=== PATIENT | female | born 1985 | race Caucasian/White ===

== ENCOUNTER → 2018-07-22 11:26 | Outpatient (CLI) | payer OTHER, SELFPAY ==
--- NOTE | 2018-07-22 11:31 | EKG12_ITS ---
Test Reason : CP Blood Pressure : / mmHG Vent. Rate : 074 BPM Atrial Rate : 074 BPM P-R Int : 118 ms QRS Dur : 088 ms QT Int : 378 ms P-R-T Axes : 050 053 036 degrees QTc Int : 419 ms Normal sinus rhythm Normal ECG Confirmed by MANDA STUART MD ([id number]), deputy editor in chief JENNIFER BUSTAMANTE ([id number] on 07/23/2018 2:11:50 PM Referred By: SAMPSON Roberto Confirmed By:MANDA STUART MD
== END ==
LOC: CVS 11:29
PROVIDERS: Family Provider Nurse Practitioner Family; PCP Nurse Practitioner Family; Referring Provider Nurse Practitioner Family; Visit Provider Nurse Practitioner Family
DX: R07.89 Other chest pain (principal)
CPT/HCPCS: 93005

== ENCOUNTER 2021-08-12 16:13 | Emergency (ER) | payer OTHER, SELFPAY ==
[2021-08-12 16:14] VITALS: BP 130/85; PULSE 114; RESP 16; TEMP 36.4; BMI 25.6
[2021-08-12 16:19] VITALS: BP 130/85; PULSE 114; RESP 16; TEMP 36.4
--- NOTE | 2021-08-12 18:55 | EX.ED.UPPERE ---
HPI History of Present Illness HPI Narrative: Patient presents with redness and swelling to her right fourth and fifth fingers that has been getting progressively worse over the last 3 days. Patient describes her pain as dull and tight. Patient states nothing makes it worse and nothing makes it better. Patient denies any fevers or chills. Patient denies any paresthesias or weakness. Patient denies any trauma or injury. Patient states the swelling started on her ring finger and has spread to her fifth finger. Patient denies any pain or swelling of other digits. Chief Complaint: Upper Extremity Injury Informant: patient Onset/Context/Timing Onset: Days (3) Context: Gradual Onset Timing: Continuous Quality of Pain: Dull Location: Right fourth and fifth fingers Worsened by: Nothing Relieved by: Nothing Associated Symptoms Associated Symptoms: Negative for Parasthesia, Weakness and Loss of Funtion PFSH PFS Medical History Anxiety Back pain Diabetes Home Medications cephalexin 500 mg PO Q6 #40 capsule 08/12/21 [Rx Last Taken Unknown] cholecalciferol (vitamin D3) 2,000 unit PO DAILY 08/12/21 [History Last Taken Unknown] metformin 500 mg PO BID 08/12/21 [History Last Taken Unknown] Allergy/AdvReac Type Severity Reaction Status Date / Time aripiprazole [From Abilify] Allergy Swelling Verified 08/12/21 16:19 Gadolinium-MRI Contrast Allergy PT UNSURE Verified 08/12/21 16:19 Medium OF REACTION [MRI] amphetamine [From Adderall] AdvReac PT UNSURE Verified 08/12/21 16:19 OF REACTION codeine AdvReac Itching Verified 08/12/21 16:19 dextroamphetamine AdvReac PT UNSURE Verified 08/12/21 16:19 [From Adderall] OF REACTION hydrocodone AdvReac Itching Verified 08/12/21 16:19 lamotrigine [From Lamictal] AdvReac NEEDS Verified 08/12/21 16:19 FOLLOW-UP Surgical History History of cholecystectomy Social History Smoking Status: Current every day smoker tobacco type: cigarettes ROS ROS ED Constitutional Constitutional ED: Denies chills or fever(s) Eyes Eyes: Denies blurry vision or change in vision ENT ENT ED: Denies rhinorrhea or sore throat Cardiovascular Cardiovascular: Denies chest pain or palpitations Respiratory/Chest Respiratory/Chest: Reports cough; Denies dyspnea Gastrointestinal Gastrointestinal: Denies nausea or vomiting Genitourinary Genitourinary ED: Denies dysuria or hematuria Musculoskeletal Musculoskeletal: Denies back pain or neck pain Integumentary Denies abscess or rash Neurologic Neurologic: Denies headache(s) or weakness Allergic/Immunologic Allergic/Immunologic ED: Denies mouth swelling or urticaria EXAM Physical Exam Const Vital Signs: 08/12/21 16:14 08/12/21 16:19 Temperature 97.6 F L 97.6 F L Temperature Source Temporal Temporal Pulse Rate 114 H 114 H Respiratory Rate 16 16 Blood Pressure 130/85 H 130/85 H Blood Pressure Mean 100 100 Positive well nourished and well developed General Appearance ED: well developed HEENT Reports moist mucous membranes Neck full ROM and supple Extremity Extremity Narrative: There is some mild edema and erythema over the fourth and fifth digits of the right hand. There is no pain with passive extension. There is no tenderness along the flexor tendon. Capillary refill was less than 2 seconds in all digits. Sensation was intact to light touch in all digits. Radial pulses are equal bilaterally. Neuro oriented x3, CN's II-XII intact bilaterally, moves all extremities, no focal motor deficits and no sensory deficits noted Sensorium / Orientation: alert MDM MDM MDM Narrative Medical decision making narrative: Patient was given a dose of Ancef here. CBC shows a mild leukocytosis of 12.2. Comprehensive metabolic profile was within normal limits. Patient was advised that this is most likely a cellulitis of her fingers. Patient does not have any Knavel signs that indicate flexor tenosynovitis. Patient was given a prescription for Keflex. Patient was instructed to follow-up with her primary care physician in 5 to 7 days. Patient understood and was agreeable with the plan. All questions were answered. Discharge Plan Triage Chief Complaint: Upper Extremity Injury ED Provider: Israel Saunders Dx/Rx/DC Orders Clinical Impression: Cellulitis of finger of right hand Instructions: ED Cellulitis Prescriptions: New cephalexin [cephalexin] 500 MG capsule 500 mg PO Q6 Qty: 40 RF: 0 No Action metformin 500 mg tablet extended release 24 hr 500 mg PO BID RF: 0 cholecalciferol (vitamin D3) 50 mcg (2,000 unit) capsule 2,000 unit PO DAILY RF: 0 Primary Care Provider: Chrissy Yeboah Referrals: Chrissy Yeboah MD [Primary Care Provider] - 3-5 Days Disposition Disposition: Home, Self Care
[2021-08-12] MEDS: Cefazolin 1 GM/50 ML BAG IV (19:33)
[2021-08-12 19:46] LABS: AST(SGOT) 28 U/L (15-37); Alanine Aminotransfer ALT/SGPT 17 U/L (13-56); Albumin, Serum 3.8 g/dL (3.2-5.0); Alkaline Phosphatase 84 U/L (45-117); Anion Gap 6 (5-15); BUN 7 mg/dL (7-18); BUN/Creat Ratio 9.7 RATIO (10-20); Calcium,Total 9.4 mg/dL (8.5-10.1); Chloride 108 mmol/L (98-107); Creatinine, Serum 0.72 mg/dL (0.55-1.02); EST Glomerular Filtration Rate 96 mL/min (>60); Est Glom Filt Rate - Afr Amer 116 mL/min (>60); Estimated Creatinine Clearance 79.94 ml/min; Globulin 3.9 g/dL (2.2-4.2); Glucose 86 mg/dL (74-106); Potassium 3.8 mmol/L (3.5-5.1); Protein, Total 7.7 g/dL (6.4-8.2); Sodium Level 138 mmol/L (136-145)
[2021-08-12 19:47] LABS: Absolute Lymphocyte Count 2.47 X10^3/uL (0.83-4.51); Absolute Neutrophil Count 8.8 X10^3/uL (2.0-7.7); Basophil# 0.04 X10^3/uL; Basophil% 0.3 % (0-1); Eosinophils% 0.8 % (0-5); Hematocrit 46.6 % (37-47); Hemoglobin 15.6 g/dL (12.0-15.0); Lymphocyte # 2.47 X10^3/ul (0.83-4.51); Lymphocyte % 20.3 % (19-41); Mean Corp Hgb Conc 33.5 g/dL (32-36); Mean Corpuscular Hgb 31.5 pg (27.0-32.0); Mean Platelet Vol. 8.4 fl (6.2-12.0); Monocyte# 0.71 X10^3/uL; Monocyte% 5.8 % (0-10); NRBC Flagged by Analyzer 0 % (0-5); Neutrophil # 8.82 X10^3/uL (2.7-7.7); Neutrophil % 72.4 % (47-70); Platelet Count 275 K/mm3 (150-450); RBC Distribution Width CV 13.5 % (11.6-14.6); RBC Distribution Width SD 46.6 fl (35.1-43.9); Red Blood Count 4.96 M/mm3 (4.2-5.4); White Blood Count 12.2 K/mm3 (4.4-11.0)
[2021-08-12 20:42] VITALS: PULSE 90; RESP 18
== END 2021-08-12 20:43 | disposition home or self-care (01) ==
PROVIDERS: Emergency Provider Emergency Medicine; PCP Family Medicine; Visit Provider Emergency Medicine
DX: L03.113 Cellulitis of right upper limb (principal); E11.9 Type 2 diabetes mellitus without complications; F17.210 Nicotine dependence, cigarettes, uncomplicated; F41.9 Anxiety disorder, unspecified
CPT/HCPCS: 80053; 85025; 96365; 99283; J7050

== ENCOUNTER → 2022-03-13 | Outpatient (CLI) | payer OTHER, SELFPAY ==
--- NOTE | 2022-03-13 09:30 | ASPSI_PTH ---
PATIENT: ERNESTO BRANCH LOC: [facility] U#:[id number] AGE/SX: 37/F ROOM: RE03/13/[address]: Dr. Zak Bull MD : [id number] BED: DIS: 03/13/2022 SPEC #: [id number] RECD: 03/13/22 13:04 STATUS: LALO WILLEM #: [id number] LAURA: 03/13/22 09:[address]: Zak Bull DEPT: CYTOLOGY RECD BY: Peng Rodriguez ENTERED: 03/13/22 13:58 SP TYPE: ASP DAVID DAMIAN DR: Dr. Chrissy Yeboah MD Tissues: A - Thyroid gland, NOS B - Thyroid gland, NOS C - Thyroid gland, NOS D - Thyroid gland, NOS Procedures: Surgery Specimen Level IV Cytospin Fluid Cytology Other HEADER OPERATION: Bilateral thyroid nodule fine needle aspiration PRE-OP DIAGNOSIS: Bilateral thyroid nodules TISSUE SUBMITTED: A - Right thyroid nodule fluid, B - Right thyroid nodule x4 slides, C - Left thyroid nodule fluid, D - Left thyroid nodule x4 DIAGNOSIS CYTOLOGY A. Right thyroid nodule fluid, fine needle aspiration (cytospin and cell block): Consistent with benign follicular/colloid nodule (Coleman Category II). Adequate for evaluation. B. Right thyroid nodule, fine needle aspiration (smears): Consistent with benign follicular/colloid nodule (Coleman Category II). Adequate for evaluation. C. Left thyroid nodule fluid, fine needle aspiration (cytospin and cell block): Consistent with benign follicular/colloid nodule (Coleman Category II). Adequate for evaluation. D. Left thyroid nodule, fine needle aspiration (smears): Consistent with benign follicular/colloid nodule (Coleman Category II). Adequate for evaluation. SJ:louis 03/14/2022 COMMENT Correlation with clinical, radiologic findings and appropriate follow up are necessary. The Coleman System for thyroid diagnostic categorization was used in the evaluation of this case. CYTOLOGY STUDY Slides are reviewed. CYTOLOGY GROSS A - Received is 20 ml of red cloudy fluid labeled with the patient's name and and designated per the requisition as right thyroid nodule. Submitted for cytology preparation including cell block. B - Received are four smears labeled with the patient's name and designated per the requisition as right thyroid nodule. Submitted for staining. C - Received is 20 ml of red cloudy fluid labeled with the patient's name and and designated per the requisition as left thyroid nodule. Submitted for cytology preparation including cell block. D - Received are four smears labeled with the patient's name and designated per the requisition as left thyroid nodule. Submitted for staining. / louis 03/13/2022 TC:5 CPT: 72042 x2, 41575 x4
== END | disposition home or self-care (01) ==
LOC: LABSPEC 13:08
PROVIDERS: PCP Family Medicine; Referring Provider Surgery; Visit Provider Surgery
DX: E04.2 Nontoxic multinodular goiter (principal)
CPT/HCPCS: 88108; 88161; 88305

== ENCOUNTER → 2022-04-11 | Outpatient (CLI) | payer OTHER, SELFPAY ==
[2022-04-11 16:47] LABS: Free T3 2.8 pg/mL (2.18-3.98); T4 Total, Thyroxin 10.9 ug/dL (4.8-13.9); Thyroid Stim Hormone (TSH) 1.41 uIU/mL (0.358-3.74)
== END | disposition home or self-care (01) ==
PROVIDERS: PCP Family Medicine; Referring Provider Surgery; Visit Provider Surgery
DX: E04.1 Nontoxic single thyroid nodule (principal)
CPT/HCPCS: 36415; 84436; 84443; 84481

== ENCOUNTER 2022-04-29 21:15 | Emergency (ER) | payer OTHER, SELFPAY ==
[2022-04-29 21:16] VITALS: BP 163/82; PULSE 95; RESP 22; TEMP 36.7; O2SAT 100; BMI 24.5
--- NOTE | 2022-04-29 21:59 | EDS_ITS ---
HPI HPI - GI History of Present Illness Chief Complaint: Abd Pain Detail of Chief Complaint: Epigastric abdominal pain Informant: patient Abdominal Pain/Flank Pain Onset: Today and Hours Context: Gradual Onset Timing: Continuous Quality: Cramping Location: Diffuse and Epigastric Current Severity: Mild Maximum Severity: Moderate Worsened by: Nothing Relieved by: Nothing Nausea/Vomiting/Emesis GI Symptom: Negative for Nausea or Vomiting Diarrhea/Melena/Hematochezia GI Symptom: Negative for Diarrhea, Melena or Hematochezia Associated Symptoms Associated Symptoms: Negative for Dysuria, Frequency, Hematuria or Urgency Narrative Narrative: 37 old female sent down with dinner. Drink a Coke. Started epigastric abdominal pain prior to eating. Initially felt like heartburn. Then cramping and was diffuse. She became diaphoretic. No chest pain or shortness of breath. Came to the ER to be evaluated. Denies any recent nausea vomiting or diarrhea. No melena. No fever or chills. No weight loss. She has had a prior c holecystectomy. She has had prior peptic ulcer disease. She is diabetic. Prior similar symptoms: No Recent Illness/Hospitalization: No PFSH PFSH Medical History Anxiety Back pain Depression Diabetes History of hemorrhoids Home Medications cholecalciferol (vitamin D3) 50 mcg (2,000 unit) capsule 2,000 unit PO DAILY 08/12/21 [History Last Taken Unknown] metformin 500 mg tablet,extended release 24 hr 500 mg PO BID 08/12/21 [History Last Taken Unknown] Saccharomyces boulardii 250 mg capsule (Daily Probiotic (S. boulardii)) 5,000 mmu cells PO DAILY 03/13/22 [History Last Taken Unknown] Allergy/AdvReac Type Severity Reaction Status Date / Time aripiprazole [From Abilify] Allergy Swelling Verified 04/29/22 21:16 Gadolinium-MRI Contrast Allergy PT UNSURE Verified 04/29/22 21:16 Medium OF REACTION [MRI] iodine Allergy Other Verified 04/29/22 21:16 amphetamine [From Adderall] AdvReac PT UNSURE Verified 04/29/22 21:16 OF REACTION codeine AdvReac Itching Verified 04/29/22 21:16 dextroamphetamine AdvReac PT UNSURE Verified 04/29/22 21:16 [From Adderall] OF REACTION hydrocodone AdvReac Itching Verified 04/29/22 21:16 Iodinated Contrast Media AdvReac Other Verified 04/29/22 21:16 lamotrigine [From Lamictal] AdvReac NEEDS Verified 04/29/22 21:16 FOLLOW-UP Family History Aunt Breast cancer Grandfather Colon cancer Grandmother Heart disease High cholesterol Kidney disease Unknown Diabetes Surgical History History of cholecystectomy Social History Smoking Status: Current some day smoker tobacco type: cigarettes alcohol intake: never substance use type: does not use ROS ROS ED ROS Narrative Epigastric abdominal pain. Review of Systems ROS Unobtainable: Denies due to encephalopathy Constitutional Constitutional ED: Denies chills or fever(s) ENT ENT ED: Denies ear pain Cardiovascular Cardiovascular: Denies chest pain Respiratory/Chest Respiratory/Chest: Denies cough Gastrointestinal Gastrointestinal: Reports abdominal pain; Denies constipation, diarrhea, melena, nausea or vomiting Genitourinary Genitourinary ED: Denies dysuria or hematuria Musculoskeletal Musculoskeletal: Denies arthralgias Integumentary Denies abscess Neurologic Neurologic: Denies headache(s) Psychiatric Psychiatric: Denies anxiety Endocrine Endocrinology: Denies polydipsia Hematologic/Lymphatic Hematologic/Lymphatic: Denies easy bleeding Allergic/Immunologic Allergic/Immunologic ED: Denies mouth swelling or tongue swelling EXAM Physical Exam Narrative Exam Narrative: 7 female no acute distress. Vital signs stable afebrile. H EENT exam u nremarkable. Lungs are clear. Heart regular rhythm no murmur. Abdomen soft nondistended normal bowel sounds no peritoneal signs. Mild epigastric tenderness. Right upper and right lower quadrant unremarkable. No distention or obstruction. No pulsatile mass. Moving all 4 extremities. Calves are nontender. Back nontender. Neurologic exam normal. Benign exam. Const Vital Signs: 04/29/22 21:16 Temperature 98.1 F Temperature Source Temporal Pulse Rate 95 Respiratory Rate 22 H Blood Pressure 163/82 H Blood Pressure Mean 109 Pulse Ox 100 Oxygen Delivery Method Room Air Positive well nourished and well developed; Negative for obese, cachectic, contractures or unkempt General Appearance ED: well developed and NAD; Negative for unkempt, cachectic, contractures or pallor Nutritional Appearance: Negative for cachectic or obese HEENT Reports moist mucous membranes normocephalic and atraumatic; Negative for trauma or tenderness Eyes PERRL and EOMs intact bilaterally General Eye ED: Negative for pale conjunctiva, scleral icterus or other Neck no lymphadenopathy, supple and no JVD General: Negative for tenderness Carotids: Negative for other Lymph Lymphatic: Negative for other Resp normal respiratory effort and clear to auscultation bilaterally Effort and Inspection: Negative for respiratory distress Auscultation: Negative for rales, rhonchi or wheezes Cardio regular rate, regular rhythm, S1 normal heart sound, S2 normal heart sound and no murmurs Rate: Negative for bradycardia Rhythm: Negative for abnormal rhythm GI non-distended and no masses; Negative for non-tender Inspection: Negative for abdominal distention Auscultation: normoactive bowel sounds Palpation: soft and tender; Negative for guarding, rigid, hepatomegaly, splenomegaly, hernia, mass, pulsatile mass or rebound tenderness present Back/Spine no CVA tenderness General Back: Negative for CVA tenderness Cervical Spine: Negative for cervical spine tenderness Thoracic Spine / Upper Back: Negative for thoracic spinal tenderness Lumbar Spine / Lower Back: Negative for lumbar spinal tenderness Coccyx: Negative for other Extremity full ROM General Extremety ED: Negative for edema or tenderness General Extremity: Negative for edema Neuro CN's II-XII intact bilaterally and moves all extremities Sensorium / Orientation: alert, oriented to person, oriented to place and oriented to time; Negative for orientation impaired, confused, lethargic or stuporous Motor Exam: strength 5/5 throughout Psych mental status grossly normal and thought process normal Appearance: Negative for unkempt Attitude: No agitated Mood & Affect: Negative for depressed Skin no wounds General Skin Exam: Negative for jaundice or pallor Lesions: no lesions Rashes: no rashes Trauma: Negative for abrasion Nails: Negative for discolored MDM MDM MDM Narrative Medical decision making narrative: 37-year-old epigastric abdominal pain. She does not need any imaging at this time. It is a benign abdominal exam. Treated with GI cocktail and Protonix. Screening labs being obtained. Repeat exam at 11:28 PM patient doing well. Abdomen is benign. She is feeling improved. Repeat abdominal exam is nontender. Nondistended. Again no peritoneal signs. She and I discussed all of her test results. She will be discharged home with outpatient follow-up. Lab Data Attestation: I reviewed the patient's lab results. Lab results narrative: CBC normal white count of 10. H&H 13.3 and 40. Platelets 216. CMP unremarkable. Anion gap is 8. Normal BUN and creatinine. Normal liver enzymes. Glucose 129. Lipase normal at 368. Labs: Laboratory Results - last 24 hr 04/29/22 04/29/22 22:38 22:38 WBC 10.0 RBC 4.59 Hgb 13.3 Hct 40.5 MCV 88.2 MCH 29.0 MCHC 32.8 RDW Std Deviation 48.2 H RDW Coeff of Daryl 14.8 H Plt Count 216 MPV 8.9 Immature Gran % (Auto) 0.400 Neut % (Auto) 77.1 H Lymph % (Auto) 14.2 L Russell % (Auto) 7.1 Eos % (Auto) 1.0 Baso % (Auto) 0.2 Absolute Neuts (auto) 7.7 Absolute Lymphs (auto) 1.42 Nucleated RBC % 0 Sodium 140 Potassium 3.5 Chloride 109 H Carbon Dioxide 23.0 Anion Gap 8 BUN 14 Creatinine 0.80 Estim Creat Clear Calc 71.24 Est GFR (MDRD) Af Amer 103 Est GFR (MDRD) Non-Af 85 BUN/Creatinine Ratio 17.6 Glucose 129 H Calcium 9.0 Total Bilirubin 0.20 AST 27 ALT 15 Alkaline Phosphatase 74 Troponin I High Sens 6 Total Protein 7.4 Albumin 3.7 Globulin 3.7 Albumin/Globulin Ratio 1.0 Lipase 368 Discharge Plan Triage Chief Complaint: Abd Pain ED Provider: oCrey Bruno Dx/Rx/DC Orders Clinical Impression: Abdominal pain, History of diabetes mellitus Instructions: Abdominal Pain Prescriptions: No Action Saccharomyces boulardii [Daily Probiotic (S. boulardii)] 250 mg capsule 5,000 mmu cells PO DAILY metformin 500 mg tablet extended release 24 hr 500 mg PO BID Label Comments: TAKE 1 TABLET BY MOUTH 3 TIMES A DAY cholecalciferol (vitamin D3) 50 mcg (2,000 unit) capsule 2,000 unit PO DAILY Label Comments: TAKE 1 CAPSULE BY MOUTH EVERY DAY Primary Care Provider: Chrissy Yeboah Referrals: Chrissy Yeboah MD [Primary Care Provider] - 3-5 Days if not improving Activity Restrictions/Additional Instructions: Follow-up with your doctor if not improving. Your labs were unremarkable. If you are having pain you can try Tums or [id number] Protonix or Prilosec. Return if increasing pain, fever, intractable vomiting, black or bloody stool. Disposition Disposition: Home, Self Care
[2022-04-29] MEDS: Mag Hydrox/Al Hydrox/Simeth 30 ML UDC PO (22:45)
[2022-04-29 22:50] LABS: Absolute Lymphocyte Count 1.42 X10^3/uL (0.83-4.51); Absolute Neutrophil Count 7.7 X10^3/uL (2.0-7.7); Basophil# 0.02 X10^3/uL; Basophil% 0.2 % (0-1); Hematocrit 40.5 % (37-47); Hemoglobin 13.3 g/dL (12.0-15.0); Lymphocyte # 1.42 X10^3/ul (0.83-4.51); Lymphocyte % 14.2 % (19-41); Mean Corp Hgb Conc 32.8 g/dL (32-36); Mean Corpuscular Volume 88.2 fL (81-99); Mean Platelet Vol. 8.9 fl (6.2-12.0); Monocyte# 0.71 X10^3/uL; Monocyte% 7.1 % (0-10); NRBC Flagged by Analyzer 0 % (0-5); Neutrophil # 7.69 X10^3/uL (2.7-7.7); Neutrophil % 77.1 % (47-70); Platelet Count 216 K/mm3 (150-450); RBC Distribution Width CV 14.8 % (11.6-14.6); RBC Distribution Width SD 48.2 fl (35.1-43.9); Red Blood Count 4.59 M/mm3 (4.2-5.4)
[2022-04-29 23:11] LABS: AST(SGOT) 27 U/L (15-37); Alanine Aminotransfer ALT/SGPT 15 U/L (13-56); Albumin, Serum 3.7 g/dL (3.2-5.0); Alkaline Phosphatase 74 U/L (45-117); Anion Gap 8 (5-15); BUN 14 mg/dL (7-18); BUN/Creat Ratio 17.6 RATIO (10-20); Chloride 109 mmol/L (98-107); EST Glomerular Filtration Rate 85 mL/min (>60); Est Glom Filt Rate - Afr Amer 103 mL/min (>60); Estimated Creatinine Clearance 71.24 ml/min; Globulin 3.7 g/dL (2.2-4.2); Glucose 129 mg/dL (74-106); Lipase 368 U/L (73-393); Potassium 3.5 mmol/L (3.5-5.1); Protein, Total 7.4 g/dL (6.4-8.2); Sodium Level 140 mmol/L (136-145); Troponin-I HS 6 pg/mL (3.0-54.0)
== END 2022-04-29 23:37 | disposition home or self-care (01) ==
PROVIDERS: Emergency Provider Emergency Medicine; PCP Family Medicine; Visit Provider Emergency Medicine
DX: R10.13 Epigastric pain (principal); E11.9 Type 2 diabetes mellitus without complications
CPT/HCPCS: 80053; 83690; 84484; 85025; 96374; 99283; J7050; A4216; J3490

== ENCOUNTER 2022-05-15 11:57 | Emergency (ER) | payer OTHER, SELFPAY ==
[2022-05-15 11:58] VITALS: BP 135/84; PULSE 101; RESP 18; TEMP 36.2; O2SAT 99; BMI 24.9
[2022-05-15 14:49] VITALS: BP 129/85; PULSE 81; RESP 16; TEMP 36.9; O2SAT 100
--- NOTE | 2022-05-15 14:50 | EX.ED.DYSGE1 ---
HPI <DAPHNEY Menchaca - Last Filed: 05/15/22 18:50> History of Present Illness Chief Complaint: Cellulitis Narrative Narrative: Patient presents with pain and mild swelling in the right hand. She states the pain feels dull and tight. Patient states this has been going on for the past week and it is progressively getting worse. Patient was seen 08/12/21 for the same symptoms and was diagnosed with cellulitis of the right hand. Patient still has full range of motion in hand. Patient denies fever and chills. She denies any injury to the hand. PFSH <DAPHNEY Menchaca - Last Filed: 05/15/22 18:50> [facility] Medical History Anxiety Back pain Depression Diabetes History of hemorrhoids Home Medications cholecalciferol (vitamin D3) 50 mcg (2,000 unit) capsule 2,000 unit PO DAILY 08/12/21 [History Last Taken Unknown] metformin 500 mg tablet,extended release 24 hr 500 mg PO BID 08/12/21 [History Last Taken Unknown] Saccharomyces boulardii 250 mg capsule (Daily Probiotic (S. boulardii)) 5,000 mmu cells PO DAILY 03/13/22 [History Last Taken Unknown] cephalexin 500 mg capsule 500 mg PO Q6 cellulitis 5 days #20 caps 05/15/22 [Rx Last Taken Unknown] Allergy/AdvReac Type Severity Reaction Status Date / Time aripiprazole [From Abilify] Allergy Swelling Verified 05/15/22 14:54 Gadolinium-MRI Contrast Allergy PT UNSURE Verified 05/15/22 14:54 Medium OF REACTION [MRI] iodine Allergy Other Verified 05/15/22 14:54 amphetamine [From Adderall] AdvReac PT UNSURE Verified 05/15/22 14:54 OF REACTION codeine AdvReac Itching Verified 05/15/22 14:54 dextroamphetamine AdvReac PT UNSURE Verified 05/15/22 14:54 [From Adderall] OF REACTION hydrocodone AdvReac Itching Verified 05/15/22 14:54 Iodinated Contrast Media AdvReac Other Verified 05/15/22 14:54 lamotrigine [From Lamictal] AdvReac NEEDS Verified 05/15/22 14:54 FOLLOW-UP Family History Aunt Breast cancer Grandfather Colon cancer Grandmother Heart disease High cholesterol Kidney disease Unknown Diabetes Surgical History History of cholecystectomy Social History Smoking Status: Current some day smoker tobacco type: cigarettes alcohol intake: never substance use type: does not use ROS <DAPHNEY Menchaca - Last Filed: 05/15/22 18:50> ROS ED Constitutional Constitutional ED: Denies chills, fever(s) or sweats Eyes Eyes: Denies blurry vision or change in vision ENT ENT ED: Denies rhinorrhea or sore throat Cardiovascular Cardiovascular: Denies chest pain Respiratory/Chest Respiratory/Chest: Denies cough or dyspnea Gastrointestinal Gastrointestinal: Denies abdominal pain, diarrhea, melena, nausea or vomiting Musculoskeletal Musculoskeletal: Denies myalgias Integumentary Reports other Details: Patient admits to mild edema and erythema in fingers 3 through 5 as well as the base of the thumb. ; Denies abscess, Abrasions or rash Neurologic Neurologic: Denies headache(s) or weakness Psychiatric Psychiatric: Denies anxiety EXAM <DAPHNEY Menchaca - Last Filed: 05/15/22 18:50> Physical Exam Const Vital Signs: 05/15/22 11:58 05/15/22 14:49 Temperature 97.2 F L 98.5 F Temperature Source Temporal Oral Pulse Rate 101 H 81 Respiratory Rate 18 16 Blood Pressure 135/84 H 129/85 H Blood Pressure Mean 101 99 Pulse Ox 99 100 Oxygen Delivery Method Room Air Positive well nourished HEENT Reports moist mucous membranes Negative for trauma or tenderness Eyes PERRL and EOMs intact bilaterally Neck supple Resp normal respiratory effort and clear to auscultation bilaterally Cardio regular rate, regular rhythm and no murmurs GI non-tender, non-distended and no masses Extremity Extremity Narrative: Patient has mild erythema and edema in fingers 3 through 5 on the right hand. No streaking. There is some mild edema at the base of the right thumb. There is no tenderness along the flexor tendon in any finger. Radial pulses full bilaterally, normal capillary refill, sensation intact throughout hand. There is no pain with passive extension of any finger. Neuro oriented x3, CN's II-XII intact bilaterally and no sensory deficits noted Sensorium / Orientation: alert Motor Exam: strength 5/5 throughout Psych mental status grossly normal Skin no rashes or lesions noted and no wounds Skin Narrative: See extremity. <Dr. Dash Acevedo DO - Last Filed: 05/15/22 16:05> Physical Exam Const Vital Signs: 05/15/22 11:58 05/15/22 14:49 Temperature 97.2 F L 98.5 F Temperature Source Temporal Oral Pulse Rate 101 H 81 Respiratory Rate 18 16 Blood Pressure 135/84 H 129/85 H Blood Pressure Mean 101 99 Pulse Ox 99 100 Oxygen Delivery Method Room Air MDM <DAPHNEY Menchaca - Last Filed: 05/15/22 18:50> [facility] MDM Narrative Medical decision making narrative: Patient states the symptoms she is experiencing today in her right hand today are the same as what they were in July 2021 when she presented to the ED. She says her symptoms did improve with antibiotics at that time. Infection is not clear, however, antibiotics did improve her symptoms before so I have given them to her again today. I encouraged her to follow-up with her PCP to determine what is causing this issue. <Dr. Dash Acevedo DO - Last Filed: 05/15/22 16:05> [facility] Treatment and Re-Evaluation Narrative: I performed a history and physical examination of the patient and discussed management plan with the physician offset assistant press operator. I reviewed the physician offset assistant press operator's note and agree with the documented findings and plan of care. Patient has recurrent swelling and pain to the webspace in between the right thumb and index finger. Previously it got better with Keflex. She is a diabetic. She denies any trauma. She also notes pain over the lateral 3 MCP joints on the same hand. She denies any pain above the wrist joint. I do not appreciate any increased warmth. It is not isolated to the joint so I do not think that this is gout. While I do not have a strong suspicion of infection she does note that she did get better previously with the same symptoms. We can do a thumb spica splint Keflex but I would encourage her to follow-up as the exact etiology of her symptoms is unclear at this point Dash P. Kennerdell DO, MS Discharge Plan Triage Chief Complaint: Cellulitis ED Midlevel Provider: Sumi Fajardo ED Provider: Dash Acevedo Dx/Rx/DC Orders Clinical Impression: Cellulitis, Pain in hand Instructions: Cellulitis Dc Prescriptions: New cephalexin 500 mg capsule 500 mg PO Q6 5 Days Qty: 20 0RF No Action Saccharomyces boulardii [Daily Probiotic (S. boulardii)] 250 mg capsule 5,000 mmu cells PO DAILY metformin 500 mg tablet extended release 24 hr 500 mg PO BID Label Comments: TAKE 1 TABLET BY MOUTH 3 TIMES A DAY cholecalciferol (vitamin D3) 50 mcg (2,000 unit) capsule 2,000 unit PO DAILY Label Comments: TAKE 1 CAPSULE BY MOUTH EVERY DAY Primary Care Provider: Chrissy Yeboah Referrals: Chrissy Yeboah MD [Primary Care Provider] - Activity Restrictions/Additional Instructions: Please follow-up with PCP in 5 to 7 days for evaluation. If you notice worsening of symptoms or increased redness and edema seek medical attention. Disposition Disposition: Home, Self Care Discharge Date/Time: 05/15/22 15:38
== END 2022-05-15 15:38 | disposition home or self-care (01) ==
PROVIDERS: Emergency Provider Emergency Medicine; PCP Family Medicine; Visit Provider Emergency Medicine
DX: L03.113 Cellulitis of right upper limb (principal); E11.9 Type 2 diabetes mellitus without complications
CPT/HCPCS: 99283

== ENCOUNTER 2022-06-13 08:23 | Emergency (ER) | payer OTHER, SELFPAY ==
[2022-06-13 08:24] VITALS: BP 141/94; PULSE 109; RESP 16; TEMP 36.6; O2SAT 99; BMI 25.4
[2022-06-13 08:26] VITALS: BP 141/94; PULSE 109; RESP 16; TEMP 36.6; O2SAT 99
--- NOTE | 2022-06-13 08:48 | RAD_ITS ---
STUDY: X-RAY - RIGHT HAND, ATTENTION FOURTH FINGER REASON FOR EXAM: Female, 37 years old. pain TECHNIQUE: 3 view(s) of the finger were obtained. COMPARISON: None. FINDINGS: Normal metacarpal head. Normal metacarpophalangeal joint. Normal proximal phalanx. Normal middle phalanx. Normal distal phalanx. Normal proximal interphalangeal joint. Normal distal interphalangeal joint. Mild diffuse soft tissue swelling is present around the phalanges of the fourth digit. No fractures seen. RAD/Finger(s) Min 2 Views IMPRESSION: Mild soft tissue swelling Electronically Signed: Bon Franz MD at 9:25 EST ,
--- NOTE | 2022-06-13 08:56 | EX.ED.UPPERE ---
HPI History of Present Illness Chief Complaint: Upper Extremity Injury Narrative Narrative: Patient presents with pain in the right fourth digit, she has had multiple episodes of cellulitis in that region. She has dry skin, and she is a diabetic. She has no fevers or chills. No trauma in that region. No streaking. This has been going on for 2 days [facility] Medical History Anxiety Back pain Depression Diabetes History of hemorrhoids Home Medications cholecalciferol (vitamin D3) 50 mcg (2,000 unit) capsule 2,000 unit PO DAILY 08/12/21 [History Last Taken Unknown] metformin 500 mg tablet,extended release 24 hr 500 mg PO BID 08/12/21 [History Last Taken Unknown] Saccharomyces boulardii 250 mg capsule (Daily Probiotic (S. boulardii)) 5,000 mmu cells PO DAILY 03/13/22 [History Last Taken Unknown] cephalexin 500 mg capsule 500 mg PO Q6 cellulitis 5 days #20 caps 05/15/22 [Rx Last Taken Unknown] sulfamethoxazole 800 mg-trimethoprim 160 mg tablet (Bactrim DS) 1 tab PO BID #14 tabs 06/13/22 [Rx Last Taken Unknown] Allergy/AdvReac Type Severity Reaction Status Date / Time aripiprazole [From Abilify] Allergy Swelling Verified 06/13/22 08:27 Gadolinium-MRI Contrast Allergy PT UNSURE Verified 06/13/22 08:27 Medium OF REACTION [MRI] iodine Allergy Other Verified 06/13/22 08:27 amphetamine [From Adderall] AdvReac PT UNSURE Verified 06/13/22 08:27 OF REACTION codeine AdvReac Itching Verified 06/13/22 08:27 dextroamphetamine AdvReac PT UNSURE Verified 06/13/22 08:27 [From Adderall] OF REACTION hydrocodone AdvReac Itching Verified 06/13/22 08:27 Iodinated Contrast Media AdvReac Other Verified 06/13/22 08:27 lamotrigine [From Lamictal] AdvReac NEEDS Verified 06/13/22 08:27 FOLLOW-UP Family History Aunt Breast cancer Grandfather Colon cancer Grandmother Heart disease High cholesterol Kidney disease Unknown Diabetes Surgical History History of cholecystectomy Social History Smoking Status: Current every day smoker tobacco type: cigarettes alcohol intake: never substance use type: does not use ROS ROS ED ROS Narrative Past medical history: none Medications: Reviewed Social history: Noncontributory Review of systems: Musculoskeletal: Left fourth digit pain Skin: No abrasions or lacerations Neurological: No weakness or paresthesias Hematologic: No easy bleeding or easy bruising EXAM Physical Exam Narrative Exam Narrative: Physical exam General: Patient does not appear in significant distress . Head: Normocephalic, Atraumatic Neck: No C-spine tenderness Cardiovascular: Normal distal pulses Back: Nontender, Normal Inspection. Extremities: Left fourth digit has very slight tenderness over the pulp of the middle phalanx, no Knievel signs. Very slight erythema is present but no edema. Skin: No abrasions, no lacerations Neurological: Normal strength and sensation Const Vital Signs: 06/13/22 08:24 06/13/22 08:26 Temperature 97.9 F 97.9 F Temperature Source Temporal Temporal Pulse Rate 109 H 109 H Respiratory Rate 16 16 Blood Pressure 141/94 H 141/94 H Blood Pressure Mean 109 109 Pulse Ox 99 99 Oxygen Delivery Method Room Air Room Air MDM MDM Treatment and Re-Evaluation Narrative: X-ray finger read by me is normal. Patient likely has early cellulitis due to her prior history. Appears well. Based on prior history and my physical exam I believe she likely has early cellulitis which I will treat. Meaning changes patient is to return. Discharge Plan Triage Chief Complaint: Upper Extremity Injury ED Provider: Kilo Hahn Dx/Rx/DC Orders Clinical Impression: Cellulitis, Finger pain, Diabetes Instructions: Cellulitis Dc Prescriptions: New sulfamethoxazole-trimethoprim [Bactrim DS] 800-160 mg tablet 1 tab PO BID Qty: 14 0RF No Action Saccharomyces boulardii [Daily Probiotic (S. boulardii)] 250 mg capsule 5,000 mmu cells PO DAILY metformin 500 mg tablet extended release 24 hr 500 mg PO BID Label Comments: TAKE 1 TABLET BY MOUTH 3 TIMES A DAY cholecalciferol (vitamin D3) 50 mcg (2,000 unit) capsule 2,000 unit PO DAILY Label Comments: TAKE 1 CAPSULE BY MOUTH EVERY DAY cephalexin 500 mg capsule 500 mg PO Q6 5 Days Qty: 20 0RF Primary Care Provider: Chrissy Yeboah Referrals: Chrissy Yeboah MD [Primary Care Provider] - 3-5 Days Disposition Disposition: Home, Self Care
== END 2022-06-13 09:49 | disposition home or self-care (01) ==
PROVIDERS: Emergency Provider Emergency Medicine; PCP Family Medicine; Visit Provider Emergency Medicine
DX: L03.114 Cellulitis of left upper limb (principal); E11.9 Type 2 diabetes mellitus without complications; F17.210 Nicotine dependence, cigarettes, uncomplicated; M79.644 Pain in right finger(s)
CPT/HCPCS: 73140; 99282

== ENCOUNTER 2022-06-15 08:22 | Emergency (ER) | payer OTHER, SELFPAY ==
[2022-06-15 08:23] VITALS: BP 130/113; PULSE 86; RESP 16; TEMP 36.6; O2SAT 98; BMI 25.4
--- NOTE | 2022-06-15 08:43 | EDS_ITS ---
HPI History of Present Illness Chief Complaint: Cellulitis Detail of Chief Complaint: Right ring finger. Informant: patient Onset/Context/Timing Onset: Days Context: Gradual Onset Timing: Continuous Current Severity: Mild Maximum Severity: Mild Narrative Narrative: 37-year-old diabetic female. She is right-hand dominant. Was seen 2 days ago felt to have early cellulitis in her right ring finger. She has had this before. A month or 2 ago she was on Keflex and it resolved. She was seen y esterday started on Bactrim twice a day she is taken 2 days worth. Says not improving. Subjective chills. No streaks. No prior hand surgery. Prior similar symptoms: Yes Recent Illness/Hospitalization: No PFSH PFS Medical History Anxiety Back pain Depression Diabetes History of hemorrhoids Home Medications cholecalciferol (vitamin D3) 50 mcg (2,000 unit) capsule 2,000 unit PO DAILY 08/12/21 [History Last Taken Unknown] metformin 500 mg tablet,extended release 24 hr 500 mg PO BID 08/12/21 [History Last Taken Unknown] Saccharomyces boulardii 250 mg capsule (Daily Probiotic (S. boulardii)) 5,000 mmu cells PO DAILY 03/13/22 [History Last Taken Unknown] cephalexin 500 mg capsule 500 mg PO Q6 cellulitis 5 days #20 caps 05/15/22 [Rx Last Taken Unknown] sulfamethoxazole 800 mg-trimethoprim 160 mg tablet (Bactrim DS) 1 tab PO BID #14 tabs 06/13/22 [Rx Last Taken Unknown] cephalexin 500 mg capsule 500 mg PO Q6 7 days #28 caps 06/15/22 [Rx Last Taken Unknown] Allergy/AdvReac Type Severity Reaction Status Date / Time aripiprazole [From Abilify] Allergy Swelling Verified 06/15/22 08:23 Gadolinium-MRI Contrast Allergy PT UNSURE Verified 06/15/22 08:23 Medium OF REACTION [MRI] iodine Allergy Other Verified 06/15/22 08:23 amphetamine [From Adderall] AdvReac PT UNSURE Verified 06/15/22 08:23 OF REACTION codeine AdvReac Itching Verified 06/15/22 08:23 dextroamphetamine AdvReac PT UNSURE Verified 06/15/22 08:23 [From Adderall] OF REACTION hydrocodone AdvReac Itching Verified 06/15/22 08:23 Iodinated Contrast Media AdvReac Other Verified 06/15/22 08:23 lamotrigine [From Lamictal] AdvReac NEEDS Verified 06/15/22 08:23 FOLLOW-UP Family History Aunt Breast cancer Grandfather Colon cancer Grandmother Heart disease High cholesterol Kidney disease Unknown Diabetes Surgical History History of cholecystectomy Social History Smoking Status: Current every day smoker tobacco type: cigarettes alcohol intake: never substance use type: does not use ROS ROS ED ROS Narrative Right ring finger pain. No trauma. Review of Systems ROS Unobtainable: Denies due to encephalopathy Constitutional Constitutional ED: Reports chills; Denies fever(s) Eyes Eyes: Denies blurry vision ENT ENT ED: Denies ear pain Cardiovascular Cardiovascular: Denies chest pain Respiratory/Chest Respiratory/Chest: Denies cough or dyspnea Gastrointestinal Gastrointestinal: Denies abdominal pain Genitourinary Genitourinary ED: Denies dysuria Musculoskeletal Musculoskeletal: Denies arthralgias Integumentary Denies abscess Neurologic Neurologic: Denies headache(s) Psychiatric Psychiatric: Denies anxiety Endocrine Endocrinology: Denies cold intolerance Hematologic/Lymphatic Hematologic/Lymphatic: Reports none Allergic/Immunologic Allergic/Immunologic ED: Denies mouth swelling or tongue swelling EXAM Physical Exam Narrative Exam Narrative: 37-year-old female no acute distress vital signs stable afebrile. H EENT exam unremarkable. Neck nontender. Lungs are clear. Heart regular rhythm. Abdomen soft nontender. Moving all 4 extremities. Neurovascular intact. Specifically right hand ring finger palmar side mid phalanx mild swelling and tenderness. No abscess. Full flexion. Full except tension. No Knievel sign. Palm is nontender. There is no red streaks in the palm or the forearm. No axillary lymphadenopathy. Full range of motion to her shoulder, elbow, wrist and hand. This may be an early cellulitis. Currently no signs of an abscess. No paronychia or eponychia. Hand is neurovascularly intact. Const Vital Signs: 12/22/22 08:23 Temperature 97.8 F Temperature Source Temporal Pulse Rate 86 Respiratory Rate 16 Blood Pressure 130/113 H Blood Pressure Mean 118 Pulse Ox 98 Oxygen Delivery Method Room Air Positive well nourished and well developed; Negative for obese, cachectic, contractures or unkempt General Appearance ED: well developed and NAD; Negative for unkempt, cachectic, contractures, cyanotic or diaphoretic Nutritional Appearance: Negative for cachectic or obese HEENT Reports moist mucous membranes; Denies dry mucous membranes Negative for trauma or tenderness Mouth ED: No dry mucous membranes Mouth: No dry mucous membranes Eyes PERRL and EOMs intact bilaterally General Eye ED: Negative for pale conjunctiva or scleral icterus Neck no lymphadenopathy, supple and no JVD General: Negative for tenderness Lymph Lymphatic: Negative for other Chest Wall inspection of chest normal and palpation of chest normal Chest: Negative for other Resp normal respiratory effort and clear to auscultation bilaterally Effort and Inspection: Negative for retractions Auscultation: Negative for rales, rhonchi or wheezes Cardio regular rate, regular rhythm, S1 normal heart sound, S2 normal heart sound and no murmurs Palpation: palpable S3 Rate: Negative for bradycardia Rhythm: Negative for abnormal rhythm GI normal to inspection, nondistended, normoactive bowel sounds, non-tender, non- distended and no masses; Negative for hepatosplenomegaly Inspection: Negative for abdominal distention Auscultation: normoactive bowel sounds Palpation: soft; Negative for tender, guarding or splenomegaly Back/Spine no CVA tenderness General Back: Negative for CVA tenderness Cervical Spine: Negative for cervical spine tenderness Thoracic Spine / Upper Back: Negative for thoracic spinal tenderness Lumbar Spine / Lower Back: Negative for lumbar spinal tenderness Extremity Negative for normal to inspection Extremity Narrative: Right ring finger palmar side mid phalanx tender mildly swollen. Full flexion. Full extension. No lymphangitic streaking. No eponychia or paronychia. Normal cap refill. No axillary lymphadenopathy. General Extremety ED: Yes edema and tenderness General Extremity: edema Neuro oriented x3, CN's II-XII intact bilaterally and no sensory deficits noted Sensorium / Orientation: alert; Negative for orientation impaired or lethargic Motor Exam: strength 5/5 throughout Psych mental status grossly normal Appearance: Negative for unkempt Attitude: No agitated Mood & Affect: Negative for depressed Skin no rashes or lesions noted and no wounds General Skin Exam: Negative for elasticity normal Lesions: No lesion noted Rashes: No rashes noted Trauma: Negative for abrasion Wounds: Negative for wounds noted MDM MDM MDM Narrative Medical decision making narrative: Patient with suspected cellulitis on her right ring finger mid phalanx. She is on Bactrim for 2 days. I will add Keflex 4 times a day for a week. I explained to her at this time there is nothing to incise and drain. If this progressively worsens at something that may need to happen but not today. Ice and elevate. Motrin and Tylenol for pain. Follow-up if not improving or return if worse. Discharge Plan Triage Chief Complaint: Cellulitis ED Provider: Corey Bruno Dx/Rx/DC Orders Clinical Impression: Cellulitis of finger of right hand, History of diabetes mellitus Instructions: ED Cellulitis Prescriptions: New cephalexin 500 mg capsule 500 mg PO Q6 7 Days Qty: 28 0RF No Action Saccharomyces boulardii [Daily Probiotic (S. boulardii)] 250 mg capsule 5,000 mmu cells PO DAILY metformin 500 mg tablet extended release 24 hr 500 mg PO BID Label Comments: TAKE 1 TABLET BY MOUTH 3 TIMES A DAY cholecalciferol (vitamin D3) 50 mcg (2,000 unit) capsule 2,000 unit PO DAILY Label Comments: TAKE 1 CAPSULE BY MOUTH EVERY DAY cephalexin 500 mg capsule 500 mg PO Q6 5 Days Qty: 20 0RF sulfamethoxazole-trimethoprim [Bactrim DS] 800-160 mg tablet 1 tab PO BID Qty: 14 0RF Primary Care Provider: Chrissy Yeboah Referrals: Chrissy Yeboah MD [Primary Care Provider] - 1 Week Activity Restrictions/Additional Instructions: Start the second antibiotic Keflex 1 pill 4 times a day today. You will take both that and the Bactrim twice a day. This should progressively improve. If not follow-up with your primary care physician. If its not getting better we might have to incise and drain it but not at this time. Motrin and Tylenol for pain. Ice and elevate. No jewelry on that hand. Disposition Disposition: Home, Self Care
== END 2022-06-15 09:02 | disposition home or self-care (01) ==
PROVIDERS: Emergency Provider Emergency Medicine; PCP Family Medicine; Visit Provider Emergency Medicine
DX: L03.113 Cellulitis of right upper limb (principal); E11.9 Type 2 diabetes mellitus without complications; F17.210 Nicotine dependence, cigarettes, uncomplicated
CPT/HCPCS: 99282

== ENCOUNTER → 2022-11-06 | Outpatient (CLI) | payer OTHER, SELFPAY ==
--- NOTE | 2022-11-06 08:58 | ECHOD_ITS ---
Reason For Study: DYSPNEA Procedure This was a 2D Doppler, Color Flow transthoracic echocardiogram. Exam performed in department. Left Ventricle Normal LV size. Left ventricular systolic function is normal. The estimated ejection fraction is 65 %. No regional wall motion abnormalities noted. Right Ventricle Normal RV size. Normal systolic function. Atria Normal left atrium. Normal right atrium. Mitral Valve Normal mitral valve. Tricuspid Valve Normal tricuspid valve. Aortic Valve Trisinus/trileaflet aortic valve. Pulmonic Valve Normal pulmonic valve. Great Vessels Normal aortic root. The pulmonary artery is normal size. Normal inferior vena cava. Pericardium/Pleural No pericardial effusion. MMode/2D Measurements & Calculations LVIDd: 4.2 cm IVSd: 0.92 cm Ao root diam: 2.9 cm LVIDs: 2.8 cm LVPWd: 0.80 cm FS: 33.8 % LAV(MOD-bp): 30.3 ml LVAd ap4: 26.6 cm2 SV(MOD-sp4): 50.9 ml LAV(MOD-bp) Indexed: 18.8 ml/m2 LVLd ap4: 7.3 cm LAV(MOD-sp2): 30.1 ml EDV(MOD-sp4): 79.3 ml LAV(MOD-sp4): 27.8 ml EDV(sp4-el): 82.3 ml LVAs ap4: 13.7 cm2 LVLs ap4: 5.7 cm ESV(MOD-sp4): 28.5 ml ESV(sp4-el): 27.7 ml EF(MOD-sp4): 64.1 % EF(sp4-el): 66.3 % SV(sp4-el): 54.6 ml LA A4 area: 12.7 cm2 LA dimension(2D): 3.2 cm RA A4 area: 10.7 cm2 Time Measurements MV dec time: 0.15 sec Doppler Measurements & Calculations MV E max steve: 85.0 cm/sec Lat Peak E' Steve: 16.5 cm/sec Med Peak E' Steve: 12.7 cm/sec MV A max steve: 66.2 cm/sec E/E' lat: 5.2 E/E' med: 6.7 MV E/A: 1.3 MV V2 max: 92.4 cm/sec Ao V2 max: 141.3 cm/sec MV max P.4 mmHg MV dec slope: 612.4 cm/sec2 Ao max P.0 mmHg MV V2 mean: 52.3 cm/sec Ao V2 mean: 99.4 cm/sec MV mean P.3 mmHg Ao mean P.5 mmHg MV V2 VTI: 28.9 cm Ao V2 VTI: 32.4 cm AV (velocity ratio): 0.73 LV V1 max: 115.9 cm/sec PA V2 max: 85.7 cm/sec LV V1 max P.4 mmHg LV V1 mean P.8 mmHg LV V1 mean: 77.4 cm/sec LV V1 VTI: 23.7 cm ECHO/Echo Complete Interpretation Summary Normal LV size. Left ventricular systolic function is normal. The estimated ejection fraction is 65 %. Structurally normal valves. Ordering Physician: Chrissy Yeboah Referring Physician: Chrissy Yeboah Performed By: Yahaira Thompson RCS
== END | disposition home or self-care (01) ==
LOC: CVS 08:57
PROVIDERS: PCP Family Medicine; Referring Provider Family Medicine; Visit Provider Family Medicine
DX: R06.09 Other forms of dyspnea (principal); F17.200 Nicotine dependence, unspecified, uncomplicated
CPT/HCPCS: 93306

== ENCOUNTER → 2022-11-09 | Outpatient (CLI) | payer OTHER, SELFPAY ==
[2022-11-09 12:52] LABS: Vitamin B12 382 pg/mL (211-911)
[2022-11-09 13:13] LABS: Creatinine, Urine (random) < 13.00 mg/dL (NO RANGE EST.); Microalbumin,Random Urine < 5.0 mg/L (NO RANGE EST.)
== END | disposition home or self-care (01) ==
LOC: BFHLAB 08:52
PROVIDERS: PCP Family Medicine; Referring Provider Family Medicine; Visit Provider Family Medicine
DX: E11.9 Type 2 diabetes mellitus without complications (principal); E53.8 Deficiency of other specified B group vitamins
CPT/HCPCS: 36415; 82043; 82570; 82607

== ENCOUNTER → 2023-02-27 | Outpatient (CLI) | payer OTHER, SELFPAY ==
--- NOTE | 2023-02-27 12:08 | US_ITS ---
INDICATION: Thyroid nodules EXAMINATION: Ultrasound US Thyroid (eg thyroid, parathyroid, parotid) TECHNIQUE: Rodriguez scale and color doppler imaging was performed of the thyroid gland. TIRADS criteria was utilized. COMPARISON: 03/13/2022 ultrasound of the right lobe biopsy. FINDINGS: RIGHT THYROID LOBE: 5.5 x 2.0 x 2.1 cm with a volume of 11.7 mL. Heterogeneous echotexture. Normal vascularity. 1.8 cm nodule which is mixed solid and cystic with solid components hypoechoic to isoechoic and is wider than tall with smooth margins and no echogenic foci and is stable as compared to the prior ultrasound. LEFT THYROID LOBE: 5.3 x 1.5 x 2.0 cm with a volume of 8.4 mL. Heterogeneous echotexture. 9 mm nodule which is mixed solid and cystic, isoechoic solid components, wider than tall with smooth margins and no echogenic foci. No thyroid nodules. 1.9 x 0.8 x 1.2 cm nodule with cystic components which is posterior to the left lobe. ISTHMUS: 6 mm in AP diameter. heterogeneous echotexture. Normal vascularity. No thyroid nodules. US/Thyroid IMPRESSION: 1. 1.8 cm right lobe nodule, stable as compared to ultrasound biopsy images from 03/13/2022. Recommend referring to [facility] pathology results. 2. 9 mm left lobe thyroid nodule consistent with a TIRADS 2 nodule with no follow-up recommended. 3. 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 Electronically Signed: Abundio Ramirez DO at 23:28 EDT ,
== END | disposition home or self-care (01) ==
LOC: US 12:08
PROVIDERS: PCP Family Medicine; Referring Provider Physician Assistant; Visit Provider Physician Assistant
DX: E04.2 Nontoxic multinodular goiter (principal)
CPT/HCPCS: 76536

== ENCOUNTER → 2023-03-21 | Outpatient (CLI) | payer OTHER, SELFPAY ==
--- NOTE | 2023-03-21 09:45 | BI_ITS ---
MAMMOGRAPHY - BILATERAL SCREENING REASON FOR EXAM: Female, 38 years old. Routine annual screening examination. PERTINENT HISTORY: Aunt with breast cancer. Occasional breast tenderness. TECHNIQUE: Digital bilateral breast callie (3D mammographic acquisition) in the CC and MLO projections. 2-D mediolateral oblique (MLO) and craniocaudad (CC) views of both breasts were obtained. CAD: Full Field Digital Mammography with Computer Added Detection was performed. COMPARISON: Comparison is made with prior examination dated February 23, 2022. FINDINGS: Breast Composition: There are scattered areas of fibroglandular density. There are no dominant masses or suspicious calcifications. Stable small benign-appearing bilateral axillary lymph nodes. No other significant abnormalities are identified. There has been no significant change since the prior study. BI/SCRN MAMM (CAD)W/CALLIE BILAT IMPRESSION: Stable bilateral screening mammogram. Yearly follow-up mammogram recommended. (A) ASSESSMENT CATEGORY: BIRADS Category 2: Benign. A letter regarding these results will be sent to the patient by the facility within 30 days. Approximately 10% of breast cancers are not detected by mammography. A normal mammogram should not delay biopsy of a clinically suspicious abnormality. [id number] Electronically Signed: Kirill Vidales MD at 14:15 EDT ,
== END | disposition home or self-care (01) ==
PROVIDERS: PCP Family Medicine; Referring Provider Family Medicine; Visit Provider Family Medicine
DX: Z12.31 Encounter for screening mammogram for malignant neoplasm of breast (principal)
CPT/HCPCS: 77063; 77067

== ENCOUNTER → 2023-03-29 | Outpatient (CLI) | payer OTHER, SELFPAY ==
[2023-03-29 10:56] LABS: PTHIN 22.5 pg/mL (18.4-80.1)
[2023-03-29 10:59] LABS: Vitamin D,25 Hydroxy 28.1 ng/mL
[2023-03-29 11:05] LABS: Free T3 2.6 pg/mL (2.18-3.98); T4 Total, Thyroxin 11.7 ug/dL (4.8-13.9); Thyroid Stim Hormone (TSH) 1.47 uIU/mL (0.358-3.74)
== END | disposition home or self-care (01) ==
LOC: PAVLAB 10:05
PROVIDERS: PCP Family Medicine; Referring Provider Surgery; Visit Provider Surgery
DX: E04.2 Nontoxic multinodular goiter (principal); E04.1 Nontoxic single thyroid nodule
CPT/HCPCS: 36415; 82306; 82310; 83970; 84436; 84443; 84481

== ENCOUNTER → 2023-09-29 | Outpatient (CLI) | payer OTHER, SELFPAY ==
[2023-09-29 08:37] LABS: Absolute Neutrophil Count 5.6 X10^3/uL (2.0-7.7); Basophil# 0.03 X10^3/uL; Basophil% 0.4 % (0-1); Eosinophils% 1.3 % (0-5); Hematocrit 50.1 % (37-47); Hemoglobin 16.8 g/dL (12.0-15.0); Lymphocyte % 20.5 % (19-41); Mean Corp Hgb Conc 33.5 g/dL (32-36); Mean Corpuscular Hgb 31.7 pg (27.0-32.0); Mean Corpuscular Volume 94.5 fL (81-99); Mean Platelet Vol. 8.7 fl (6.2-12.0); Monocyte# 0.45 X10^3/uL; Monocyte% 5.8 % (0-10); NRBC Flagged by Analyzer 0 % (0-5); Neutrophil # 5.61 X10^3/uL (2.7-7.7); Neutrophil % 71.7 % (47-70); Platelet Count 218 K/mm3 (150-450); RBC Distribution Width CV 12.6 % (11.6-14.6); RBC Distribution Width SD 44.1 fl (35.1-43.9); White Blood Count 7.8 K/mm3 (4.4-11.0)
[2023-09-29 09:01] LABS: AST(SGOT) 29 U/L (15-37); Alanine Aminotransfer ALT/SGPT 17 U/L (13-56); Albumin, Serum 3.9 g/dL (3.2-5.0); Alkaline Phosphatase 64 U/L (45-117); Anion Gap 3 (5-15); BUN 14 mg/dL (7-18); Calcium,Total 9.2 mg/dL (8.5-10.1); Chloride 108 mmol/L (98-107); Cholesterol 198 mg/dL (200); Creatinine, Serum 0.93 mg/dL (0.55-1.02); EST Glomerular Filtration Rate 71 mL/min (>60); Est Glom Filt Rate - Afr Amer 85 mL/min (>60); Globulin 3.8 g/dL (2.2-4.2); Glucose 144 mg/dL (74-106); High Density Lipoprotein 37 mg/dL; Potassium 3.9 mmol/L (3.5-5.1); Protein, Total 7.7 g/dL (6.4-8.2); Sodium Level 135 mmol/L (136-145); Triglycerides 75 mg/dL; Very Low Density Lipoprotein 15 mg/dL (5-40)
== END | disposition home or self-care (01) ==
LOC: LAB 07:28
PROVIDERS: PCP Family Medicine; Referring Provider Family Medicine; Visit Provider Family Medicine
DX: E11.9 Type 2 diabetes mellitus without complications (principal); F17.200 Nicotine dependence, unspecified, uncomplicated
CPT/HCPCS: 36415; 80053; 80061; 85025

== ENCOUNTER 2023-10-21 08:45 | Emergency (ER) | payer OTHER, SELFPAY ==
[2023-10-21 08:48] VITALS: BP 124/86; PULSE 80; RESP 18; TEMP 36.6; O2SAT 100; BMI 27.1
--- NOTE | 2023-10-21 09:16 | CT_ITS ---
STUDY: CT BRAIN WITHOUT CONTRAST REASON FOR EXAM: Female, 38 years old. Vertigo RADIATION DOSAGE (If Supplied By Facility): CTDIvol = ( 44.99 ) mGy, DLP = ( 745.49 ) mGycm TECHNIQUE: Transaxial CT imaging of the brain was performed without administration of intravenous contrast material. Individualized dose optimization techniques were used for this CT. COMPARISON: No relevant priors. FINDINGS: Normal soft tissue structures. Normal calvarium. Normal size ventricles and extra-axial spaces for the patient''s age. Normal white matter tracts of the cerebral hemispheres. Normal basal ganglia and thalami. Normal brainstem. Normal cerebellum. There is no intracranial hemorrhage. There are no findings of an acute ischemic infarction. Normal visualized paranasal sinuses. s CT/Brain/Head without Contrast IMPRESSION: Normal unenhanced CT scan of the brain. Electronically Signed: Yanick River MD at 10:59 EDT ,
--- NOTE | 2023-10-21 09:16 | EX.ED.DYSGE1 ---
HPI History of Present Illness Chief Complaint: Dizziness Informant: patient Narrative Narrative: Intermittent dizziness for the past 5 days. Yesterday was the worst, she had to have her come pick her up from work. She states she feels lightheaded but she also feels a sensation of movement like she is drunk. She states it does not affect her ability to walk in a straight line. She denies any numbness or tingling. When walking up steps she is feeling it, and has felt like she might pass out. She states it makes it for awful but she does not get nausea or vomit. She has had some headaches with this, yesterday she was having tinnitus off-and-on in her left ear which she has never had before. She denies any recent URIs. She denies any recent head injuries. She is never had this before. She denies any peripheral neurologic symptoms or problems speaking or remembering anything. She states she has had a lot of stress lately and is asking if it is all related to that. Today it was occurring while she was in her car she does not remember any specific head movements to trigger any of the symptoms. [facility] Medical History Anxiety Back pain Depression Diabetes History of hemorrhoids Home Medications cholecalciferol (vitamin D3) 50 mcg (2,000 unit) capsule 2,000 unit PO DAILY 08/12/21 [History Last Taken Unknown] Saccharomyces boulardii 250 mg capsule (Daily Probiotic (S. boulardii)) 5,000 mmu cells PO DAILY 03/13/22 [History Last Taken Unknown] metformin 500 mg tablet,extended release 24 hr 500 mg PO TID 03/08/23 [History Last Taken Unknown] norethindrone acetate 5 mg tablet 5 mg PO DAILY 03/08/23 [History Last Taken Unknown] meclizine 25 mg tablet 25 mg PO Q8H PRN PRN Dizziness #20 tabs 10/21/23 [Rx Last Taken Unknown] Allergy/AdvReac Type Severity Reaction Status Date / Time aripiprazole [From Abilify] Allergy Swelling Verified 10/21/23 08:46 Gadolinium-MRI Contrast Allergy PT UNSURE Verified 10/21/23 08:46 Medium OF REACTION [MRI] iodine Allergy Other Verified 10/21/23 08:46 amphetamine [From Adderall] AdvReac PT UNSURE Verified 10/21/23 08:46 OF REACTION codeine AdvReac Itching Verified 03/08/23 12:56 dextroamphetamine AdvReac PT UNSURE Verified 10/21/23 08:46 [From Adderall] OF REACTION hydrocodone AdvReac Itching Verified 10/21/23 08:46 Iodinated Contrast Media AdvReac Other Verified 10/21/23 08:46 lamotrigine [From Lamictal] AdvReac NEEDS Verified 10/21/23 08:46 FOLLOW-UP Family History Aunt Breast cancer Grandfather Colon cancer Grandmother Heart disease High cholesterol Kidney disease Unknown Diabetes Surgical History History of cholecystectomy Social History Smoking Status: Current every day smoker tobacco type: cigarettes alcohol intake: never substance use type: does not use ROS ROS ED Constitutional Constitutional ED: Denies chills or fever(s) Eyes Eyes: Reports blurry vision bilateral (Intermittent, when she has headaches. History of migraines but this does not necessarily feel like a migraine); Denies change in vision or diplopia ENT ENT ED: Reports other Details: Intermittent tinnitus left ear ; Denies ear pain, rhinorrhea or sore throat Cardiovascular Cardiovascular: Denies chest pain or palpitations Respiratory/Chest Respiratory/Chest: Denies cough or dyspnea Gastrointestinal Gastrointestinal: Denies abdominal pain, diarrhea, nausea or vomiting Genitourinary Genitourinary ED: Denies dysuria or hematuria Musculoskeletal Musculoskeletal: Denies back pain or neck pain Integumentary Denies abscess or rash Neurologic Neurologic: Reports as per HPI, disequilibrium, dizziness and headache(s); Denies paresthesias or weakness Psychiatric Psychiatric: Denies anxiety or suicidal thoughts EXAM Physical Exam Const Vital Signs: 10/21/23 08:48 10/21/23 09:05 10/21/23 09:31 Temperature 97.9 F Temperature Source Temporal Pulse Rate 80 Pulse Rate [Lying] 60 Pulse Rate [Sitting (for 1 minute prior to obtaining)] 65 Pulse Rate [Standing (for 1 minute prior to obtaining)] 84 Respiratory Rate 18 Respiratory Effort Normal Respiratory Pattern Normal Blood Pressure 124/86 H Blood Pressure [Lying] 111/80 Blood Pressure [Sitting (for 1 minute prior to obtaining)] 114/74 Blood Pressure [Standing (for 1 minute prior to obtaining)] 109/85 H Blood Pressure Mean 98 Blood Pressure Mean [Lying] 90 Blood Pressure Mean [Sitting (for 1 minute prior to obtaining)] 87 Blood Pressure Mean [Standing (for 1 minute prior to obtaining)] 93 Pulse Ox 100 Oxygen Delivery Method Room Air 10/21/23 10:56 Temperature Temperature Source Pulse Rate 74 Pulse Rate [Lying] Pulse Rate [Sitting (for 1 minute prior to obtaining)] Pulse Rate [Standing (for 1 minute prior to obtaining)] Respiratory Rate 16 Respiratory Effort Respiratory Pattern Blood Pressure 127/84 H Blood Pressure [Lying] Blood Pressure [Sitting (for 1 minute prior to obtaining)] Blood Pressure [Standing (for 1 minute prior to obtaining)] Blood Pressure Mean 98 Blood Pressure Mean [Lying] Blood Pressure Mean [Sitting (for 1 minute prior to obtaining)] Blood Pressure Mean [Standing (for 1 minute prior to obtaining)] Pulse Ox 99 Oxygen Delivery Method Room Air Positive well nourished and well developed General Appearance ED: well developed and NAD HEENT Reports TM's clear and moist mucous membranes normocephalic and atraumatic Tympanic Membrane ED: Yes TM's clear Eyes PERRL and EOMs intact bilaterally Eyes Narrative: No pathologic horizontal, vertical, rotatory nystagmus. Neck full ROM and supple Resp normal respiratory effort and clear to auscultation bilaterally Cardio regular rate, regular rhythm and no murmurs GI non-tender and non-distended Auscultation: normoactive bowel sounds Palpation: soft Back/Spine no CVA tenderness General Back: other FROM Extremity normal to inspection General Extremety ED: Negative for edema, pulses abnormal or tenderness General Extremity: Negative for edema or pulses abnormal Neuro oriented x3, CN's II-XII intact bilaterally and no sensory deficits noted Neuro Narrative: NIHSS 0. Normal uuidgh-hz-bpup and eogt-dl-igbp bilaterally. No dysarthria or aphasia. Positive [place] to the left, causing brief disequilibrium when when she sits up. Not enough time before resolution in order to do a jolt test. Zero symptoms with maneuver to the right. Sensorium / Orientation: awake and alert Motor Exam: strength 5/5 throughout Psych mental status grossly normal Skin no rashes or lesions noted and no wounds MDM MDM MDM Narrative Medical decision making narrative: Physical exam suggesting peripheral etiology as is the history. Obtained a CT, I reviewed the images and report which I agree with, it is negative for any acute. In the meantime, we ran some labs and she suggested she had a history of anemia for unknown reason, and also gave her a dose of meclizine after she passed a dysphagia screen and then reevaluated her. She is doing much better. She is able to get up and move around she not having any more dizziness. Orthostatics are negative. Her blood test are normal, she is not anemic as she suggested. I reassured her, given all of this I suspect this is probably peripheral vertigo originating from the left ear. Given her prescription for meclizine and encouraging her to follow-up with symptoms do not self-resolved. Lab Data Attestation: I reviewed the patient's lab results. Labs: Laboratory Results - last 24 hr 10/21/23 09:20 WBC 6.6 RBC 5.09 Hgb 16.1 H Hct 47.7 H MCV 93.7 MCH 31.6 MCHC 33.8 RDW Std Deviation 43.8 RDW Coeff of Daryl 12.7 Plt Count 209 MPV 9.0 Immature Gran % (Auto) 0.200 Neut % (Auto) 70.6 H Lymph % (Auto) 21.3 [place] % (Auto) 5.9 Eos % (Auto) 1.4 Baso % (Auto) 0.6 Absolute Neuts (auto) 4.6 Absolute Lymphs (auto) 1.40 Nucleated RBC % 0 Sodium 140 Potassium 3.7 Chloride 111 H Carbon Dioxide 24.0 Anion Gap 5 BUN 12 Creatinine 0.97 Estim Creat Clear Calc 66.64 Est GFR (MDRD) Af Amer 81 Est GFR (MDRD) Non-Af 67 BUN/Creatinine Ratio 12.3 Glucose 145 H Calcium 9.4 Radiography Diagnostic Testing: Clinical Impression(s) from Imaging Studies Brain CT 10/21/23 09:16 IMPRESSION: Normal unenhanced CT scan of the brain. Electronically Signed: Yanick River MD at 10:59 EDT , Discharge Plan Triage Chief Complaint: Dizziness ED Provider: Yanick Livingston Dx/Rx/DC Orders Clinical Impression: Peripheral vertigo involving left ear Instructions: ED Labyrinthitis, ED Vertigo, Unspecified Prescriptions: New meclizine [meclizine] 25 mg tablet 25 mg PO Q8H PRN PRN (Reason: Dizziness) Qty: 20 0RF No Action Saccharomyces boulardii [Daily Probiotic (S. boulardii)] 250 mg capsule 5,000 mmu cells PO DAILY norethindrone acetate 5 mg tablet 5 mg PO DAILY cholecalciferol (vitamin D3) 50 mcg (2,000 unit) capsule 2,000 unit PO DAILY Patient Comments: TAKE 1 CAPSULE BY MOUTH EVERY DAY metformin 500 mg tablet extended release 24 hr 500 mg PO TID Patient Comments: TAKE 1 TABLET BY MOUTH 3 TIMES A DAY Primary Care Provider: Chrissy Yeboah Referrals: Chrissy Yeboah MD [Primary Care Provider] - 1 Week if not improving Disposition Disposition: Home, Self Care
[2023-10-21 09:31] VITALS: BP 109/85; BP 111/80; BP 114/74; PULSE 60; PULSE 65; PULSE 84
[2023-10-21] MEDS: Meclizine HCl 25 MG Tablet PO (09:36)
[2023-10-21 09:39] LABS: Absolute Neutrophil Count 4.6 X10^3/uL (2.0-7.7); Basophil# 0.04 X10^3/uL; Basophil% 0.6 % (0-1); Eosinophil# 0.09 X10^3/uL; Eosinophils% 1.4 % (0-5); Hematocrit 47.7 % (37-47); Hemoglobin 16.1 g/dL (12.0-15.0); Lymphocyte % 21.3 % (19-41); Mean Corp Hgb Conc 33.8 g/dL (32-36); Mean Corpuscular Hgb 31.6 pg (27.0-32.0); Mean Corpuscular Volume 93.7 fL (81-99); Monocyte# 0.39 X10^3/uL; Monocyte% 5.9 % (0-10); NRBC Flagged by Analyzer 0 % (0-5); Neutrophil # 4.64 X10^3/uL (2.7-7.7); Neutrophil % 70.6 % (47-70); Platelet Count 209 K/mm3 (150-450); RBC Distribution Width CV 12.7 % (11.6-14.6); RBC Distribution Width SD 43.8 fl (35.1-43.9); Red Blood Count 5.09 M/mm3 (4.2-5.4); White Blood Count 6.6 K/mm3 (4.4-11.0)
[2023-10-21 09:49] LABS: Anion Gap 5 (5-15); BUN 12 mg/dL (7-18); BUN/Creat Ratio 12.3 RATIO (10-20); Calcium,Total 9.4 mg/dL (8.5-10.1); Chloride 111 mmol/L (98-107); Creatinine, Serum 0.97 mg/dL (0.55-1.02); EST Glomerular Filtration Rate 67 mL/min (>60); Est Glom Filt Rate - Afr Amer 81 mL/min (>60); Estimated Creatinine Clearance 66.64 ml/min; Glucose 145 mg/dL (74-106); Potassium 3.7 mmol/L (3.5-5.1); Sodium Level 140 mmol/L (136-145)
[2023-10-21] MEDS: Acetaminophen 500 MG Tablet 1000 MG PO (10:44)
[2023-10-21 10:56] VITALS: BP 127/84; PULSE 74; RESP 16; O2SAT 99
== END 2023-10-21 11:55 | disposition home or self-care (01) ==
PROVIDERS: Emergency Provider Emergency Medicine; PCP Family Medicine; Visit Provider Emergency Medicine
DX: H81.392 Other peripheral vertigo, left ear (principal); R51.9 Headache, unspecified; H93.12 Tinnitus, left ear; F17.210 Nicotine dependence, cigarettes, uncomplicated
CPT/HCPCS: 70450; 80048; 85025; 99284; A4216

== ENCOUNTER 2023-10-22 08:09 | Emergency (ER) | payer OTHER, SELFPAY ==
[2023-10-22 08:11] VITALS: BP 130/88; PULSE 89; RESP 18; TEMP 36.2; O2SAT 100; BMI 25.9
--- NOTE | 2023-10-22 08:36 | EDS_ITS ---
HPI History of Present Illness Chief Complaint: Dizziness PFSH PFS Medical History Anxiety Back pain Depression Diabetes History of hemorrhoids Home Medications cholecalciferol (vitamin D3) 50 mcg (2,000 unit) capsule 2,000 unit PO DAILY 08/12/21 [History Last Taken Unknown] Saccharomyces boulardii 250 mg capsule (Daily Probiotic (S. boulardii)) 5,000 mmu cells PO DAILY 03/13/22 [History Last Taken Unknown] metformin 500 mg tablet,extended release 24 hr 500 mg PO TID 03/08/23 [History Last Taken Unknown] norethindrone acetate 5 mg tablet 5 mg PO DAILY 03/08/23 [History Last Taken Unknown] meclizine 25 mg tablet 25 mg PO Q8H PRN PRN Dizziness #20 tabs 10/21/23 [Rx Last Taken Unknown] Allergy/AdvReac Type Severity Reaction Status Date / Time aripiprazole [From Abilify] Allergy Swelling Verified 10/22/23 08:10 Gadolinium-MRI Contrast Allergy PT UNSURE Verified 10/22/23 08:10 Medium OF REACTION [MRI] iodine Allergy Other Verified 10/22/23 08:10 amphetamine [From Adderall] AdvReac PT UNSURE Verified 10/22/23 08:10 OF REACTION codeine AdvReac Itching Verified 10/22/23 08:10 dextroamphetamine AdvReac PT UNSURE Verified 10/22/23 08:10 [From Adderall] OF REACTION hydrocodone AdvReac Itching Verified 10/22/23 08:10 Iodinated Contrast Media AdvReac Other Verified 10/22/23 08:10 lamotrigine [From Lamictal] AdvReac NEEDS Verified 10/22/23 08:10 FOLLOW-UP Family History Aunt Breast cancer Grandfather Colon cancer Grandmother Heart disease High cholesterol Kidney disease Unknown Diabetes Surgical History History of cholecystectomy Social History Smoking Status: Current every day smoker tobacco type: cigarettes alcohol intake: never substance use type: does not use EXAM Physical Exam Const Vital Signs: 10/22/23 08:11 10/22/23 08:32 Temperature 97.1 F L Temperature Source Temporal Pulse Rate 89 Respiratory Rate 18 Respiratory Effort Normal Non-Labored Respiratory Pattern Normal Blood Pressure 130/88 H Blood Pressure Mean 102 Pulse Ox 100 Oxygen Delivery Method Room Air [facility] [place]arr[place] Medical decision making narrative: HISTORY OF PRESENT ILLNESS: 38-year-old female here with dizziness. Notes feeling flushed, pale, sweaty, lightheaded just prior to arrival. This was transient lasting for approximately 15-minute and has resolved. Denies any chest pain during the event. Does note some shortness of breath that she attributes to freaking out. Denies any unilateral leg swelling, hemoptysis, other VTE risk factors. Noted she is on estrogen-based hormonal contraceptives. Denies any focal weakness numbness or loss sensation. Dizziness is not exacerbated by head movement or by position changes REVIEW OF SYSTEMS: Pertinent positives: Dizziness, shortness of breath, diaphoresis Pertinent negatives: Chest pain, focal weakness PHYSICAL EXAM: Nursing triage notes reviewed, Vital signs reviewed Constitutional: please see mdm HENT: MMM Eyes: Pupils equal round and reactive to light, Extraocular muscles intact Neck: No stridor, no JVD, full neck ROM Lungs: Clear to auscultation, No wheezing or rales. No increased work of breathing, no conversational dyspnea, no accessory muscle use, no nasal flaring. No respiratory distress noted Heart: Regular rate and rhythm, No murmurs, No rubs and No gallops, 2+ distal pulses (radial, femoral, posterior tibial) in all extremities Abdomen: Soft, there is no tenderness, rigidity, rebound or guarding, no obvious peritoneal signs, no palpable pulsatile abdominal masses, no auscultated abdominal bruit : No CVAT Extremities: No edema Neuro: Alert and oriented x3, neuro exam at baseline, cranial nerves II through XII are intact. No pain with extraocular muscle movement. There is negative test of skew. 5 of 5 strength in upper and lower extremities in flexion extension. Intact sensation to light touch in upper and lower extremity dermatomes. No truncal or extremity ataxia. No dysdiadochokinesia. Normal gait. 2+ reflexes in upper and lower extremities. No meningeal signs. Negative Babinski. NIH of 0. Skin: No rash or lesions noted MEDICAL DECISION MAKING: Chief Complaint: Dizziness External records reviewed: Imaging studies reviewed CT scan of the brain from yesterday showed no acute process Factors affecting care: Peripheral vertigo Social determinants of health: none History obtained from others: none Consults: none MDM Narrative: Patient was hemodynamically stable, afebrile and nontoxic-appearing. Nonfocal neuroexam. NIH of 0. No signs of posterior circulation CVA I considered the following differential diagnosis: Arrhythmia, anemia, pneumonia, electrolyte disturbance, dehydration, posterior circulation CVA I obtained a broad lab and imaging workup to further elucidate the etiology the patient's complaint Treat patient with 1 L normal saline ALL IMAGES (IF OBTAINED) HAVE BEEN PERSONALLY REVIEWED AND INTERPRETED BY MYSELF. EKG with normal sinus rhythm, normal axis, normal intervals, no STEMI Urinalysis shows no evidence of urinary inflammation suggestive of UTI CBC without leukocytosis, severe anemia, no thrombocytopenia. Elevated hemoglobin suggest hemoconcentration which may be indicative of dehydration I have personally reviewed the patient's chest x-ray. Chest x-ray is unremarkable for pulmonary edema, pneumothorax, pneumonia or focal cardiopulmonary abnormality. High-sensitivity troponin is negative, no evidence of myocardial ischemia CMP without evidence of acute kidney injury, significant electrolyte abnormality, anion gap, no evidence hepatobiliary pathology. The synthesis of the patient's history, physical exam, labs images suggest no acute life or limb threatening pathology specifically her physical exam does not suggest a posterior circulation CVA. There is no signs of arrhythmia or myocardial ischemia on her EKG. High-sensitivity troponin is also negative. No signs of pneumonia, electrolyte disturbance, significant kidney dysfunction. Patient's hemoglobin is elevated this may be consistent with dehydration which could present as dizziness lightheadedness or near syncope. There is no life or limb threatening etiology that I could find here in the emergency department and the patient is appropriate for discharge home for close outpatient follow-up. The patient and/or family, caregivers express understanding. The patient and/or family, caregivers agrees with the plan. Shared decision making: I will have a discussion with the patient and or visitors regarding risk/benefits of further testing or admission. They will be made aware of of the risk/benefits inherent in this decision they will be given the opportunity to voice understanding. Total critical care time today provided was at least 0 minutes. This excludes separately billable procedures. Critical care time (if documented) is secondary to the patient having high probability of clinically significant/life threatening deterioration in the patient's condition which required my urgent intervention. Impression: 1. Near syncope 2. Diaphoresis Dispo: Discharge home This note was generated with [employer] dictation software. It may contain incorrect words, spelling, and punctuation that were not noted in review of the chart prior to signing. Lab Data Labs: Laboratory Results - last 24 hr 10/22/23 10/22/23 09:20 09:25 WBC 7.1 RBC 4.98 Hgb 16.2 H Hct 46.9 MCV 94.2 MCH 32.5 H MCHC 34.5 RDW Std Deviation 43.8 RDW Coeff of Daryl 12.7 Plt Count 201 MPV 8.9 Immature Gran % (Auto) 0.300 Neut % (Auto) 73.1 H Lymph % (Auto) 21.0 [place] % (Auto) 4.7 Eos % (Auto) 0.6 Baso % (Auto) 0.3 Absolute Neuts (auto) 5.2 Absolute Lymphs (auto) 1.48 Nucleated RBC % 0 Sodium 140 Potassium 3.9 Chloride 113 H Carbon Dioxide 21.0 Anion Gap 6 BUN 13 Creatinine 0.88 Estim Creat Clear Calc 71.87 Est GFR (MDRD) Af Amer 91 Est GFR (MDRD) Non-Af 76 BUN/Creatinine Ratio 14.8 Glucose 150 H Calcium 9.2 Total Bilirubin 0.30 AST 26 ALT 13 Alkaline Phosphatase 55 Troponin I High Sens 5 B-Natriuretic Peptide 24.0 Total Protein 7.2 Albumin 3.6 Globulin 3.6 Albumin/Globulin Ratio 1.0 Urine Color Straw Urine Clarity Clear Urine pH 6.[address] 1.005 Urine Protein Negative Urine Glucose (UA) Normal Urine Ketones Negative Urine Occult Blood Negative Urine Nitrite Negative Urine Bilirubin Negative Urine Urobilinogen Normal Ur Leukocyte Esterase Negative Urine RBC 0 SEEN Urine WBC 0 SEEN Ur Squamous Epith Cells 0 SEEN Urine Bacteria 0 SEEN Urine Mucus 0 SEEN Urine Test Negative Discharge Plan Triage Chief Complaint: Dizziness ED Provider: Brett Vaughan Dx/Rx/DC Orders Instructions: ED Dizziness, Uncertain Cause, ED Near-Fainting, Uncertain Cause Prescriptions: No Action Saccharomyces boulardii [Daily Probiotic (S. boulardii)] 250 mg capsule 5,000 mmu cells PO DAILY norethindrone acetate 5 mg tablet 5 mg PO DAILY cholecalciferol (vitamin D3) 50 mcg (2,000 unit) capsule 2,000 unit PO DAILY Patient Comments: TAKE 1 CAPSULE BY MOUTH EVERY DAY metformin 500 mg tablet extended release 24 hr 500 mg PO TID Patient Comments: TAKE 1 TABLET BY MOUTH 3 TIMES A DAY meclizine [meclizine] 25 mg tablet 25 mg PO Q8H PRN PRN (Reason: Dizziness) Qty: 20 0RF Primary Care Provider: Chrissy Yeboah Referrals: Chrissy Yeboah MD [Primary Care Provider] - Activity Restrictions/Additional Instructions: Thank you for trusting us with your care today! The lab and imaging tests were unremarkable today. They did not suggest any life or limb threatening process specifically heart attacks, abnormal heart rhythms, electrolyte disturbances, significant anemia, infections, heart failure. While no emergencies were identified does not mean what you are experiencing is not pathologic. Please follow-up with your primary care physician at the next billable appointment for further evaluation. Please return to the emergency department if your symptoms change or worsen. Please follow with your primary care physician for further outpatient evaluation and management. Disposition Disposition: Home, Self Care
--- NOTE | 2023-10-22 09:06 | EKG12_ITS ---
Test Reason : DIZZY Blood Pressure : / mmHG Vent. Rate : 062 BPM Atrial Rate : 062 BPM P-R Int : 112 ms QRS Dur : 082 ms QT Int : 384 ms P-R-T Axes : 059 022 028 degrees QTc Int : 389 ms Normal sinus rhythm Normal ECG Confirmed by NARCISO RAMON, MANDA ([id number]), assistant production editor NICK BUNDY ([id number]) on 10/25/2023 11:35:21 AM Referred By: Confirmed By:MANDA STUART MD
[2023-10-22] MEDS: 0.9% Normal Saline (1000mL) 1,000 ML 1000 ML IV (09:30)
[2023-10-22 09:32] LABS: Bacteria 0 SEEN /hpf (None Seen); Mucous, Urine 0 SEEN /hpf (<or=2+); Red Blood Cells-Urine 0 SEEN /hpf (0-5); Squamous Epithelial Cells - UA 0 SEEN /hpf (5-10); White Blood Cells 0 SEEN /hpf (0-5)
[2023-10-22 09:36] LABS: Absolute Lymphocyte Count 1.48 X10^3/uL (0.83-4.51); Absolute Neutrophil Count 5.2 X10^3/uL (2.0-7.7); Basophil# 0.02 X10^3/uL; Basophil% 0.3 % (0-1); Eosinophil# 0.04 X10^3/uL; Eosinophils% 0.6 % (0-5); Hematocrit 46.9 % (37-47); Hemoglobin 16.2 g/dL (12.0-15.0); Lymphocyte # 1.48 X10^3/ul (0.83-4.51); Mean Corp Hgb Conc 34.5 g/dL (32-36); Mean Corpuscular Hgb 32.5 pg (27.0-32.0); Mean Corpuscular Volume 94.2 fL (81-99); Mean Platelet Vol. 8.9 fl (6.2-12.0); Monocyte# 0.33 X10^3/uL; Monocyte% 4.7 % (0-10); NRBC Flagged by Analyzer 0 % (0-5); Neutrophil # 5.17 X10^3/uL (2.7-7.7); Neutrophil % 73.1 % (47-70); Platelet Count 201 K/mm3 (150-450); RBC Distribution Width CV 12.7 % (11.6-14.6); RBC Distribution Width SD 43.8 fl (35.1-43.9); Red Blood Count 4.98 M/mm3 (4.2-5.4); White Blood Count 7.1 K/mm3 (4.4-11.0)
[2023-10-22 09:37] LABS: Color, Urine Straw (Yellow); Glucose, Dipstick Normal (Normal); Ketone-Dipstick Negative (Negative); Leukocyte Esterase-Dipstick Negative /ul (Negative); Nitrite-Dipstick Negative (Negative); Occult Blood-Urine Negative /ul (Negative); Protein-Dipstick Negative (Negative); Specific Gravity, Urine 1.005 (1.002-1.030); Urine Bilirubin Dipstick Negative (Negative); Urine Clarity Clear (Clear); Urine Urobilinogen Normal (Normal); Urine pH 6.5 (5.0 - 8.0)
[2023-10-22 09:39] LABS: Internal QC Validated? YES +Cl - CLEAR BKGD; Pregnancy, Urine Negative Negative
[2023-10-22 09:57] LABS: AST(SGOT) 26 U/L (15-37); Alanine Aminotransfer ALT/SGPT 13 U/L (13-56); Albumin, Serum 3.6 g/dL (3.2-5.0); Alkaline Phosphatase 55 U/L (45-117); Anion Gap 6 (5-15); BUN 13 mg/dL (7-18); BUN/Creat Ratio 14.8 RATIO (10-20); Calcium,Total 9.2 mg/dL (8.5-10.1); Chloride 113 mmol/L (98-107); Creatinine, Serum 0.88 mg/dL (0.55-1.02); EST Glomerular Filtration Rate 76 mL/min (>60); Est Glom Filt Rate - Afr Amer 91 mL/min (>60); Estimated Creatinine Clearance 71.87 ml/min; Globulin 3.6 g/dL (2.2-4.2); Glucose 150 mg/dL (74-106); Potassium 3.9 mmol/L (3.5-5.1); Protein, Total 7.2 g/dL (6.4-8.2); Sodium Level 140 mmol/L (136-145); Troponin-I HS 5 pg/mL (3.0-54.0)
--- NOTE | 2023-10-22 09:58 | RAD_ITS ---
STUDY: X-RAY CHEST REASON FOR EXAM: Female, 38 years old. Dizziness TECHNIQUE: Single AP portable view of the chest. COMPARISON: None. FINDINGS: EKG electrodes are seen. The lungs are clear and expanded. Calcified granuloma in the medial right upper lobe.. There is no demonstrated pleural abnormality. Normal size heart. Normal mediastinum and prabha. Normal visualized pulmonary arteries. Normal visualized aortic arch and descending thoracic aorta. Normal visualized thoracic spine. Normal visualized ribs, clavicles, and shoulders. There is no demonstrated abnormality of the visualized soft tissue structures of the upper abdomen. RAD/Chest 1 View (Portable) IMPRESSION: Normal x-ray examination of the chest. Electronically Signed: Kirill Vidales MD at 10:44 EDT ,
[2023-10-22 10:11] VITALS: BP 126/84; PULSE 76; RESP 16; O2SAT 98
[2023-10-22 10:32] VITALS: BP 126/84; PULSE 76; RESP 16; TEMP 36.3; O2SAT 98
== END 2023-10-22 10:32 | disposition home or self-care (01) ==
PROVIDERS: Emergency Provider Emergency Medicine; PCP Family Medicine; Visit Provider Emergency Medicine
DX: R42 Dizziness and giddiness (principal); E11.9 Type 2 diabetes mellitus without complications; R55 Syncope and collapse; R06.02 Shortness of breath; R61 Generalized hyperhidrosis; F17.210 Nicotine dependence, cigarettes, uncomplicated
CPT/HCPCS: 71045; 80053; 81001; 81025; 83880; 84484; 85025; 93005; 96360; 99283; J7030; A4216

== ENCOUNTER → 2023-10-23 | Outpatient (CLI) | payer OTHER, SELFPAY | END | disposition home or self-care (01) | LOC: SL 11:17 | PROVIDERS: PCP Family Medicine; Referring Provider Family Medicine; Visit Provider Family Medicine | DX: G47.10 Hypersomnia, unspecified (principal); R06.83 Snoring | CPT/HCPCS: 95806 ==

== ENCOUNTER → 2024-02-29 | Outpatient (CLI) | payer OTHER, MEDICAID, SELFPAY ==
--- NOTE | 2024-02-29 09:31 | US_ITS ---
STUDY: THYROID ULTRASOUND REASON FOR EXAM: Female, 39 years old. thyroid nodules TECHNIQUE: Ultrasound evaluation of the thyroid was performed with real-time and static johnson-scale imaging. COMPARISON: 02/27/2023 FINDINGS: RIGHT LOBE: The right lobe of the thyroid gland measures 5.7 x 2.0 x 1.9 cm. There is a homogeneous echotexture. Nodule 1: Enlarging (26 x 10 x 20 mm from 18 x 12 x 18 mm) solid isoechoic wider than tall smoothly marginated nodule with no echogenic foci (TR 3) in the mid right lobe for which ultrasound-guided biopsy is recommended. LEFT LOBE: The left lobe of the thyroid gland measures 5.2 x 1.8 x 2.1 cm. There is a homogeneous echotexture. Nodule 2: Enlarging (10 x 7 x 10 mm from 9 x 5 x 9 mm) solid isoechoic wider than tall ill-defined margin nodule with no echogenic foci (TR 3) in the superior left lobe consistent with an adenoma. Nodule 3: New 6 x 3 x 5 mm solid isoechoic wider than tall smoothly marginated nodule with no echogenic foci (TR 3) in the inferior left lobe consistent with an adenoma. ISTHMUS: The isthmus measures 5 mm thick. . The regional lymph nodes are normal. US/Thyroid IMPRESSION: Multinodular thyroid gland with a enlarging dominant nodule right lobe for which ultrasound-guided biopsy is recommended. Electronically Signed: Warren Gee MD at 0:23 EDT ,
== END | disposition home or self-care (01) ==
PROVIDERS: PCP Family Medicine; Referring Provider Surgery; Visit Provider Surgery
DX: E04.2 Nontoxic multinodular goiter (principal); E04.1 Nontoxic single thyroid nodule
CPT/HCPCS: 76536

== ENCOUNTER 2024-04-15 10:15 | Emergency (ER) | payer OTHER, MEDICAID, SELFPAY ==
[2024-04-15 10:15] VITALS: BP 134/86; PULSE 85; RESP 14; TEMP 36.8; O2SAT 100; BMI 23.5
--- NOTE | 2024-04-15 10:48 | EDS_ITS ---
HPI History of Present Illness Chief Complaint: Headache Informant: patient Onset/Context/Timing Onset: Yesterday Mechanism/Context: Blunt Injury Quality of Pain: Aching Location: Frontal Worsened by: Bright lights Relieved by: Nothing Associated Symptoms Associated Symptoms: Negative for Parasthesias, Weakness, Loss of function, Inability to ambulate, Loss of consciousness or Amnesia Narrative Narrative: Patient presents with a headache that began yesterday. 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 Patient states she stood up and hit the back of her head on a metal cage. Patient denies any loss of consciousn ess. Patient denies any paresthesias or weakness. Patient describes her pain as aching. Patient states it is mainly over the frontal area. Patient states it is worse with lights. Patient states nothing seems to help with it. Patient has been taking Tylenol with minimal relief. Patient admits to some nausea but denies any vomiting. Patient states her pain radiates into her neck. [facility] Medical History Left shoulder pain History of hemorrhoids Depression Back pain Anxiety Diabetes Home Medications ?Medication ?Instructions ?Recorded ?Last Taken ?Type cholecalciferol (vitamin D3) 50 2,000 unit PO DAILY 08/12/21 Unknown History mcg (2,000 unit) capsule metformin 500 mg tablet,extended 500 mg PO TID 03/08/23 Unknown History release 24 hr norethindrone acetate 5 mg tablet 5 mg PO DAILY 03/08/23 Unknown History Allergy/AdvReac Type Severity Reaction Status Date / Time aripiprazole (From Abilify) Allergy Swelling Verified 04/15/24 10:16 Gadolinium-MRI Contrast Allergy PT UNSURE Verified 04/15/24 10:16 Medium (MRI) OF REACTION iodine Allergy Other Verified 04/15/24 10:16 amphetamine (From Adderall) AdvReac PT UNSURE Verified 04/15/24 10:16 OF REACTION codeine AdvReac Itching Verified 04/15/24 10:16 dextroamphetamine (From AdvReac PT UNSURE Verified 04/15/24 10:16 Adderall) OF REACTION hydrocodone AdvReac Itching Verified 04/15/24 10:16 Iodinated Contrast Media AdvReac Other Verified 04/15/24 10:16 lamotrigine (From Lamictal) AdvReac NEEDS Verified 04/15/24 10:16 FOLLOW-UP Family History Aunt Breast cancer Grandfather Colon cancer Grandmother Heart disease High cholesterol Kidney disease Unknown Diabetes Surgical History History of cholecystectomy Social History Smoking Status: Current every day smoker tobacco type: cigarettes alcohol intake: never substance use type: does not use ROS ROS ED Constitutional Constitutional ED: Denies chills or fever(s) Eyes Eyes: Denies blurry vision or change in vision ENT ENT ED: Denies rhinorrhea or sore throat Cardiovascular Cardiovascular: Denies chest pain or palpitations Respiratory/Chest Respiratory/Chest: Denies cough or dyspnea Gastrointestinal Gastrointestinal: Reports nausea; Denies vomiting Genitourinary Genitourinary ED: Denies dysuria or hematuria Musculoskeletal Musculoskeletal: Reports neck pain; Denies back pain Integumentary Denies abscess or rash Neurologic Neurologic: Reports headache(s); Denies weakness Allergic/Immunologic Allergic/Immunologic ED: Denies mouth swelling or urticaria EXAM Physical Exam Const Vital Signs: 04/15/24 10:15 Temperature 98.3 F Temperature Source Temporal Pulse Rate 85 Respiratory Rate 14 Blood Pressure 134/86 H Blood Pressure Mean 102 Pulse Ox 100 Oxygen Delivery Method Room Air Positive well nourished and well developed General Appearance ED: well developed and NAD HEENT HEENT Narrative: There is tenderness over the frontal scalp. There is no edema or ecchymosis. There is no tenderness over the occipital scalp. There are no lacerations noted. There is minimal tenderness over the cervical spine and paraspinal muscles. There is good range of motion of the cervical spine. There is no bony crepitance or step-off noted. There is no deformity noted. tenderness Neck full ROM Resp normal respiratory effort and clear to auscultation bilaterally Cardio regular rhythm Rate: regular rate GI non-tender and non-distended Palpation: soft Extremity normal to inspection and full ROM Neuro oriented x3, CN's II-XII intact bilaterally, moves all extremities, no focal motor deficits and no sensory deficits noted Ullin Coma Scale: document GCS findings Spontaneous Obeys Commands Oriented 15 Sensorium / Orientation: alert Motor Exam: strength 5/5 throughout Psych mental status grossly normal and thought process normal MDM MDM MDM Narrative Medical decision making narrative: Differential diagnosis includes intracranial bleeding, concussion, and tension headache. CT scan of the brain will be obtained to assess for intracranial bleeding. Radiography Diagnostic Testing: Clinical Impression(s) from Imaging Studies Brain CT 04/15/24 11:19 IMPRESSION: Normal unenhanced CT scan of the brain. Electronically Signed: Kirill Vidales MD at 12:30 EDT , CT scan of the brain was obtained. There is no acute intracranial abnormality. This was interpreted by the radiologist and was also independently reviewed by myself. Treatment and Re-Evaluation Narrative: Smoking cessation was discussed. Patient was given a dose of ibuprofen here. Patient was advised of her findings. Patient was feeling better on reevaluation. Patient was instructed to drink plenty of fluids. Patient was given head injury instructions. Patient was instructed to follow-up with her primary care physician in 5 to 7 days. Patient understood and was agreeable with the plan. All questions were answered. Discharge Plan Triage Chief Complaint: Headache ED Provider: Israel Saunders Dx/Rx/DC Orders Clinical Impression: Closed head injury, Tobacco use Instructions: ED Head Injury (Adult) Prescriptions: No Action norethindrone acetate 5 mg tablet 5 mg PO DAILY cholecalciferol (vitamin D3) 50 mcg (2,000 unit) capsule 2,000 unit PO DAILY Patient Comments: TAKE 1 CAPSULE BY MOUTH EVERY DAY metformin 500 mg tablet extended release 24 hr 500 mg PO TID Patient Comments: TAKE 1 TABLET BY MOUTH 3 TIMES A DAY Primary Care Provider: Chrissy Yeboah Referrals: Chrissy Yeboah MD [Primary Care Provider] - 5-7 Days Print Language: Arabic Disposition Disposition: Home, Self Care
--- NOTE | 2024-04-15 11:19 | CT_ITS ---
STUDY: CT BRAIN WITHOUT CONTRAST REASON FOR EXAM: Female, 39 years old. [employer]nexa following the recent head injury. RADIATION DOSAGE (If Supplied By Facility): CTDIvol = ( 44.99 ) mGy, DLP = ( 745.49 ) mGycm TECHNIQUE: Transaxial CT imaging of the brain was performed without administration of intravenous contrast material. Individualized dose optimization techniques were used for this CT. COMPARISON: Comparison is made with prior study dated October 21, 2023. FINDINGS: Normal soft tissue structures. Normal calvarium. Normal size ventricles and extra-axial spaces for the patient''s age. Normal white matter tracts of the cerebral hemispheres. Normal basal ganglia and thalami. Normal brainstem. Normal cerebellum. There is no intracranial hemorrhage. There are no findings of an acute ischemic infarction. Normal visualized paranasal sinuses. CT/Brain/Head without Contrast IMPRESSION: Normal unenhanced CT scan of the brain. Electronically Signed: Kirill Vidales MD at 12:30 EDT ,
[2024-04-15] MEDS: Ibuprofen 200 MG Tablet 400 MG PO (11:25)
[2024-04-15 12:55] VITALS: BP 112/75; PULSE 55; RESP 16; TEMP 36.8; O2SAT 100
== END 2024-04-15 13:19 | disposition home or self-care (01) ==
PROVIDERS: Emergency Provider Emergency Medicine; PCP Family Medicine; Visit Provider Emergency Medicine
DX: S09.90XA Unspecified injury of head, initial encounter (principal); E11.9 Type 2 diabetes mellitus without complications; W22.09XA Striking against other stationary object, initial encounter; Y99.0 Civilian activity done for income or pay; R11.0 Nausea; R51.9 Headache, unspecified; Z79.84 Long term (current) use of oral hypoglycemic drugs; F17.210 Nicotine dependence, cigarettes, uncomplicated
CPT/HCPCS: 70450; 99282

== ENCOUNTER → 2024-04-16 | Outpatient (CLI) | payer OTHER, SELFPAY ==
--- NOTE | 2024-04-16 14:14 | RAD_ITS ---
STUDY: X-RAY - CERVICAL SPINE REASON FOR EXAM: Female, 39 years old. Posterior cervical pain TECHNIQUE: 3 view(s) of the cervical spine were obtained. COMPARISON: None FINDINGS: Normal anterior atlantoaxial articulation. Normal odontoid process. There is straightening of the normal cervical lordosis. Normal vertebral bodies and endplates. Normal disc space heights. Normal visualized intervertebral neuroforamina. The soft tissue structures are unremarkable. RAD/Cerv Spine 2 or 3 Views IMPRESSION: There is straightening of the normal cervical lordosis. Electronically Signed: Kirill Vidales MD at 14:29 EDT ,
--- OUTSIDE RECORDS SUMMARY | 2024-04-16 17:54 | XMS RPT_ITS | CCD ---
Author Organization [facility] Inform ion Partnership [facility] Care Team Providers Care Junior Analyst Name Role Phone Chrissy Yeboah Primary Care Provider [phone] CHRISSY YEBOAH Primary Care Unavailable CHRISSY YEBOAH Primary Care Unavailable CHRISSY YEBOAH Primary Care Unavailable MEGHANA WALTON Attending Unavail able CHRISSY YEBOAH Consulting Unavailable CHRISSY YEBOAH Referring Unavailable ROSA WINSTON Admitting Unavailable ROSA WINSTON Primary Care Unavailable ROSA WINSTON Attending Unavailable PROVIDER, UNKNOWN Consulting Unavailable PROVIDER, UNKNOWN Consulting Unavailable Allergies Allergy Classification Reported Allergen(s) Allergy Type Date of Onset Reaction(s) Facility (20 sources) Acetaminophen / HYDROcodone; Translations: [HYDROCODONE-ACETAMIN OPHEN] Drug Allergy 08-09-19 06 Shortness of Breath [facility] Work Phone: (20 sources) Amphetamine aspartate / Amphetamine Sulfate / Dextroamphetamine saccharate / Dextroamphetamine Sulfate; Translations: [DEXTROAMPHETAMINE-AM PHETAMINE] Drug Allergy 07-05-19 22 Other: See Comments, Intolerance [facility] (20 sources) ARIPiprazole; Translations: [ARIPIPRAZOLE] Drug Allergy 03-15-20 15 Other: See Comments, Intolerance [facility] (20 sources) Codeine; Translations: [CODEINE] Drug Allergy 08-09-19 06 Shortness of Breath [facility] Work Phone: (20 sources) Contrast media; Translations: [CONTRAST DYE] Drug Allergy 06-03-20 [address] [facility] Work Phone: (20 sources) lamoTRIgine; Translations: [LAMOTRIGINE] Drug Allergy 03-15-20 [address] [facility] (1 source) Acetaminophen / HYDROcodone Drug Allergy [facility] (1 source) ARIPiprazole Drug Allergy [facility] (1 source) Codeine Drug Allergy [facility] (1 source) Iodine Drug Allergy [facility] (1 source) lamoTRIgine Drug Allergy [facility] (1 source) CONTRAST MEDIA, IODINE RELATED Drug allergy (disorder) [facility] Rep[facility] Medications Current Medications Medication Drug Class(es) Dates Sig (Normalized) Sig (Original) acetaminophen 325 mg oral tablet (20 sources) take 1 tablet by mouth every four hours as needed acetaminophen (TYLENOL) 325 mg tablet Take 325 mg by mouth every 4 hours as needed. Active Comment on above: Take 325 mg by mouth every 4 hours as needed. ALPRAZolam 0.25 mg oral tablet (2 sources) Benzodiazepine take 1 tablet by mouth every twelve hours as needed ALPRAZolam (XANAX) 0.25 mg tablet Take 0.25 mg by mouth two times a day as needed. Active amoxicillin 875 mg / clavulanate 125 mg oral tablet (2 sources) Penicillin-class Antibacterial Start: 02-14-2024 End: 02-21-2024 take 1 tablet by mouth twice daily amoxicillin-clavula jf potassium (AUGMENTIN) 875-125 mg per tablet Indications: Sinobronchitis Take 1 tablet by mouth two times a day for 7 days. 14 tablet 02/14/2024 02/21/2024 Active Start: 08-27-2022 End: 08-27-2022 take 1 tablet by mouth twice daily amoxicillin-clavulanic acid (AUGMENTIN) 875-125 mg per tablet Indications: Rhinosinusitis Take 1 tablet by mouth twice daily for 5 days. 10 tablet 0 08/27/2022 08/27/2022 Discontinued Comment on above: Take 1 tablet by francine th twice daily for 5 days. Calcium Carbonate (20 sources) CALCIUM CARBONAT E (TUMS 500 ORAL) Take 1 tablet by mouth as needed. Active CALCIUM CARBONAT E (TUMS 500 ORAL) Take 1 tablet by mouth as needed. 0 Active Comment on above: Take 1 tablet by francine th as needed. cholecalciferol 0.05 mg oral capsule (2 sources) Vitamin D Start: 07-10-2018 Cholecalciferol, Vitamin D3, 50 mcg (2,000 unit) cap Take by mouth. 07/10/2018 Active clotrimazole 10 mg/ml topical cream (2 sources) Azole Antifungal Start: 08-01-2022 End: 08-15-2022 clotrimazole (LOTRIMIN, CLOTRIM) 1 % cream Apply to affected area twice daily for 14 days. 45 g 0 08/01/2022 08/15/2022 Active Start: 01-12-2022 End: 01-26-2022 clotrimazole (LOTRIMIN, CLOT RIM) 1 % cream Apply to affected area twice daily for 14 days. 45 g 0 01/12/2022 01/26/2022 Active Comment on above: Apply to affected ar ea twice daily for 14 days. fluconazole 150 mg oral tablet (1 source) Azole Antifungal Start: 02-14-20 End: 02-15-20 take 1 tablet by mouth once daily fluconazole (DIFLUCAN) 150 mg tablet Indications: Feared condition not demonstrated Take 1 tablet by mouth once daily for 1 day. 1 tablet 02/14/2024 02/15/2024 Active ibuprofen 800 mg oral tablet (20 sources) Nonsteroidal Anti-inflammatory Drug ibuprofen (MOTRIN) 800 mg tablet Take 800 mg by mouth as needed. Active Comment on above: Take 800 mg by mouth as needed. 24 hr metFORMIN hydrochloride 500 mg extended release oral tablet (20 sources) Biguanide Start: 03-22-20 take 1 tablet by mouth three times daily metFORMIN ER (GLUCOPHAGE XR) 500 mg 24 hr tablet Take 500 mg by mouth three times daily. 03/22/2021 Active Comment on above: Take 500 mg by mouth three times daily. norethindrone acetate 5 mg oral tablet (18 sources) Start: 06-27-19 take 1 tablet by mouth once daily norethindrone (AYGESTIN) 5 mg tablet Take 1 tablet by mouth once daily. 30 tablet 11 06/27/2023 Active Start: 07-07-2022 End: 02-12-2023 take 1 tablet by mouth once daily norethindrone (AYGESTIN) 5 mg tablet Take 1 tablet by mouth once daily. 30 tablet 5 02/12/2023 Active Start: 04-18-2022 take 1 tablet by francien th once daily Norethindrone, Contraceptive, (ORTHO MICRONOR) 0.35 mg tablet Indications: Abnormal uterine bleeding (AUB) Take 1 tablet by mouth once daily. 30 tablet 11 04/18/2022 Active Comment on above: Take 1 tablet by francine th once daily. TAKE 1 TABLET BY FRANCINE TH EVERY DAY om3/dha/epa/fish/kril/lut/ze ax (MEGARED ADV TOTAL BODY REFRESH ORAL) (19 sources) om3/dha/epa/fish /kril/lut/z eax (MEGARED ADV TOTAL BODY REFRESH ORAL) Take by mouth. Active om3/dha/epa/fish /kril/lut/zeax (MEGARED ADV TOTAL BODY REFRESH ORAL) Take by mouth. 0 Active Comment on above: Take by mouth. predniSONE 20 mg oral tablet (1 source) Start: End: take 2 tablets by mouth once daily at mealtime predniSONE (DELTASONE) 20 mg tablet Indications: Sinobronchitis Take 2 tablets by mouth once daily for 4 days. Take daily with food. 8 tablet 02/14/2024 02/18/2024 Active triamcinolone acetonide 1 mg/ml topical cream (3 sources) Corticosteroid Start: End: triamcinolone acetonide (KENALOG) 0.1 % cream Apply 1 application to affected area three times daily for 7 days. Apply sparingly to area for rash/itching. 80 g 0 04/13/2022 04/20/2022 Active Comment on above: Apply 1 application to affected area three times daily for 7 days. Apply sparingly to area for rash/itching. Completed/Discontinued Medications Medication Drug Class(es) Dates Sig (Normalized) Sig (Original) clonazePAM 1 mg oral tablet (6 sources) Benzodiazepine End: 03-21-2022 take 1 tablet by mouth every twelve hours as needed clonazePAM (KLONOPIN) 1 mg tablet Take 1 mg by mouth twice daily as needed. 03/21/2022 Discontinued Comment on above: Take 1 mg by mouth t wice daily as needed. ergocalciferol 1.25 mg oral capsule (6 sources) Provitamin D2 Compound Start: 04-05-2015 End: 03-21-2022 take 1 capsule by mouth every week ergocalciferol, vitamin D2, (VITAMIN D) 50,000 unit capsule Take 1 capsule by mouth once each week. 5 capsule 1 04/05/2015 03/21/2022 Discontinued Comment on above: Take 1 capsule by [facility] once each week. Lactobacillus rhamnosus GG (CULTURELLE ORAL) (6 sources) End: 03-21-2022 Lactobacillus rhamnosus GG (CULTURELLE ORAL) Take by mouth. 03/21/2022 Discontinued End: 03-21-2022 Lactobacillus rhamnosus GG ( CULTURELLE ORAL) Take by mouth. 0 03/21/2022 Discontinued Lactobacillus rh amnosus GG (CULTURELLE ORAL) Take by mouth. 0 Active Comment on above: Take by mouth. MENTHOL/CAMPHOR (BIOFREEZE TOPICAL) (6 sources) End: 03-21-2022 MENTHOL/CAMPHOR (BIOFREEZE TOPICAL) Apply to affected area. 03/21/2022 Discontinued End: 03-21-2022 MENTHOL/CAMPHOR (BIOFREEZE T OPICAL) Apply to affected area. 0 03/21/2022 Discontinued MENTHOL/CAMPHOR (BIOFREEZE TOPICAL) Apply to affected area. 0 Active Comment on above: Apply to affected ar ea. PARoxetine hydrochloride 20 mg oral tablet (6 sources) Serotonin Reuptake Inhibitor End: 03-21-20 take 1 tablet by mouth once daily in the morning PARoxetine (PAXIL) 20 mg tablet Take 20 mg by mouth every morning. 03/21/2022 Discontinued Comment on above: Take 20 mg by mouth every morning. perphenazine 4 mg oral tablet (6 sources) Phenothiazine End: 03-21-20 take 1 tablet by mouth three times daily perphenazine 4 mg tablet Take 4 mg by mouth three times daily. 03/21/2022 Discontinued Comment on above: Take 4 mg by mouth t hree times daily. rizatriptan 10 mg oral tablet (6 sources) Serotonin-1b and Serotonin-1d Receptor Agonist End: 03-21-20 RIZATRIPTAN BENZOATE (RIZATRIPTAN ORAL) Take 10 mg by mouth as needed (Migraines). 03/21/2022 Discontinued Comment on above: Take 10 mg by mouth as needed (Migraines). tiZANidine 4 mg oral tablet (6 sources) Central alpha-2 Adrenergic Agonist End: 03-21-20 take 1 tablet by mouth every eight hours as needed tiZANidine (ZANAFLEX) 4 mg tablet Take 4 mg by mouth every 8 hours as needed. Take 0.5 to 1 tablet by mouth 03/21/2022 Discontinued Comment on above: Take 4 mg by mouth e very 8 hours as needed. Take 0.5 to 1 tablet by mouth Problems Active Problems Problem Classification Problem Date Documented Date Episodic/Chronic Administrative/socia l admission (1 source) Worried well; Translations: [Person with feared health complaint in whom no diagnosis is made] 02-14-2024 Episodic Diabetes mellitus without complication (1 source) Type 2 diabetes mellitus without complication; Translations: [Type 2 diabetes mellitus without complications] Chronic Esophageal disorders (20 sources) Gastroesophageal reflux disease; Translations: [Gastro-esophageal reflux disease without esophagitis] Onset: 03-27-2014 03-27-2014 Chronic Headache; including migraine (20 sources) Migraine; Translations: [Migraine, unspecified, not intractable, without status migrainosus] Onset: 09-25-2014 09-25-2014 Chronic Inflammatory diseases of female pelvic organs (1 source) Acute vaginitis; Translations: [Acute vaginitis] Episodic Other female genital disorders (4 sources) Abnormal uterine bleeding; Translations: [Abnormal uterine and vaginal bleeding, unspecified] Chronic Other female genital disorders (1 source) Abnormal uterine and vaginal bleeding, unspecified; Translations: [Abnormal uterine bleeding (AUB)] Onset: 06-27-2023 Chronic Other female genital disorders (1 source) Pruritus of vagina; Translations: [Other specified noninflammatory disorders of vagina] Episodic Other female genital disorders (1 source) Vaginal irritation; Translations: [Other specified noninflammatory disorders of vagina] Episodic Other injuries and conditions due to external causes (1 source) Injury of head; Translations: [Unspecified injury of head, initial encounter] 04-14-2024 Episodic Other lower respiratory disease (1 source) Cough; Translations: [Acute cough] Episodic Other nutritional; endocrine; and metabolic disorders (20 sources) Body mass index 30+ - obesity; Translations: [Obesity, unspecified] Onset: 09-25-2014 09-25-2014 Chronic Other nutritional; endocrine; and metabolic disorders (1 source) H/O: thyroid disorder; Translations: [Personal history of other endocrine, nutritional and metabolic disease] Episodic Other skin disorders (2 sources) Eruption; Translations: [Rash and other nonspecific skin eruption] Episodic Other upper respiratory disease (1 source) Chronic rhinitis; Translations: [Unspecified sinusitis (chronic)] Chronic Other upper respiratory disease (1 source) Nasal congestion; Translations: [Nasal congestion] Episodic Other upper respiratory infections (1 source) Chronic sinusitis; Translations: [Chronic sinusitis, unspecified] 02-14-2024 Chronic Other upper respiratory infections (1 source) Sore throat symptom; Translations: [Acute pharyngitis, unspecified] Episodic Residual codes; unclassified (1 source) Other specified personal risk factors, not elsewhere classified; Translations: [Other specified personal history presenting hazards to health] Episodic Spondylosis; intervertebral disc disorders; other back problems (20 sources) Prolapsed cervical intervertebral disc without myelopathy; Translations: [Other cervical disc displacement, unspecified cervical region] Onset: 06-11-2014 Chronic Unclassified (20 sources) NO SHOW Onset: 12-23-2013 12-23-2013 Past or Other Problems Problem Classification Problem Date Documented Date Episodic/Chronic Genitourinary symptoms and ill-defined conditions (5 sources) Scalding pain on urination ; Translations: [Dysuria] Onset: 06-27-2023 Episodic Other female genital disorders (1 source) Other specified noninflammatory disorders of vagina; Translations: [Vaginal odor] Onset: 06-27-2023 Episodic Other screening for suspected conditions (not mental disorders or infectious disease) (20 sources) Patient encounter status; Translations: [Encounter for screening for diabetes mellitus] Onset: 03-27-2014 03-27-2014 Episodic Residual codes; unclassified (20 sources) Tobacco use and exposure - finding; Translations: [Tobacco use] Onset: 03-27-2014 03-27-2014 Episodic Spondylosis; intervertebral disc disorders; other back problems (20 sources) Chronic low back pain; Translations: [Chronic lower back pain] Onset: 09-25-2014 09-25-2014 Episodic Results Test Name Value Interpretation Reference Range Facil ity CNOVon 04-14-2024 CNOV Office Visit ([facility]) JOSE CARLOSERNESTO RYAN ([id number]) 1985 F Date Time Provider Department 04/14/24 5:30 PM [facility] During your visit today, we recorded the following information about you: Alfred Cox APRN.TUMOR REGISTRAR 04/14/2024 6:01 PM Signed Patient triaged at [facility]. Here today with head injury, now nauseous and headache. Patient in no apparent distress at time of triage. I will refer to ER. Allergies As of Date: 04/14/2024 Noted Allergy Reaction DEXTROAMPHETAMINE-AM PHETAMINE 07/05/2021 5 - Intolerance ABILIFY (ARIPIPRAZOLE) 03/15/2015 5 - Intolerance Comments: Blood sugar rises CODEINE 08/09/2005 12 - Shortness of Breath CONTRAST DYE 06/03/2014 16 - Unknown Comments: CT scan LAMICTAL (LAMOTRIGINE) 03/15/2015 7 - Swelling VICODIN (HYDROCODONE-ACETAMI NOPHE*08/09/2005 12 - Shortness of Breath Date Reviewed: 02/14/2024 Reviewed by: Adele Hancock MA - Fully Assessed Primary Visit Diagnosis:Injury of head, initial encounter [S09.90XA] Prescriptions as of 04/14/2024 - Cholecalciferol, Vitamin D3, 50 mcg (2,000 unit) cap Take by mouth. - ALPRAZolam (XANAX) 0.25 mg tablet Take 0.25 mg by mouth two times a day as needed. - norethindrone (AYGESTIN) 5 mg tablet Take 1 tablet by mouth once daily. - om3/dha/epa/fish/kri l/lut/zeax (MEGARED ADV TOTAL BODY REFRESH ORAL) Take by mouth. - metFORMIN ER (GLUCOPHAGE XR) 500 mg 24 hr tablet Take 500 mg by mouth three times daily. - ibuprofen (MOTRIN) 800 mg tablet Take 800 mg by mouth as needed. - CALCIUM CARBONATE (TUMS 500 ORAL) Take 1 tablet by mouth as needed. - acetaminophen (TYLENOL) 325 mg tablet Take 325 mg by mouth every 4 hours as needed. Problem List As Of Date 04/14/2024 Noted Resolved NO SHOW [305039] 12/23/2013 DM (diabetes mellitus screen) [Z13.1] 03/27/2014 GERD (gastroesophageal reflux disease) [K21.9] 03/27/2014 Tobacco use [Z72.0] 03/27/2014 Displacement of cervical intervertebral disc wi*06/11/2014 Obesity (BMI 30-39.9) [E66.9] 09/25/2014 Migraines [G43.909] 09/25/2014 Chronic lower back pain [M54.50, G89.29] 09/25/2014 Degeneration of lumbar or lumbosacral intervert*10/01/2014 Encounter Status:Closed by ALFRED COX on 04/14/24 [facility] ED FACILITY CODING SUMMARYon 04-14-2024 ED FACILITY CODING SUMMARY Facility Coding Facility Coding Summary [address] [address] [id number] 04/14/2024 Patient: ERNESTO NATH Sex: Female : 1985 Age: 39y Providers: DIAGNOSTIC WORKUP Chief Complaint Principal Diagnosis ICD-10 Codes PROCEDURES Procedures from Providers: Procedures from Nurses/Facility: SUPPLIES ELEVEL This is a partial abstract of information documented in the full record. Stencil Printer must use independent judgment in selecting codes. CPT copyright 2022 [employer]. All Rights Reserved. 1 of 1 [facility] ED MED ADMINISTRATION DETAIL on 04-14-2024 ED MED ADMINISTRATION DETAIL Supervisor Inspection Room Medication Administration Record [address] [address] [id number] 04/14/2024 Patient: ERNESTO NATH Sex: Female : 1985 Age: 39y MEASUREMENTS: Wt: 54.4 kg, Ht/Ernie: 62.0 in, BMI: 21.95 ALLERGIES: Abilify, Iodinated Contrast Media, Lamictal, Vicodin Medication Ordered Medication Administration Date/Time 1 of 1 [facility] ED NURSES CLINICAL NOTEon ED NURSES CLINICAL NOTE Nurse Narrative Nurse Clinical Narrative [place] [id number] [facility] [place] [address] [id number] 04/14/2024 Patient: ERNESTO NATH Sex: Female : 1985 Age: 39y Disposition: Left AMA Left Against Medical Advice Disposition Decision Time: 20:04/14/2024 Departure Time: 20:04/14/2024 TRIAGE Arrived by private vehicle. Historian: patient. Triage time: 18:43 04/14/2024. Acuity: LEVEL 3. Chief Complaint: INJURY TO HEAD. Occurred 09:30 04/14/2024. The patient has had a headache, neck pain and nausea. ( hit head on an animal cage). No loss of consciousness. SEPSIS SCREEN: NEGATIVE. SIRS criteria negative. No possible sources of infection. -- 18:50 04/14/24 EDT Bhavin Frank R.N. 18:48 04/14/24. BP: 172/108 MAP: 129. HR: 94. RR: 16. O2 saturation: 97% on room air. Temperature: 98.3 F. Pain level now 4/10. Describes the pain as aching. -- 18:48 04/14/24 EDT Bhavin Frank R.N. Measurements: 18:49 04/14/24 Wt: 54.4 kg, Ht/Ernie: 62.0 in, BMI: 21.95 -- 18:49 04/14/24 EDT Bhavin Frank R.N. Medications: metFORMIN 500 mg tablet: 500 mg three times a day . -- 18:46 04/14/24 EDT Bhavin Frank R.N. norethindrone acetate 5 mg tablet: 5 mg once a day. -- 18:51 04/14/24 EDT Bhavin Frank R.N. 1 of 3 Nurse Narrative Allergies: Lamictal -- 18:46 04/14/24 EDT Bhavin Frank R.N. Iodinated Contrast Media -- 18:46 04/14/24 EDT Bhavin Frank R.N. Vicodin -- 18:46 04/14/24 EDCharles Frank R.N. [facility] -- 18:46 04/14/24 EDT Bhavin Frank R.N. Problems: Diabetes Mellitus -- 18:47 04/14/24 MIKIET Bhavin Frank R.N. ADDITIONAL SURGERIES: Cholecystectomy -- 18:47 04/14/24 PAPI Frank R.N. History 18:43 04/14/24. SOCIAL HX: Heavy tobacco smoker- 1 pack per day. No alcohol use or drug use. The patient has not traveled outside the [place] Infectious disease exposure: No infectious disease exposure. ABUSE ASSESSMENT: The patient answered yes to the question(s) Do you feel safe in your home? and no to the question(s) Are you afraid to go home? . SELF HARM ASSESSMENT: Self harm assessment was performed. The patient answered no to the question(s) Have you recently felt down, depressed, or hopeless? and Do you have thoughts of harming or killing yourself? . FALL RISK ASSESSMENT: Fall risk assessment completed. No risk factors identified. -- 18:50 04/14/24 MIKIET Bhavin Frank R.N. Interventions 18:43 04/14/24. Identification band on patient. To room. -- 18:50 04/14/24 EDT Bhavin Frank R.N. PHYSICAL ASSESSMENT 2 of 3 Nurse Narrative 19:29 04/14/24. Ambulatory to room. GENERAL / NEURO / PSYCH: Alert. Oriented X 4. Appears in no acute distress. HEENT: Head: tenderness and swelling present. Vertex: swelling. Pupils equal, round and reactive to light. EOM intact. Mucous membranes are pink. BACK: ROM normal to the neck and back. Vertebral point tenderness. SKIN: Skin is warm and dry. -- 19:29 04/14/24 EDT Loretta Pruett R.N. NURSING PROGRESS NOTES 19:17 04/14/24. Call light placed in reach. Side rails up x 1. Bed placed in lowest position. Brakes of bed on. Care transferred and report received (Loretta WILLIAMSON). -- 21:29 04/14/24 EDT Maulik Duenas R.N. DISPOSITION / DISCHARGE Departure time: 20:30 04/14/2024. The patient left the Emergency Department without being seen by a physician and completion of treatment and against medical advice; patient was unaccompanied. The patient appears to be oriented x4 and coherent. Unable to locate patient. Notified the ED physician of patient departure. ( Pt left at approximately 2030, without informing staff. Pt was witnessed leaving by community outreach director during a code purple with another pt.). -- 21:31 04/14/24 EDT Maulik Duenas R.N. (Electronically signed by Maulik Duenas R.N. 04/14/24 22:23:13 EDT) Generated by [facility] 3 of 3 [facility] ED ORDER SHEET (CPOE ONLY)on 04-14-2024 ED ORDER SHEET (CPOE ONLY) Order Sheet Order Sheet [address] [address] [id number] 04/14/2024 Patient: ERNESTO NATH Sex: Female : 1985 Age: 39y MEASUREMENTS: Wt: 54.4 kg, Ht/Ernie: 62.0 in, BMI: 21.95 ALLERGIES: Abilify, Iodinated Contrast Media, Lamictal, Vicodin MEDICATION/IV/DRIP/F LUID ORDERS Order Description Priority Entered Acknowledged Completed LAB ORDERS Order Description Priority Entered Acknowledged Collected Completed DIAGNOSTIC STUDY ORDERS Order Description Priority Entered Acknowledged Completed STAFF ORDERS Order Description Priority Entered Acknowledged Collected Completed 1 of 1 [facility] ED SUPER BILLon 04-14-2024 ED [facility] BILL [address] [address] [id number] 04/14/2024 Patient: ERNESTO NATH Sex: Female : 1985 Age: 39y Item Professional Category Description Facility Code Code Quantity Fee Total Grand Total $0.00 1 of 1 [facility] ED VISIT SUMMARYon ED VISIT SUMMARY Visit Overview Visit Overview [address] [address] [id number] 04/14/2024 Patient: ERNESTO NATH Sex: Female : 1985 Age: 39y 04/14/2024 10:23 PM EDT ED Arrival:18:38 04/14/2024 EDT Status: Recent Travel:no Language:eng Adv Directive: Isolation Status: Ethnicity:N Fall Risk:no risk Infectious Disease Exposure:no Measurements:5'2 / 157.5 Self-Harm Status:risk Sepsis Screen:negative cm 120.0 lb / 54.4 kg Chief Complaint:INJURY TO HEAD, (09:30 04/14/2024), and (hit head on an animal cage ) ALLERGIES Abilify Iodinated Contrast Media Lamictal Vicodin HOME MEDICATIONS metFORMIN 500 mg tablet: 500 mg three times a day . norethindrone acetate 5 mg tablet: 5 mg once a day. 1 of 3 Visit Overview PAST MEDICAL HISTORY / PROBLEMS Diabetes Mellitus PAST SURGICAL HISTORY Cholecystectomy SOCIAL HISTORY Smoking status: Yes Alcohol use: No Drug use: No ED COURSE MEDICATIONS GIVEN IN EMERGENCY DEPARTMENT IV SITE INFORMATION INTAKE OUTPUT REASSESMENT (most recent) 19:29 04/14/24. Ambulatory to room. GENERAL / NEURO / PSYCH: Alert. Oriented X 4. Appears in no acute distress. HEENT: Head: tenderness and swelling present. Vertex: swelling. Pupils equal, round and reactive to light. EOM intact. Mucous membranes are pink. BACK: ROM normal to the neck and back. Vertebral point tenderness. SKIN: Skin is warm and dry. VITAL SIGNS First Vitals Last Vitals Temp 18:48 04/14/24 98.3 F Temp 18:48 04/14/24 98.3 F BP 18:48 04/14/24 172/108 BP 18:48 04/14/24 172/108 HR 18:48 04/14/24 94 HR 18:48 04/14/24 94 RR 18:48 04/14/24 16 RR 18:48 04/14/24 16 O2 Sat 18:48 04/14/24 97% RA O2 Sat 18:48 04/14/24 97% RA Pain 18:48 04/14/24 4 Pain 18:48 04/14/24 4 ETCO2 18:48 04/14/24 ETCO2 18:48 04/14/24 2 of 3 Visit Overview First Vitals Last Vitals GCS 18:48 04/14/24 GCS 18:48 04/14/24 RTS 18:48 04/14/24 RTS 18:48 04/14/24 PROCEDURES NURSING INTERVENTIONS LABS / STUDIES CLINICAL IMPRESSION 3 of 3 Normal [facility] CNOVon 02-14-2024 CNOV Office Visit (UCWSTR) ERNESTO NATH ([id number]) 1985 F Date Time Provider Department 02/14/24 10:45 AM [facility] During your visit today, we recorded the following information about you: Temperature Pulse Respiration Blood pressure 98.3 degrees 77/minute 18/minute 143/90 Weight 58.9 kg Rena Cobos, GEOVANNA.TUMOR REGISTRAR 02/14/2024 11:19 AM Signed Subjective HPI Ernestosantosh Nath is a 38 year old female who presents with URI symptoms x 2 weeks. Seems to be worst at night-coughing up a lot of phlegm. Tired from coughing at night. Nasal and chest congestion. Has had sore throat, body aches, headache. had similar symptoms and recently placed on antibiotics. Review of Systems Constitutional: Negative for chills, fever and malaise/fatigue. HENT: Positive for congestion and sore throat. Negative for ear pain. Respiratory: Positive for cough and sputum production. Negative for shortness of breath. Cardiovascular: Negative for chest pain. Gastrointestinal: Negative for diarrhea, nausea and vomiting. Musculoskeletal: Positive for myalgias. Neurological: Positive for headaches. BP 143/90 Pulse 77 Temp 36.8 ?C (98.3 ?F) Resp 18 Wt 58.9 kg (129 lb 13.6 oz) LMP 06/27/2023 (Exact Date) SpO2 100% BMI 24.54 kg/m? PAST MEDICAL HISTORY No date: Depression No date: Diabetes mellitus (HCC) No date: GERD (gastroesophageal reflux disease) No date: Low back pain No date: Obesity No date: Tobacco use disorder PAST SURGICAL HISTORY No date: BX THYROID No date: COLONOSCOPY Comment: EGD 06/25/2009: LAPAROSCOPY SURG CHOLECYSTECTOMY Comment: post op readmit for pain control 03/25/2014: PAST SURGICAL HISTORY OF Comment: cervical spin injection ALLERGIES Dextroamphetamine-Am phetamine, Abilify [Aripiprazole], Codeine, Contrast Dye, Lamictal [Lamotrigine], and Vicodin [Hydrocodone-Acetami nophen] MEDICATIONS Cholecalciferol, Vitamin D3, 50 mcg (2,000 unit) cap Take by mouth. norethindrone (AYGESTIN) 5 mg tablet Take 1 tablet by mouth once daily. om3/dha/epa/fish/kri l/lut/zeax (MEGARED ADV TOTAL BODY REFRESH ORAL) Take by mouth. metFORMIN ER (GLUCOPHAGE XR) 500 mg 24 hr tablet Take 500 mg by mouth three times daily. ALPRAZolam (XANAX) 0.25 mg tablet Take 0.25 mg by mouth two times a day as needed. amoxicillin-clavulan ate potassium (AUGMENTIN) 875-125 mg per tablet Take 1 tablet by mouth two times a day for 7 days. predniSONE (DELTASONE) 20 mg tablet Take 2 tablets by mouth once daily for 4 days. Take daily with food. fluconazole (DIFLUCAN) 150 mg tablet Take 1 tablet by mouth once daily for 1 day. ibuprofen (MOTRIN) 800 mg tablet Take 800 mg by mouth as needed. CALCIUM CARBONATE (TUMS 500 ORAL) Take 1 tablet by mouth as needed. acetaminophen (TYLENOL) 325 mg tablet Take 325 mg by mouth every 4 hours as needed. FAMILY HISTORY Problem Relation Age of Onset Breast Cancer Paternal Aunt Cancer Paternal Grandfather pancreatic Diabetes Paternal Grandfather Heart Paternal Grandmother M.I. HYPERTENSION Social History Tobacco Use Smoking status: Every Day Current packs/day: 1.00 Types: Cigarettes Smokeless tobacco: Never Vaping Use Vaping status: Never Used Substance Use Topics Alcohol use: Yes Comment: occasional 3x per yr Drug use: No Objective Physical Exam Vitals and nursing note reviewed. Constitutional: General: She is not in acute distress. Appearance: Normal appearance. She is not ill-appearing. HENT: Right Ear: Tympanic membrane, ear canal and external ear normal. Left Ear: Tympanic membrane, ear canal and external ear normal. Nose: Mucosal edema and congestion present. Mouth/Throat: Mouth: Mucous membranes are moist. Pharynx: Oropharynx is clear. Uvula midline. No oropharyngeal exudate or posterior oropharyngeal erythema. Cardiovascular: Rate and Rhythm: Normal rate and regular rhythm. Heart sounds: Normal heart sounds. Pulmonary: Effort: Pulmonary effort is normal. No respiratory distress. Breath sounds: Wheezing (few, scattered) present. No rales. Musculoskeletal: Cervical back: Neck supple. Lymphadenopathy: Cervical: No cervical adenopathy. Skin: General: Skin is warm and dry. Findings: No erythema or rash. Neurological: Mental Status: She is alert. ASSESSMENT/PLAN: 1. Sinobronchitis - ICD9: 473.9, 490, ICD10: J32.9, J40 (primary diagnosis) - Will begin treatment with as per antibiotic as written, see orders - Supportive care with plenty of fluids, rest, and analgesia prn. - AMOXICILLIN 875 MG-POTASSIUM CLAVULANATE 125 MG TABLET - PREDNISONE 20 MG TABLET 2. Feared condition not demonstrated - ICD9: V65.5, ICD10: Z71.1 - patient states she gets vaginal yeast infection with antibiotic use. - FLUCONAZOLE 150 MG TABLET - Follow-up with your PCP in 3-5 days if symptoms have not i (more content not included)... Normal [facility] BACTERIAL VAGINOSIS NAATon 0 06-27-2023 Lactobacillus crispatus+gasseri+j ensenii + Gardnerella vaginalis + Atopobium vaginae rRNA TRAVON+probe Ql (Vag fld) Negative Normal Negative for bacterial vaginosis [facility] Comment on above: Order Comment: Speci men Type: SWAB Ordering Facility: [facility] Address: [address] [place] [address] Performed By: #### C VTV, BVAMP #### [facility] CLIA [id number] [address] [place] [address] [place] Bacteria Ur Culton 4 Bacteria identified Cx Nom (U) ORGANISM ID: 1 10,000 -<50,000 CFU/ml Normal urogenital yamel Normal [facility] Comment on above: Performed By: #### 6 30-4 #### [facility] CLIA [id number] [address] [place] [address] [place] JANI/TRICHOMONAS NAATon 0 06-27-2023 C. glabrata RNA TRAVON+probe Ql (Vag fld) Negative Normal Negative for Jani glabrata [facility] Comment on above: Order Comment: Speci men Type: SWAB Ordering Facility: [facility] Address: [address] [place] [address] Performed By: #### C VTV, BVAMP #### [facility] CLIA [id number] [address] [place] [address] [place] Jani sp DNA TRAVON+probe Ql (Vag fld) Negative Normal Negative for Jani species [facility] Comment on above: Order Comment: Speci men Type: SWAB Ordering Facility: [facility] Address: [address] [place] [address] Performed By: #### C VTV, BVAMP #### [facility] CLIA [id number] [address] [place] [address] OF [facility] T. vaginalis DNA TRAVON+probe Ql (Unsp spec) Negative Normal Negative for Trichomonas vaginalis by amplification [facility] Comment on above: Order Comment: Speci men Type: SWAB Ordering Facility: [facility] Address: [address] [place] [address] Performed By: #### C VTV, BVAMP #### [facility] CLIA [id number] [address] [place] [address] [place] CNOVon 06-27-2023 CNOV Office Visit (OBGYWM) ERNESTO NATH ([id number]) 1985 F Date Time Provider Department 06/27/23 3:00 PM MEGHANA WALTON OBGYWM During your visit today, we recorded the following information about you: Blood pressure Weight Height Last Period 128/80 65.3 kg 1.549 m 06/27/23 Meghana Walton MD 06/27/2023 3:59 PM Signed Biologist offered: Patient declines. Ernesto is a 38 year old who presents for an annual gynecologic exam with complaints, vaginal odor and irregular bleeding as well as vaginal irritation and some urinary frequency. 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 Menses: irregular spotting. . Contraception: none HPV vaccine: No Last Pap: 03/29/2022 normal HPV: 03/24/2022 negative History of abnormal pap: No Last mammogram: 2021normal Sexually active: Yes History of STDS: None Patient concerns for STD exposure: No. Pain with intercourse: No Postcoital bleeding: Yes Hot flashes: Yes Night sweats: No Vaginal dryness: Yes Exercise: not routine Diet: balanced OB History T2 L3 SAB1 IAB0 Ectopic0 Multiple0 Live Births3 Manager Mental Health History LMP: 06/27/2023 (Exact Date), Having periods Age at Menarche: Age at First : Age at Menopause: Manager Mental Health History Comments: Sexual Activity: Yes; Male Contraception: No contraception data on record PAST MEDICAL HISTORY Diagnosis Date Depression Diabetes mellitus (HCC) GERD (gastroesophageal reflux disease) Low back pain Obesity Tobacco use disorder PAST SURGICAL HISTORY Procedure Laterality Date BX THYROID COLONOSCOPY EGD LAPAROSCOPY SURG CHOLECYSTECTOMY 06/25/2009 post op readmit for pain control PAST SURGICAL HISTORY OF 03/25/2014 cervical spin injection FAMILY HISTORY Problem Relation Age of Onset Breast Cancer Paternal Aunt Cancer Paternal Grandfather pancreatic Diabetes Paternal Grandfather Heart Paternal Grandmother M.I. HYPERTENSION SOCIAL HISTORY Social History Tobacco Use Smoking status: Every Day Packs/day: 1 Types: Cigarettes Smokeless tobacco: Never Vaping Use Vaping Use: Never used Substance Use Topics Alcohol use: Yes Comment: occasional 3x per yr Drug use: No REVIEW OF SYSTEMS Abdomen: No abdominal pain, nausea, vomiting, diarrhea, or constipation. No bloating, early satiety, indigestion, or increased flatulence. Bladder: No dysuria, gross hematuria, urinary frequency, urinary urgency, or incontinence. Breast: No breast lumps, nipple d/c, overlying skin changes, redness or skin retraction. Allergies and current medication updated:Yes EXAM: Ht 5' 1 (1.55m) Wt 144 lb (65.3kg) LMP 06/27/2023 BMI 27.22 kg/(m2). GENERAL: pleasant, female in no apparent distress HEENT: Normocephalic, atraumatic, mucus membranes moist, and no lesions NECK: Supple, full range of motion, no adenopathy DERMATOLOGY: Normal, without lesions, non-icteric, and non-hirsute BREAST: soft, non-tender, symmetric, no dominant mass, normal nipple-areolar complex, no lymphadenopathy, and no nipple discharge ABDOMEN: soft, non-tender, and no masses PELVIC: external genitalia normal, normal Bartholin's glands, urethra, [place]'s glands, no vulvar lesions, no cervical lesions, good vaginal support, moderate amt dark brown discharge, normal appearing perineal body and perianal region BIMANUAL: uterus normal size, shape and consistency, no adnexal masses, and non-tender RECTOVAGINAL: deferred. NEURO: alert and oriented x3,exam grossly non-focal EXTREMITIES: normal ASSESSMENT/PLAN: 1) Health maintenance: Pap/HPV up to date. Mammogram ordered. Nutrition, exercise and routine health maintenance exams reviewed. Calcium/Vitamin D supplementation information provided. 2) Contraception: none. Contraceptive options reviewed and information provided. 3) STD screening: Declined STD check. 4) Follow up one year or sooner as needed 5) Mirena IUD vs Ablation w/ salpingectomy. Reviewed risks of surgery. Pamphlet given- pt to call office if wants to proceed. Ultrasound reviewed. Will need EMB at time of ablation- pt will not tolerate in office. Meghana Howe MD Allergies As of Date: 06/27/2023 Noted Allergy Reaction DEXTROAMPHETAMINE-AM PHETAMINE 07/05/2021 5 - Intolerance ABILIFY (ARIPIPRAZOLE) 03/15/2015 5 - Intolerance Comments: Blood sugar rises CODEINE 08/09/2005 12 - Shortness of Breath CONTRAST DYE 06/03/2014 16 - Unknown Comments: CT scan LAMICTAL (LAMOTRIGINE) 03/15/2015 7 - Swelling VICODIN (HYDROCODONE-ACETAMI NOPHE*08/09/2005 12 - Shortness of Breath Date Reviewed: 06/27/2023 Reviewed by: Maren Harmon Ma - Fully Assessed Reason for Visit: Yearly Exam [187] Primary Visit Diagnosis:Encounter for gynecological examination (general) (routine) without abnormal finding (more content not included)... Normal [facility] STREP A MOLECULAR (POC)on Procedural Control Valid [facility] Strep A (POCT) Negative Negative [facility] UA DIP, URINE (POC)on 2022 BILIRUBIN UA (POCT) Negative Negative [facility] CLARITY UA (POCT) Clear [facility] COLOR UA (POCT) Yellow [facility] GLUCOSE UA (POCT) Negative Negative mg/dL [facility] HEMOGLOBIN/BLOOD UA (POCT) Negative Negative [facility] KETONE UA (POCT) Negative Negative mg/dL [facility] LEUKOCYTES UA (POCT) Negative Negative [facility] NITRITE UA (POCT) Negative Negative [facility] PH UA (POCT) 6.0 4.5 - 8.[address] [facility] Protein Ql (U) Negative Negative mg/dL [facility] SPECIFIC GRAVITY UA (POCT) <=1.005 Abnormal 1.005 - 1.[address] [facility] UROBILINOGEN UA (POCT) 0.2 E.U./dL Normal E.U./dL [facility] CHALO SCREENING W TOMOon 02-[address] [facility] US THYROID/PARATHYROIDon [facility] XR Hand - left PA and Latera l and Obliqueon 12-02-2021 IMPRESSION: Negative Urban Design Consultant: PSCB Transcribe Date/Time: Dec 02 2021 7:08P Dictated by : DON WILLETT MD This examination was interpreted and the report reviewed and electronically signed by: DON WILLETT MD on Dec 02 2021 7:08PM EST [email or web address] E_DIVISION OF RADIOLOGY * * *Final Report* * * DATE OF EXAM: Dec 02 2021 5:05PM [id number] - XR HAND 3V PA/LAT/OBL LT / PROCEDURE REASON: HAND PAIN * * * * Physician Interpretation * * * * PROCEDURE: Left hand INDICATION: HAND PAIN.pain in left thumb for 2 weeks after mopping the floor TECHNIQUE: XR HAND 3V PA/LAT/OBL LT COMPARISON: None FINDINGS: No fractures or dislocations are seen. The bones, joint spaces and soft tissues are unremarkable. [email or web address]_US E_DIVISION OF RADIOLOGY Provider, [facility] [place] - 12/02/2021 * * *Final Report* * * DATE OF EXAM: Dec 02 2021 5:05PM [id number] - XR HAND 3V PA/LAT/OBL LT / PROCEDURE REASON: HAND PAIN * * * * Physician Interpretation * * * * PROCEDURE: Left hand INDICATION: HAND PAIN.pain in left thumb for 2 weeks after mopping the floor TECHNIQUE: XR HAND 3V PA/LAT/OBL LT COMPARISON: None FINDINGS: No fractures or dislocations are seen. The bones, joint spaces and soft tissues are unremarkable. IMPRESSION IMPRESSION: Negative Urban Design Consultant: JOAQUIM Transcribe Date/Time: Dec 02 2021 7:08P Dictated by : DON WILLETT MD This examination was interpreted and the report reviewed and electronically signed by: DON WILLETT MD on Dec 02 2021 7:08PM EST [facility] Radiology Study observation (narrative) [facility] XR Hand - left PA and Latera l and ObliqueOrdered By: [facility] Provider on 12-02-[address] [facility] UA DIP, URINE (POC)on 2021 BILIRUBIN UA (POCT) Negative Negative [facility] CLARITY UA (POCT) Clear [facility] COLOR UA (POCT) Yellow [facility] GLUCOSE UA (POCT) Negative Negative mg/dL [facility] HEMOGLOBIN/BLOOD UA (POCT) Negative Negative [facility] KETONE UA (POCT) Negative Negative mg/dL [facility] LEUKOCYTES UA (POCT) Negative Negative [facility] NITRITE UA (POCT) Negative Negative [facility] PH UA (POCT) 7.0 4.5 - 8.[address] [facility] Protein Ql (U) Negative Negative mg/dL [facility] SPECIFIC GRAVITY UA (POCT) 1.015 1.005 - 1.[address] [facility] UROBILINOGEN UA (POCT) 0.2 E.U./dL Normal E.U./dL [facility] Vital Signs Date Time Vital Sign Value Performing Clinician Faci lity 02-14-2024 10:50-0400 Body mass index (BMI) [Ratio] 24.54 kg/m2 Rena Praisler-Wood FUNCTIONAL SUPPORT ANALYST.TUMOR REGISTRAR Work Phone: [facility] 02-14-2024 10:50-0400 Body temperature 98.29 [degF] Rena Praisler-Wood FUNCTIONAL SUPPORT ANALYST.TUMOR REGISTRAR Work Phone: [facility] 02-14-2024 10:50-0400 Body weight 58.9 kg Rena Praisler-Wood FUNCTIONAL SUPPORT ANALYST.TUMOR REGISTRAR Work Phone: [facility] 02-14-2024 10:50-0400 Diastolic blood pressure 90 mm[Hg] Rena Praisler-Wood FUNCTIONAL SUPPORT ANALYST.TUMOR REGISTRAR Work Phone: [facility] 02-14-2024 10:50-0400 Heart rate 77 /min Rena Praisler-Wood FUNCTIONAL SUPPORT ANALYST.TUMOR REGISTRAR Work Phone: [facility] 02-14-2024 10:50-0400 Respiratory rate 18 /min Rena Praisler-Wood FUNCTIONAL SUPPORT ANALYST.TUMOR REGISTRAR Work Phone: [facility] 02-14-2024 10:50-0400 SaO2% (BldA) [Mass fraction] 100 % Rena Praisler-Wood FUNCTIONAL SUPPORT ANALYST.TUMOR REGISTRAR Work Phone: [facility] 02-14-2024 10:50-0400 Systolic blood pressure 143 mm[Hg] Rena Praisler-Wood FUNCTIONAL SUPPORT ANALYST.TUMOR REGISTRAR Work Phone: [facility] 08-27-2022 10:32-0500 Body temperature 98.01 [degF] Marina Wilkinson FUNCTIONAL SUPPORT ANALYST.TUMOR REGISTRAR Work Phone: [facility] 08-27-2022 10:32-0500 Body weight 63.36 kg Marina Wilkinson FUNCTIONAL SUPPORT ANALYST.TUMOR REGISTRAR Work Phone: [facility] 08-27-2022 10:32-0500 Diastolic blood pressure 82 mm[Hg] Marina Wilkinson FUNCTIONAL SUPPORT ANALYST.TUMOR REGISTRAR Work Phone: [facility] 08-27-2022 10:32-0500 Heart rate 88 /min Marina Wilkinson FUNCTIONAL SUPPORT ANALYST.TUMOR REGISTRAR Work Phone: [facility] 08-27-2022 10:32-0500 Respiratory rate 18 /min Marina Wilkinson FUNCTIONAL SUPPORT ANALYST.TUMOR REGISTRAR Work Phone: [facility] 08-27-2022 10:32-0500 SaO2% (BldA) [Mass fraction] 100 % Marina Wilkinson FUNCTIONAL SUPPORT ANALYST.TUMOR REGISTRAR Work Phone: [facility] 08-27-2022 10:32-0500 Systolic blood pressure 138 mm[Hg] Marina Wilkinson FUNCTIONAL SUPPORT ANALYST.TUMOR REGISTRAR Work Phone: [facility] 05-22-2022 11:31-0500 Body weight 60.33 kg Meghana Ann MD Work Phone: [facility] 05-22-2022 11:31-0500 Diastolic blood pressure 64 mm[Hg] Meghana Ann MD Work Phone: [facility] 05-22-2022 11:31-0500 Systolic blood pressure 118 mm[Hg] Meghana Ann MD Work Phone: [facility] 04-27-2022 12:58-0400 Body temperature 97.9 [degF] Alley Mcclelland FUNCTIONAL SUPPORT ANALYST.TUMOR REGISTRAR Work Phone: [facility] 04-27-2022 12:58-0400 Body weight 60.69 kg Alley Mcclelland FUNCTIONAL SUPPORT ANALYST.TUMOR REGISTRAR Work Phone: [facility] 04-27-2022 12:58-0400 Diastolic blood pressure 76 mm[Hg] Alley Mcclelland FUNCTIONAL SUPPORT ANALYST.TUMOR REGISTRAR Work Phone: [facility] 04-27-2022 12:58-0400 Heart rate 102 /min Alley Mcclelland FUNCTIONAL SUPPORT ANALYST.TUMOR REGISTRAR Work Phone: [facility] 04-27-2022 12:58-0400 Respiratory rate 18 /min Alley Mcclelland FUNCTIONAL SUPPORT ANALYST.TUMOR REGISTRAR Work Phone: [facility] 04-27-2022 12:58-0400 SaO2% (BldA) [Mass fraction] 99 % Alley Mcclelland FUNCTIONAL SUPPORT ANALYST.TUMOR REGISTRAR Work Phone: [facility] 04-27-2022 12:58-0400 Systolic blood pressure 124 mm[Hg] Alley Mcclelland FUNCTIONAL SUPPORT ANALYST.TUMOR REGISTRAR Work Phone: [facility] 04-18-2022 13:53-0400 Body weight 59.88 kg Karol Roa FUNCTIONAL SUPPORT ANALYST.CNM Work Phone: [facility] 04-18-2022 13:53-0400 Diastolic blood pressure 70 mm[Hg] Karol Plotts FUNCTIONAL SUPPORT ANALYST.CNM Work Phone: [facility] 04-18-2022 13:53-0400 Systolic blood pressure 118 mm[Hg] Karol Plotts FUNCTIONAL SUPPORT ANALYST.CNM Work Phone: [facility] 04-13-2022 16:11-0400 Body temperature 97.2 [degF] Darby Athy PA-C Work Phone: [facility] 04-13-2022 16:11-0400 Body weight 60.6 kg Darby Athy PA-C Work Phone: [facility] 04-13-2022 16:11-0400 Diastolic blood pressure 82 mm[Hg] Darby Athy PA-C Work Phone: [facility] 04-13-2022 16:11-0400 Heart rate 75 /min Darby Athy PA-C Work Phone: [facility] 04-13-2022 16:11-0400 Respiratory rate 16 /min Darby Athy PA-C Work Phone: [facility] 04-13-2022 16:11-0400 SaO2% (BldA) [Mass fraction] 99 % Darby Athy PA-C Work Phone: [facility] 04-13-2022 16:11-0400 Systolic blood pressure 132 mm[Hg] Darby Athy PA-C Work Phone: [facility] 03-21-2022 09:090400 Body height 154.9 cm Meghana Ann MD Work Phone: [facility] 03-21-2022 09:09-0400 Body weight 60.78 kg Meghana Ann MD Work Phone: [facility] 03-21-2022 09:09-0400 Diastolic blood pressure 76 mm[Hg] Meghana Ann MD Work Phone: [facility] 03-21-2022 09:090400 Systolic blood pressure 124 mm[Hg] Meghana Ann MD Work Phone: [facility] 01-12-2022 17:56-0400 Body temperature 98.01 [degF] Abundio Wei FUNCTIONAL SUPPORT ANALYST.TUMOR REGISTRAR Work Phone: [facility] 01-12-2022 17:56-0400 Body weight 62.05 kg Abundiofay Wei FUNCTIONAL SUPPORT ANALYST.TUMOR REGISTRAR Work Phone: [facility] 01-12-2022 17:56-0400 Diastolic blood pressure 64 mm[Hg] Abundio [facility] FUNCTIONAL SUPPORT ANALYST.TUMOR REGISTRAR Work Phone: [facility] 01-12-2022 17:56-0400 Heart rate 104 /min Abundio Wei FUNCTIONAL SUPPORT ANALYST.TUMOR REGISTRAR Work Phone: [facility] 01-12-2022 17:56-0400 Respiratory rate 18 /min Abundio [facility] FUNCTIONAL SUPPORT ANALYST.TUMOR REGISTRAR Work Phone: [facility] 01-12-2022 17:56-0400 SaO2% (BldA) [Mass fraction] 98 % Abundio Wei FUNCTIONAL SUPPORT ANALYST.TUMOR REGISTRAR Work Phone: [facility] 01-12-2022 17:56-0400 Systolic blood pressure 122 mm[Hg] Abundio Melendrezlejeff FUNCTIONAL SUPPORT ANALYST.TUMOR REGISTRAR Work Phone: [facility] 11-16-2021 19:02-0400 Body temperature 97.59 [degF] Marina Don FUNCTIONAL SUPPORT ANALYST.TUMOR REGISTRAR Work Phone: [facility] 11-16-2021 19:02-0400 Body weight 61.69 kg Marina Wilkinson APRN.TUMOR REGISTRAR Work Phone: [facility] 11-16-2021 19:02-0400 Diastolic blood pressure 76 mm[Hg] Marina Wilkinson APRN.TUMOR REGISTRAR Work Phone: [facility] 11-16-2021 19:02-0400 Heart rate 110 /min Marina Wilkinson APRN.TUMOR REGISTRAR Work Phone: [facility] 11-16-2021 19:02-0400 Respiratory rate 16 /min Marina Wilkinson APRN.TUMOR REGISTRAR Work Phone: [facility] 11-16-2021 19:02-0400 SaO2% (BldA) [Mass fraction] 98 % Marina Wilkinson APRN.TUMOR REGISTRAR Work Phone: [facility] 11-16-2021 19:02-0400 Systolic blood pressure 124 mm[Hg] Marina Wilkinson APRN.TUMOR REGISTRAR Work Phone: [facility] Encounters Encounter Date Encounter Type Care Provider Facility Start: 04-14-2024 End: 04-14-2024 [facility] department [facility] Start: 04-14-2024 End: 04-14-2024 ambulatory [facility] Facility:[facility] [facility] Start: 04-14-2024 End: 04-14-2024 Patient encounter procedure Alfred Cox FUNCTIONAL SUPPORT ANALYST.TUMOR REGISTRAR Work Phone: [facility] Comment on above: Injury of head, init ial encounter (Primary Dx) Start: 02-14-2024 End: 02-14-2024 ambulatory [facility] Facility:[facility] Start: 02-14-2024 End: 02-14-2024 Patient encounter procedure Rena Cobos FUNCTIONAL SUPPORT ANALYST.TUMOR REGISTRAR Work Phone: [facility] Comment on above: Sinobronchitis (Prim sosa Dx); Feared condition not demonstrated Start: 10-09-2023 Admission to same [facility] Meghana Ann MD Work Phone: OB/Gynecology Comment on above: surgery dates Start: 10-09-2023 ambulatory Meghana Ann MD Work Phone: OB/Gynecology Start: 06-27-2023 End: 06-27-2023 ambulatory CHRISSY Destiny TEMPLE Facility:[facility] Start: 06-27-2023 Encounter for gynecological examination (general) (routine) without abnormal findings MEGHANA ANN [facility] Start: 02-12-2023 Refill Meghana Ann MD Work Phone: OB/Gynecology Comment on above: Refill Request Start: 08-31-2022 ambulatory Meghana Ann MD Work Phone: OB/Gynecology Comment on above: Question Start: 08-27-2022 End: 08-27-2022 Patient encounter procedure Marina Wilkinson APRN.CNP Work Phone: [facility] Comment on above: Urinary frequency (P rimary Dx); Sore throat; Burning with urination; Rhinosinusitis Start: 08-24-2022 Refill Meghana Ann MD Work Phone: OB/Gynecology Comment on above: Refill Request Start: 08-01-2022 ambulatory Meghana Ann MD Work Phone: OB/Gynecology Comment on above: Question Start: 07-30-2022 Refill Meghana Ann MD Work Phone: OB/Gynecology Comment on above: Refill Request Start: 07-28-2022 ambulatory Meghana Ann MD Work Phone: OB/Gynecology Comment on above: Medicine question Start: 06-21-2022 ambulatory Meghana Ann MD Work Phone: OB/Gynecology Comment on above: Question Start: 06-01-2022 ambulatory Meghana Ann MD Work Phone: OB/Gynecology Comment on above: Question Start: 05-22-2022 End: 05-22-2022 Patient encounter procedure Meghana Ann MD Work Phone: OB/Gynecology Comment on above: Vaginal irritation ( Primary Dx); Abnormal uterine bleeding (AUB); Sterilization consult Start: 04-27-2022 End: 04-27-2022 Patient encounter procedure Alley Mcclelland FUNCTIONAL SUPPORT ANALYST.TUMOR REGISTRAR Work Phone: [facility] Comment on above: Nasal congestion (Pr imary Dx); Acute cough; At increased risk of exposure to COVID-19 virus Start: 04-20-2022 ambulatory Karol Barahona sita FUNCTIONAL SUPPORT ANALYST.CNM Work Phone: OB/Gynecology Comment on above: Question Start: 04-18-2022 End: 04-18-2022 Patient encounter procedure Karol Leydialine FUNCTIONAL SUPPORT ANALYST.CNM Work Phone: OB/Gynecology Comment on above: Abnormal uterine ble eding (AUB) (Primary Dx); Acute vaginitis Start: 04-13-2022 End: 04-13-2022 Patient encounter procedure Darby Zheng PA-C Work Phone: [facility] Comment on above: Rash (Primary Dx) Start: 03-23-2022 End: 03-23-2022 Patient encounter procedure Meghana Ann MD Work Phone: OB/Gynecology Comment on above: Abnormal uterine ble eding (AUB) (Primary Dx) Start: 03-21-2022 End: 03-21-2022 Patient encounter procedure Meghana Ann MD Work Phone: OB/Gynecology Comment on above: Encounter for gyneco logical examination with abnormal finding (Primary Dx); Screening for cervical cancer; Encounter for screening for human papillomavirus (HPV); Abnormal uterine bleeding (AUB); History of thyroid nodule; Type 2 diabetes mellitus without complication, unspecified whether skilled nursing insulin use (HCC); Encounter for vitamin deficiency screening; Screening cholesterol level Start: 03-21-2022 End: 03-21-2022 Patient encounter status Meghana Ann MD Work Phone: OB/Gynecology Start: 02-23-2022 End: 02-23-2022 Subsequent hospital visit by physician Screen Mammo [facility] Start: 01-12-2022 End: 01-12-2022 Patient encounter procedure Abundio Wei APRN.TUMOR REGISTRAR Work Phone: [facility] Comment on above: Rash (Primary Dx) Start: 12-02-2021 End: 12-02-2021 Subsequent hospital visit by physician Xr [facility] Work Phone: Radiology Start: 11-16-2021 End: 11-16-2021 Patient encounter procedure Marina Wilkinson APRN.CNP Work Phone: [facility] Comment on above: Vaginal itching (Nanette alena Dx); Burning with urination Procedures Date Procedure Procedure Detail Performing Clinician Start: 08-27-2022 STREP A MOLECULAR (POC) Alley Mcclelland APRN.CNP Work Phone: Start: 08-27-2022 Urnls dip stick/tabl et rgnt auto w/o microscopy Alley Mcclelland APRN.TUMOR REGISTRAR Work Phone: Start: 02-23-2022 Us soft tissue head & neck real time imge docm [facility] Provider Start: 02-23-2022 CHALO SCREENING W CALLIE [facility]c f Provider Start: 12-02-2021 Radex hand minimum 3 views [facility] Provider Start: 11-16-2021 Urnls dip stick/tabl et rgnt auto w/o microscopy Marina Wilkinson APRN.TUMOR REGISTRAR Work Phone: Start: 05-07-2015 Adult depression screening assessment Marina Wilkinson APRN.TUMOR REGISTRAR Work Phone: Plan of Treatment Date Care Activity Detail Author Start: 03-21-2027 HPV TESTING HPV TESTING [facility] Start: 03-21-2027 PAP TESTING PAP TESTING [facility] Start: 03-21-2027 Screening for malign ant neoplasm of cervix [facility] Start: 2024 Covid-19 Vaccine ( season) Covid-19 Vaccine () [facility] Start: 2024 [facility] Start: 06-25-2023 Behavioral Health Screening Behavioral Health Screening [facility] Start: 2023 Screening for malign ant neoplasm of breast Mammogram Screening [facility] Start: 02-23-2023 Covid-19 Vaccine () Covid-19 Vaccine () [facility] Start: 02-23-2023 Influenza vaccination INFLUENZA (#1) [facility] Start: 06-25-2022 DEPRESSION ASSESSMENT DEPRESSION ASS ESSMENT [facility] Start: 04-27-2022 End: 05-11-2022 Influenza virus A and B RNA and SARS-CoV-2 (COVID-19) N gene panel - Respiratory specimen by TRAVON with probe detection COVID WITH FLUA+B, ROUTINE Microbiology Routine Nasal congestion Acute cough At increased risk of exposure to COVID-19 virus Expected: 04/27/2022, Expires: 05/11/2022 [facility] Work Phone: Comment on above: Expected: 04/27/2022 , Expires: 05/11/2022 Start: 04-20-2022 End: 06-20-2022 Bacteria identified in Urine by Culture URINE CULTURE Microbiology Routine Dysuria Expected: 04/20/2022, Expires: 06/20/2022 [facility] Work Phone: Comment on above: Expected: 04/20/2022 , Expires: 06/20/2022 Start: 04-20-2022 End: 06-20-2022 Urinalysis complete panel - Urine URINALYSIS, WITH MICROSCOPIC Lab Routine Dysuria Expected: 04/20/2022, Expires: 06/20/2022 [facility] Work Phone: Comment on above: Expected: 04/20/2022 , Expires: 06/20/2022 Start: 03-21-2022 End: 05-21-2022 25-hydroxyvitamin D3 [Mass/volume] in Serum or Plasma VITAMIN D 25 HYDROXY Lab Routine Encounter for vitamin deficiency screening Expected: 03/21/2022, Expires: 05/21/2022 [facility] Work Phone: Comment on above: Expected: 03/21/2022 , Expires: 05/21/2022 Start: 03-21-2022 End: 05-21-2022 CBC panel - Blood by Automated count CBC Lab Routine Abnormal uterine bleeding (AUB) Expected: 03/21/2022, Expires: 05/21/2022 [facility] Work Phone: Comment on above: Expected: 03/21/2022 , Expires: 05/21/2022 Start: 03-21-2022 End: 05-21-2022 Hemoglobin A1c in Blood HGB A1C Lab Routine Type 2 diabetes mellitus without complication, unspecified whether long term care pharmacist insulin use (HCC) Expected: 03/21/2022, Expires: 05/21/2022 [facility] Work Phone: Comment on above: Expected: 03/21/2022 , Expires: 05/21/2022 Start: 03-21-2022 End: 05-21-2022 LIPID PANEL, NONFASTING LIPID PANEL, NONFASTING Lab Routine Screening cholesterol level Expected: 03/21/2022, Expires: 05/21/2022 [facility] Work Phone: Comment on above: Expected: 03/21/2022 , Expires: 05/21/2022 Start: 03-21-2022 End: 05-21-2022 T4/FTI/T4U T4/FTI/T4U Lab Routine Abnormal uterine bleeding (AUB) History of thyroid nodule Expected: 03/21/2022, Expires: 05/21/2022 [facility] Work Phone: Comment on above: Expected: 03/21/2022 , Expires: 05/21/2022 Start: 03-21-2022 End: 05-21-2022 Thyrotropin [Units/volume] in Serum or Plasma TSH BLD Lab Routine Abnormal uterine bleeding (AUB) History of thyroid nodule Expected: 03/21/2022, Expires: 05/21/2022 [facility] Work Phone: Comment on above: Expected: 03/21/2022 , Expires: 05/21/2022 Start: 03-21-2022 End: 05-21-2022 Triiodothyronine (T3) [Mass/volume] in Serum or Plasma T3 BLD Lab Routine Abnormal uterine bleeding (AUB) History of thyroid nodule Expected: 03/21/2022, Expires: 05/21/2022 [facility] Work Phone: Comment on above: Expected: 03/21/2022 , Expires: 05/21/2022 Start: 02-23-2022 Influenza vaccination [facility] Start: 06-25-2021 DEPRESSION ASSESSMENT DEPRESSION ASS ESSMENT [facility] Start: 05-07-2016 [facility] DEPRESS[facility] SCREENING [facility] Start: 2013 HPV TESTING HPV TESTING [facility] Start: 01-01-2011 PAP TESTING PAP TESTING [facility] Start: 2002 Hepatitis B Vaccine (1 of 3 - 19+ 3-dose series) Hepatitis B Vaccine (1 of 3 - 19+ 3-dose series) [facility] Start: 2002 Urine microalbumin profile [facility] Start: 2001 Anxiety Screening Anxiety Screening [facility] Start: 2001 Depression Screening Depression Scre ening [facility] Start: 2001 HEPATITIS C SCREENING HEPATITIS C [facility] Start: 2001 Hepatitis C screening Hepatitis C [facility] Start: 1989 PNEUMOCOCCAL (1 - PCV) PNEUMOCOCCAL (1 - PCV) [facility] Start: 1989 Pneumococcal vaccination Pneum ococcal Vaccine (1 of 2 - PCV) [facility] Start: 02-25-1988 COVID-19 VACCINE (#1) COVID-19 VACCI NE (#1) [facility] Start: 1983 COVID-19 VACCINE (#1) COVID-19 VACCI NE (#1) [facility] Start: 1983 HEPATITIS B (1 of 3 - 3-dose series) HEPATITIS B (1 of 3 - 3-dose series) [facility] Bacteria identified in Urine by Culture URINE CULTURE Microbiology Routine Urinary frequency Ordered: 08/27/2022 [facility] Work Phone: Comment on above: Ordered: 08/27/2022 BACTERIAL VAGINOSIS AMPLIFICATION BACTERIAL VAGINOSIS AMPLIFICATION Lab Routine Vaginal itching Burning with urination Ordered: 11/16/2021 [facility] Work Phone: Comment on above: Ordered: 11/16/2021 BACTERIAL VAGINOSIS AMPLIFICATION BACTERIAL VAGINOSIS AMPLIFICATION Lab Routine Acute vaginitis 04/18/2022 2:58 PM EDT [facility] Work Phone: BACTERIAL VAGINOSIS AMPLIFICATION BACTERIAL VAGINOSIS AMPLIFICATION Lab Routine Vaginal irritation 05/22/2022 12:15 PM EST [facility] Work Phone: BACTERIAL VAGINOSIS AMPLIFICATION BACTERIAL VAGINOSIS AMPLIFICATION Lab Routine Burning with urination Ordered: 08/27/2022 [facility] Work Phone: Comment on above: Ordered: 08/27/2022 JANI / TRICHOMONA S AMPLIFICATION JANI / TRICHOMONAS AMPLIFICATION Lab Routine Vaginal itching Burning with urination Ordered: 11/16/2021 [facility] Work Phone: Comment on above: Ordered: 11/16/2021 JANI / TRICHOMONA S AMPLIFICATION JANI / TRICHOMONAS AMPLIFICATION Microbiology Routine Vaginal irritation 05/22/2022 12:15 PM EST [facility] Work Phone: JANI / TRICHOMONA S AMPLIFICATION JANI / TRICHOMONAS AMPLIFICATION Microbiology Routine Burning with urination Ordered: 08/27/2022 [facility] Work Phone: Comment on above: Ordered: 08/27/2022 Chlamydia trachomatis+Neisseria gonorrhoeae DNA [Presence] in Unspecified specimen by TRAVON with probe detection GC/CHLAMYDIA DNA DET Lab Routine Vaginal itching Burning with urination Ordered: 11/16/2021 [facility] Work Phone: Comment on above: Ordered: 11/16/2021 PAP FLUID CERVICAL SCREENING PAP FLUID CERVICAL SCREENING Lab Routine Screening for cervical cancer Encounter for screening for human papillomavirus (HPV) 03/21/2022 9:42 AM EDT [facility] Work Phone: PELVIC US WHI PELVIC US WHI An c Imaging Routine Abnormal uterine bleeding (AUB) Ordered: 03/21/2022 [facility] Work Phone: Comment on above: Ordered: 03/21/[facility] P[facility] Date Payer Category [facility]ayer [facility] CARITAS [facility] [id number] 2024-Present [phone] [address] [place] [address] Medicaid [id number] 2024 Unknown [id number] 2022 Private Health Insurance CIGNA CIGNA PPO TPA [id number] 2022-Present [address] [place] [address] PPO [id number] 2022 Private Health Insurance [id number] 2020 Unknown [id number] 2020 Unknown [id number] 2020 Unknown [id number] 1983 Unknown [id number] Social History Date Type Detail Facility Start: 09-25-2014 End: 02-14-2024 Tobacco smoking status NVIS Smokes tobacco daily [facility] Work Phone: History of tobacco use Cigarette Smoker C [facility] Work Phone: Start: 11-16-2021 End: 02-14-2024 Alcohol intake Current drinker of alcohol (finding) [facility] Start: 06-08-2014 History SDOH Alcohol Comment occasional 3x per yr [facility] Start: 1985 Sex Assigned At Not on file C [facility] Start: 11-06-2021 End: 04-27-2022 Exposure to SARS-CoV-2 (event) Not sure [facility] Work Phone: Start: 09-25-2014 End: 06-27-2023 Cigarettes smoked current (pack per day) - Reported [address] [facility] Start: 09-25-2014 End: 02-14-2024 Tobacco use and exposure Smokeless tobacco non-user [facility] Work Phone: Start: 08-27-2022 End: 06-27-2023 Tobacco use panel [facility] National Score (1-10 0), lower number is lower risk [address] [facility] Clinical Notes 11-16-2021 to 04-14-2024 Alfred Cox APRN.CNP - 04/14/2024 6:00 PM EDTPatient InstructionsRena Sam APRN.CNP - 02/14/2024 10:59 AM EDTTelephone Encounter - RomanHollie - 10/26/2023 8:44 AM EDT Note Date & Type Note Facility 04-14-2024 Note HNO ID: [id number] Author: ALFRED COX APRN.SHANTEL Service: ? Author Type: Nurse Practitioner Type: Progress Notes Filed: 04/14/2024 18:01 Note Text: Patient triaged at [facility]. Here today with head injury, now nauseous and headache. Patient in no apparent distress at time of triage. I will refer to ER. [facility] 04-14-2024 History of Presen t illness Narrative Patient triaged at [facility]. Here today with head injury, now nauseous and headache. Patient in no apparent distress at time of triage. I will refer to ER. documented in this encounter [facility] 02-14-2024 Rena Love APRN.CNP - 02/14/2024 11:19 AM EDT ASSESSMENT/PLAN: 1. Sinobronchitis - ICD9: 473.9, 490, ICD10: J32.9, J40 (primary diagnosis) - Will begin treatment with as per antibiotic as written, see orders - Supportive care with plenty of fluids, rest, and analgesia prn. - AMOXICILLIN 875 MG-POTASSIUM CLAVULANATE 125 MG TABLET - PREDNISONE 20 MG TABLET 2. Feared condition not demonstrated - ICD9: V65.5, ICD10: Z71.1 - patient states she gets vaginal yeast infection with antibiotic use. - FLUCONAZOLE 150 MG TABLET - Follow-up with your PCP in 3-5 days if symptoms have not improved or sooner if symptoms worsen - Discussed red flags and need for immediate medical evaluation if any occur. - Discussed supportive care treatment with fluids, rest and analgesia. - Discussed expected course of illness Rena Cobos APRN.TUMOR REGISTRAR documented in this encounter [facility] 02-14-2024 Note HNO ID: [id number] Author: RENA COBOS APRN.TUMOR REGISTRAR Service: ? Author Type: Nurse Practitioner Type: Progress Notes Filed: 02/14/2024 11:19 Note Text: Subjective HPI Ernesto Nath is a 38 year old female who presents with URI symptoms x 2 weeks. Seems to be worst at night-coughing up a lot of phlegm. Tired from coughing at night. Nasal and chest congestion. Has had sore throat, body aches, headache. had similar symptoms and recently placed on antibiotics. Review of Systems Constitutional: Negative for chills, fever and malaise/fatigue. HENT: Positive for congestion and sore throat. Negative for ear pain. Respiratory: Positive for cough and sputum production. Negative for shortness of breath. Cardiovascular: Negative for chest pain. Gastrointestinal: Negative for diarrhea, nausea and vomiting. Musculoskeletal: Positive for myalgias. Neurological: Positive for headaches. BP 143/90 Pulse 77 Temp 36.8 ?C (98.3 ?F) Resp 18 Wt 58.9 kg (129 lb 13.6 oz) LMP 06/27/2023 (Exact Date) SpO2 100% BMI 24.54 kg/m? PAST MEDICAL HISTORY No date: Depression No date: Diabetes mellitus (HCC) No date: GERD (gastroesophageal reflux disease) No date: Low back pain No date: Obesity No date: Tobacco use disorder PAST SURGICAL HISTORY No date: BX THYROID No date: COLONOSCOPY Comment: EGD 06/25/2009: LAPAROSCOPY SURG CHOLECYSTECTOMY Comment: post op readmit for pain control 03/25/2014: PAST SURGICAL HISTORY OF Comment: cervical spin injection ALLERGIES Dextroamphetamine-Amphetamine, Abilify [Aripiprazole], Codeine, Contrast Dye, Lamictal [Lamotrigine], and Vicodin [Hydrocodone-Acetaminophen] MEDICATIONS Cholecalciferol, Vitamin D3, 50 mcg (2,000 unit) cap Take by mouth. norethindrone (AYGESTIN) 5 mg tablet Take 1 tablet by mouth once daily. om3/dha/epa/fish/kril/lut/zeax (MEGARED ADV TOTAL BODY REFRESH ORAL) Take by mouth. metFORMIN ER (GLUCOPHAGE XR) 500 mg 24 hr tablet Take 500 mg by mouth three times daily. ALPRAZolam (XANAX) 0.25 mg tablet Take 0.25 mg by mouth two times a day as needed. amoxicillin-clavulanate potassium (AUGMENTIN) 875-125 mg per tablet Take 1 tablet by mouth two times a day for 7 days. predniSONE (DELTASONE) 20 mg tablet Take 2 tablets by mouth once daily for 4 days. Take daily with food. fluconazole (DIFLUCAN) 150 mg tablet Take 1 tablet by mouth once daily for 1 day. ibuprofen (MOTRIN) 800 mg tablet Take 800 mg by mouth as needed. CALCIUM CARBONATE (TUMS 500 ORAL) Take 1 tablet by mouth as needed. acetaminophen (TYLENOL) 325 mg tablet Take 325 mg by mouth every 4 hours as needed. FAMILY HISTORY Problem Relation Age of Onset Breast Cancer Paternal Aunt Cancer Paternal Grandfather pancreatic Diabetes Paternal Grandfather Heart Paternal Grandmother M.I. HYPERTENSION Social History Tobacco Use Smoking status: Every Day Current packs/day: 1.00 Types: Cigarettes Smokeless tobacco: Never Vaping Use Vaping status: Never Used Substance Use Topics Alcohol use: Yes Comment: occasional 3x per yr Drug use: No Objective Physical Exam Vitals and nursing note reviewed. Constitutional: General: She is not in acute distress. Appearance: Normal appearance. She is not ill-appearing. HENT: Right Ear: Tympanic membrane, ear canal and external ear normal. Left Ear: Tympanic membrane, ear canal and external ear normal. Nose: Mucosal edema and congestion present. Mouth/Throat: Mouth: Mucous membranes are moist. Pharynx: Oropharynx is clear. Uvula midline. No oropharyngeal exudate or posterior oropharyngeal erythema. Cardiovascular: Rate and Rhythm: Normal rate and regular rhythm. Heart sounds: Normal heart sounds. Pulmonary: Effort: Pulmonary effort is normal. No respiratory distress. Breath sounds: Wheezing (few, scattered) present. No rales. Musculoskeletal: Cervical back: Neck supple. Lymphadenopathy: Cervical: No cervical adenopathy. Skin: General: Skin is warm and dry. Findings: No erythema or rash. Neurological: Mental Status: She is alert. ASSESSMENT/PLAN: 1. Sinobronchitis - ICD9: 473.9, 490, ICD10: J32.9, J40 (primary diagnosis) - Will begin treatment with as per antibiotic as written, see orders - Supportive care with plenty of fluids, rest, and analgesia prn. - AMOXICILLIN 875 MG-POTASSIUM CLAVULANATE 125 MG TABLET - PREDNISONE 20 MG TABLET 2. Feared condition not demonstrated - ICD9: V65.5, ICD10: Z71.1 - patient states she gets vaginal yeast infection with antibiotic use. - FLUCONAZOLE 150 MG TABLET - Follow-up with your PCP in 3-5 days if symptoms have not improved or sooner if symptoms worsen - Discussed red flags and need for immediate medical evaluation if any occur. - Discussed supportive care treatment with fluids, rest and analgesia. - Discussed expected course of illness Rena Cobos APRN.[facility] 02-14-2024 History of Presen t illness Narrative Subjective HPI Ernesto Nath is a 38 year old female who presents with URI symptoms x 2 weeks. Seems to be worst at night-coughing up a lot of phlegm. Tired from coughing at night. Nasal and chest congestion. Has had sore throat, body aches, headache. had similar symptoms and recently placed on antibiotics. Review of Systems Constitutional: Negative for chills, fever and malaise/fatigue. HENT: Positive for congestion and sore throat. Negative for ear pain. Respiratory: Positive for cough and sputum production. Negative for shortness of breath. Cardiovascular: Negative for chest pain. Gastrointestinal: Negative for diarrhea, nausea and vomiting. Musculoskeletal: Positive for myalgias. Neurological: Positive for headaches. BP 143/90 Pulse 77 Temp 36.8 C (98.3 F) Resp 18 Wt 58.9 kg (129 lb 13.6 oz) LMP 06/27/2023 (Exact Date) SpO2 100% BMI 24.54 kg/m PAST MEDICAL HISTORY No date: Depression No date: Diabetes mellitus (HCC) No date: GERD (gastroesophageal reflux disease) No date: Low back pain No date: Obesity No date: Tobacco use disorder PAST SURGICAL HISTORY No date: BX THYROID No date: COLONOSCOPY Comment: EGD 06/25/2009: LAPAROSCOPY SURG CHOLECYSTECTOMY Comment: post op readmit for pain control 03/25/2014: PAST SURGICAL HISTORY OF Comment: cervical spin injection ALLERGIES Dextroamphetamine-Amphetamine, Abilify [Aripiprazole], Codeine, Contrast Dye, Lamictal [Lamotrigine], and Vicodin [Hydrocodone-Acetaminophen] MEDICATIONS Cholecalciferol, Vitamin D3, 50 mcg (2,000 unit) cap Take by mouth. norethindrone (AYGESTIN) 5 mg tablet Take 1 tablet by mouth once daily. om3/dha/epa/fish/kril/lut/zeax (MEGARED ADV TOTAL BODY REFRESH ORAL) Take by mouth. metFORMIN ER (GLUCOPHAGE XR) 500 mg 24 hr tablet Take 500 mg by mouth three times daily. ALPRAZolam (XANAX) 0.25 mg tablet Take 0.25 mg by mouth two times a day as needed. amoxicillin-clavulanate potassium (AUGMENTIN) 875-125 mg per tablet Take 1 tablet by mouth two times a day for 7 days. predniSONE (DELTASONE) 20 mg tablet Take 2 tablets by mouth once daily for 4 days. Take daily with food. fluconazole (DIFLUCAN) 150 mg tablet Take 1 tablet by mouth once daily for 1 day. ibuprofen (MOTRIN) 800 mg tablet Take 800 mg by mouth as needed. CALCIUM CARBONATE (TUMS 500 ORAL) Take 1 tablet by mouth as needed. acetaminophen (TYLENOL) 325 mg tablet Take 325 mg by mouth every 4 hours as needed. FAMILY HISTORY Problem Relation Age of Onset Breast Cancer Paternal Aunt Cancer Paternal Grandfather pancreatic Diabetes Paternal Grandfather Heart Paternal Grandmother M.I. HYPERTENSION Social History Tobacco Use Smoking status: Every Day Current packs/day: 1.00 Types: Cigarettes Smokeless tobacco: Never Vaping Use Vaping status: Never Used Substance Use Topics Alcohol use: Yes Comment: occasional 3x per yr Drug use: No Objective Physical Exam Vitals and nursing note reviewed. Constitutional: General: She is not in acute distress. Appearance: Normal appearance. She is not ill-appearing. HENT: Right Ear: Tympanic membrane, ear canal and external ear normal. Left Ear: Tympanic membrane, ear canal and external ear normal. Nose: Mucosal edema and congestion present. Mouth/Throat: Mouth: Mucous membranes are moist. Pharynx: Oropharynx is clear. Uvula midline. No oropharyngeal exudate or posterior oropharyngeal erythema. Cardiovascular: Rate and Rhythm: Normal rate and regular rhythm. Heart sounds: Normal heart sounds. Pulmonary: Effort: Pulmonary effort is normal. No respiratory distress. Breath sounds: Wheezing (few, scattered) present. No rales. Musculoskeletal: Cervical back: Neck supple. Lymphadenopathy: Cervical: No cervical adenopathy. Skin: General: Skin is warm and dry. Findings: No erythema or rash. Neurological: Mental Status: She is alert. ASSESSMENT/PLAN: 1. Sinobronchitis - ICD9: 473.9, 490, ICD10: J32.9, J40 (primary diagnosis) - Will begin treatment with as per antibiotic as written, see orders - Supportive care with plenty of fluids, rest, and analgesia prn. - AMOXICILLIN 875 MG-POTASSIUM CLAVULANATE 125 MG TABLET - PREDNISONE 20 MG TABLET 2. Feared condition not demonstrated - ICD9: V65.5, ICD10: Z71.1 - patient states she gets vaginal yeast infection with antibiotic use. - FLUCONAZOLE 150 MG TABLET - Follow-up with your PCP in 3-5 days if symptoms have not improved or sooner if symptoms worsen - Discussed red flags and need for immediate medical evaluation if any occur. - Discussed supportive care treatment with fluids, rest and analgesia. - Discussed expected course of illness Rena Cobos APRN.TUMOR REGISTRAR documented in this encounter [facility] 10-26-2023 Telephone encounter Note Pt has been off work a lot due to a hospital stay this week. She would like move this procedure to late December around the 25th. She has commitments at work in early December. Pt is okay to be notified via [employer]. [facility] Work Phone: 10-26-2023 Miscellaneous Notes Pt has been off work a lot due to a hospital stay this week. She would like move this procedure to late December around the . She has commitments at work in early December. Pt is okay to be notified via [employer]. Patient wants 11/28. Pre Op scheduled. Left message to call office. Does patient want to schedule surgery? Next available dates are 11/08, 11/14 and 11/28 at [facility] Surgery sheet to Jayna with note to check [employer] message to be sure patient responds and does want to proceed prior to scheduling. Niki Garcia RN Yep- I remember now- yes that is fine. Your last visit note stated: Will need EMB at time of ablation- pt will not tolerate in office. Is that still okay? Surgery sheet to DM. Does not need to schedule another appointment to discuss we can do that at her preop visit. Please put in OR booking sheet in my office. She can return to work on Sunday. No heavy lifting for 5 days nothing in the vagina for 5 days no driving the day of surgery. She will need EMB prior to surgery. Surgery was discussed at 06/27/23 visit. Niki Garcia RN documented in this encounter [facility] 10-22-2023 Telephone encounter Note Patient wants 11/28. Pre Op scheduled. [facility] 10-15-2023 Telephone encounter Note Left message to call office. Does patient want to schedule surgery? Next available dates are 11/08, 11/14 and 11/28 at [facility] 10-10-2023 Telephone encounter Note Surgery sheet to Jayna with note to check mychart message to be sure patient responds and does want to proceed prior to scheduling. Niki Garcia RN [facility] 10-09-2023 Telephone encounter Note Yep- I remember now- yes that is fine. [facility] 10-09-2023 Telephone encounter Note Your last visit note stated: Will need EMB at time of ablation- pt will not tolerate in office. Is that still okay? Surgery sheet to DM. [facility] 10-09-2023 Telephone encounter Note Does not need to schedule another appointment to discuss we can do that at her preop visit. Please put in OR booking sheet in my office. She can return to work on Sunday. No heavy lifting for 5 days nothing in the vagina for 5 days no driving the day of surgery. She will need EMB prior to surgery. T [facility] 10-09-2023 Telephone encounter Note Surgery was discussed at 06/27/23 visit. Niki Garcia RN T [facility] 06-27-2023 Note HNO ID: [id number] Author: Meghana Walton MD Service: ? Author Type: Physician Type: Progress Notes Filed: 06/27/2023 3:59 PM Note Text: Biologist offered: Patient declines. Ernesto is a 38 year old who presents for an annual gynecologic exam with complaints, vaginal odor and irregular bleeding as well as vaginal irritation and some urinary frequency. 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 Menses: irregular spotting. . Contraception: none HPV vaccine: No Last Pap: 03/29/2022 normal HPV: 03/24/2022 negative History of abnormal pap: No Last mammogram: 2021normal Sexually active: Yes History of STDS: None Patient concerns for STD exposure: No. Pain with intercourse: No Postcoital bleeding: Yes Hot flashes: Yes Night sweats: No Vaginal dryness: Yes Exercise: not routine Diet: balanced OB History T2 L3 SAB1 IAB0 Ectopic0 Multiple0 Live Births3 Manager Mental Health History LMP: 06/27/2023 (Exact Date), Having periods Age at Menarche: Age at First : Age at Menopause: Manager Mental Health History Comments: Sexual Activity: Yes; Male Contraception: No contraception data on record PAST MEDICAL HISTORY Diagnosis Date Depression Diabetes mellitus (HCC) GERD (gastroesophageal reflux disease) Low back pain Obesity Tobacco use disorder PAST SURGICAL HISTORY Procedure Laterality Date BX THYROID COLONOSCOPY EGD LAPAROSCOPY SURG CHOLECYSTECTOMY 06/25/2009 post op readmit for pain control PAST SURGICAL HISTORY OF 03/25/2014 cervical spin injection FAMILY HISTORY Problem Relation Age of Onset Breast Cancer Paternal Aunt Cancer Paternal Grandfather pancreatic Diabetes Paternal Grandfather Heart Paternal Grandmother M.I. HYPERTENSION SOCIAL HISTORY Social History Tobacco Use Smoking status: Every Day Packs/day: 1 Types: Cigarettes Smokeless tobacco: Never Vaping Use Vaping Use: Never used Substance Use Topics Alcohol use: Yes Comment: occasional 3x per yr Drug use: No REVIEW OF SYSTEMS Abdomen: No abdominal pain, nausea, vomiting, diarrhea, or constipation. No bloating, early satiety, indigestion, or increased flatulence. Bladder: No dysuria, gross hematuria, urinary frequency, urinary urgency, or incontinence. Breast: No breast lumps, nipple d/c, overlying skin changes, redness or skin retraction. Allergies and current medication updated:Yes EXAM: Ht 5' 1 (1.55m) Wt 144 lb (65.3kg) LMP 06/27/2023 BMI 27.22 kg/(m2). GENERAL: pleasant, female in no apparent distress HEENT: Normocephalic, atraumatic, mucus membranes moist, and no lesions NECK: Supple, full range of motion, no adenopathy DERMATOLOGY: Normal, without lesions, non-icteric, and non-hirsute BREAST: soft, non-tender, symmetric, no dominant mass, normal nipple-areolar complex, no lymphadenopathy, and no nipple discharge ABDOMEN: soft, non-tender, and no masses PELVIC: external genitalia normal, normal Bartholin's glands, urethra, [place]'s glands, no vulvar lesions, no cervical lesions, good vaginal support, moderate amt dark brown discharge, normal appearing perineal body and perianal region BIMANUAL: uterus normal size, shape and consistency, no adnexal masses, and non-tender RECTOVAGINAL: deferred. NEURO: alert and oriented x3,exam grossly non-focal EXTREMITIES: normal ASSESSMENT/PLAN: 1) Health maintenance: Pap/HPV up to date. Mammogram ordered. Nutrition, exercise and routine health maintenance exams reviewed. Calcium/Vitamin D supplementation information provided. 2) Contraception: none. Contraceptive options reviewed and information provided. 3) STD screening: Declined STD check. 4) Follow up one year or sooner as needed 5) Mirena IUD vs Ablation w/ salpingectomy. Reviewed risks of surgery. Pamphlet given- pt to call office if wants to proceed. Ultrasound reviewed. Will need EMB at time of ablation- pt will not tolerate in office. Meghana Howe MD [facility] 02-12-2023 Miscellaneous Notes See pt's mychart refill request. Pt was last seen in the office on 05/22/22. Please advise. Andra High LPN documented in this encounter [facility] 08-31-2022 Miscellaneous Notes Please advise on pt's [employer] message re: aygestin. Andra High LPN documented in this encounter [facility] 08-27-2022 History of Presen t illness Narrative Images from the original note were not included. CC: Patient presents with: Sore Throat: ST and rash x 2 days and frequency, urgency and burning x 2 days Urinary Frequency HPI: Ernesto Nath is a 37 year old female who presents to the office with complaint of head congestion, sore throat, and sinus symptoms sinus symptoms for about a month all other symptoms were for 2 days. Symptoms are staying the same. Associated symptoms includes nasal congestion. Denies fever, nausea, vomiting , and diarrhea. Treatments tried include nothing so far. with no relief of symptoms. Sick contacts: unknown. History of asthma, frequent episodes of bronchitis, chronic bronchitis, bronchiectasis or COPD: No Smoker: No Seasonal/environmental allergies: No The ROS is otherwise negative. The patient's pmh, medications, allergies, and past visits are reviewed. PHYSICAL EXAM: BP 138/82 Pulse 88 Temp 36.7 C (98 F) (Tympanic) Resp 18 Wt 63.4 kg (139 lb 11 oz) LMP 05/06/2022 (Exact Date) SpO2 100% BMI 26.39 kg/m General appearance: alert, cooperative, pleasant, in no acute distress Head: Normocephalic Eyes: EOM's intact, conjunctiva pink and moist, no icterus, sclera white, non-injected Ears: Right ear: External ear/canal- Normal, TM - clear with good landmarks. Left ear: External ear/canal- Normal, TM - clear with good landmarks Oropharynx:mild erythema, without exudates present Heart: Negative. RRR without obvious murmur, gallop, or rubs. No ectopy. Lungs: clear to auscultation, without rales or wheeze, good air exchange Physical Exam Constitutional: Appearance: Normal appearance. Pulmonary: Effort: Pulmonary effort is normal. Skin: Comments: Patient has dry flaky rash in the area marked above. Patient instructed to use cortisone cream for a few days see if it gets better and if not follow-up with dermatology. Neurological: Mental Status: She is alert. PAST MEDICAL HISTORY Diagnosis Date Depression Diabetes mellitus (HCC) GERD (gastroesophageal reflux disease) Low back pain Obesity Tobacco use disorder PAST SURGICAL HISTORY Procedure Laterality Date BX THYROID COLONOSCOPY EGD LAPAROSCOPY SURG CHOLECYSTECTOMY 06/25/2009 post op readmit for pain control PAST SURGICAL HISTORY OF 03/25/2014 cervical spin injection ALLERGIES Dextroamphetamine-Amphetamine, Abilify [Aripiprazole], Codeine, Contrast Dye, Lamictal [Lamotrigine], and Vicodin [Hydrocodone-Acetaminophen] MEDICATIONS norethindrone (AYGESTIN) 5 mg tablet TAKE 1 TABLET BY MOUTH EVERY DAY metFORMIN ER (GLUCOPHAGE XR) 500 mg 24 hr tablet Take 500 mg by mouth three times daily. ibuprofen (MOTRIN) 800 mg tablet Take 800 mg by mouth as needed. CALCIUM CARBONATE (TUMS 500 ORAL) Take 1 tablet by mouth as needed. acetaminophen (TYLENOL) 325 mg tablet Take 325 mg by mouth every 4 hours as needed. om3/dha/epa/fish/kril/lut/zeax (MEGARED ADV TOTAL BODY REFRESH ORAL) Take by mouth. FAMILY HISTORY Problem Relation Age of Onset Breast Cancer Paternal Aunt Cancer Paternal Grandfather pancreatic Diabetes Paternal Grandfather Heart Paternal Grandmother M.I. HYPERTENSION Social History Tobacco Use Smoking status: Every Day Packs/day: 1.00 Types: Cigarettes Smokeless tobacco: Never Vaping Use Vaping Use: Never used Substance Use Topics Alcohol use: Yes Comment: occasional 3x per yr Drug use: No ASSESSMENT/PLAN: 1. Urinary frequency - ICD9: 788.41, ICD10: R35.0 (primary diagnosis) - UA DIP, URINE (POC) - URINE CULTURE 2. Sore throat - ICD9: 462, ICD10: J02.9 - STREP A MOLECULAR (POC)- neg 3. Burning with urination - ICD9: 788.1, ICD10: R30.0 - BACTERIAL VAGINOSIS AMPLIFICATION - JANI / TRICHOMONAS AMPLIFICATION 4. Rhinosinusitis - ICD9: 473.9, ICD10: J31.0, J32.9 Patient does not want antibiotics for the rhinosinusitis at this time. Patient was not treated for any urine or bacterial infections at this time. If anything comes back positive please treat. Potential red flag symptoms discussed with the patient. Reviewed appropriate action plan to take if red flag symptoms occur. Patient agreeable to treatment plan. Marina Wilkinson APRN.TUMOR REGISTRAR documented in this encounter [facility] 08-24-2022 Miscellaneous Notes Refill request received from pharmacy. Patient last seen in office on 05/22/22. Yaneth Woods RN documented in this encounter [facility] 08-01-2022 Miscellaneous Notes That is fine Angel Wilkinson MD Please obtain topical medications and enter into patient's chart. Thanks! Angel Wilkinson MD Please advise in DM's absence. documented in this encounter [facility] 06-22-2022 Miscellaneous Notes Please see pt's mychart message and further advise. Andra High LPN documented in this encounter [facility] 06-02-2022 Miscellaneous Notes Agree with advice. Please see pt's [employer] message regarding OCP . Andra High LPN documented in this encounter [facility] 05-22-2022 History of Presen t illness Narrative Biologist offered: Patient declines. Ernesto Nath is a 37 year old female who presents for concerns regarding possible yeast infection. Patient states she just finished a course of antibiotics was told to stop her vaginal probiotic during that time and now feels that irritated in the vaginal area. Patient denies any malodorous discharge or significant change in her discharge. She denies any changes with soaps or detergents. Denies dysuria, fever or pelvic pain. Patient also complaining of irregular menses since February she states her menses are now heavy and is bleeding more often than not. Patient is also interested in permanent control. Patient uncertain if she wants to try hormonal therapy versus surgical intervention. Patient has questions about all of them. Patient is concerned for risk of blood clot due to her smoking history as well as diabetes. Patient offers no other concerns today. OB History T2 L3 SAB1 IAB0 Ectopic0 Multiple0 Live Births3 Manager Mental Health History LMP: 04/18/2022 (Exact Date), Having periods Age at Menarche: Age at First : Age at Menopause: Manager Mental Health History Comments: Sexual Activity: Yes; Male Contraception: No contraception data on record PAST MEDICAL HISTORY Diagnosis Date Depression Diabetes mellitus (HCC) GERD (gastroesophageal reflux disease) Low back pain Obesity Tobacco use disorder PAST SURGICAL HISTORY Procedure Laterality Date BX THYROID COLONOSCOPY EGD LAPAROSCOPY SURG CHOLECYSTECTOMY 06/25/2009 post op readmit for pain control PAST SURGICAL HISTORY OF 03/25/2014 cervical spin injection FAMILY HISTORY Problem Relation Age of Onset Breast Cancer Paternal Aunt Cancer Paternal Grandfather pancreatic Diabetes Paternal Grandfather Heart Paternal Grandmother M.I. HYPERTENSION Social History Tobacco Use Smoking status: Every Day Packs/day: 1.00 Types: Cigarettes Smokeless tobacco: Never Vaping Use Vaping Use: Never used Substance Use Topics Alcohol use: Yes Comment: occasional 3x per yr Drug use: No Current Outpatient Medications Medication Sig Norethindrone, Contraceptive, (ORTHO MICRONOR) 0.35 mg tablet Take 1 tablet by mouth once daily. om3/dha/epa/fish/kril/lut/zeax (MEGARED ADV TOTAL BODY REFRESH ORAL) Take by mouth. metFORMIN ER (GLUCOPHAGE XR) 500 mg 24 hr tablet Take 500 mg by mouth three times daily. ibuprofen (MOTRIN) 800 mg tablet Take 800 mg by mouth as needed. CALCIUM CARBONATE (TUMS 500 ORAL) Take 1 tablet by mouth as needed. acetaminophen (TYLENOL) 325 mg tablet Take 325 mg by mouth every 4 hours as needed. No current facility-administered medications for this visit. Allergies As of Date: 05/22/2022 Allergen Noted Reaction DEXTROAMPHETAMINE-AMPHETAMINE 07/05/2021 Other: See Comments ABILIFY [ARIPIPRAZOLE] 03/15/2015 Other: See Comments CODEINE 08/09/2005 Shortness of Breath CONTRAST DYE 06/03/2014 Unknown LAMICTAL [LAMOTRIGINE] 03/15/2015 Swelling VICODIN [HYDROCODONE-ACETAMINOPHE*08/09 Shortness of Breath Fully Assessed 04/27/2022 REVIEW OF SYSTEMS Abdomen: No bloating, early satiety, indigestion, or increased flatulence. No abdominal pain, nausea, vomiting, diarrhea, or constipation. Bladder: no dysuria.. Expanded ROS: GENERAL: Negative for fever Allergies and current medication updated:Yes EXAM: BP 118/64 Wt 133 lb (60.3kg) LMP 05/06/2022 GENERAL: pleasant, female in no apparent distress HEENT: Normocephalic and atraumatic NECK: full range of motion DERMATOLOGY: Normal, without lesions, non-icteric, and non-hirsute PELVIC: external genitalia normal, normal Bartholin's glands, urethra, [place]'s glands, no vulvar lesions, no cervical lesions, good vaginal support, physiologic discharge present, normal appearing perineal body and perianal region NEURO: alert and oriented x3,exam grossly non-focal EXTREMITIES: normal ASSESSMENT AND PLAN: Encounter Diagnosis ICD-10-CM 1. Vaginal irritation N89.8 JANI / TRICHOMONAS AMPLIFICATION BACTERIAL VAGINOSIS AMPLIFICATION 2. Abnormal uterine bleeding (AUB) N93.9 3. Sterilization consult Z30.09 4. Reviewed medical vs surgical options for AUB and contraception. Reviewed sterlization. We briefly discussed risks and benefits of each. Pamphlets were given. Discussed that she is a candidate for Depo-Provera, progesterone only oral contraceptives. Or Mirena IUD. We also discussed ablation with salpingectomy-but reviewed that I do feel she is a good candidate for hormonal therapy as first-line. Patient will review the information and notify the office of her decision. I spent a total of 20 minutes on the date of the service which included preparing to see the patient, [id number] patient care, completing clinical documentation, obtaining and/or reviewing separately obtained history, performing a medically appropriate examination, counseling and educating the patient/family/caregiver, and ordering medications, tests, or procedures Medical Decision Making: Medical Decision Making Level: 1 - N/A Meghana Howe MD documented in this encounter [facility] 04-27-2022 History of Presen t illness Narrative CC: Patient presents with: Ear Pain: Pt reported throat pain, cough, nasal congestion, x1 wk. HPI: Ernesto Nath is a 37 year old female who presents to the office with complaint of chest congestion, head congestion, cough, productive clear, sore throat, ear symptoms, for a week. Symptoms are staying the same. Associated symptoms includes body aches. Denies fever, nausea, vomiting , and diarrhea. Treatments tried include nothing so far. with no relief of symptoms. Sick contacts: unknown. History of asthma, frequent episodes of bronchitis, chronic bronchitis, bronchiectasis or COPD: No Smoker: No Seasonal/environmental allergies: No The ROS is otherwise negative. The patient's pmh, medications, allergies, and past visits are reviewed. PHYSICAL EXAM: BP 124/76 Pulse 102 Temp 36.6 C (97.9 F) Resp 18 Wt 60.7 kg (133 lb 12.8 oz) LMP 04/18/2022 (Exact Date) SpO2 99% BMI 25.28 kg/m General appearance: alert, cooperative, pleasant, in no acute distress Head: Normocephalic Eyes: EOM's intact, conjunctiva pink and moist, no icterus, sclera white, non-injected Ears: Right ear: External ear/canal- Normal, TM - effusion. Left ear: External ear/canal- Normal, TM - effusion Oropharynx:moist without lesions, mild erythema, exudates or tonsillar hypertrophy. Heart: Negative. RRR without obvious murmur, gallop, or rubs. No ectopy. Lungs: clear to auscultation, without rales or wheeze, good air exchange PAST MEDICAL HISTORY Diagnosis Date Depression Diabetes mellitus (HCC) GERD (gastroesophageal reflux disease) Low back pain Obesity Tobacco use disorder PAST SURGICAL HISTORY Procedure Laterality Date BX THYROID COLONOSCOPY EGD LAPAROSCOPY SURG CHOLECYSTECTOMY 06/25/2009 post op readmit for pain control PAST SURGICAL HISTORY OF 03/25/2014 cervical spin injection ALLERGIES Dextroamphetamine-Amphetamine, Abilify [Aripiprazole], Codeine, Contrast Dye, Lamictal [Lamotrigine], and Vicodin [Hydrocodone-Acetaminophen] MEDICATIONS Norethindrone, Contraceptive, (ORTHO MICRONOR) 0.35 mg tablet Take 1 tablet by mouth once daily. om3/dha/epa/fish/kril/lut/zeax (MEGARED ADV TOTAL BODY REFRESH ORAL) Take by mouth. metFORMIN ER (GLUCOPHAGE XR) 500 mg 24 hr tablet Take 500 mg by mouth three times daily. ibuprofen (MOTRIN) 800 mg tablet Take 800 mg by mouth as needed. CALCIUM CARBONATE (TUMS 500 ORAL) Take 1 tablet by mouth as needed. acetaminophen (TYLENOL) 325 mg tablet Take 325 mg by mouth every 4 hours as needed. FAMILY HISTORY Problem Relation Age of Onset Breast Cancer Paternal Aunt Cancer Paternal Grandfather pancreatic Diabetes Paternal Grandfather Heart Paternal Grandmother M.I. HYPERTENSION Social History Tobacco Use Smoking status: Every Day Packs/day: 1.00 Types: Cigarettes Smokeless tobacco: Never Vaping Use Vaping Use: Never used Substance Use Topics Alcohol use: Yes Comment: occasional 3x per yr Drug use: No ASSESSMENT/PLAN: 1. Nasal congestion - ICD9: 478.19, ICD10: R09.81 (primary diagnosis) - COVID WITH FLUA+B, ROUTINE 2. Acute cough - ICD9: 786.2, ICD10: R05.1 - COVID WITH FLUA+B, ROUTINE 3. At increased risk of exposure to COVID-19 virus - ICD9: V15.89, ICD10: Z91.89 - COVID WITH FLUA+B, ROUTINE fuids increased and rest. Prescription instructions reviewed with patient as applicable. Potential red flag symptoms discussed with the patient. Reviewed appropriate action plan to take if red flag symptoms occur. Patient agreeable to treatment plan. Marina Wilkinson APRN.CNP documented in this encounter [facility] 04-20-2022 Miscellaneous Notes Orders were not placed at visit because these were not symptoms causing her issues? I signed orders if she feels she needs to have urine checked for UTI? Karol Roa APRN.CNM Did you want patient to have UA / urine culture done? One wasn't done at visit on 04/18. Niki Garcia RN documented in this encounter [facility] 04-18-2022 Miscellaneous Notes Addended by: KAROL ROA on: 04/18/2022 02:51 PM Modules accepted: Orders documented in this encounter [facility] 04-18-2022 History of Presen t illness Narrative Ernesto Nath is a 37 year old female who presents for problem visit of continued irregular periods. Last seen in office on 03/21/22. Started period on 03/27/22 and bleeding lasted 2 weeks. Stopped for 1 week and restarted bleeding today. Patient very upset and tearful. Concerned that something is very wrong . Reviewed pelvic ultrasound from 03/23/22 with patient. Normal results. Patient initially was interested in ablation until she talked with her mother and was told the EMB prior to ablation is extremely painful. She declines Mirena IUD. She is interested in progesterone only pill (due to smoking) or receiving Depo Provera injections to help regulate her cycles. She is also requesting screening for BV and Yeast due to recent vaginal itching and burning last week. OB History T2 L3 SAB1 IAB0 Ectopic0 Multiple0 Live Births3 Manager Mental Health History LMP: 04/18/2022 (Exact Date), Having periods Age at Menarche: Age at First : Age at Menopause: Manager Mental Health History Comments: Sexual Activity: Yes; Male Contraception: No contraception data on record PAST MEDICAL HISTORY Diagnosis Date Depression Diabetes mellitus (HCC) GERD (gastroesophageal reflux disease) Low back pain Obesity Tobacco use disorder PAST SURGICAL HISTORY Procedure Laterality Date BX THYROID COLONOSCOPY EGD LAPAROSCOPY SURG CHOLECYSTECTOMY 06/25/2009 post op readmit for pain control PAST SURGICAL HISTORY OF 03/25/2014 cervical spin injection FAMILY HISTORY Problem Relation Age of Onset Breast Cancer Paternal Aunt Cancer Paternal Grandfather pancreatic Diabetes Paternal Grandfather Heart Paternal Grandmother M.I. HYPERTENSION Social History Tobacco Use Smoking status: Every Day Packs/day: 1.00 Types: Cigarettes Smokeless tobacco: Never Vaping Use Vaping Use: Never used Substance Use Topics Alcohol use: Yes Comment: occasional 3x per yr Drug use: No Current Outpatient Medications Medication Sig triamcinolone acetonide (KENALOG) 0.1 % cream Apply 1 application to affected area three times daily for 7 days. Apply sparingly to area for rash/itching. om3/dha/epa/fish/kril/lut/zeax (MEGARED ADV TOTAL BODY REFRESH ORAL) Take by mouth. metFORMIN ER (GLUCOPHAGE XR) 500 mg 24 hr tablet Take 500 mg by mouth three times daily. ibuprofen (MOTRIN) 800 mg tablet Take 800 mg by mouth as needed. CALCIUM CARBONATE (TUMS 500 ORAL) Take 1 tablet by mouth as needed. acetaminophen (TYLENOL) 325 mg tablet Take 325 mg by mouth every 4 hours as needed. No current facility-administered medications for this visit. Allergies As of Date: 04/18/2022 Allergen Noted Reaction DEXTROAMPHETAMINE-AMPHETAMINE 07/05/2021 Other: See Comments ABILIFY [ARIPIPRAZOLE] 03/15/2015 Other: See Comments CODEINE 08/09/2005 Shortness of Breath CONTRAST DYE 06/03/2014 Unknown LAMICTAL [LAMOTRIGINE] 03/15/2015 Swelling VICODIN [HYDROCODONE-ACETAMINOPHE*08/09 Shortness of Breath Fully Assessed 04/18/2022 REVIEW OF SYSTEMS Abdomen: No bloating, early satiety, indigestion, or increased flatulence. No abdominal pain, nausea, vomiting, diarrhea, or constipation. Bladder: No dysuria, gross hematuria, urinary frequency, urinary urgency, or incontinence. Breast: No breast lumps, nipple d/c, overlying skin changes, redness or skin retraction. Expanded ROS: N/A Allergies and current medication updated:Yes EXAM: BP 118/70 Wt 132 lb (59.9kg) LMP 04/18/2022 GENERAL: pleasant, female in mild distress HEENT: Normocephalic and atraumatic NECK: Supple DERMATOLOGY: Normal BREAST: deferred CHEST: Normal inspiratory effort ABDOMEN: Deferred PELVIC: external genitalia normal, normal Bartholin's glands, urethra, [place]'s glands, no vulvar lesions, no cervical lesions, good vaginal support, physiologic discharge present, normal appearing perineal body and perianal region, moderate amount of dark red blood present BIMANUAL: uterus normal size, shape and consistency, no adnexal masses, non-tender, and no cervical motion tenderness NEURO: alert and oriented x3,exam grossly non-focal EXTREMITIES: normal ASSESSMENT/PLAN: 1. Abnormal uterine bleeding (AUB) - ICD9: 626.9, ICD10: N93.9 - NORETHINDRONE (CONTRACEPTIVE) 0.35 MG TABLET- Rx sent - Patient to reevaluate possible ablation 2. Vaginitis - BV/Yeast-collected and sent Will notify patient of findings RTO- 3 months for follow up or sooner if needed Karol Roa APRN.CNM documented in this encounter [facility] 04-13-2022 History of Presen t illness Narrative This note was created using NoteWriter. Subjective Ernesto Nath is a 37 year old female. HPI Patient presents with an itchy forearm. She states she had noticed some blotchiness on her left forearm and started itching about an hour ago. She denies any new exposures. She did switch detergents yesterday but has not worn anything from that batch. No fever or chills. No recent illness. No new medications. No OTC meds used. Review of Systems Constitutional: Negative. HENT: Negative. Respiratory: Negative. Cardiovascular: Negative. Gastrointestinal: Negative. Genitourinary: Negative. Musculoskeletal: Negative. Skin: Positive for rash. All other systems reviewed and are negative. PAST MEDICAL HISTORY Diagnosis Date Depression Diabetes mellitus (HCC) GERD (gastroesophageal reflux disease) Low back pain Obesity Tobacco use disorder Current Outpatient Medications Medication Sig Dispense Refill om3/dha/epa/fish/kril/lut/zeax (MEGARED ADV TOTAL BODY REFRESH ORAL) Take by mouth. metFORMIN ER (GLUCOPHAGE XR) 500 mg 24 hr tablet Take 500 mg by mouth three times daily. ibuprofen (MOTRIN) 800 mg tablet Take 800 mg by mouth as needed. CALCIUM CARBONATE (TUMS 500 ORAL) Take 1 tablet by mouth as needed. acetaminophen (TYLENOL) 325 mg tablet Take 325 mg by mouth every 4 hours as needed. triamcinolone acetonide (KENALOG) 0.1 % cream Apply 1 application to affected area three times daily for 7 days. Apply sparingly to area for rash/itching. 80 g 0 No current facility-administered medications for this visit. PAST SURGICAL HISTORY Procedure Laterality Date BX THYROID COLONOSCOPY EGD LAPAROSCOPY SURG CHOLECYSTECTOMY 06/25/2009 post op readmit for pain control PAST SURGICAL HISTORY OF 03/25/2014 cervical spin injection FAMILY HISTORY Problem Relation Age of Onset Breast Cancer Paternal Aunt Cancer Paternal Grandfather pancreatic Diabetes Paternal Grandfather Heart Paternal Grandmother M.I. HYPERTENSION Social History Tobacco Use Smoking status: Every Day Packs/day: 1.00 Types: Cigarettes Smokeless tobacco: Never Vaping Use Vaping Use: Never used Substance Use Topics Alcohol use: Yes Comment: occasional 3x per yr Drug use: No Objective BP 132/82 Pulse 75 Temp 36.2 C (97.2 F) (Tympanic) Resp 16 Wt 60.6 kg (133 lb 9.6 oz) LMP 02/02/2022 SpO2 99% BMI 25.24 kg/m Physical Exam Vitals reviewed. Constitutional: Appearance: Normal appearance. HENT: Head: Normocephalic and atraumatic. Skin: General: Skin is warm and dry. Comments: Some dry skin noted on left forearm. No rash noted otherwise. Neurological: General: No focal deficit present. Mental Status: She is alert. Assessment and Plan ASSESSMENT/PLAN: 1. Rash - ICD9: 782.1, ICD10: R21 Could be resolving hives, no rash on exam now however other than dry skin. Recommend moisturizing lotion and given triamcinolone for itch. Darby Zheng PA-C documented in this encounter [facility] 03-21-2022 History of Presen t illness Narrative Ernesto is a 37 year old who presents for an annual gynecologic exam with complaints of irregular bleeding and at times heavier bleeding. Pt reports LMP was 02/02/22 has had some spotting since that time but no full blown menses. Pt reports is very anxious about her health- had recent thyroid biopsies due to nodules. Pt reports had paps done previously in [facility]- last one was normal but before that had +HPV. Pt reports has changed diet and has intentionally lost weight due to DM. Menses: cycles every 28-30 days and 7 days of flow. Contraception: none HPV vaccine: No Last Pap: 01/11/2006 normal HPV: 11/13/2007 negative History of abnormal pap: Yes Last mammogram: 2021normal Sexually active: Yes History of STDS:HSV Patient concerns for STD exposure: No. Pain with intercourse: No Postcoital bleeding: No OB History T2 L3 SAB1 IAB0 Ectopic0 Multiple0 Live Births3 Manager Mental Health History LMP: 02/02/2022, Having periods Age at Menarche: Age at First : Age at Menopause: Manager Mental Health History Comments: Sexual Activity: Yes; Male Contraception: No contraception data on record PAST MEDICAL HISTORY Diagnosis Date Depression Diabetes mellitus (HCC) GERD (gastroesophageal reflux disease) Low back pain Obesity Tobacco use disorder PAST SURGICAL HISTORY Procedure Laterality Date BX THYROID COLONOSCOPY EGD LAPAROSCOPY SURG CHOLECYSTECTOMY 06/25/2009 post op readmit for pain control PAST SURGICAL HISTORY OF 03/25/2014 cervical spin injection FAMILY HISTORY Problem Relation Age of Onset Breast Cancer Paternal Aunt Cancer Paternal Grandfather pancreatic Diabetes Paternal Grandfather Heart Paternal Grandmother M.I. HYPERTENSION SOCIAL HISTORY Social History Tobacco Use Smoking status: Every Day Packs/day: 1.00 Types: Cigarettes Smokeless tobacco: Never Vaping Use Vaping Use: Never used Substance Use Topics Alcohol use: Yes Comment: occasional 3x per yr Drug use: No REVIEW OF SYSTEMS Abdomen: No abdominal pain, nausea, vomiting, diarrhea, has occsaional constipation. No bloating, early satiety, indigestion, or increased flatulence. Bladder: No dysuria, gross hematuria, urinary frequency, urinary urgency, or incontinence. Breast: No breast lumps, nipple d/c, overlying skin changes, redness or skin retraction. Allergies and current medication updated:Yes EXAM: BP 124/76 Ht 5' 1 (1.55m) Wt 134 lb (60.8kg) LMP 02/02/2022 BMI 25.33 kg/(m^2). GENERAL: pleasant, female in no apparent distress HEENT: Normocephalic, atraumatic, mucus membranes moist, and no lesions NECK: Supple, full range of motion, no adenopathy, and slightly enlarged on right DERMATOLOGY: Normal, without lesions, non-icteric, and non-hirsute BREAST: soft, non-tender, symmetric, no dominant mass, normal nipple-areolar complex, no lymphadenopathy, and no nipple discharge- Yeast dermatitis ABDOMEN: soft, non-tender, and no masses PELVIC: external genitalia normal, normal Bartholin's glands, urethra, [place]'s glands, no vulvar lesions, no cervical lesions, good vaginal support, physiologic discharge present, normal appearing perineal body and perianal region BIMANUAL: uterus bulky feeling no adnexal masses, and non-tender RECTOVAGINAL: deferred. NEURO: alert and oriented x3,exam grossly non-focal EXTREMITIES: normal ASSESSMENT/PLAN: 1) Health maintenance: Pap done with HPV. Mammogram up to date . Nutrition, exercise and routine health maintenance exams reviewed. Calcium/Vitamin D supplementation information provided. Lipids/glucose: ordered Vitamin D: ordered 2) Contraception: none. Contraceptive options reviewed and information provided. 3) STD screening: Declined STD check. 4) Follow up one year or sooner as needed 5) pelvic us for aub 6) recommend Hormonal therapy- not OCP candidate due to smoking. Mirena IUD vs ablation with salpingectomy reviewed. Meghana Howe MD Biologist offered: Patient declines. documented in this encounter [facility] 02-23-2022 History of Presen t illness Narrative Radiology Service Progress Note PATIENT NAME: Ernesto Nath DATE OF SERVICE: February 23, 2022 TIME: 11:06 AM PATIENT IDENTITY VERIFICATION COMPLETED USING TWO (2) IDENTIFIERS: Name and Date of confirmed by patient verbally. FALL SCREENING: Has the patient had 2 falls in the last year or 1 fall with injury or currently using an Ambulatory Assistive Device (Walker, Cane, Wheelchair, Crutches, etc.)? No PATIENT GENDER DATA: Female. status: : No status: N/A PATIENT RELEVANT IMPLANT DATA REVIEWED: Not Applicable RADIOLOGY DEPARTMENT: Ultrasound PERIPHERAL IV DATA: Not applicable SIGNED BY: Alley Hickey RDMS T February 23, 2022 11:06 AM documented in this encounter [facility] 02-23-2022 History of Presen t illness Narrative Radiology Service Progress Note PATIENT NAME: Ernesto Nath DATE OF SERVICE: February 23, 2022 TIME: 10:13 AM PATIENT IDENTITY VERIFICATION COMPLETED USING TWO (2) IDENTIFIERS: Name and Date of confirmed by patient verbally. FALL SCREENING: Has the patient had 2 falls in the last year or 1 fall with injury or currently using an Ambulatory Assistive Device (Walker, Cane, Wheelchair, Crutches, etc.)? No PATIENT GENDER DATA: Female. status: : No status: NO. PATIENT RELEVANT IMPLANT DATA REVIEWED: Not Applicable RADIOLOGY DEPARTMENT: Mammography PERIPHERAL IV DATA: Not applicable SIGNED BY: [employer]ynh [employer] February 23, 2022 10:13 AM documented in this encounter [facility] 01-12-2022 History of Presen t illness Narrative Images from the original note were not included. Subjective HPI [place] female presents urgent care chief plaint rash. Duration of symptoms greater than 1 year. Associated symptoms rash and slight itching. Patient states first noticed this on her torso. Did spread to her neck today. Patient presents today due to a new rash on neck. States she has not use any OTC medications denies any pain. Denies any recent medication changes or antibiotic use. Has not been seen in the past for this rash. No sick contacts. Denies any fever body aches chills nausea vomiting abdominal pain change in bowel or bladder habits. Denies chance of is not breast-feeding. .Patient presents with: Rash: Pt reported rash breasts, torso, neck denied pain PAST MEDICAL HISTORY Diagnosis Date Depression Diabetes mellitus (HCC) GERD (gastroesophageal reflux disease) Low back pain Obesity Tobacco use disorder PAST SURGICAL HISTORY Procedure Laterality Date COLONOSCOPY EGD LAPAROSCOPY SURG CHOLECYSTECTOMY 2009 post op readmit for pain control PAST SURGICAL HISTORY OF 10-14 cervical spin injection ALLERGIES Dextroamphetamine-Amphetamine, Abilify [Aripiprazole], Codeine, Contrast Dye, Lamictal [Lamotrigine], and Vicodin [Hydrocodone-Acetaminophen] MEDICATIONS Lactobacillus rhamnosus GG (CULTURELLE ORAL) Take by mouth. metFORMIN ER (GLUCOPHAGE XR) 500 mg 24 hr tablet Take 500 mg by mouth three times daily. ibuprofen (MOTRIN) 800 mg tablet Take 800 mg by mouth as needed. acetaminophen (TYLENOL) 325 mg tablet Take 325 mg by mouth every 4 hours as needed. clonazePAM (KLONOPIN) 1 mg tablet Take 1 mg by mouth twice daily as needed. perphenazine 4 mg tablet Take 4 mg by mouth three times daily. PARoxetine (PAXIL) 20 mg tablet Take 20 mg by mouth every morning. ergocalciferol, vitamin D2, (VITAMIN D) 50,000 unit capsule Take 1 capsule by mouth once each week. tiZANidine (ZANAFLEX) 4 mg tablet Take 4 mg by mouth every 8 hours as needed. Take 0.5 to 1 tablet by mouth RIZATRIPTAN BENZOATE (RIZATRIPTAN ORAL) Take 10 mg by mouth as needed (Migraines). MENTHOL/CAMPHOR (BIOFREEZE TOPICAL) Apply to affected area. CALCIUM CARBONATE (TUMS 500 ORAL) Take 1 tablet by mouth as needed. FAMILY HISTORY Problem Relation Age of Onset Breast Cancer Paternal Aunt Cancer Paternal Grandfather pancreatic Diabetes Paternal Grandfather Heart Paternal Grandmother M.I. HYPERTENSION Social History Tobacco Use Smoking status: Current Every Day Smoker Packs/day: 1.00 Types: Cigarettes Smokeless tobacco: Never Used Substance Use Topics Alcohol use: Yes Comment: occasional 3x per yr Drug use: No BP 122/64 Pulse 104 Temp 36.7 C (98 F) Resp 18 Wt 62.1 kg (136 lb 12.8 oz) LMP 12/20/2021 SpO2 98% BMI 25.85 kg/m Hr 92 Review of Systems Constitutional: Negative for chills, fever and malaise/fatigue. HENT: Negative for congestion, ear discharge, ear pain, sinus pain and sore throat. Eyes: Negative for blurred vision, pain, discharge and redness. Respiratory: Negative for cough, hemoptysis, sputum production, shortness of breath, wheezing and stridor. Cardiovascular: Negative for chest pain. Gastrointestinal: Negative for abdominal pain, diarrhea, nausea and vomiting. Musculoskeletal: Negative for myalgias. Skin: Positive for itching and rash. Neurological: Negative for dizziness and headaches. Objective Physical Exam Constitutional: General: She is not in acute distress. Appearance: She is not diaphoretic. HENT: Head: Normocephalic. Mouth/Throat: Mouth: Mucous membranes are moist. Pharynx: Oropharynx is clear. No oropharyngeal exudate or posterior oropharyngeal erythema. Eyes: Conjunctiva/sclera: Conjunctivae normal. Pupils: Pupils are equal, round, and reactive to light. Cardiovascular: Rate and Rhythm: Normal rate and regular rhythm. Heart sounds: Normal heart sounds. Pulmonary: Effort: Pulmonary effort is normal. No tachypnea, accessory muscle usage or respiratory distress. Breath sounds: Normal breath sounds. No stridor. No wheezing, rhonchi or rales. Abdominal: Palpations: Abdomen is soft. Tenderness: There is no abdominal tenderness. Musculoskeletal: Cervical back: Normal range of motion and neck supple. No rigidity or tenderness. Lymphadenopathy: Cervical: No cervical adenopathy. Skin: General: Skin is warm and dry. Comments: Erythematous rash coalescing lesions that are blanching noted on highlighted areas. Satellite lesions noted. No drainage noted. Neurological: Mental Status: She is alert and oriented to person, place, and time. ASSESSMENT/PLAN: 1. Rash - ICD9: 782.1, ICD10: R21 Patient diagnosis rash. Suspicious of fungal etiology. Will use clotrimazole lotion. Follow-up with dermatology as scheduled. Patient was educated on supportive therapies. Patient will follow up with primary care provider as needed. Patient was instructed to immediately proceed to emergency room for any new, worsening, or symptoms lasting longer than anticipated. The patient's clinical presentation is otherwise unremarkable at this time. Based on exam and clinical finding, the patient is stable for discharge. Plan of care was discussed with patient. Patient verbalizes understanding and agrees to plan of care. This note was generated using Greene[employer] software. It may contain errors in wording, punctuation, or spelling. Abundio Wei APRN.SHANTEL documented in this encounter [facility] 12-02-2021 History of Presen t illness Narrative Radiology Service Progress Note PATIENT NAME: Ernesto Nath DATE OF SERVICE: December 02, 2021 TIME: 4:52 PM PATIENT IDENTITY VERIFICATION COMPLETED USING TWO (2) IDENTIFIERS: Name and Date of confirmed by patient verbally. FALL SCREENING: Has the patient had 2 falls in the last year or 1 fall with injury or currently using an Ambulatory Assistive Device (Walker, Cane, Wheelchair, Crutches, etc.)? No PATIENT GENDER DATA: Female. status: : No status: NO. PATIENT RELEVANT IMPLANT DATA REVIEWED: Not Applicable RADIOLOGY DEPARTMENT: General X-ray: Exam(s) Completed: Upper Extremity X-Ray(s): Hand, left PERIPHERAL IV DATA: Not applicable SIGNED BY: RT Ten(R) December 02, 2021 4:52 PM documented in this encounter [facility] 11-16-2021 History of Presen t illness Narrative Images from the original note were not included. Subjective Patient came in with complaints of vaginal itching, raw feeling and coelho when urine touches it. She was treated for possible BV about a week ago finished medication. Had similar symptoms symptoms never fully went away. Did take diflucan and monistat over the counter with no relief. Has history of herpes. The history is provided by the patient. No senior radiation therapist was used. Vaginal Problem Review of Systems Constitutional: Negative. Genitourinary: Positive for vaginal discharge. Skin: Negative. Objective Physical Exam Exam conducted with a selling specialist present. Constitutional: Appearance: Normal appearance. Pulmonary: Effort: Pulmonary effort is normal. Genitourinary: Comments: External exam shows erythema in area marked above. Neurological: Mental Status: She is alert. PAST MEDICAL HISTORY Diagnosis Date Depression Diabetes mellitus (HCC) GERD (gastroesophageal reflux disease) Low back pain Obesity Tobacco use disorder PAST SURGICAL HISTORY Procedure Laterality Date COLONOSCOPY EGD LAPAROSCOPY SURG CHOLECYSTECTOMY 2009 post op readmit for pain control PAST SURGICAL HISTORY OF 10-14 cervical spin injection ALLERGIES Dextroamphetamine-Amphetamine, Abilify [Aripiprazole], Codeine, Contrast Dye, Lamictal [Lamotrigine], and Vicodin [Hydrocodone-Acetaminophen] MEDICATIONS Lactobacillus rhamnosus GG (CULTURELLE ORAL) Take by mouth. metFORMIN ER (GLUCOPHAGE XR) 500 mg 24 hr tablet Take 500 mg by mouth three times daily. ergocalciferol, vitamin D2, (VITAMIN D) 50,000 unit capsule Take 1 capsule by mouth once each week. ibuprofen (MOTRIN) 800 mg tablet Take 800 mg by mouth as needed. CALCIUM CARBONATE (TUMS 500 ORAL) Take 1 tablet by mouth as needed. acetaminophen (TYLENOL) 325 mg tablet Take 325 mg by mouth every 4 hours as needed. clonazePAM (KLONOPIN) 1 mg tablet Take 1 mg by mouth twice daily as needed. perphenazine 4 mg tablet Take 4 mg by mouth three times daily. PARoxetine (PAXIL) 20 mg tablet Take 20 mg by mouth every morning. tiZANidine (ZANAFLEX) 4 mg tablet Take 4 mg by mouth every 8 hours as needed. Take 0.5 to 1 tablet by mouth RIZATRIPTAN BENZOATE (RIZATRIPTAN ORAL) Take 10 mg by mouth as needed (Migraines). MENTHOL/CAMPHOR (BIOFREEZE TOPICAL) Apply to affected area. FAMILY HISTORY Problem Relation Age of Onset Breast Cancer Paternal Aunt Cancer Paternal Grandfather pancreatic Diabetes Paternal Grandfather Heart Paternal Grandmother M.I. HYPERTENSION Social History Tobacco Use Smoking status: Current Every Day Smoker Packs/day: 1.00 Types: Cigarettes Smokeless tobacco: Never Used Substance Use Topics Alcohol use: Yes Comment: occasional 3x per yr Drug use: No ASSESSMENT/PLAN: 1. Vaginal itching - ICD9: 698.1, ICD10: N89.8 (primary diagnosis) - BACTERIAL VAGINOSIS AMPLIFICATION - JANI / TRICHOMONAS AMPLIFICATION - GC/CHLAMYDIA DNA DET 2. Burning with urination - ICD9: 788.1, ICD10: R30.0 acute - UA DIP, URINE (POC) - clean no culture - BACTERIAL VAGINOSIS AMPLIFICATION - JANI / TRICHOMONAS AMPLIFICATION - GC/CHLAMYDIA DNA DET Patient self swabbed did not want a full exam just external. Will treat if anything comes back positive no treatment at this time. She can use over the counter yeast creams for comfort until results come back. If all results are negative patient was instructed to make an MEMBERSHIP ADVISOR appointment. Patient was okay with this care plan. Marina Wilkinson APRN.SHANTEL documented in this encounter [facility] Evaluation note Diagnosis Vaginal itching- Primary Pruritus of genital organs Burning with urination Dysuria [facility] Rash- Primary Rash and other nonspecific skin eruption [facility] Diagnosis Encounter for gynecological examination with abnormal finding- Primary Routine gynecological examination Screening for cervical cancer Screening for malignant neoplasm of the cervix Encounter for screening for human papillomavirus (HPV) Special screening examination for human papillomavirus (HPV) Abnormal uterine bleeding (AUB) History of thyroid nodule Personal history of other endocrine, metabolic, and immunity disorders Type 2 diabetes mellitus without complication, unspecified whether skilled nursing insulin use (HCC) Encounter for vitamin deficiency screening Screening for other and unspecified endocrine, nutritional, metabolic, and immunity disorders Screening cholesterol level Screening for lipoid disorders [facility] Diagnosis Abnormal uterine bleeding (AUB)- Primary [facility] Diagnosis Rash- Primary Rash and other nonspecific skin eruption documented in this encounter [facility] note* Diagnosis Abnormal uterine bleeding (AUB)- Primary Acute vaginitis Vaginitis and vulvovaginitis, unspecified documented in this encounter [facility] note* Diagnosis Dysuria- Primary [facility] Diagnosis Nasal congestion- Primary Other diseases of nasal cavity and sinuses Acute cough At increased risk of exposure to COVID-19 virus [facility] Diagnosis Vaginal irritation- Primary Unspecified noninflammatory disorder of vagina Abnormal uterine bleeding (AUB) Sterilization consult Other general counseling and advice for contraceptive management [facility] [facility]* Diagnosis Urinary frequency- Primary Sore throat Acute pharyngitis Burning with urination Dysuria Rhinosinusitis Unspecified sinusitis (chronic) documented in this encounter [facility] note* Diagnosis Sinobronchitis- Primary Unspecified sinusitis (chronic) Feared condition not demonstrated Person with feared complaint in whom no diagnosis was made documented in this encounter [facility] note* Diagnosis Injury of head, initial encounter- Primary documented in this encounter [facility] for referral (narrative)* Diagnostic Procedure Only (Routine) - Pending Review Specialty Diagnoses / Procedures Referred By Contyoko t Referred To Contact [facility] Diagnoses Abnormal uterine bleeding (AUB) Procedures PELVIC US WHI US PELVIC NONOBSTETRIC REAL-TIME IMAGE COMPLETE Meghana Walton MD [address] [place] [address] [address] Referral ID Status Reason Start Date Expiration Date Visits Requested Visits Authorized [id number] Pending Review Auto-Generat ed Referral 03/21/2022 03/21/2023 1 1 [facility] for visit Narrative* Diagnostic Procedure Only (Routine) - Closed Specialty Diagnoses / Procedures Referred By Contyoko t Referred To Contact Radiology / [facility] Diagnoses Mammogram, order in scanned document, referred by Dr. Lomas Procedures MAMMOGRAM TOMOGRAM EXTERNAL Chrissy Yeboah [address] [place] [address] Radio Mammo [facility] [address] [place] [address] Referral ID Status Reason Start Date Expiration Date Visits Re quested Visits Authorized [id number] Closed 02/23/2022 06/24/2022 1 1 [facility] for visit Narrative* Diagnostic Procedure Only (Routine) - Closed Specialty Diagnoses / Procedures Referred By Pat villavicencio Referred To Contact Radiology / [facility] GENERAL [facility] Diagnoses ML- PUTTING IN SYNGO NOW Procedures RADIOLOGIC EXAM CHEST 2 VIEWS XR GENERAL 7 Chrissy Yeboah MD [address] [place] [address] Radio General [facility] [address] [place] [address] Referral ID Status Reason Start Date Expiration Date Visits Re quested Visits Authorized [id number] Closed 11/30/2021 06/24/2022 [address] [facility] Health Concerns Infection Onset Date Last Indicated Resolved Time COVID-19 Rule-Out 04/27/2022 04/27/2022 Summary Purpose Family History No Family History Records FoundNo Family History Records Found Advance Directives No Advanced Directives Records FoundNo Advanced Directives Records Found Additional Source Comments Source Comments (unrecognize d section and content) In the event this informatio n is protected by the Federal Confidentiality of Alcohol and Drug Abuse Patient Records regulations: The Federal rules restrict any use of the information to criminally investigate or prosecute any alcohol or drug abuse patient.[facility] the event this information is protected by the Federal Confidentiality of Alcohol and Drug Abuse Patient Records regulations: The Federal rules restrict any use of the information to criminally investigate or prosecute any alcohol or drug abuse patient.[facility] the event this information is protected by the Federal Confidentiality of Alcohol and Drug Abuse Patient Records regulations: The Federal rules restrict any use of the information to criminally investigate or prosecute any alcohol or drug abuse patient.[facility] the event this information is protected by the Federal Confidentiality of Alcohol and Drug Abuse Patient Records regulations: The Federal rules restrict any use of the information to criminally investigate or prosecute any alcohol or drug abuse patient.[facility] the event this information is protected by the Federal Confidentiality of Alcohol and Drug Abuse Patient Records regulations: The Federal rules restrict any use of the information to criminally investigate or prosecute any alcohol or drug abuse patient.[facility] the event this information is protected by the Federal Confidentiality of Alcohol and Drug Abuse Patient Records regulations: The Federal rules restrict any use of the information to criminally investigate or prosecute any alcohol or drug abuse patient.[facility] the event this information is protected by the Federal Confidentiality of Alcohol and Drug Abuse Patient Records regulations: The Federal rules restrict any use of the information to criminally investigate or prosecute any alcohol or drug abuse patient.[facility] the event this information is protected by the Federal Confidentiality of Alcohol and Drug Abuse Patient Records regulations: The Federal rules restrict any use of the information to criminally investigate or prosecute any alcohol or drug abuse patient.[facility] the event this information is protected by the Federal Confidentiality of Alcohol and Drug Abuse Patient Records regulations: The Federal rules restrict any use of the information to criminally investigate or prosecute any alcohol or drug abuse patient.[facility] the event this information is protected by the Federal Confidentiality of Alcohol and Drug Abuse Patient Records regulations: The Federal rules restrict any use of the information to criminally investigate or prosecute any alcohol or drug abuse patient.[facility] the event this information is protected by the Federal Confidentiality of Alcohol and Drug Abuse Patient Records regulations: The Federal rules restrict any use of the information to criminally investigate or prosecute any alcohol or drug abuse patient.[facility] the event this information is protected by the Federal Confidentiality of Alcohol and Drug Abuse Patient Records regulations: The Federal rules restrict any use of the information to criminally investigate or prosecute any alcohol or drug abuse patient.[facility] the event this information is protected by the Federal Confidentiality of Alcohol and Drug Abuse Patient Records regulations: The Federal rules restrict any use of the information to criminally investigate or prosecute any alcohol or drug abuse patient.[facility] the event this information is protected by the Federal Confidentiality of Alcohol and Drug Abuse Patient Records regulations: The Federal rules restrict any use of the information to criminally investigate or prosecute any alcohol or drug abuse patient.[facility] the event this information is protected by the Federal Confidentiality of Alcohol and Drug Abuse Patient Records regulations: The Federal rules restrict any use of the information to criminally investigate or prosecute any alcohol or drug abuse patient.[facility] the event this information is protected by the Federal Confidentiality of Alcohol and Drug Abuse Patient Records regulations: The Federal rules restrict any use of the information to criminally investigate or prosecute any alcohol or drug abuse patient.[facility] the event this information is protected by the Federal Confidentiality of Alcohol and Drug Abuse Patient Records regulations: The Federal rules restrict any use of the information to criminally investigate or prosecute any alcohol or drug abuse patient.[facility] the event this information is protected by the Federal Confidentiality of Alcohol and Drug Abuse Patient Records regulations: The Federal rules restrict any use of the information to criminally investigate or prosecute any alcohol or drug abuse patient.[facility] Hospital[facility] the event this information is protected by the Federal Confidentiality of Alcohol and Drug Abuse Patient Records regulations: The Federal rules restrict any use of the information to criminally investigate or prosecute any alcohol or drug abuse patient.[facility] Hospital[facility] the event this information is protected by the Federal Confidentiality of Alcohol and Drug Abuse Patient Records regulations: The Federal rules restrict any use of the information to criminally investigate or prosecute any alcohol or drug abuse patient.[facility] Hospital[facility] the event this information is protected by the Federal Confidentiality of Alcohol and Drug Abuse Patient Records regulations: The Federal rules restrict any use of the information to criminally investigate or prosecute any alcohol or drug abuse patient.[facility] Hospital[facility] the event this information is protected by the Federal Confidentiality of Alcohol and Drug Abuse Patient Records regulations: The Federal rules restrict any use of the information to criminally investigate or prosecute any alcohol or drug abuse patient.[facility] Hospital[facility] the event this information is protected by the Federal Confidentiality of Alcohol and Drug Abuse Patient Records regulations: The Federal rules restrict any use of the information to criminally investigate or prosecute any alcohol or drug abuse patient.[facility] Hospital[facility] the event this information is protected by the Federal Confidentiality of Alcohol and Drug Abuse Patient Records regulations: The Federal rules restrict any use of the information to criminally investigate or prosecute any alcohol or drug abuse patient.[facility] Reason for Visit (unrecogniz ed section and content) Reason Comments Vaginal Problem burning, used difluc an, monostat 1 Reason Comments Rash Pt reported rash guanaco asts, torso, neck denied pain Specialty Diagnoses / Procedures Referred By Stephac t Referred To Contact Internal Medicine / [facility] Diagnoses rash on neck and torso since yesterday Procedures NEW SAME DAY MD [facility] [address] [place] [address] Referral ID Status Reason Start Date Expiration Date V isits Requested Visits Authorized [id number] Outside PCP 01/12/2022 04/12/2022 1 1 Reason Comments Radiology US Specialty Diagnoses / Procedures Referred By Pat t Referred To Contact Radiology / RADIO [facility] Diagnoses Thyroid nodule, order in scanned documents by Dr. Yeboah Procedures US THYROID Chrissy Yeboah [address] [place] [address] Radio Ultra [facility] [address] [place] [address] Referral ID Status Reason Start Date Expiration Date Visits Re quested Visits Authorized [id number] Closed 02/23/2022 06/24/2022 1 1 Reason Comments Yearly Exam Reason Comments [employer] Ultrasound Reason Comments Rash Rash on left arm-sta rted this afternoon Reason Comments Menstrual Problem Has had 3 periods/sp otting in the last month Reason Comments Ear Pain Pt reported throat p ain, cough, nasal congestion, x1 wk. Reason Comments Discussion Reason Comments Refill Request Reason Comments Sore Throat ST and rash x 2 days and frequency, urgency and burning x 2 days Urinary Frequency Reason Onset Date Comments Refill Request 02/12/2023 Reason Comments Head Congestion Cough, sinus drainag e x2 weeks, bodyaches and chills x last night Care Teams (unrecognized sec tion and content) Junior Analyst Relationship Specialty Start Date End Date Chrissy Yeboah [address] [place] [id number] PCP - General Family Practice 11/16/21 Junior Analyst Relationship Specialty Start Date End Date Chrissy Yebo[place] [address] PCP - General Family Practice 11/16/21 Junior Analyst Relationship Specialty Start Date End Date Chrissy Yeboah [place] [address] PCP - General Family Practice 11/16/21 Junior Analyst Relationship Specialty Start Date End Date Chrissy Yeboah [place] [address] PCP - General Family Practice 11/16/21 Junior Analyst Relationship Specialty Start Date End Date Chrissy Yeboah [place] [address] PCP - General Family Medicine 11/16/21 Junior Analyst Relationship Specialty Start Date End Date Chrissy Yeboah[address] [place] [address] PCP - General Family Medicine 11/16/21 Junior Analyst Relationship Specialty Start Date End Date Chrissy Yebo[address] [place] [address] PCP - General Family Medicine 11/16/21 Junior Analyst Relationship Specialty Start Date End Date Chrissy Yeboah [address] [place] [address] PCP - General Family Medicine 11/16/21 Junior Analyst Relationship Specialty Start Date End Date Chrissy Yeboah [address] [place] [address] PCP - General Family Medicine 11/16/21 Junior Analyst Relationship Specialty Start Date End Date Chrissy Yeboah [address] [place] [address] PCP - General Family Medicine 11/16/21 Junior Analyst Relationship Specialty Start Date End Date Chrissy Yeboah [address] [place] [address] PCP - General Family Medicine 11/16/21 Junior Analyst Relationship Specialty Start Date End Date Chrissy Yeboah [address] [place] [address] PCP - General Family Medicine 11/16/21 Junior Analyst Relationship Specialty Start Date End Date Chrissy Yeboah MD [address] [place] [address] PCP - General Family Medicine 11/16/21 Junior Analyst Relationship Specialty Start Date End Date Chrissy Yeboah MD [address] [place] [address] PCP - General Family Medicine 11/16/21 Junior Analyst Relationship Specialty Start Date End Date Chrissy Yeboah MD [address] [place] [address] PCP - General Family Medicine 11/16/21 Junior Analyst Relationship Specialty Start Date End Date Chrissy Yeboah MD [address] [place] [address] PCP - General Family Medicine 11/16/21 Junior Analyst Relationship Specialty Start Date End Date Chrissy Yeboah MD [address] [place] [address] PCP - General Family Medicine 11/16/21 Junior Analyst Relationship Specialty Start Date End Date Chrissy Yeboah MD [address] [place] [address] PCP - General Family Medicine 11/16/21 Junior Analyst Relationship Specialty Start Date End Date Chrissy Yeboah MD [address] [place] [address] PCP - General Family Medicine 11/16/21 Junior Analyst Relationship Specialty Start Date End Date Chrissy Yeboah MD [address] [place] [address] PCP - General Family Medicine 11/16/21 Junior Analyst Relationship Specialty Start Date End Date Chrissy Yeboah MD [address] [place] [address] PCP - General Family Medicine 11/16/21 Junior Analyst Relationship Specialty Start Date End Date Chrissy Yeboah MD [address] [place] [address] PCP - General Family Medicine 11/16/21 INFORMATION SOURCE (unrecogn ized section and content) DATE CREATED AUTHOR 04/16/2024 [facility] DATE CREATED AUTHOR AUTHOR'S ORGANIZ ATION 04/16/2024 [facility] FOR RECORDS PERTAINING TO PATIENTS WHO ARE OR HAVE BEEN ENROLLED IN A CHEMICAL DEPENDENCY/SUBSTANCEABUSE PROGRAM, SOME INFORMATION MAY BE OMITTED. This clinical summary was aggregated from multiple sources. Caution should be exercised in using it in the provision of clinical care. This summary normalizes information from multiple sources, and as a consequence, information in this document may materially change the coding, format and clinical context of patient data. In addition, data may be omitted in some cases. CLINICAL DECISIONS SHOULD BE BASED ON THE PRIMARY CLINICAL RECORDS. [facility]. provides no warranty or guarantee of the accuracy or completeness of information in this document.
== END | disposition home or self-care (01) ==
LOC: MTRAD 14:11
PROVIDERS: PCP Family Medicine; Referring Provider Physician Assistant; Visit Provider Physician Assistant
DX: S09.90XA Unspecified injury of head, initial encounter (principal)
CPT/HCPCS: 72040

== ENCOUNTER → 2024-09-01 | Outpatient (CLI) | payer OTHER, MEDICAID, SELFPAY ==
[2024-09-01 08:58] LABS: Bacteria 0 SEEN /hpf (None Seen); Mucous, Urine 0 SEEN /hpf (<or=2+); White Blood Cells 0 SEEN /hpf (0-5)
[2024-09-01 10:50] LABS: Color, Urine Yellow (Yellow); Glucose, Dipstick Normal (Normal); Ketone-Dipstick Negative (Negative); Leukocyte Esterase-Dipstick Negative /ul (Negative); Nitrite-Dipstick Negative (Negative); Occult Blood-Urine Negative /ul (Negative); Protein-Dipstick Negative (Negative); Urine Bilirubin Dipstick Negative (Negative); Urine Clarity Clear (Clear); Urine Urobilinogen Normal (Normal)
[2024-09-01 11:21] LABS: Red Blood Cells-Urine 0 SEEN /hpf (0-5); Squamous Epithelial Cells - UA 0-5 SEEN /hpf (5-10)
== END | disposition home or self-care (01) ==
LOC: LABSPEC 08:57
PROVIDERS: Nurse Practitioner Family; PCP Family Medicine; Visit Provider Family Medicine
DX: R30.0 Dysuria (principal)
CPT/HCPCS: 81001; 87086

== ENCOUNTER → 2024-10-17 | Outpatient (CLI) | payer OTHER, MEDICAID, SELFPAY | END | disposition home or self-care (01) | PROVIDERS: PCP Family Medicine; Referring Provider Nurse Practitioner Family; Visit Provider Nurse Practitioner Family | DX: N39.0 Urinary tract infection, site not specified (principal) | CPT/HCPCS: 87086 ==

== ENCOUNTER → 2025-03-20 | Outpatient (CLI) | payer MEDICAID, SELFPAY ==
--- NOTE | 2025-03-20 12:47 | US_ITS ---
PROCEDURE: THYROID 03/20/2025 REASON FOR EXAM: ONE YEAR F/U TECHNIQUE: Procedure Code: USTHY Modality: US Procedure: THYROID COMPARISON: Thyroid ultrasounds dated 02/29/2024 and 02/27/2023 FINDINGS: Right thyroid lobe size: 6.0 x 2.7 x 2.7 cm Left thyroid lobe size: 5.1 x 2.0 x 1.7 cm Isthmus: 5 mm Background parenchymal echotexture is homogeneous. Nodules: 1. Lobe: Right, Location: Mid, Size: 2.7 x 2.6 x 1.7 cm, Stability: Minimally larger Composition: Mixed cystic and solid (+1) Echogenicity: Hypoechoic (+2) Margin: Smooth (+0) Shape: Wider than tall (+0) Echogenic Foci: None (+0) TI-RADS: <2 = TR 1 * 2 = TR 2 * 3 = TR 3 * 4-6 = TR 4 * >6 = TR 5 2. Lobe: Right, Location: Mid to lateral, Size: 7 x 4 x 4 mm, Stability: New Composition: Mixed cystic and solid (+1) Echogenicity: Hypoechoic (+2) Margin: Smooth (+0) Shape: Wider than tall (+0) Echogenic Foci: None (+0) TI-RADS: <2 = TR 1 * 2 = TR 2 * 3 = TR 3 * 4-6 = TR 4 * >6 = TR 5 3. Lobe: Left, Location: Mid , Size: 1.4 x 1.2 x 0.9 mm, Stability: Stable Composition: Mixed cystic and solid (+1) Echogenicity: Hypoechoic (+2) Margin: Smooth (+0) Shape: Wider than tall (+0) Echogenic Foci: None (+0) TI-RADS: <2 = TR 1 * 2 = TR 2 * 3 = TR 3 * 4-6 = TR 4 * >6 = TR 5 4. Lobe: Left, Location: Mid to post, Size: 2.5 x 1.7 x 1.0 cm, Stability: Stable This nodule appears to be posterior to the thyroid gland. Composition: Mixed cystic and solid (+1) Echogenicity: Hypoechoic (+2) Margin: Smooth (+0) Shape: Wider than tall (+0) Echogenic Foci: None (+0) TI-RADS: <2 = TR 1 * 2 = TR 2 * 3 = TR 3 * 4-6 = TR 4 * >6 = TR 5 5. Lobe: Left, Location: Mid to inferior, Size: 7 x 8 x 4 mm, Stability: Stable Composition: Mixed cystic and solid (+1) Echogenicity: Hypoechoic (+2) Margin: Smooth (+0) Shape: Wider than tall (+0) Echogenic Foci: None (+0) TI-RADS: <2 = TR 1 * 2 = TR 2 * 3 = TR 3 * 4-6 = TR 4 * >6 = TR 5 US/Thyroid IMPRESSION: Findings compatible with multinodular goiter. RECOMMENDATION: Based on most suspicious nodule. Nodule size = largest diameter Only evaluate nodule if =>5 mm. Growth > 20% in 2 dimensions = worsening. Follow up to 4 nodules. Recommend biopsy for no more than 2 nodules. Reading Location: [id number]
== END | disposition home or self-care (01) ==
PROVIDERS: PCP Family Medicine; Referring Provider Surgery; Visit Provider Surgery
DX: E04.2 Nontoxic multinodular goiter (principal)
CPT/HCPCS: 76536

== ENCOUNTER → 2025-04-02 | Outpatient (CLI) | payer MEDICAID, SELFPAY ==
[2025-04-02 09:44] LABS: Free T3 3.5 pg/mL (2.18-3.98)
== END | disposition home or self-care (01) ==
LOC: LAB 07:57
PROVIDERS: PCP Family Medicine; Referring Provider Surgery; Visit Provider Surgery
DX: E04.1 Nontoxic single thyroid nodule (principal)
CPT/HCPCS: 36415; 84439; 84443; 84481

== ENCOUNTER → 2025-04-23 | Outpatient (CLI) | payer MEDICAID, SELFPAY ==
--- NOTE | 2025-04-23 08:00 | CYSPIN_PTH ---
PATIENT: ERNESTO BRANCH LOC: [facility] U#:[id number] AGE/SX: 40/F ROOM: RE04/23/[address]: Dr. Zak Bull MD : 1985 BED: DIS: 04/23/2025 SPEC #: [id number] RECD: 04/23/25 10:25 STATUS: LALO WILLEM #: [id number] LAURA: 04/23/25 08:[address]: Zak Bull DEPT: CYTOLOGY RECD BY: Ozzy Silva ENTERED: 04/23/25 12:02 SP TYPE: CYSPIN FL OTHR DR: Dr. Chrissy Yeboah MD Tissues: A - Thyroid gland, NOS B - Thyroid gland, NOS Procedures: Pap Stain (control) Special Stain Group II Diff Quik Stain (control) Cytospin Fluid Cytology Other HEADER OPERATION: Fine needle aspiration of right thyroid nodule PRE-OP DIAGNOSIS: Right thyroid nodule TISSUE SUBMITTED: A- Right mid thyroid nodule, B- Right thyroid cyst aspirate DIAGNOSIS CYTOLOGY A. Right mid-thyroid nodule, FNA (cytospin, smear x4): - Atypical cells of undetermined significance (TBS III). - Afirma testing submitted. B. Right thyroid cyst, FNA (cytospin, cellblock): - Nondiagnostic due to low cellularity (TBS 1). CYTOLOGY STUDY Slides are reviewed. CYTOLOGY GROSS A. Received is 30 ml of pink cytolyt with particles and 4 slides labeled with the patient's name and and designated per the requisition as Right mid thyroid nodule. Submitted for cytology and cytospin. B. Received is 0.5 ml of red-cloudy fluid labeled with the patient's name and and designated per the requisition as Right thyroid cyst aspirate. Submitted for cytology and cytospin. 04/23/2025 CPT: 13394,[id number]
== END | disposition home or self-care (01) ==
LOC: LABSPEC 10:28
PROVIDERS: PCP Family Medicine; Referring Provider Surgery; Visit Provider Surgery
DX: E04.1 Nontoxic single thyroid nodule (principal)
CPT/HCPCS: 88108; 88161; 88313

== ENCOUNTER 2025-06-09 05:38 | Emergency (ER) | payer MEDICAID, SELFPAY ==
[2025-06-09 05:40] VITALS: BP 167/90; PULSE 93; RESP 18; TEMP 36.9; O2SAT 99; BMI 22.9
--- NOTE | 2025-06-09 05:45 | ED.VIS.CHEST ---
HPI History of Present Illness Chief Complaint: Chest Pain Onset/Context/Timing Onset: Yesterday Activity at onset: sudden Timing: Continuous Quality: Positive for Sharp Location: Substernal and - (Between her shoulder blades in her back) Worsened By: Breathing Relieved By: Nothing Narrative Narrative: Patient presents with chest pain that began yesterday. Patient states it began rather suddenly when she woke up yesterday. Patient states it has been constant. Patient states it is sharp. Patient states it is over the lower substernal area and radiates into her back between her shoulder blades. Patient states she feels her heart racing at times. Patient denies any shortness of breath or cough. Patient denies any nausea or vomiting. Patient denies any lightheadedness or dizziness. CVD Risk Factors: Positive for Diabetes and Smoking; Negative for Hypertension, Hypercholesterolemia or Family History 1' </=55 PE Risk Factors: Negative for Recent Travel/Surgery, Recent Immobilization, Prior DVT or PE, Cancer or OCP + Smoking + >/=35 PFSH PFSH Medical History Right shoulder strain Left shoulder pain History of hemorrhoids Depression Back pain Anxiety Diabetes Home Medications ?Medication ?Instructions ?Recorded ?Last Taken ?Type cholecalciferol (vitamin D3) 50 2,000 unit PO DAILY 08/12/21 Unknown History mcg (2,000 unit) capsule metformin 500 mg tablet,extended 500 mg PO TID 03/08/23 Unknown History release 24 hr norethindrone acetate 5 mg tablet 5 mg PO DAILY 03/08/23 Unknown History Allergy/AdvReac Type Severity Reaction Status Date / Time aripiprazole (From Abilify) Allergy Swelling Verified 06/09/25 05:43 Gadolinium-MRI Contrast Allergy PT UNSURE Verified 06/09/25 05:43 Medium (MRI) OF REACTION iodine Allergy Other Verified 06/09/25 05:43 amphetamine (From Adderall) AdvReac PT UNSURE Verified 06/09/25 05:43 OF REACTION codeine AdvReac Itching Verified 06/09/25 05:43 dextroamphetamine (From AdvReac PT UNSURE Verified 06/09/25 05:43 Adderall) OF REACTION hydrocodone AdvReac Itching Verified 06/09/25 05:43 Iodinated Contrast Media AdvReac Other Verified 06/09/25 05:43 lamotrigine (From Lamictal) AdvReac NEEDS Verified 06/09/25 05:43 FOLLOW-UP Family History Aunt Breast cancer Grandfather Colon cancer Grandmother Heart disease High cholesterol Kidney disease Unknown Diabetes Surgical History History of cholecystectomy Social History Smoking Status: Current every day smoker tobacco type: cigarettes alcohol intake: never substance use type: does not use ROS ROS ED Constitutional Constitutional ED: Denies chills or fever(s) Eyes Eyes: Denies blurry vision or change in vision ENT ENT ED: Denies rhinorrhea or sore throat Cardiovascular Cardiovascular: Reports chest pain and racing heartbeat Respiratory/Chest Respiratory/Chest: Denies cough or dyspnea Gastrointestinal Gastrointestinal: Denies nausea or vomiting Genitourinary Genitourinary ED: Denies dysuria or hematuria Musculoskeletal Musculoskeletal: Reports back pain; Denies neck pain Integumentary Denies abscess or rash Neurologic Neurologic: Denies headache(s) or weakness Allergic/Immunologic Allergic/Immunologic ED: Denies mouth swelling or urticaria EXAM Physical Exam Const Vital Signs: 06/09/25 05:40 06/09/25 05:43 06/09/25 06:00 Temperature 98.5 F Temperature Source Oral Pulse Rate 93 80 Respiratory Rate 18 18 Respiratory Effort Normal Non-Labored Respiratory Pattern Normal Blood Pressure 167/90 H 128/89 H Blood Pressure Mean 115 102 Pulse Ox 99 97 Oxygen Delivery Method Room Air Room Air 06/09/25 06:03 Temperature Temperature Source Pulse Rate Respiratory Rate Respiratory Effort Respiratory Pattern Blood Pressure Blood Pressure Mean Pulse Ox 97 Oxygen Delivery Method Room Air Positive well nourished and well developed General Appearance ED: well developed and NAD HEENT Reports moist mucous membranes Neck supple and no JVD Chest Wall inspection of chest normal and palpation of chest normal Resp normal respiratory effort and clear to auscultation bilaterally Cardio regular rate and regular rhythm GI soft to palpation, non-tender and non-distended Extremity normal to inspection General Extremety ED: Negative for edema or tenderness General Extremity: Negative for edema Neuro oriented x3, CN's II-XII intact bilaterally and no sensory deficits noted Sensorium / Orientation: awake and alert Motor Exam: strength 5/5 throughout Psych mental status grossly normal Heart Score History: Slightly/Non-Suspicious ECG: Normal Age: </= 45 years Risk Factors: 1 or 2 Risk Factors Troponin: </= Normal Limit Score: 1 MDM MDM MDM Narrative Medical decision making narrative: Differential diagnosis includes cardiac dysrhythmia, cardiac ischemia, pneumonia, bronchitis, dehydration, electrolyte abnormality, gastroesophageal reflux disease, musculoskeletal pain, and anxiety. EKG will be obtained to assess for cardiac dysrhythmia and cardiac ischemia. Chest x-ray will be obtained to assess for pneumonia or bronchitis. CBC will be obtained to assess for leukocytosis and anemia. Basic metabolic profile will be obtained to assess for electrolyte abnormality and renal function. High-sensitivity troponin will be obtained to assess for cardiac ischemia. History & Record Review Additional record(s) reviewed:: Prior outpatient record, Prior ED visit and Prior labs Lab Data Attestation: I reviewed the patient's lab results. Lab results narrative: CBC was reviewed. Hemoglobin was slightly elevated at 17.6 and hematocrit was 52.0. The remainder is within normal limits. Basic metabolic profile was reviewed. CO2 is slightly low at 20.9 and anion gap was slightly elevated at 17. Glucose was slightly elevated at 172. The remainder is within normal limits. High-sensitivity troponin was repeated and was less than 6. Labs: Laboratory Results - last 24 hr 06/09/25 05:40 WBC 9.7 RBC 5.46 H Hgb 17.6 H Hct 52.0 H MCV 95.2 MCH 32.2 H MCHC 33.8 RDW Std Deviation 45.0 H RDW Coeff of Daryl 12.8 Plt Count 252 MPV 9.0 Immature Gran % (Auto) 0.300 Neut % (Auto) 70.7 H Lymph % (Auto) 22.0 Centre % (Auto) 5.5 Eos % (Auto) 1.0 Baso % (Auto) 0.5 Absolute Neuts (auto) 6.9 Absolute Lymphs (auto) 2.14 Nucleated RBC % 0 D-Dimer Quant (PE/DVT) 0.33 Sodium 139 Potassium 3.8 Chloride 101 Carbon Dioxide 20.9 L Anion Gap 17 H BUN 13 Creatinine 0.93 Estim Creat Clear Calc 62.33 Est GFR (MDRD) Non-Af 78 BUN/Creatinine Ratio 14.3 Glucose 172 H Calcium 10.0 Troponin T High Sens < 6 Radiography Chest X-Ray - ED: 2 View, Read by ED Physician, Read by Radiologist and No Acute Disease Diagnostic Testing: PA and lateral chest x-ray was obtained. There are 2 views. On my independent interpretation, lung velazquez are clear. There is normal cardiac silhouette. Bony thorax is normal. There is no acute process noted. Radiologist also interpreted the x-ray and agrees. EKG Initial EKG: Attestation: I personally reviewed and interpreted this EKG as follows: Interpretation: Sinus Rhythm (97) and No Acute Injury Pattern Comments: EKG was obtained. On my independent interpretation, it showed a normal sinus rhythm with a rate of 97. MN interval, QRS interval, and QTc intervals were all normal. [place] was normal. There are no acute ST or T wave changes. Prior EKG tracings: available for review Prior: Unchanged (10/22/2023) Treatment and Re-Evaluation :: Patient was given aspirin. Patient was advised of her findings. Patient has a HEART score of 1. Patient was advised that this is low risk for acute cardiac event. Patient was instructed to follow-up with her primary care physician in 5 to 7 days. Patient was instructed to return if worse in any way. Patient understood and was agreeable with the plan. All questions were answered. Discharge Plan Triage Chief Complaint: Chest Pain ED Provider: Israel Saunders Dx/Rx/DC Orders Clinical Impression: Chest pain, Tobacco use Instructions: ED Chest Pain, Uncertain Cause Prescriptions: No Action norethindrone acetate 5 mg tablet 5 mg PO DAILY cholecalciferol (vitamin D3) 50 mcg (2,000 unit) capsule 2,000 unit PO DAILY Patient Comments: TAKE 1 CAPSULE BY MOUTH EVERY DAY metformin 500 mg tablet extended release 24 hr 500 mg PO TID Patient Comments: TAKE 1 TABLET BY MOUTH 3 TIMES A DAY Primary Care Provider: Chrissy Yeboah Referrals: Chrissy Yeboah MD [Primary Care Provider, Family Practice] - 5-7 Days Print Language: Korean Disposition Disposition: Home, Self Care
[2025-06-09 06:00] VITALS: BP 128/89; PULSE 80; RESP 18; O2SAT 97
[2025-06-09 06:03] VITALS: O2SAT 97
--- NOTE | 2025-06-09 06:03 | EKG12_ITS ---
Test Reason : CP Blood Pressure : */* mmHG Vent. Rate : 97 BPM Atrial Rate : 97 BPM P-R Int : 110 ms QRS Dur : 76 ms QT Int : 326 ms P-R-T Axes : 71 40 53 degrees QTcB Int : 414 ms Sinus rhythm with short IA Right atrial enlargement Borderline ECG Confirmed by Zak Monsalve ([id number]), script editor KHADIJAH TUCKER ([id number]) on 06/10/2025 10:20:00 AM Referred By: ES Confirmed By: Zak Monsalve
[2025-06-09] MEDS: 0.9% Normal Saline (1000mL) 1,000 ML 999 ML IV (06:12)
[2025-06-09 06:13] LABS: Hematocrit 52.0 % (37-47); Hemoglobin 17.6 g/dL (12.0-15.0); Immature Granulocytes Count 0.030 X10^3/uL (0.0-0.0); Mean Corp Hgb Conc 33.8 g/dL (32-36); Mean Corpuscular Volume 95.2 fL (81-99); Mean Platelet Vol. 9.0 fl (6.2-12.0); NRBC Flagged by Analyzer 0 % (0-5); Platelet Count 252 K/mm3 (150-450); RBC Distribution Width CV 12.8 % (11.6-14.6); RBC Distribution Width SD 45.0 fl (35.1-43.9); Red Blood Count 5.46 M/mm3 (4.2-5.4); White Blood Count 9.7 K/mm3 (4.4-11.0)
--- NOTE | 2025-06-09 06:20 | RAD_ITS ---
PROCEDURE: CHEST PA AND LATERAL 06/09/2025 REASON FOR EXAM: CHEST PAIN TECHNIQUE: Procedure Code: RADCXR Modality: DX Procedure: CHEST PA AND LATERAL COMPARISON: 10/22/2023. FINDINGS: Interval appearance of bilateral basilar atelectatic pulmonary changes. There is no demonstrated pleural abnormality. Normal heart and pericardium. Normal mediastinum and prabha. Normal visualized pulmonary arteries. Normal visualized aortic arch and descending thoracic aorta. Normal visualized thoracic spine. Normal visualized ribs, clavicles, and shoulders. There is no demonstrated abnormality of the visualized soft tissue structures of the upper abdomen. RAD/Chest PA and Lateral IMPRESSION: Interval appearance of bilateral basilar atelectatic pulmonary changes. Reading [facility]
[2025-06-09 06:24] LABS: D-Dimer Quantitative (DVT/PE) 0.33 FEU/ug/m (0.27-0.49)
[2025-06-09 06:37] LABS: Anion Gap 17 (5-15); BUN 13 mg/dL (4-19); BUN/Creat Ratio 14.3 RATIO (10-20); Calcium,Total 10.0 mg/dL (7.6-11.0); Carbon Dioxide 20.9 mmol/L (21.0-32.0); Chloride 101 mmol/L (98-108); Estimated Creatinine Clearance 62.33 ml/min (50-250); Glucose 172 mg/dL (70-99); Potassium 3.8 mmol/L (3.3-5.1); Troponin T High Sensitivity < 6 ng/L (<=14)
[2025-06-09 06:54] VITALS: BP 133/83; PULSE 74; RESP 16; TEMP 36.6; O2SAT 97
--- OUTSIDE RECORDS SUMMARY | 2025-06-09 06:58 | XMS RPT_ITS | CCD ---
Author Organization [facility] Care Team Providers Care Oven Loader Name Role Phone Chrissy Yeboah Primary Care Provider Dr. Chrissy Yeboah Primary Care Provider Dr. Chrissy Yeboah Referring Provider Dr. Zak Bull Attending Provider Chrissy Yeboah Primary Care Provider Dr. Chrissy Yeboah Primary Care Provider Dr. Chrissy Yeboah Referring Provider Dr. Zak Bull Attending Provider Chrissy Yeboah Primary Care Provider Chrissy Yeboah MD Primary Care Provider Dr. Chrissy Yeboah Primary Care Provider Dr. Avni Mendez Attending Provider Dr. Chrissy Yeboah Primary Care Provider Dr. Chrissy Yeboah Referring Provider Dr. Zak Bull Attending Provider Dr. Chrissy Yeboah Primary Care Provider Dr. Chrissy Yeboah Referring Provider [phone] Vandana SHELLEY, DAPHNEY Yu Attending Provider Miedel MD, Chrissy E Primary Care Provider Edilia RAMON, Chrissy E Primary Care Provider Edilia RAMON, Dr. Lowe Primary Care Provider Edilia RAMON, Dr. Lowe Referring Provider Prince Vann Attending Provider Crispin SORT LINE-Henry Galan Attending Provider Edilia RAMON, Dr. Lowe Attending Provider [phone] Edilia RAMON, Dr. Lowe Primary Care Provider Edilia RAMON, Dr. Lowe Referring Provider [phone] Fernandez Junior Attending Provider WINSTON ROSA C Admitting Unavailable WINSTON, ROSA C Attending Unavailable WINSTON ROSA C Primary Care Unavailable MIEDEL, CHRISSY Consulting Unavailable MIEDEL, CHRISSY Referring Unavailable PROVIDER, UNKNOWN Consulting Unavailable PROVIDER, UNKNOWN Consulting Unavailable PLOTTS, KAROL CNM Admitting Unavailable PLOTTS, KAROL CNM Attending Unavailable PLOTTS, KAROL CNM Primary Care Unavailable MIEDEL, CHRISSY Consulting Unavailable PROVIDER, UNKNOWN Consulting Unavailable PROVIDER, UNKNOWN Consulting Unavailable Edilia RAMON, Dr. Lowe Primary Care Physician Fernandez Junior Attending Physician Jorgito RAMON, Dr. Crespo Attending Physician Dr. Zak Blul MD Referring Provider JANINA KAROL Attending Unavailable MIEDEL, CHRISSY E Primary Care Unavailable MIEDEL, CHRISSY E Primary Care Unavailable PLOTTS, KAROL Referring Unavailable MIEDEL, CHRISSY E Primary Care Unavailable PLOTTS, KAROL Referring Unavailable Miedel, Chrissy Referring Unavailable Miedel, Chrissy Primary Care Unavailable Zak Bull Attending Unavailable Fernandez Junior Attending Unavailable Miedel, Chrissy Referring Unavailable Miedel, Chrissy Primary Care Unavailable Prince Vann Attending Unavailable Miedel, Chrissy Referring Unavailable Miedel, Chrissy Primary Care Unavailable Henry Roa NP Attending Unavailable Miedel, Chrissy Referring Unavailable Miedel, Chrissy Primary Care Unavailable Nadiya Goldberg Attending Unavailable Nadiya Goldberg Referring Unavailable Miedel, Chrissy Primary Care Unavailable Miedel, Chrissy Attending Unavailable Miedel, Chrissy Referring Unavailable Miedel, Chrissy Primary Care Unavailable Miedel, Chrissy Primary Care Unavailable Zak Bull Attending Unavailable Zak Bull Referring Unavailable Miedel, Chrissy Primary Care Unavailable Zak Bull Attending Unavailable Zak Bull Referring Unavailable Miedel, Chrissy Primary Care Unavailable Zak Bull Attending Unavailable Zak Bull Referring Unavailable Miedel, Chrissy Attending Unavailable Miedel, Chrissy Primary Care Unavailable Allergies Allergy Classification Reported Allergen(s) Allergy Type Date of Onset Reaction(s) Facility (20 sources) Acetaminophen / HYDROcodone; Translations: [HYDROCODONE-ACETAMI NOPHEN] Drug Allergy 08-09-19 06 Shortness of Breath [facility] Work Phone: (20 sources) Amphetamine aspartate / Amphetamine Sulfate / Dextroamphetamine saccharate / Dextroamphetamine Sulfate; Translations: [DEXTROAMPHETAMINE-A MPHETAMINE] Drug Allergy 07-05-19 22 Other: See Comments, Intolerance [facility] (20 sources) ARIPiprazole; Translations: [ARIPIPRAZOLE] Drug Allergy 03-15-20 15 Other: See Comments, Intolerance [facility] (20 sources) Codeine; Translations: [CODEINE] Drug Allergy 08-09-19 06 Shortness of Breath [facility] Work Phone: (20 sources) Contrast media; Translations: [CONTRAST DYE] Drug Allergy 06-03-20 14 Unknown [facility] Work Phone: (20 sources) lamoTRIgine; Translations: [LAMOTRIGINE] Drug Allergy 03-15-20 15 Swelling [facility] (15 sources) Amphetamine Drug Allergy 03-13-20 22 PT UNSURE OF REACTION [facility] (15 sources) Dextroamphetamine Drug Allergy 03-13-20 22 PT UNSURE OF REACTION [facility] (15 sources) HYDROcodone Drug Allergy 03-13-20 22 Itching [facility] (15 sources) Gadolinium-MRI Contrast Medium Allergy to substance 03-13-20 PT UNSURE OF REACTION [facility] (14 sources) Iodine Drug Allergy 04-29-20 Other [facility] (14 sources) Triiodobenzoic Acids Propensity to adverse reactions 04-29-20 Other [facility] (1 source) Acetaminophen / HYDROcodone Drug Allergy [facility] (1 source) ARIPiprazole Drug Allergy [facility] (1 source) Codeine Drug Allergy [facility] (1 source) Iodine Drug Allergy [facility] (1 source) lamoTRIgine Drug Allergy [facility] (1 source) CONTRAST MEDIA, IODINE RELATED Drug allergy (disorder) [facility] (1 source) Amphetamine Drug Allergy 04-23-20 [facility] (1 source) ARIPiprazole Drug Allergy 04-23-20 [facility] (1 source) Codeine Drug Allergy 04-23-20 [facility] (1 source) Dextroamphetamine Drug Allergy 04-23-20 [facility] (1 source) HYDROcodone Drug Allergy 04-23-20 [facility] (1 source) Iodine Drug Allergy 04-23-20 [facility] (1 source) lamoTRIgine Drug Allergy 04-23-20 [facility] (1 source) Iodinated Contrast Media Drug allergy (disorder) 04-23-20 [facility] (1 source) Gadolinium-MRI Contrast Medium Drug allergy (disorder) 04-23-20 [facility] Medications Current Medications Medication Drug Class(es) Dates Sig (Normalized) Sig (Original) acetaminophen 325 mg oral tablet (20 sources) take 1 tablet by mouth every four hours as needed acetaminophen (TYLENOL) 325 mg tablet Take 325 mg by mouth every 4 hours as needed. Active Comment on above: Take 325 mg by mouth every 4 hours as needed. ALPRAZolam 0.25 mg oral tablet (10 sources) Benzodiazepine take 1 tablet by mouth [...] as needed. cholecalciferol 0.05 mg oral capsule (20 sources) Vitamin D Start: 07-10-19 take 1 capsule by mouth once daily clotrimazole 10 mg/ml topical cream (2 sources) Azole Antifungal Start: 08-01-19 End: 08-15-19 clotrimazole (LOTRIMIN, CLOTRIM) 1 % cream Apply [...] 14 days. fluconazole 150 mg oral tablet (16 sources) Azole Antifungal Start: 4 End: take 1 tablet by mouth once daily fluconazole (DIFLUCAN) 150 mg tablet Indications: Feared condition not demonstrated Take 1 tablet by mouth once daily for 1 day. 1 tablet 02/14/2024 02/15/2024 Active Start: 08-12-2021 End: 03-13-2022 take 1 tablet by mouth once daily Fluconazole (Diflucan) 150 mg tablet Discontinued 150 mg PO DAILY 1 0 August 12, 2021 1:00am March 13, 2022 8:28am Take 1 by mouth after completing antibiotic ibuprofen 800 mg oral tablet (20 sources) Nonsteroidal Anti-inflammatory Drug ibuprofen (MOTRIN ) 800 mg tablet Take 800 mg by mouth as needed. Active Comment on above: Take 800 mg by mouth as needed. metroNIDAZOLE 500 mg oral tablet (2 sources) Nitroimidazole Antimicrobial Start: End: take 1 tablet by mouth twice daily metroNIDAZOLE (FLAGYL) 500 mg tablet Indications: Vaginal burning Take 1 tablet by mouth two times a day for 7 days. 14 tablet 04/28/2024 05/05/2024 Active norethindrone acetate 5 mg oral tablet (20 sources) Start: End: take 1 tablet by mouth once daily Start: 07-07-2022 End: 02-12-2023 take 1 tablet by mouth once daily norethindrone (AYGESTIN) 5 mg tablet Take 1 tablet by mouth once daily. 30 tablet 5 02/12/2023 Active Start: 04-18-2022 take 1 tablet by francine th once daily Norethindrone, Contraceptive, (ORTHO MICRONOR) 0.35 mg tablet Indications: Abnormal uterine bleeding (AUB) Take 1 tablet by mouth once daily. 30 tablet 04/18/2022 Active Comment on above: Take 1 tablet by francine th once daily. TAKE 1 TABLET BY FRANCINE TH EVERY DAY om3/dha/epa/fish/kril/lut/ze ax (MEGARED ADV TOTAL BODY REFRESH ORAL) (20 sources) om3/dha/epa/fish /kril/lut/z eax (MEGARED ADV TOTAL BODY REFRESH ORAL) Take by mouth. Active om3/dha/epa/fish /kril/lut/zeax (MEGARED ADV TOTAL BODY REFRESH ORAL) Take by mouth. 0 Active Comment on above: Take by mouth. triamcinolone acetonide 1 mg/ml topical cream (3 sources) Corticosteroid Start: 04-13-2022 End: 04-20-2022 triamcinolone acetonide (KENALOG) 0.1 % cream Apply 1 application to affected area three times daily for 7 days. Apply sparingly to area for rash/itching. 80 g 0 04/13/2022 04/20/2022 Active Comment on above: Apply 1 application to affected area three times daily for 7 days. Apply sparingly to area for rash/itching. Completed/Discontinued Medications Medication Drug Class(es) Dates Sig (Normalized) Sig (Original) cephalexin 500 mg oral capsule (20 sources) Cephalosporin Antibacterial Start: 05-15-2022 End: 03-08-2023 take 1 capsule by mouth every six hours Cephalexin 500 mg capsule Discontinued 500 mg PO EVERY 6 HOURS 28 7 0 June 15, 2022 1:00am March 08, 2023 12:56pm Start: 08-12-2021 End: 03-13-2022 take 1 capsule by mouth every six hours Cephalexin 500 MG capsule Discontinued 500 mg PO EVERY 6 HOURS 40 0 August 12, 2021 1:00am March 13, 2022 8:28am clonazePAM 1 mg oral tablet (6 sources) [...] Comment on above: Take 1 capsule by [facility] once each week. Lactobacillus rhamnosus GG (CULTURELLE ORAL) (6 sources) End: 03-21-2022 Lactobacillus rhamnosus GG (CULTURELLE ORAL) Take by mouth. 03/21/2022 Discontinued End: 03-21-2022 Lactobacillus rhamnosus GG ( CULTURELLE ORAL) Take by mouth. 0 03/21/2022 Discontinued Lactobacillus rh amnosus GG (CULTURELLE ORAL) Take by mouth. 0 Active Comment on above: Take by mouth. meclizine hydrochloride 25 mg oral tablet (7 sources) Antiemetic Start: 4 End: 4 take 1 tablet by mouth every eight hours as needed for dizziness Meclizine 25 mg tablet Discontinued 25 mg PO EVERY 8 HOURS NEEDED as needed for Dizziness 20 0 October 21, 2023 11:53am January 03, 2024 10:26am MENTHOL/CAMPHOR (BIOFREEZE TOPICAL) (6 sources) End: MENTHOL/CAMPHOR (BIOFREEZE TOPICAL) Apply to affected area. 03/21/2022 Discontinued End: 03-21-2022 MENTHOL/CAMPHOR (BIOFREEZE T OPICAL) Apply to affected area. 0 03/21/2022 Discontinued MENTHOL/CAMPHOR (BIOFREEZE TOPICAL) Apply to affected area. 0 Active Comment on above: Apply to affected ar ea. 24 hr metFORMIN hydrochloride 500 mg extended release oral tablet (20 sources) Biguanide Start: 2 End: 3 take 1 tablet by mouth twice daily Metformin 500 mg tablet extended release 24 hr Discontinued 500 mg PO TWICE A DAY August 12, 2021 1:00am March 08, 2023 12:57pm Start: 03-22-2021 take 1 tablet by mouth three t imes daily Comment on above: Take 500 mg by mouth three times daily. nitrofurantoin, macrocrystals 25 mg / nitrofurantoin, monohydrate 75 mg oral capsule (4 sources) Nitrofuran Antibacterial Start: 025 End: take 1 capsule by mouth every twelve hours at mealtime Nitrofurantoin Monohyd/M-Cryst (Macrobid) 100 mg capsule Discontinued 100 mg PO Q12H 14 7 0 August 31, 2024 1:00am September 06, 2024 12:00am September 07, 2024 12:15am must administer with a meal/food PARoxetine hydrochloride 20 mg oral tablet (6 sources) Serotonin Reuptake Inhibitor End: take 1 tablet by mouth once daily in the morning PARoxetine (PAXIL) 20 mg tablet Take 20 mg by mouth every morning. 03/21/2022 Discontinued Comment on above: Take 20 mg by mouth every morning. perphenazine 4 mg oral tablet (6 sources) Phenothiazine End: 022 take 1 tablet by mouth three times daily perphenazine 4 mg tablet Take 4 mg by mouth three times daily. 03/21/2022 Discontinued Comment on above: Take 4 mg by mouth t hree times daily. predniSONE 10 mg oral tablet (5 sources) Start: End: take 2 tablets by mouth twice daily Prednisone 10 mg tablet Discontinued 20 mg PO TWICE A DAY July 01, 2024 1:00am August 31, 2024 10:30am Start: 02-14-2024 End: 02-18-2024 take 2 tablets by mouth once daily at mealtime predniSONE (DELTASONE) 20 mg tablet Indications: Sinobronchitis Take 2 tablets by mouth once daily for 4 days. Take daily with food. 8 tablet 02/14/2024 02/18/2024 Active rizatriptan 10 mg oral tablet (6 sources) Serotonin-1b and Serotonin-1d Receptor Agonist End: 03-21-2022 RIZATRIPTAN BENZOATE (RIZATRIPTAN ORAL) Take 10 mg by mouth as needed (Migraines). 03/21/2022 Discontinued Comment on above: Take 10 mg by mouth as needed (Migraines). saccharomyces boulardii 250 mg oral capsule (15 sources) Start: 03-13-2022 End: 01-03-2024 take 1 capsule by mouth once daily Saccharomyces Boulardii (Daily Probiotic (S. Boulardii)) 250 mg capsule Discontinued 5000 NMA PO DAILY March 13, 2022 12:00am January 03, 2024 10:26am sulfamethoxazole 800 mg / trimethoprim 160 mg oral tablet (12 sources) Dihydrofolate Reductase Inhibitor Antibacterial, Sulfonamide Antimicrobial Start: 06-13-2022 End: 03-08-2023 Sulfamethoxazole-T rimethoprim (Bactrim Ds) 800-160 mg tablet Discontinued 1 {tbl} PO TWICE A DAY 14 June 13, 2022 1:00am March 08, 2023 12:57pm tiZANidine 4 mg oral tablet (6 sources) Central alpha-2 Adrenergic Agonist End: 03-21-2022 take 1 tablet by mouth every eight [...] Problem Classification Problem Date Documented Date Episodic/Chronic Abdominal pain (14 sources) Abdominal pain; Translations: [Unspecified abdominal pain] 05-07-2022 Episodic Administrative/social admission (1 source) Worried well; Translations: [Person with feared health complaint in whom no diagnosis is made] 02-14-2024 Episodic Conditions associated with dizziness or vertigo (7 sources) Peripheral vertigo; Translations: [Other peripheral vertigo, left ear] 10-21-2023 Episodic Diabetes mellitus without complication (13 sources) Type 2 diabetes mellitus without complication; Translations: [Type 2 diabetes mellitus without complications] Chronic Esophageal disorders (20 sources) Gastroesophageal reflux disease; Translations: [Gastro-esophageal reflux disease without esophagitis] Onset: 4 03-27-2014 Chronic Headache; including migraine (20 sources) Migraine; Translations: [Migraine, unspecified, not intractable, without status migrainosus] Onset: 5 09-25-2014 Chronic Inflammatory diseases of female pelvic organs (1 source) Acute vaginitis; Translations: [Acute vaginitis] Episodic Nonmalignant breast conditions (1 source) Breast finding ; Translations: [Dense breast tissue] 12-15-2024 Episodic Nutritional deficiencies (1 source) Vitamin D deficiency, unspecified; Translations: [Avitaminosis D] Onset: Chronic Other connective tissue disease (13 sources) Hand pain; Translations: [Pain in unspecified hand] 05-23-2022 Episodic Other connective tissue disease (12 sources) Pain in finger; Translations: [Pain in unspecified finger(s)] 06-21-2022 Episodic Other female genital disorders (4 sources) Abnormal uterine bleeding; Translations: [Abnormal uterine and vaginal bleeding, unspecified] Chronic Other female genital disorders (1 source) Pruritus of vagina; Translations: [Other specified noninflammatory disorders of vagina] Episodic Other female genital disorders (1 source) Vaginal irritation; Translations: [Other specified noninflammatory disorders of vagina] Episodic Other female genital disorders (1 source) Burning sensation of vagina; Translations: [Other specified conditions associated with female genital organs and menstrual cycle] 04-28-2024 Episodic Other gastrointestinal disorders (14 sources) Constipation; Translations: [Constipation, unspecified] 03-29-2022 Episodic Comment on above: Patient with chronic constipation which appears stable. She denies noting any hematochezia or melena. She denies any recent issues with hemorrhoids. As above, we will plan to proceed for surveillance colonoscopy as recommended during her last colonoscopy in 2016. Other gastrointestinal disorders (3 sources) Constipation, unspecified; Translations: [Constipation, unspecified] Episodic Other injuries and conditions due to external causes (1 source) Injury of head; Translations: [Unspecified injury of head, initial encounter] 04-14-2024 Episodic Other injuries and conditions due to external causes (4 sources) Closed injury of head; Translations: [Unspecified injury of head, initial encounter] 04-23-2024 Episodic Other lower respiratory disease (1 source) Cough; Translations: [Acute cough] Episodic Other non-traumatic joint disorders (4 sources) Pain in left shoulder; Translations: [Left shoulder pain] 01-03-2024 Episodic Other nutritional; endocrine; and metabolic disorders (20 sources) Body mass index 30+ - obesity; Translations: [Obesity, unspecified] Onset: 5 09-25-2014 Chronic Other nutritional; endocrine; and metabolic disorders (1 source) H/O: thyroid disorder; Translations: [Personal history of other endocrine, nutritional and metabolic disease] Episodic Other nutritional; endocrine; and metabolic disorders (20 sources) H/O: diabetes mellitus; Translations: [Personal history of other endocrine, nutritional and metabolic disease] 05-07-2022 Episodic Other skin disorders (2 sources) Eruption; Translations: [Rash and other nonspecific skin eruption] Episodic Other upper respiratory disease (1 source) Chronic rhinitis; Translations: [Unspecified sinusitis (chronic)] Chronic Other upper respiratory disease (1 source) Nasal congestion; Translations: [Nasal congestion] Episodic Other upper respiratory infections (1 source) Chronic sinusitis; Translations: [Chronic sinusitis, unspecified] 02-14-2024 Chronic Other upper respiratory infections (3 sources) Sore throat symptom; Translations: [Acute pharyngitis, unspecified] Episodic Residual codes; unclassified (20 sources) Tobacco use and exposure - finding; Translations: [Tobacco use] Onset: 4 03-27-2014 Episodic Residual codes; unclassified (1 source) Other specified personal risk factors, not elsewhere classified; Translations: [Other specified personal history presenting hazards to health] Episodic Residual codes; unclassified (3 sources) Other specified postprocedural states; Translations: [Personal history of surgery to other organs] Episodic Residual codes; unclassified (2 sources) Generalized aches and pains; Translations: [Pain, unspecified] 04-28-2024 Episodic Skin and subcutaneous tissue infections (20 sources) Cellulitis of finger; Translations: [Cellulitis of right finger] 06-13-2022 Episodic Spondylosis; intervertebral disc disorders; other back problems (20 sources) Prolapsed cervical intervertebral disc without myelopathy; Translations: [Other cervical disc displacement, unspecified cervical region] Onset: 4 Chronic Sprains and strains (5 sources) Shoulder strain; Translations: [Strain of unspecified muscle, fascia and tendon at shoulder and upper arm level, right arm, initial encounter] 07-01-2024 Episodic Thyroid disorders (20 sources) Thyroid nodule; Translations: [Nontoxic single thyroid nodule] Onset: 5 Chronic Comment on above: This is a 38-year-ol d female who presents for bilateral thyroid nodules 1 of which was explicitly recommended for FNA by ACR TI-RADS criteria last year and underwent biopsy along with a left thyroid nodule at patient's request both resulting in a [place] 3 cytopathology diagnosis. She presents today following repeat thyroid ultrasound earlier this month on 02/27/2023. She confirms that she has not developed any new compressive symptoms. Her thyroid ultrasound showed a stable 1.8 cm right thyroid nodule and a stable 9 mm left thyroid nodule. In addition radiology identified a 1.9 x 0.8 x 1.2 cm nodule with cystic components which they stated most likely represent a parathyroid adenoma. However, patient has no biochemical evidence of hyperparathyroidism with normal calcium levels dating back 10 years. Further, her history is inconsistent with this diagnosis and when I review my thyroid ultrasound imaging from her prior biopsy procedure I believe the tissue in question represents a deeper extent of her left thyroid lobe beneath a thicker septation coursing through the midportion of the lobe. If it is granted that this does represent thyroid tissue then this would qualify as a TI-RADS 3 lesion for its hypoechoic echogenicity and mixed composition. In order to more thoroughly assess the risk for hyperparathyroidism I am sending Ms. May for PTH, calcium, and vitamin D along with repeat thyroid functions. If all of these labs remain normal I recommend keeping the 1.9 cm nodule under further surveillance with a repeat ultrasound. Unclassified (20 sources) NO SHOW Onset: 12-23-2013 Past or Other Problems Problem Classification Problem Date Documented Da te Episodic/Chronic Genitourinary symptoms and ill-defined conditions (6 sources) Scalding pain on urination ; Translations: [Dysuria] Onset: 09-11-2024 Episodic Nutritional deficiencies (2 sources) Deficiency of other specified B group vitamins; Translations: [Magnesium deficiency] Onset: 12-12-2024 Episodic Other screening for suspected conditions (not mental disorders or infectious disease) (20 sources) Patient encounter status; Translations: [Encounter for screening for diabetes mellitus] Onset: 03-27-2014 03-27-2014 Episodic Other skin disorders (5 sources) Night sweats; Translations: [Generalized hyperhidrosis] Onset: 07-16-2024 07-16-2024 Episodic Residual codes; unclassified (5 sources) Flushing; Translations: [Flushing] Onset: 07-16-2024 07-16-2024 Episodic Spondylosis; intervertebral disc disorders; other back problems (20 sources) Chronic low back pain; Translations: [Chronic lower back pain] Onset: 09-25-2014 09-25-2014 Episodic Unclassified (1 source) Breast finding 02-14-2025 Urinary tract infections (9 sources) Urinary tract infectious disease; Translations: [Urinary tract infection, site not specified] Onset: 10-21-2024 07-16-2024 Episodic Results Test Name Value Interpretation Reference Range Facility [facility] 05-04-2025 [facility] Telephone (OBGYWM) ERNESTO BRANCH ([id number]) 1985 F Date Time Provider Department 05/04/25 KAROL ABEL During your visit today, we recorded the following information about you: Niki Garcia RN 05/04/2025 8:53 AM Signed Patient had optional complete breast u/s done for dense tissue at [facility]. Scanned into [employer]. Click on llink below to review. View External Imaging - Breast Ultrasound [ID [id number]] TERI Jimenez Courtney, APRN.CNM 05/04/2025 1:09 PM Signed Results reviewed. A small simple cyst seen in right breast. Follow up recommended is in 7 months for routine mammogram screening. STANLEY Davis Jennifer, RN 05/04/2025 2:04 PM Signed Left message for patient to call office. TERI Valiente Lindsey, RN 05/04/2025 2:08 PM Signed Patient notified and voiced understanding. Yaneth Woods RN Allergies As of Date: 05/04/2025 Noted Allergy Reaction DEXTROAMPHETAMINE-AMP HETAMINE 07/05/2021 5 - Intolerance ABILIFY (ARIPIPRAZOLE) 03/15/2015 5 - Intolerance Comments: Blood sugar rises CODEINE 08/09/2005 12 - Shortness of Breath CONTRAST DYE 06/03/2014 16 - Unknown Comments: CT scan LAMICTAL (LAMOTRIGINE) 03/15/2015 7 - Swelling VICODIN (HYDROCODONE-ACETAMIN OPHE*08/09/2005 12 - Shortness of Breath Date Reviewed: 07/16/2024 Reviewed by: Segundo Myrick MA - Fully Assessed Reason for Visit: Results [95] Prescriptions as of 05/04/2025 - norethindrone (AYGESTIN) 5 mg tablet Take 1 tablet by mouth once daily. - Cholecalciferol, Vitamin D3, 50 mcg (2,000 unit) cap Take by mouth. - ALPRAZolam (XANAX) 0.25 mg tablet Take 0.25 mg by mouth two times a day as needed. - om3/dha/epa/fish/kril /lut/zeax (MEGARED ADV TOTAL BODY REFRESH ORAL) Take [...] as needed. Problem List As Of Date 05/04/2025 Noted Resolved NO SHOW [[id number]] 12/23/2013 DM (diabetes mellitus screen) [Z13.1] 03/27/2014 GERD (gastroesophageal reflux disease) [K21.9] 03/27/2014 Tobacco use [Z72.0] 03/27/2014 Displacement of cervical intervertebral disc wi*06/11/2014 Obesity (BMI 30-39.9) [E66.9] 09/25/2014 Migraines [G43.909] 09/25/2014 Chronic lower back pain [M54.50, G89.29] 09/25/2014 Degeneration of lumbar or lumbosacral intervert*10/01/2014 Night sweats [R61] 07/16/2024 Hot flashes [R23.2] 07/16/2024 Encounter Status:Closed by KAROL ABEL on 05/04/25 Normal [facility] Pap Stain (control)on 2024 Pap Stain (control) - -------- Patient Age/Sex Location Account Attending Physician -------- ERNESTO BRANCH 40/F LABSPEC [id number] Dr. Zak Bull MD -------- Specimen: [id number] Received: 04/23/25-1025 Status: LALO Monae Num: [id number] Spec Type: CYSPIN VIV Hay Dr: Dr. Zak Bull MD HEADER OPERATION: Fine needle aspiration of right thyroid nodule PRE-OP DIAGNOSIS: Right thyroid nodule TISSUE SUBMITTED: A- Right mid thyroid nodule, B- Right thyroid cyst aspirate -------- DIAGNOSIS CYTOLOGY A. Right mid-thyroid nodule, FNA (cytospin, smear x4): - Atypical cells of undetermined significance (TBS III). - Afirma testing submitted. B. Right thyroid cyst, FNA (cytospin, cellblock): - Nondiagnostic due to low cellularity (TBS 1). CYTOLOGY STUDY Slides are reviewed. CYTOLOGY GROSS A. Received is 30 ml of pink cytolyt with particles and 4 slides labeled with the patient's name and and designated per the requisition as Right mid thyroid nodule. Submitted for cytology and cytospin. B. Received is 0.5 ml of red-cloudy fluid labeled with the patient's name and and designated per the requisition as Right thyroid cyst aspirate. Submitted for cytology and cytospin. 04/23/2025 CPT: 50886,17176,07389 Signed (signature on file) Dr. Iesha William MD 04/29/25 1018 -------- Normal [facility] Comment on above: Performed By: #### P PAPS ####[facility] [address] [place], [place], [address] Surgery Visit Reporton 04-23 Surgery Visit Report [facility] [address] [place] [address] OFFICE VISIT Date of Service: 04/23/25 MR#: [id number] Acct: [id number] Name: ERNESTO BRANCH Rep #: [id number] : 1985 Provider: Dr. Zak juares MD Age/Sex: 40/F Location: [facility] Status: Signed Intake Vital Signs 04/15/24 10:15 04/23/25 08:07 Height 5 ft 2 in 5 ft 2 in Weight: 127 lb 2 oz BMI 23.2 BP 167/91 H Blood Pressure Location Rt brachial Position Sitting Respiration 17 Pulse 94 Pulse Source Monitor Temp 97.8 F Temp Source Temporal Pulse Oximetry (%) 99 Oxygen Delivery Method room air Intake Visit Reasons: RECALL- THYROID BIOPSY Chief Complaint: recall- thyroid biopsy Accompanied by: Allergies aripiprazole (From Abilify) Allergy (Verified 04/23/25 08:09) Swelling Gadolinium-MRI Contrast Medium (MRI) Allergy (Verified 04/23/25 08:09) PT UNSURE OF REACTION iodine Allergy (Verified 04/23/25 08:09) Other amphetamine (From Adderall) Adverse Reaction (Verified 04/23/25 08:09) PT UNSURE OF REACTION codeine Adverse Reaction (Verified 04/23/25 08:09) Itching dextroamphetamine (From Adderall) Adverse Reaction (Verified 04/23/25 08:09) PT UNSURE OF REACTION hydrocodone Adverse Reaction (Verified 04/23/25 08:09) Itching Iodinated Contrast Media Adverse Reaction (Verified 04/23/25 08:09) Other lamotrigine (From Lamictal) Adverse Reaction (Verified 04/23/25 08:09) NEEDS FOLLOW-UP Medications ???Medication ???Instructions ???Recorded ???Confirmed ???Type cholecalciferol (vitamin D3) 50 2,000 unit PO DAILY 08/12/2104/23 History mcg (2,000 unit) capsule metformin 500 mg tablet,extended 500 mg PO TID 03/08/23 04/23/25 Hi story release 24 hr norethindrone acetate 5 mg tablet 5 mg PO DAILY 03/08/23 04/23/25 H istory [facility] Medical History Right shoulder strain Left shoulder pain History of hemorrhoids Depression Back pain Anxiety Diabetes Surgical History History of cholecystectomy Family History Aunt Breast cancer Grandfather Colon cancer Grandmother Heart disease High cholesterol Kidney disease Unknown Diabetes Social History Smoking Status: Current every day smoker tobacco type: cigarettes alcohol intake: never substance use type: does not use HPI HPI HPI: Patient 40-year-old female who presents for thyroid nodule surveillance. She has previously undergone FNA biopsy of bilateral thyroid nodules on 03/13/2022. She was last seen in our office on 03/05/2024. She presents today with her . She shares that she has been told that she has been doing more snoring of late as per her daughter's report. She otherwise denies any new cough, hoarseness of voice, or swallowing difficulty. She shares her other health maintenance has been relatively stable but reports her last hemoglobin A1c is 7. She is using metformin to control her blood sugars. Patient underwent interval thyroid ultrasound on 03/20/2025 this found a right thyroid lobe measuring 6.0 x 2.7 x 2.7 cm. The left thyroid lobe measured 5.1 x 2.0 x 1.7 cm. There were 2 nodules noted within the right thyroid lobe 1 measuring 2.7 x 2.6 x 1.7 cm. This given a TI-RADS 3 rating for mixed composition and hypoechoic echogenicity. A second mid polar nodule measures 0.7 x 0.4 x 0.4 cm. This was also given a TI-RADS 3 rating for the same reasons. It was noted as new. 3 nodules were noted in the left thyroid lobe???the first measuring 1.4 x 1.2 x 0.9 cm. This nodule was given the TI-RADS 3 rating for mixed composition and hypoechoic echogenicity. A second nodule measured 2.5 x 1.7 x 1.0 cm. This was given a TI-RADS 3 rating for mixed composition and hypoechoic echogenicity. Lastly the final nodule measured 0.7 x 0.8 x 0.4 cm. This was also given a TI-RADS 3 rating for the same reasons. Radiology concluded findings compatible with multinodular goiter. ROS General General: Yes weight change; No appetite, fatigue, colon cancer, breast cancer or weakness HEENT HEENT: Yes difficulty swallowing and eye surgery; No eye injury, swollen glands or hoarseness Endo Endocrine: Yes diabetes mellitus; No thyroid disease, thyroid cancer, Hair loss, heat intolerance or cold intolerance Skin Skin: No rash or changing moles Breast Breast: No left breast lump, right breast lump, nipple discharge, breast pain, abnormal mammogram, abnormal US or breast enlargement Musc Musculoskeletal: Yes back problems and arthritis; No rheumatoid arthritis, gout or joint pain Cardio Cardiovascular: No (more content not included)... Normal [facility] Free T3on 04-02-2025 Free T3 [Mass/Vol] 3.5 pg/mL Normal 2.18-3.98 [facility] Comment on above: Performed By: #### L 501.9520, L506.0400, L501.54577 #### [facility] [address] [place], [place], [address] T4 Free Directon 04-02-2025 T4 FREE DIRECT 1.70 ng/dL High 0.76-1.46 [facility] Comment on above: Performed By: #### L 501.9520, L506.0400, L501.50549 #### [facility] [address] [place], [place], [address] Thyroid Stim Hormone (TSH)on 04-02-2025 TSH 1.810 uIU/mL Normal 0.300-4.200 [facility] Comment on above: Performed By: #### L 501.9520, L506.0400, L501.64743 #### [facility] [address] [place], [place], [address] Thyroidon 03-20-2025 Thyroid [facility] [address] [place], [place] [address] Thyroid MR#: [id number] Acct: [id number] Name: ERNESTO BRANCH Rep #: [id number] : 1985 F 40 From: Lolis Gordon PCP: Dr. Chrissy Yeboah MD Status: REG CLI Study: Thyroid Date of Exam: 03/20/25 Exam# [id number] Ordering Dr: Zak Bull MD PROCEDURE: THYROID 03/20/2025 REASON FOR EXAM: ONE YEAR F/U TECHNIQUE: Procedure Code: USTHY Modality: US Procedure: THYROID COMPARISON: Thyroid ultrasounds dated 02/29/2024 and 02/27/2023 FINDINGS: Right thyroid lobe size: 6.0 x 2.7 x 2.7 cm Left thyroid lobe size: 5.1 x 2.0 x 1.7 cm Isthmus: 5 mm Background parenchymal echotexture is homogeneous. Nodules: 1. Lobe: Right, Location: Mid, Size: 2.7 x 2.6 x 1.7 cm, Stability: Minimally larger Composition: Mixed cystic and solid (+1) Echogenicity: Hypoechoic (+2) Margin: Smooth (+0) Shape: Wider than tall (+0) Echogenic Foci: None (+0) TI-RADS: <2 = TR 1 * 2 = TR 2 * 3 = TR 3 * 4-6 = TR 4 * >6 = TR 5 2. Lobe: Right, Location: Mid to lateral, Size: 7 x 4 x 4 mm, Stability: New Composition: Mixed cystic and solid (+1) Echogenicity: Hypoechoic (+2) Margin: Smooth (+0) Shape: Wider than tall (+0) Echogenic Foci: None (+0) TI-RADS: <2 = TR 1 * 2 = TR 2 * 3 = TR 3 * 4-6 = TR 4 * >6 = TR 5 3. Lobe: Left, Location: Mid , Size: 1.4 x 1.2 x 0.9 mm, Stability: Stable Composition: Mixed cystic and solid (+1) Echogenicity: Hypoechoic (+2) Margin: Smooth (+0) Shape: Wider than tall (+0) Echogenic Foci: None (+0) TI-RADS: <2 = TR 1 * 2 = TR 2 * 3 = TR 3 * 4-6 = TR 4 * >6 = TR 5 4. Lobe: Left, Location: Mid to post, Size: 2.5 x 1.7 x 1.0 cm, Stability: Stable This nodule appears to be posterior to the thyroid gland. Composition: Mixed cystic and solid (+1) Echogenicity: Hypoechoic (+2) Margin: Smooth (+0) Shape: Wider than tall (+0) Echogenic Foci: None (+0) TI-RADS: <2 = TR 1 * 2 = TR 2 * 3 = TR 3 * 4-6 = TR 4 * >6 = TR 5 5. Lobe: Left, Location: Mid to inferior, Size: 7 x 8 x 4 mm, Stability: Stable Composition: Mixed cystic and solid (+1) Echogenicity: Hypoechoic (+2) Margin: Smooth (+0) Shape: Wider than tall (+0) Echogenic Foci: None (+0) TI-RADS: <2 = TR 1 * 2 = TR 2 * 3 = TR 3 * 4-6 = TR 4 * >6 = TR 5 US/Thyroid IMPRESSION: Findings compatible with multinodular goiter. RECOMMENDATION: Based on most suspicious nodule. Nodule size = largest diameter Only evaluate nodule if =>5 mm. Growth > 20% in 2 dimensions = worsening. Follow up to 4 nodules. Recommend biopsy for no more than 2 nodules. Reading Location: [id number] CC: Dr. Chrissy Yeboah MD; Dr. Zak Bull MD Rag Boiler: Signed Normal [facility] No Panel InformationOrdered By: Fernandez Coleman on 03-05-2025 POC SARS CoV-2 Antigen Negative [facility] Visit Reporton 0 03-05-2025 Urgent Care Visit Report [facility] [address], [address] [place] [address] OFFICE VISIT Date of Service: 03/05/25 MR#: [id number] Acct: [id number] Name: ERNESTO BRANCH Rep #: [id number] : 1985 Provider: DAPHNEY Ken Age/Sex: 40/F Location: [facility] Status: Signed Intake Vital Signs 04/15/24 10:15 03/05/25 09:39 Height 5 ft 2 in BP 130/78 H Blood Pressure Location Lt brachial Position Sitting Respiration 16 Pulse 80 Pulse Source NIBP Temp 99.5 F H Temp Source Oral Pulse Oximetry (%) 98 Oxygen Delivery Method room air Intake Visit Reasons: SORE THROAT, BODY ACHES Chief Complaint: ST, BA, chills, congest, nausea Infection Preventionist Required: No Is patient in pain?: No Allergies aripiprazole (From Abilify) Allergy (Verified 03/05/25 09:40) Swelling Gadolinium-MRI Contrast Medium (MRI) Allergy (Verified 03/05/25 09:40) PT UNSURE OF REACTION iodine Allergy (Verified 03/05/25 09:40) Other amphetamine (From Adderall) Adverse Reaction (Verified 03/05/25 09:40) PT UNSURE OF REACTION codeine Adverse Reaction (Verified 03/05/25 09:40) Itching dextroamphetamine (From Adderall) Adverse Reaction (Verified 03/05/25 09:40) PT UNSURE OF REACTION hydrocodone Adverse Reaction (Verified 03/05/25 09:40) Itching Iodinated Contrast Media Adverse Reaction (Verified 03/05/25 09:40) Other lamotrigine (From Lamictal) Adverse Reaction (Verified 03/05/25 09:40) NEEDS FOLLOW-UP Is last menstrual period known: No Post menopausal: No Patient : No Have you fallen in the past year?: No Nurse's Note: ST, BA, chills, congest, nausea x 24 hours. denies fever, possibly exposed to covid at work [facility] Medical History (Updated 03/05/25 @ 10:14 by Fernandez SHELLEY, [place]) Right shoulder strain Left shoulder pain History of hemorrhoids Depression Back pain Anxiety Diabetes Surgical History History of cholecystectomy Family History Aunt Breast cancer Grandfather Colon cancer Grandmother Heart disease High cholesterol Kidney disease Unknown Diabetes Social History Smoking Status: Current every day smoker tobacco type: cigarettes alcohol intake: never substance use type: does not use HPI HPI Chief Complaint: ST, BA, chills, congest, nausea Details: ERNESTO BRANCH, is a 40 F who presents to the office today for complaint of sore throat, cough, body aches as well as chills starting yesterday. No vomiting or diarrhea. No hemoptysis, shortness of breath or difficulty breathing. No loss of taste or smell. Patient does state that she has been around quite a few people at work who have COVID. No other associated symptoms or alleviating/aggravati ng factors. ROS Const Constitutional: No other (As above) Exam Const General: cooperative and well developed HENMT Head: normal to inspection and atraumatic Ears: hearing grossly normal bilaterally Nose: nasal discharge clear Face and sinus: normal facial exam Mouth: oral mucosae normal Throat: abnormal tonsil bilaterally hypertrophy 1+ Resp Effort Inspection: normal respiratory effort and no audible wheezes Auscultation: Bilateral: Clear to Auscultation Cardio Palpation: normal PMI Rate: regular rate Rhythm: regular rhythm Neuro General: patient alert and CN's II-XI intact bilaterally Psych Appearance: grossly normal Mental Status: mental status grossly normal Results POC SARS AG POC SARS AG Negative Last Edit by Sana Wilkinson on 03/05/25 09:54 Coding Level of Care Code Off vis,est,level 3 Diagnoses Acute upper respiratory infection J06.9 Assessment and Plan Assessment and Plan (1) Acute upper respiratory infection: Status: Acute Plan: Patient tested negative for COVID in the office today. Encouraged to get plenty of rest, drink lots of clear liquids, and use Tylenol or Ibuprofen (unless contraindicated) for fever and comfort. Patient also educated on other symptomatic management techniques. To be seen in 7-10 days if no improvement; sooner if worsening of symptoms. Orders: Orders POC Rapid SARS Antigen 03/05/25 Clinical Quality Measures Falls Risk Screening/Assistive Devices Have you fallen in the past year?: No 03/06/25 0701 Date Fernandez Wilkerson Signature: Date (if applicable) CC: Normal [facility] 25(OH)D3 [facility] 2024 25-hydroxyvitamin D3 [Mass/Vol] 45.9 ng/mL Normal 31.0-80.0 [facility] Comment on above: Order Comment: Specangel valente Type: BLOOD SPECIMENOrdering Facility: [facility] Address: [address] [place] [address] Result Comment: Clas sification of 25 [place] Vitamin D status: Deficiency/Insufficiency: < or = 30 ng/ml. Sufficiency/Optimal Levels: 31-80 ng/mL Toxicity: > 100 ng/mL. Test performed by chemiluminescent immunoassay. Performed By: #### 1 989-3 ####[facility] LABCLIA [id number] [address] STATES OF [facility] CBC W Auto Differential pane l (Bld)on 12-12-2024 Basophils (Bld) [#/Vol] 0.03 10*3/uL Normal <0.11 [facility] Comment on above: Order Comment: Yohan valente Type: BLOOD SPECIMENOrdering Facility: [facility] Address: [address] [place] [address] Performed By: #### 5 7021-8 ####[facility] [id number] [place] [address] [place] Basophils/100 WBC (Bld) 0.4 % Normal C [facility] Comment on above: Order Comment: Speci men Type: BLOOD SPECIMENOrdering Facility: [facility] Address: [address] [place] [address] Performed By: #### 5 7021-8 ####[facility] [id number] [place] [address] [place] Differential cell count method Nom (Bld) Auto Normal [facility] Comment on above: Order Comment: Speci men Type: BLOOD SPECIMENOrdering Facility: [facility] Address: [address] [place] [address] Performed By: #### 5 7021-8 ####[facility] [id number] [place] [address] [place] Eosinophils (Bld) [#/Vol] 0.11 10*3/uL Normal <0.46 [facility] Comment on above: Order Comment: Speci men Type: BLOOD SPECIMENOrdering Facility: [facility] Address: [address] [place] [address] Performed By: #### 5 7021-8 ####[facility] [id number] [place] [address] [place] Eosinophils/100 WBC (Bld) 1.3 % Normal [facility] Comment on above: Order Comment: Speci men Type: BLOOD SPECIMENOrdering Facility: [facility] Address: [address] [place] [address] Performed By: #### 5 7021-8 ####[facility] [id number] [place] [address] [place] Erythrocyte distribution width (RBC) [Ratio] 12.1 % Normal 11.5-15.0 [facility] Comment on above: Order Comment: Speci men Type: BLOOD SPECIMENOrdering Facility: [facility] Address: [address] [place] [address] [place] [address] Performed By: #### 5 7021-8 ####[facility] [id number] [place] [address] [place] Hematocrit (Bld) [Volume fraction] 45.5 % Normal 36.0-46.0 [facility] Comment on above: Order Comment: Speci men Type: BLOOD SPECIMENOrdering Facility: [facility] Address: [address] [place] [address] [place] [address] Performed By: #### 5 7021-8 ####[facility] [id number] [place] [address] [place] Hemoglobin (Bld) [Mass/Vol] 15.6 g/dL High 11.5-15.5 [facility] Comment on above: Order Comment: Speci men Type: BLOOD SPECIMENOrdering Facility: [facility] Address: [address] [place] [address] [place] [address] Performed By: #### 5 7021-8 ####[facility] [id number] [place] [address] [place] Immature granulocytes (Bld) [#/Vol] 0.03 10*3/uL Normal <0.10 [facility] Comment on above: Order Comment: Speci men Type: BLOOD SPECIMENOrdering Facility: [facility] Address: [address] [place] [address] [place] [address] Performed By: #### 5 7021-8 ####[facility] [id number] [place] [address] [place] Immature granulocytes/100 WBC (Bld) 0.4 % Normal [facility] Comment on above: Order Comment: Speci men Type: BLOOD SPECIMENOrdering Facility: [facility] Address: [address] [place] [address] [place] [address] Performed By: #### 5 7021-8 ####[facility] [id number] [place] [address] [place] Lymphocytes (Bld) [#/Vol] 2.40 10*3/uL Normal 1.00-4.00 [facility] Comment on above: Order Comment: Speci men Type: BLOOD SPECIMENOrdering Facility: [facility] Address: [address] [place] [address] [place] [address] Performed By: #### 5 7021-8 ####[facility] [id number] [place] [address] [place] Lymphocytes/100 WBC (Bld) 29.0 % Normal [facility] Comment on above: Order Comment: Speci men Type: BLOOD SPECIMENOrdering Facility: [facility] Address: [address] [place] [address] [place] [address] Performed By: #### 5 7021-8 ####[facility] [id number] [place] [address] [place] MCH (RBC) [Entitic mass] 31.8 pg Normal 26.0-34.0 [facility] Comment on above: Order Comment: Speci men Type: BLOOD SPECIMENOrdering Facility: [facility] Address: [address] [place] [address] [place] [address] Performed By: #### 5 7021-8 ####[facility] [id number] [place] [address] [place] MCHC (RBC) [Mass/Vol] 34.3 g/dL Normal 30.5-36.0 [facility] Comment on above: Order Comment: Speci men Type: BLOOD SPECIMENOrdering Facility: [facility] Address: [address] [place] [address] [place] [address] Performed By: #### 5 7021-8 ####[facility] ZIONAMHERSTTIA [id number] [place] [address] [place] MCV (RBC) [Entitic vol] 92.9 fL Normal 80.0-100.0 C [facility] Comment on above: Order Comment: Speci men Type: BLOOD SPECIMENOrdering Facility: [facility] Address: [address] [place], [place] [address] [address] Performed By: #### 5 7021-8 ####[facility] [id number] [place] [address] [place] Monocytes (Bld) [#/Vol] 0.51 10*3/uL Normal <0.87 [facility] Comment on above: Order Comment: Speci men Type: BLOOD SPECIMENOrdering Facility: [facility] Address: [address] [place] [address] [place] [address] Performed By: #### 5 7021-8 ####[facility] [id number] [place] [address] [place] Monocytes/100 WBC (Bld) 6.2 % Normal [facility] Comment on above: Order Comment: Speci men Type: BLOOD SPECIMENOrdering Facility: [facility] Address: [address] [place], [place] [address] [address] Performed By: #### 5 7021-8 ####[facility] [id number] [place] [address] [place] Neutrophils (Bld) [#/Vol] 5.20 10*3/uL Normal 1.45-7.50 [facility] Comment on above: Order Comment: Speci men Type: BLOOD SPECIMENOrdering Facility: [facility] Address: [address] [place], [place] [address] [address] Performed By: #### 5 7021-8 ####[facility]IAN[facility] [id number] [place] [address] [place] Neutrophils/100 WBC (Bld) 62.7 % Normal [facility] Comment on above: Order Comment: Speci men Type: BLOOD SPECIMENOrdering Facility: [facility] Address: [address] [place] [address] [place] [address] Performed By: #### 5 7021-8 ####[facility] [id number] [place] [address] [place] Nucleated RBC (Bld) [#/Vol] 10*3/uL Normal <0.01 [facility] Comment on above: Order Comment: Speci men Type: BLOOD SPECIMENOrdering Facility: [facility] Address: [address] [place] [address] [place] [address] Performed By: #### 5 7021-8 ####[facility] [id number] [place] [address] [place] Nucleated RBC/100 WBC (Bld) [Ratio] 0.0 /100 WBC Normal [facility] Comment on above: Order Comment: Speci men Type: BLOOD SPECIMENOrdering Facility: [facility] Address: [address] [place] [address] [place] [address] Performed By: #### 5 7021-8 ####[facility] [id number] [place] [address] [place] Platelet mean volume (Bld) [Entitic vol] 8.6 fL Low 9.0-12.7 [facility] Comment on above: Order Comment: Speci men Type: BLOOD SPECIMENOrdering Facility: [facility] Address: [address] [place] [address] [place] [address] Performed By: #### 5 7021-8 ####[facility] [id number] [place] [address] [place] Platelets (Bld) [#/Vol] 192 10*3/uL Normal 150-400 [facility] Comment on above: Order Comment: Speci men Type: BLOOD SPECIMENOrdering Facility: [facility] Address: [address] [place] [address] Performed By: #### 5 7021-8 ####[facility] [id number] [place] [address] [place] RBC (Bld) [#/Vol] 4.90 10*6/uL Normal 3.90-5.20 [facility] Comment on above: Order Comment: Speci men Type: BLOOD SPECIMENOrdering Facility: [facility] Address: [address] [place] [address] Performed By: #### 5 7021-8 ####[facility] [id number] [place] [address] [place] WBC (Bld) [#/Vol] 8.28 10*3/uL Normal 3.70-11.00 [facility] Comment on above: Order Comment: Speci men Type: BLOOD SPECIMENOrdering Facility: [facility] Address: [address] [place] [address] Performed By: #### 5 7021-8 ####[facility] [id number] [place] [address] [place] Comprehensive metabolic 2000 panelon 12-12-2024 Albumin [Mass/Vol] 4.7 g/dL Normal 3.9-4.9 [facility] Comment on above: Order Comment: Speci men Type: BLOOD SPECIMEN Ordering Facility: [facility] Address: [address] [place] [address] Performed By: #### 1 9123-9, 53545-1 #### [facility] CLIA [id number] [address] [place] [address] [place] ALP [Catalytic activity/Vol] 64 U/L Normal 34-123 [facility] Comment on above: Order Comment: Speci men Type: BLOOD SPECIMEN Ordering Facility: [facility] Address: [address] [place] [address] [place] [address] Performed By: #### 1 9123-9, 64202-5 #### [facility] CLIA [id number] [address] [place] [address] [place] ALT [Catalytic activity/Vol] 12 U/L Normal 7-38 [facility] Comment on above: Order Comment: Speci men Type: BLOOD SPECIMEN Ordering Facility: [facility] Address: [address] [place], [place] [address] [address] Performed By: #### 1 9123-9, 38572-1 #### [facility] CLIA [id number] [address] [place] [address] [place] Anion gap [Moles/Vol] 13 mmol/L Normal 8-15 [facility] Comment on above: Order Comment: Speci men Type: BLOOD SPECIMEN Ordering Facility: [facility] Address: [address] [place] [address] [place] [address] Performed By: #### 1 9123-9, 39123-0 #### [facility] CLIA [id number] [address] [place] [address] [place] AST [Catalytic activity/Vol] 27 U/L Normal 13-35 [facility] Comment on above: Order Comment: Speci men Type: BLOOD SPECIMEN Ordering Facility: [facility] Address: [address] [place] [address] [place] [address] Performed By: #### 1 9123-9, 39681-5 #### [facility] CLIA [id number] [address] [place] [address] [place] Bilirubin [Mass/Vol] 0.2 mg/dL Normal 0.2-1.3 [facility] Comment on above: Order Comment: Speci men Type: BLOOD SPECIMEN Ordering Facility: [facility] Address: [address] [place], [place] [address] [address] Performed By: #### 1 9123-9, #### [facility] CL[facility] [id number] [address] [place] [address] [place] Calcium [Mass/Vol] 10.0 mg/dL Normal 8.5-10.2 [facility] Comment on above: Order Comment: Speci men Type: BLOOD SPECIMEN Ordering Facility: [facility] Address: [address] [place] [address] [place] [address] Performed By: #### 1 9123-9, #### [facility] CLIA [id number] [address] [place] [address] [place] Chloride [Moles/Vol] 103 mmol/L Normal 98-107 [facility] Comment on above: Order Comment: Speci men Type: BLOOD SPECIMEN Ordering Facility: [facility] Address: [address] [place] [address] [place] [address] Performed By: #### 1 9123-9, #### [facility] CLIA [id number] [address] [place] [address] [place] CO2 [Moles/Vol] 21 mmol/L Low 22-30 [facility] Comment on above: Order Comment: Speci men Type: BLOOD SPECIMEN Ordering Facility: [facility] Address: [address] [place] [address] [place] [address] Performed By: #### 1 9123-9, 27589-4 #### [facility] CLIA [id number] [address] [place] [address] [place] Creatinine [Mass/Vol] 0.81 mg/dL Normal 0.58-0.96 [facility] Comment on above: Order Comment: Yohan valente Type: BLOOD SPECIMEN Ordering Facility: [facility] Address: [address] [place], [place] [address]Hao [facility] [place] [place] [address] Performed By: #### 1 9123-9, 25594-4 #### [id number] [address] [place] [address] [place] Creatinine and Glomerular filtration rate.predicted panel (S/P/Bld) 94 mL/min/1.73m??? Normal >=60 [facility] Comment on above: Order Comment: Yohan valente Type: BLOOD SPECIMEN Ordering Facility: [facility] Address: [address] [place] [address] [place] [address] Result Comment: Dipika mated Glomerular Filtration Rate (eGFR) is calculated using the 2020 CKD-EPI creatinine equation. This equation utilizes serum creatinine, sex, and age as parameters. The creatinine assay has traceable calibration to isotope dilution-mass spectrometry. Refer to KDIGO guidelines for clinical interpretation. In patients with unstable renal function, e.g. those with acute kidney injury, the eGFR may not accurately reflect actual GFR. Performed By: #### 1 9123-9, 89429-8 #### [facility] [id number] [address] [place] [address] [place] Glucose [Mass/Vol] 136 mg/dL High 74-99 [facility] Comment on above: Order Comment: Yohan valente Type: BLOOD SPECIMEN Ordering Facility: [facility] Address: [address] [place] [address] [place] [address] Result Comment: The [place] Diabetes Association (ADA) provides guidance for cutoff values for fasting glucose and random glucose. The ADA defines fasting as no caloric intake for at least 8 hours. Fasting plasma glucose results between 100 to 125 mg/dL indicate increased risk for diabetes (prediabetes). Fasting plasma glucose results greater than or equal to 126 mg/dL meet the criteria for diagnosis of diabetes. In the absence of unequivocal hyperglycemia, results should be confirmed by repeat testing. In a patient with classic symptoms of hyperglycemia or hyperglycemic crisis, random plasma glucose results greater than or equal to 200 mg/dL meet the criteria for diagnosis of diabetes. Reference: Standards of Medical Care in Diabetes 2016, [place] Diabetes Association. Diabetes Care. 2016.39(Suppl 1). Performed By: #### 1 9123-9, 41302-2 #### [facility] CLIA [id number] [address] [place] [address] [place] Potassium [Moles/Vol] 3.6 mmol/L Low 3.7-5.1 [facility] Comment on above: Order Comment: Speci men Type: BLOOD SPECIMEN Ordering Facility: [facility] Address: [address] [place] [address], [place] [address] Performed By: #### 1 9123-9, 08681-4 #### [facility] CLIA [id number] [address] [place] [address] [place] Protein [Mass/Vol] 6.8 g/dL Normal 6.3-8.0 [facility] Comment on above: Order Comment: Speci men Type: BLOOD SPECIMEN Ordering Facility: [facility] Address: [address] [place] [address] [address], [place] [id number] Performed By: #### 1 9123-9, 20221-2 #### [facility] [id number] [address] [place] [address] [place] Sodium [Moles/Vol] 137 mmol/L Normal 136-144 [facility] Comment on above: Order Comment: Speci men Type: BLOOD SPECIMEN Ordering Facility: [facility] Address: [address] [place] [address] [address], [place] [id number] Performed By: #### 1 9123-9, 07763-6 #### [facility] CLIA [id number] [address] [place] [address] [place] Urea nitrogen [Mass/Vol] 14 mg/dL Normal 7-21 [facility] Comment on above: Order Comment: Speci men Type: BLOOD SPECIMEN Ordering Facility: [facility] Address: [address] [place], [place] [address] [place], [place] [address] Performed By: #### 1 9123-9, 78198-0 #### [facility] CLIA [id number] [address] [place] [address] [place] Lipid 1996 panelon 5 Cholesterol [Mass/Vol] 170 mg/dL Normal <200 [facility] Comment on above: Order Comment: Speci men Type: BLOOD SPECIMEN Ordering Facility: [facility] Address: [address] [place], [place] [address]Hao ZAPI[address] A, [place] [address] Result Comment: <200 mg/dL, Desirable 200-239 mg/dL, Borderline high >239 mg/dL, High Performed By: #### 3 016-3, 3023-7, 305-0 #### [facility] CLIA [id number] [address] [place] #### 51407-9 #### [facility] CLIA [id number] [address] [place] [facility] CLIA [id number] [address] [place] [address] [place] Cholesterol in HDL [Mass/Vol] 35 mg/dL Low >39 [facility] Comment on above: Order Comment: Speci men Type: BLOOD SPECIMEN Ordering Facility: [facility] Address: [address] [place], [place] [address]Hao ZAPI[address] A, [place] [address] Result Comment: 40-5 9 mg/dL, Acceptable >59 mg/dL, High: Negative risk factor for coronary heart disease <40 mg/dL, Low: Positive risk factor for coronary heart disease Performed By: #### 3 016-3, 302-7, 3051-0 #### [facility] CLIA [id number] [address] [facility] [place] [address] [place] #### 80110-4 #### [facility] CLIA [id number] [id number] [address] Cholesterol in LDL [Mass/Vol] 118 mg/dL High <100 [facility] Comment on above: Order Comment: Speci sidra Type: BLOOD SPECIMEN Ordering Facility: [facility] Address: [address] [place] [address] Result Comment: <100 mg/dL, Optimal 100-129 mg/dL, Near optimal/above optimal 130-159 mg/dL, Borderline high 160-189 mg/dL, High >189 mg/dL, Very high Secondary prevention optimal LDL Cholesterol levels are recommended to be <70 mg/dL LDL cholesterol is calculated using the Torrez-NIH equation. Performed By: #### 3 016-3, 3023-7, 305-0 #### [facility] CLIA [id number] [address] [place] [address] OF [facility] #### 82021-8 #### [facility] CLIA [id number] [facility] [address] [place] [facility] [id number] [address] [place] [address] Cholesterol in LDL/Cholesterol in HDL [Mass ratio] 3.37 {ratio} High <2.54 [facility] Comment on above: Order Comment: Speci men Type: BLOOD SPECIMEN Ordering Facility: [facility] Address: [address] [place] [address] Result Comment: Refe rence: 1. National Cholesterol Education Program ATP III Guideline At-A-Glance Quick Desk Reference: National Heart, Lung, and Blood [place]. National Institutes of Health. 2001: NIH Publication No. 01-3305. 2. An International Atherosclerosis Society position paper: global recommendations for the management of dyslipidemia: executive summary, Atherosclerosis. 2014: 232(2):410-413. Performed By: #### 3 016-3, 3023-7, 305-0 #### [facility] CLIA [id number] [address] [place] [id number] [place] #### 91136-6 #### [facility] CLIA [id number] [address] [address] [place] [facility] CLIA [id number] [address] [place] [address] [place] Cholesterol in VLDL [Mass/Vol] 16 mg/dL Normal <30 [facility] Comment on above: Order Comment: Speci men Type: BLOOD SPECIMEN Ordering Facility: [facility] Address: [address] [place] [address] Performed By: #### 3 016-3, 7, 0 #### [facility] CLIA [id number] [facility] [place] [address] [place] #### 74508-7 #### [facility] CLIA [id number] [address] [place] [address] [place] [facility] [id number] [place] [address] [place] Cholesterol non HDL [Mass/Vol] 135 mg/dL High <130 [facility] Comment on above: Order Comment: Yohan men Type: BLOOD SPECIMEN Ordering Facility: [facility] Address: [address] [place] [address] [place] [address] Result Comment: <130 mg/dL, Optimal 130-159 mg/dL, Near optimal/above optimal 160-189 mg/dL, Borderline high 190-219 mg/dL, High >219 mg/dL, Very high Secondary prevention optimal non HDL Cholesterol levels are recommended to be <100 mg/dL Performed By: #### 3 016-3, 7, 305-0 #### [facility] CLIA [id number] [address] [place] [address] [place] #### 16720-1 #### [facility] CLIA [id number] [address] [place] [address] [place] [facility] CLIA [id number] [address] [place] [address] [place] Cholesterol.total/Choles terol in HDL [Mass ratio] 4.86 {ratio} Normal <5.10 [facility] Comment on above: Order Comment: Speci men Type: BLOOD SPECIMEN Ordering Facility: [facility] Address: [address] [place], [place] [address]Hao ZAPIEN A, [place] [address] Performed By: #### 3 016-3, 3023-12, 3050 #### [facility] CLIA [id number] [address] [place] [address] [place] #### 78253-8 #### [facility] CLIA [id number] [address] [place] [address] [place] [facility] CLIA [id number] [address] [place] [address] [place] FASTING TIME 12 hrs Normal [facility] Comment on above: Order Comment: Speci men Type: BLOOD SPECIMEN Ordering Facility: [facility] Address: [address] [place] [address] [address] A, [place] [address] Performed By: #### 3 016-3, 3023-12, 305-0 #### [facility] CLIA [id number] [address] [place] [address] [place] #### 17173-0 #### [facility] CLIA [id number] [address] [place] [id number] [place] [facility] CLIA [id number] [address] [place] [address] [place] Triglyceride [Mass/Vol] 92 mg/dL Normal <150 [facility] Comment on above: Order Comment: Speci men Type: BLOOD SPECIMEN Ordering Facility: [facility] Address: [address] [place] [address] [place] [address] Result Comment: <150 mg/dL, Normal 150-199 mg/dL, Borderline high 200-499 mg/dL, High >499 mg/dL, Very high Performed By: #### 3 016-3, 3024-7, 3051-0 #### [facility] CLIA [id number] [address] [place] [address] #### 98503-5 #### [facility] CLIA [id number] [address] [place] [address] STATES OF [facility] CLIA [id number] [address] [place] [address] OF [facility] CHALO SCREENING W TOMOon 12-12 CHALO SCREENING W CALLIE * * *Final Report* * * DATE OF EXAM: Dec 12 2024 8:34AM [facility] 0582 - CHALO SCREENING W CALLIE / PROCEDURE REASON: multiple diagnoses * * * * Physician Interpretation * * * * RESULT: [facility] [address] [place] [address] #[id number] - CHALO SCREENING W CALLIE HISTORY: 39 year-old patient presents for screening. Patient is asymptomatic. Patient states no personal history of breast cancer. COMPARISON STUDIES: The present examination has been compared to a prior imaging study dated 02/23/2022 (mammogram). MAMMOGRAM TECHNIQUE: The study was acquired using full field digital technology and interpreted from soft copy. Digital Breast Tomosynthesis (DBT) images were obtained and used to assist in the interpretation of this examination. Computer-aided detection was utilized by the radiologist in the interpretation of this examination. MAMMOGRAM FINDINGS: There are scattered areas of fibroglandular density. No suspicious masses, calcifications or other abnormalities are seen in either breast. There are no significant interval changes. IMPRESSION: There is no mammographic evidence of malignancy in either breast. Routine screening mammogram is recommended. Annual mammogram will be due in 1 year. BI-RADS Category 1: Negative RISK: Based on the Tyrer-Cuzick (TC) risk assessment model, this patient has a 3.9% lifetime risk of developing breast cancer, meaning they are at average risk for developing breast cancer. However, this is only an estimate based on available history provided on the patient's questionnaire. We encourage all patients to talk with their providers about these results, further recommendations for managing breast health, and appropriate supplemental screening options if the patient has dense breast tissue. Interpreting Radiologist: Ivan Flynn M.D. Resident/Fellow: Brad Adams D.O. Electronically signed on: 12/13/2024 Rag Boiler: BOUCHRA Transcribe Date/Time: Dec 12 2024 8:22A Dictated by: BRAD ADAMS, DO This examination was interpreted and the report reviewed and electronically signed by: IVAN FLYNN MD on Dec 13 2024 8:48AM EST [id number] Normal [facility] Magnesium SerPl-mCncon 12-12 Magnesium [Mass/Vol] 1.8 mg/dL Normal 1.7-2.3 [facility] Comment on above: Order Comment: Yohan valente Type: BLOOD SPECIMEN Ordering Facility[facility] Address: [address] [place] [address] Performed By: #### 1 9123-9, 48756-4 #### [facility] CLIA [id number] [address] [place] [address] [facility] [place] T3Free SerPl-mCncon 12-13-19 25 Free T3 [Mass/Vol] 3.3 pg/mL Normal 2.3-4.1 [facility] Comment on above: Order Comment: Yohan valente Type: BLOOD SPECIMEN Ordering Facility[facility] Address: [address] [place] [address] Performed By: #### 3 016-3, 3024-7, 3051-0 #### [facility] CLIA [id number] [address] [place] [address] [place] #### 14317-2 #### [facility] CLIA [id number] [address] [place] [address] CLIA [id number] [address] [place] [address] [place] T4 Free SerPl-mCncon 12-12- 025 Free T4 [Mass/Vol] 1.7 ng/dL Normal 0.9-1.7 [facility] Comment on above: Order Comment: Speci sidra Type: BLOOD SPECIMEN Ordering Facility[facility] Address: [address] [place] [address] Performed By: #### 3 016-3, 3024-7, 3051-0 #### [facility] CLIA [id number] [address] [place] [address] [place] #### 77670-9 #### [facility] CLIA [id number] [address] [place] [address] [place] [facility] [id number] [address] [place] [address] [place] TSH SerPl-aCncon 12-12-2024 TSH Qn 1.450 m[IU]/L Normal 0.270-4.200 [facility] Comment on above: Order Comment: Maliki sidra Type: BLOOD SPECIMEN Ordering Facility[facility] Address: [address] [place] [address] [place] [address] Result Comment: If t he patient is , TSH reference range varies by gestational period: First Trimester (weeks 9-12): 0.180-2.990 mIU/L Second Trimester: 0.110-3.980 mIU/L Third Trimester: 0.480-4.710 mIU/L Miah Hightower et al. A Practical Approach for the Verifications and Determination of Site- and Trimester-Specific Reference Intervals for Thyroid Function tests in . Thyroid, 2019:29:3:412-420. Osei Dixon et al. 2017 Guidelines of the [place] Thyroid Association for the Diagnosis and Management of Thyroid Disease during and the . Thyroid, 2017:27:3:315-389. Performed By: #### 3 016-3, 3024-7, 3051-0 #### [facility] CLIA [id number] [address] [place] [address] #### 05308-6 #### [facility] CLIA [id number] [address] [place] [address] CLIA [id number] [address] [place] Vit B12 [facility] 12-12- 025 Cobalamin (Vitamin B12) [Mass/Vol] 352 pg/mL Normal 232-1245 [facility] Comment on above: Order Comment: Speci men Type: BLOOD SPECIMEN Ordering Facility[facility] Address: [address] [place] [address] [place] [address] Performed By: #### 2 132-9 #### [facility] CLIA [id number] [address] [place] [address] OF [facility] Urine Cultureon 10-18-2024 [facility] Culture exhibits no growth. Normal [facility] Comment on above: Performed By: #### M 100.2200 #### [facility] [address] [place], [address] Urine Cultureon 09-02-2024 URC Culture exhibits no growth. Normal [facility] Comment on above: Performed By: #### M 100.2200, L400.0001 #### [facility] [address] [place], [place], [address] Bilirubin Test strip Ql (U)O rdered By: Henry Roa on 09-01-2024 Bilirubin Ql (U) Negative Negative [facility] Epithelial cells.squamous LM Ql (Urine sed)Ordered By: Henry Roa on 09-01-2024 Epithelial cells.squamous LM.HPF (Urine sed) [#/Area] 0 /[HPF] 5-10 [facility] Glucose Ql (U)Ordered By: Annabelle Roa on 09-01-2024 Urine Glucose (UA) Normal mg/dl Normal [facility] Ketones Test strip Ql (U)Ord ered By: Henry Roa on 09-01-2024 Ketones Ql (U) Negative Negative [facility] Microscopic analysis of urin e for red blood cells (RBC)Ordered By: Henry Roa on 09-01-2024 Urine RBC 0 SEEN /hpf 0-5 [facility] Mucus LM Ql (Urine sed)Order ed By: Henry Roa on 09-01-2024 Mucus Ql (Urine sed) 0 SEEN /hpf [facility] Nitrite Test strip Ql (U)Ord ered By: Henry Roa on 09-01-2024 Nitrite Ql (U) Negative Negative [facility] Protein Test strip Ql (U)Ord ered By: Henry Roa on 09-01-2024 Protein Ql (U) Negative Negative [facility] Urinalysis, Completeon 09-01 EPI,SQUAMOUS 0-5 SEEN Normal 5-10 [facility] Comment on above: Order Comment: SURINDER CTOR TO SPECIFY Performed By: #### M 100.2200, L400.0001 #### [facility] [address] [facility] [place], [address] RBC 0 SEEN Normal 0-5 [facility] Comment on above: Order Comment: SURINDER CTOR TO SPECIFY Performed By: #### M 100.2200, L400.0001 #### [facility] [address] [facility] [place], [address] BACTERIA 0 SEEN Normal None Seen [facility] Comment on above: Order Comment: SURINDER CTOR TO SPECIFY Performed By: #### M 100.2200, L400.0001 #### [facility] [address] [facility] [place], [address] Mucus Ql (Urine sed) 0 SEEN Normal [facility] Comment on above: Order Comment: SURINDER CTOR TO SPECIFY Performed By: #### M 100.2200, L400.0001 #### [facility] [address] [place], [address] WBC 0 SEEN Normal 0-5 [facility] Comment on above: Order Comment: COLLE CTOR TO SPECIFY Performed By: #### M 100.2200, L400.0001 #### [facility] [address] [place], [address] Urine blood detectionOrdered By: Henry Roa on 09-01-2024 Urine Occult Blood Negative Negative [facility] Urine clarityOrdered By: Antonio Roa on 09-01-2024 Clarity (U) Clear Clear [facility] Urine color determinationOrd ered By: Henry Roa on 09-01-2024 Color (U) Yellow Yellow [facility] Urine cultureOrdered By: Antonio Roa on 09-01-2024 Bacteria identified Cx Nom (U) Culture exhibits no growth. [facility] Urine leukocyte esterase det ection by dipstickOrdered By: Henry Roa on 09-01-2024 Leukocyte esterase Test strip Ql (U) Negative Negative [facility] Urine pHOrdered By: Henry mireles on 09-01-2024 pH (U) 7.0 [pH] 5.0 - 8.0 [facility] Urine sediment bacteria coun t by microscopy (number/high power field)Ordered By: Henry Roa on 09-01-2024 Bacteria LM.HPF (Urine sed) [#/Area] 0 /[HPF] None Seen [facility] Urine specific gravity measu rementOrdered By: Henry Roa on 09-01-2024 Specific gravity (U) [Rel density] 1.010 1.002-1.030 [facility] Urobilinogen Ql (U)Ordered B y: Henry Roa on 09-01-2024 Urine Urobilinogen Normal mg/dl Normal [facility] White blood cell countOrdere d By: Henry Roa on 09-01-2024 Urine WBC 0 SEEN /hpf 0-5 [facility] - Chemistry and C hemistry - challengeOrdered By: Henry Roa on 08-31-2024 Bilirubin Ql (U) Negative [facility] Glucose Ql (U) Negative [facility] Ketones Ql (U) Negative [facility] pH (U) 7.0 [pH] [facility] Specific gravity (U) [Rel density] 1.005 [facility] Urobilinogen (U) [Mass/Vol] Negative [facility] - Hematology and Cell countsOrdered By: Henry Roa on 08-31-2024 Hemoglobin Ql (U) Negative [facility] - Specimen inform ationOrdered By: Henry Roa on 08-31-2024 Clarity (U) Clear [facility] Color (U) YELLOW [facility] - UrinalysisOrder ed By: Henry Roa on 08-31-2024 Nitrite Ql (U) Negative [facility] Protein Ql (U) Negative [facility] No Panel InformationOrdered By: Henry Roa on 08-31-2024 Urine Leukocytes Negatve [facility] Urine Non-Hemolyzed Blood Negative [facility] Urgent Care Visit Reporton 0 08-31-2024 Urgent Care Visit Report [facility] [address], [address] [place] [address] OFFICE VISIT Date of Service: 08/31/24 MR#: [id number] Acct: [id number] Name: ERNESTO BRANCH Rep #: [id number] : 1985 Provider: MARANDA mireles Age/Sex: 39/F Location: [facility] Status: Signed Intake Vital Signs 04/15/24 10:15 08/31/24 10:02 Height 5 ft 2 in BP 122/84 H Position Sitting Pulse 72 Temp 98.9 F Temp Source Oral Pulse Oximetry (%) 99 Oxygen Delivery Method room air Intake Visit Reasons: CONCERN FOR UTI Accompanied by: Self Allergies aripiprazole (From Abilify) Allergy (Verified 08/31/24 10:01) Swelling Gadolinium-MRI Contrast Medium (MRI) Allergy (Verified 08/31/24 10:01) PT UNSURE OF REACTION iodine Allergy (Verified 08/31/24 10:01) Other amphetamine (From Adderall) Adverse Reaction (Verified 08/31/24 10:01) PT UNSURE OF REACTION codeine Adverse Reaction (Verified 08/31/24 10:01) Itching dextroamphetamine (From Adderall) Adverse Reaction (Verified 08/31/24 10:01) PT UNSURE OF REACTION hydrocodone Adverse Reaction (Verified 08/31/24 10:01) Itching Iodinated Contrast Media Adverse Reaction (Verified 08/31/24 10:01) Other lamotrigine (From Lamictal) Adverse Reaction (Verified 08/31/24 10:01) NEEDS FOLLOW-UP Medications ???Medication ???Instructions ???Recorded ???Confirmed ???Type cholecalciferol (vitamin D3) 50 2,000 unit PO DAILY 08/12/2108/31 History mcg (2,000 unit) capsule metformin 500 mg tablet,extended 500 mg PO TID 03/08/23 08/31/24 Hi story release 24 hr norethindrone acetate 5 mg tablet 5 mg PO DAILY 03/08/23 08/31/24 H istory nitrofurantoin 100 mg PO Q12H 7 days #14 caps 03/1908/31/24 Rx monohydrate/macrocrys tals 100 mg capsule (Macrobid) Nurse's Note: Patient has UTI symptoms. Patient has burning/ pain and pressure in her abdominal. Patient also states she is urinating frequent. Patient has Rt side flank pain. [facility] Medical History (Updated 08/31/24 @ 10:26 by Henry Roa SORT LINE, SORT LINE-C) Right shoulder strain Left shoulder pain History of hemorrhoids Depression Back pain Anxiety Diabetes Surgical History History of cholecystectomy Family History Aunt Breast cancer Grandfather Colon cancer Grandmother Heart disease High cholesterol Kidney disease Unknown Diabetes Social History Smoking Status: Current every day smoker tobacco type: cigarettes alcohol intake: never substance use type: does not use HPI HPI Details: ERNESTO BRANCH, is a 39 F who presents to the office today for concerns regarding possible urinary tract infection. She acknowledges burning/discomfort along with abdominal pressure. She also acknowledges she has been urinating more frequently. She states right flank pain. ROS Const Constitutional: No body ache, chills, fatigue, fever(s) (no fever greater than 99.9 F), malaise, night sweats or other (rigors) Resp Respiratory: No shortness of breath Cardio Cardiology: No chest pain at rest or chest pain with exertion Gastro GI: No abdominal pain Genitourinary-Female: Positive for burning urination, urinary urgency, suprapubic fullness and side pain; No painful urination, urinary frequency or blood in urine Endo Endocrine: No fatigue Exam Const General: cooperative, healthy appearing, comfortable and no acute distress Orientation: alert, awake and oriented x3 Chest Chest palpation inspection: normal inspection of the chest Resp Effort Inspection: normal respiratory effort Auscultation: Bilateral: Clear to Auscultation Cardio Rhythm: other (Normal) Heart Sounds: S1 normal, S2 normal and no murmurs GI Inspection: normal to inspection and non-distended Auscultation: normal bowel sounds Palpation: soft and nontender General: No CVA tenderness Skin General: no rashes or lesions noted Results POC Urinalysis Dip (Clinic) Office Urine Color YELLOW Last Edit by Valorie Wilkins MA on 08/31/24 10:14 Office Urine Clarity Clear Last Edit by Valorie Wilkins MA on 08/31/24 10:14 Office Urine Glucose Negative Last Edit by Valorie Wilkins MA on 08/31/24 10:14 Office Urine Ketones Negative Last Edit by Valoire Wilkins MA on 08/31/24 10:14 Off Ur Spec [place] 1.005 Last Edit by Valorie Wilkins MA on 08/31/24 10:14 Office Urine pH 7.0 Last Edit by Valorie Wilkins MA on 08/31/24 10:14 Office Urine Bilirubin Negative Last Edit by Valorie Wilkins MA on 08/31/24 10:14 Office Urine Urobilinogen Negative Last Edit by Valorie Wilkins MA on 08/31/24 10:14 Office Urine Blood Negative Last Edit by Valorie Wilkins MA on 08/31/24 10:14 Office Urine B (more content not included)... Normal [facility] CNOVon 07-16-2024 CNOV Office Visit (OBGYWM ) ERNESTO BRANCH ([id number]) 1985 F Date Time Provider Department 07/16/24 2:45 PM KAROL ABEL OBGYWGigi During your visit today, we recorded the following information about you: Blood pressure Weight Height 128/88 60.3 kg 1.555 m Karol Abel APRN.CNM 07/16/2024 4:45 PM Signed General Ophthalmologist offered: Patient declinesKeven Wilson is a 39 year old who presents for an annual gynecologic exam without complaints. Age at Menarche: 9 Still get period: No -Takes Aygestin daily LMP: 06/27/2023 Menstrual flow: N/A Bleeding amount bothersome: N/A- Yes in the past Bleeding between periods: N/A Period symptoms: N/A Sexually active: Yes Time with current partner: 20 + years Contraception: Pill Contraception frequency: Always HPV vaccine: No HPV:negative Last pap smear: 03/21/2022 History of abnormal pap: Yes- years ago Leep: No. Cone biopsy: No. Bothersome pelvic pain: No Last mammogram: 02/23/2022 [facility] History of fibroids: No History of ovarian cyst: No Pain with intercourse: Yes Postcoital bleeding: No OB History T2 L3 SAB1 IAB0 Ectopic0 Multiple0 Live Births3 Director Digital History LMP: 06/27/2023 (Exact Date), Having periods Age at Menarche: Age at First : Age at Menopause: Director Digital History Comments: Sexual Activity: Yes; Male Contraception: [...] Never Used Substance Use Topics Alcohol use: Not Currently Comment: occasional 3x per yr Drug use: No REVIEW OF SYSTEMS Abdomen: No abdominal pain, nausea, vomiting, diarrhea, or constipation. No bloating, early satiety, indigestion, or increased flatulence. Bladder: No dysuria, gross hematuria, urinary frequency, urinary urgency, or incontinence. Breast: No breast lumps, nipple d/c, overlying skin changes, redness or skin retraction. Allergies and current medication updated:Yes SENSITIVE EXAM: The sensitive examination was discussed with the Patient or Patient's Authorized Academic Support Coordinator. As applicable, any other physician, advance practice provider, medical student, or other health professional student that will be observing or involved in the sensitive examination for educational or training purposes was discussed with the Patient or Authorized Academic Support Coordinator. The Patient or Authorized Academic Support Coordinator has agreed to proceed with the sensitive examination. (Sensitive examination includes inspection and/or palpation of the breasts, pelvis, prostate and anorectal regions). EXAM: BP 128/88 Ht 5' 1.22 (1.56m) Wt 133 lb (60.3kg) LMP 06/27/2023 BMI 24.95 kg/(m2). GENERAL: pleasant, female in no apparent distress HEENT: Normocephalic and atraumatic NECK: Supple and full range of motion DERMATOLOGY: Normal and without lesions BREAST: soft, non-tender, symmetric, no dominant mass, normal nipple-areolar complex, no lymphadenopathy, no nipple discharge, and fibrocystic changes CHEST: Normal inspiratory effort ABDOMEN: soft, non-tender, and no masses PELVIC: external genitalia normal, normal Bartholin's glands, urethra, Lorena's glands, no vulvar lesions, no cervical lesions, good vaginal support, physiologic discharge present, normal appearing perineal body and perianal region BIMANUAL: uterus normal size, shape and consistency, no adnexal masses, non-tender, and no cervical motion tenderness RECTOVAGINAL: deferred. NEURO: alert and oriented x3,exam grossly non-focal EXTREMITIES: normal ASSESSMENT/PLAN: 1) Health maintenance: Pap/HPV up to date. Mammogram ordered. Nutrition, exercise and routine health maintenance exams reviewed. Colon cancer screening: patient to discuss with PCP (has had colonoscopies in past) Lipids/glucose: followed by PCP 2) Contraception: None 3) STD screening: Declined STD check. 4) Perimenopausal- having hot flashes and night sweats- Discussed Bonafide options and hand out provided. Continue Aygestin 5 mg Po Daily- patient reports being nervous to stop taking to see if still having a period due to history of heavy bleeding that wouldn't stop (more content not included)... Normal [facility] UA DIP, URINE (POC)on 2024 BILIRUBIN UA (POCT) Negative Negative [facility] CLARITY UA (POCT) Clear [facility] COLOR UA (POCT) Yellow [facility] GLUCOSE UA (POCT) Negative Negative mg/dL [facility] Hemoglobin Ql (U) Negative Negative [facility] Interpretation and review of laboratory results Abnormal [facility] KETONE UA (POCT) Negative Negative mg/dL [facility] LEUKOCYTES UA (POCT) Negative [facility] NITRITE UA (POCT) Negative Negative [facility] PH UA (POCT) 6.0 4.5 - 8.0 [facility] Protein Ql (U) Negative Negative mg/dL [facility] SPECIFIC GRAVITY UA (POCT) <=1.005 Abnormal 1.005 - 1.030 [facility] UROBILINOGEN UA (POCT) 0.2 Drea l E.U./dL [facility] Location:[facility], [address], [place], [place], [id number] [place] [address] POINT OF CARE [facility] Urgent Care Visit Reporton 0 07-01-2024 Urgent Care Visit Report [facility] [address], [address] [place] [address] OFFICE VISIT Date of Service: 07/01/24 MR#: [id number] Acct: [id number] Name: ERNESTO BRANCH Rep #: [id number] : 1985 Provider: DAPHNEY Pringle Age/Sex: 39/F Location: [facility] Status: Signed Intake Vital Signs 04/15/24 10:15 07/01/24 13:33 Height 5 ft 2 in BP 122/78 H Blood Pressure Location Lt brachial Position Sitting Respiration 12 Pulse 92 Pulse Source NIBP Temp 98.2 F Temp Source Oral Pulse Oximetry (%) 97 Oxygen Delivery Method room air Intake Visit Reasons: R ARM PAIN/SHOULDER TO HAND/UNK INJURY Chief Complaint: right arm and shoulder to hand pain Infection Preventionist Required: No Is patient in pain?: No Allergies aripiprazole (From Abilify) Allergy (Verified 07/01/24 13:33) Swelling Gadolinium-MRI Contrast Medium (MRI) Allergy (Verified 07/01/24 13:33) PT UNSURE OF REACTION iodine Allergy (Verified 07/01/24 13:33) Other amphetamine (From Adderall) Adverse Reaction (Verified 07/01/24 13:33) PT UNSURE OF REACTION codeine Adverse Reaction (Verified 07/01/24 13:33) Itching dextroamphetamine (From Adderall) Adverse Reaction (Verified 07/01/24 13:33) PT UNSURE OF REACTION hydrocodone Adverse Reaction (Verified 07/01/24 13:33) Itching Iodinated Contrast Media Adverse Reaction (Verified 07/01/24 13:33) Other lamotrigine (From Lamictal) Adverse Reaction (Verified 07/01/24 13:33) NEEDS FOLLOW-UP Medications ???Medication ???Instructions ???Recorded ???Confirmed ???Type cholecalciferol (vitamin D3) 50 2,000 unit PO DAILY 08/12/21 07/01/24 History mcg (2,000 unit) capsule metformin 500 mg tablet,extended 500 mg PO TID 03/08/23 07/01/24 History release 24 hr norethindrone acetate 5 mg tablet 5 mg PO DAILY 03/08/23 07/01/24 History prednisone 10 mg tablet 20 mg (2 x 10 mg) PO BID #20 tabs 07/01/24 07/01/24 Rx Is last menstrual period known: No Post menopausal: No Patient : No Have you fallen in the past year?: No Nurse's Note: patient here for right arm and shoulder pain radiates to hand, thinks she slept wrong on it, pain x2 days. [facility] Medical History (Updated 07/01/24 @ 13:53 by Prince SHELLEY, PA) Right shoulder strain Left shoulder pain History of hemorrhoids Depression Back pain Anxiety Diabetes Surgical History History of cholecystectomy Family History Aunt Breast cancer Grandfather Colon cancer Grandmother Heart disease High cholesterol Kidney disease Unknown Diabetes Social History Smoking Status: Current every day smoker tobacco type: cigarettes alcohol intake: never substance use type: does not use HPI HPI Chief Complaint: right arm and shoulder to hand pain Details: ERNESTO BRANCH, is a 39 F who presents to the office today for initial evaluation at the [facility] for approximately 48-hour history of worsening/recurring right shoulder pain after sleeping on the same 2 nights ago, with pain intermittently radiating to all 5 digits of the right hand. Patient notes having developed chronic right shoulder pain last summer, stating she had follow-up with Dr. Sosa at [facility] who recommended a corticosteroid injection but she refused at that time and has been tolerating her waxing and waning discomfort to the same ever since. Again though over the last couple of days panoply, tolerable and would like to have evaluated further at this time. No history of trauma to the same. Pain is aggravated touch with range of motion, alleviated minimally with resting to side. No [id number] products taken to assist. No cervical or left elbow/wrist/hand complaints otherwise at this time. No other associated symptoms and no other alleviating/aggravati ng factors. ROS Const Constitutional: No other (As above) Exam Const General: cooperative, healthy appearing and no acute distress Orientation: alert and awake Resp Effort Inspection: normal respiratory effort and able to speak in complete sentences Cardio Rate: regular rate Pulses: radial pulses present Skin General: no rashes or lesions noted Neuro General: patient alert, patient awake and patient oriented x3 Cognition: normal cognition Speech: speech normal Motor: muscle tone normal throughout Sensory Exam: no sensory deficits noted Extrem General: normal to inspection, capillary refill normal and normal exam except as noted (Abduction 80 degrees exacerbates pain, w/ +ACJ tender) Psych Appearance: grossly normal Mental Status: mental status grossly normal Mood: congruent mood Affect: normal affect Speech and Movem (more content not included)... Normal [facility] UA DIP, URINE (POC)on 2023 BILIRUBIN UA (POCT) Negative Negative [facility] CLARITY UA (POCT) Clear [facility] COLOR UA (POCT) Yellow [facility] GLUCOSE UA (POCT) Negative Negative mg/dL [facility] Hemoglobin Ql (U) Negative Negative [facility] Interpretation and review of laboratory results Abnormal [facility] KETONE UA (POCT) Negative Negative mg/dL [facility] LEUKOCYTES UA (POCT) Negative Negative [facility] NITRITE UA (POCT) Negative Negative [facility] PH UA (POCT) 6.0 4.5 - 8.0 [facility] Protein Ql (U) Negative Negative mg/dL [facility] SPECIFIC GRAVITY UA (POCT) <=1.005 Abnormal 1.005 - 1.030 [facility] UROBILINOGEN UA (POCT) 0.2 Drea l E.U./dL [facility] Location:[address], [place], [place], [id number] [place] [address] POINT OF CARE [facility] XR Chest PA and Lateralon IMPRESSION: No acute radiographic abnormality. Rag Boiler: JOAQUIM Transcribe Date/Time: Apr 28 2024 9:41A Dictated by : MADISON SANCHES MD This examination was interpreted and the report reviewed and electronically signed by: MADISON SANCHES MD on Apr 28 2024 9:41AM [facility] DIVISION OF RADIOLOGY * * *Final Report* * * DATE OF EXAM: Apr 28 2024 9:34AM WOX [id number] - XR CHEST 2V FRONTAL/LAT / PROCEDURE REASON: Body aches * * * * Physician Interpretation * * * * EXAMINATION: CHEST RADIOGRAPH (2 VIEW FRONTAL & LATERAL) CLINICAL HISTORY: Body aches MQ: XC2_6 EXAM DATE/TIME: 04/28/2024 9:34 AM COMPARISON: No relevant prior studies available. RESULT: Lines, tubes, and devices: None. Lungs and pleura: No consolidation. No lung mass. No pleural effusion. No pneumothorax. Cardiomediastinal silhouette: Normal cardiomediastinal silhouette. Bones and soft tissues: Unremarkable. DIVISION OF RADIOLOGY Provider, [facility] - 04/28/2024 * * *Final Report* * * DATE OF EXAM: Apr 28 2024 9:34AM WOX [id number] - XR CHEST 2V FRONTAL/LAT / PROCEDURE REASON: Body aches * * * * Physician Interpretation * * * * EXAMINATION: CHEST RADIOGRAPH (2 VIEW FRONTAL & LATERAL) CLINICAL HISTORY: Body aches MQ: XC2_6 EXAM DATE/TIME: 04/28/2024 9:34 AM COMPARISON: No relevant prior studies available. RESULT: Lines, tubes, and devices: None. Lungs and pleura: No consolidation. No lung mass. No pleural effusion. No pneumothorax. Cardiomediastinal silhouette: Normal cardiomediastinal silhouette. Bones and soft tissues: Unremarkable. IMPRESSION IMPRESSION: No acute radiographic abnormality. Rag Boiler: PSCB Transcribe Date/Time: Apr 28 2024 9:41A Dictated by : MADISON SANCHES MD This examination was interpreted and the report reviewed and electronically signed by: MADISON SANCHES MD on Apr 28 2024 9:41AM EST [facility] Radiology Study observation (narrative) [facility] PA and LateralOrder ed By: [facility] Provider on 04-28-2024 [facility] ED FACILITY CODING SUMMARYon 04-14-2024 ED FACILITY CODING SUMMARY Facility Coding Facility Coding Summary [address] [address] [id number] 04/14/2024 Patient: ERNESTO BRANCH Sex: Female : 1985 Age: 39y Providers: DIAGNOSTIC WORKUP Chief Complaint Principal Diagnosis ICD-10 Codes PROCEDURES Procedures from Providers: Procedures from Nurses/Facility: SUPPLIES ELEVEL This is a partial abstract of information documented in the full record. [employer] Supervisor must use independent judgment in selecting codes. CPT copyright 2022 [employer]. All Rights Reserved. 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 [address] [place] [address] [id number] 04/14/2024 Patient: ERNESTO BRANCH Sex: Female : 1985 Age: 39y Disposition: Left AMA Left Against Medical Advice Disposition Decision Time: 20:30 04/14/2024 Departure Time: 20:30 04/14/2024 TRIAGE Arrived by private vehicle. Historian: patient. [...] Bhavin Frank R.N. Vicodin -- 18:46 04/14/24 EDT Bhavin Frank R.N. Abilify -- 18:46 04/14/24 EDT Bhavin Frank R.N. Problems: Diabetes Mellitus -- 18:47 04/14/24 ANCAT Bhavin Frank R.N. ADDITIONAL SURGERIES: Cholecystectomy -- [...] the question(s) Are you afraid to go home?. SELF HARM ASSESSMENT: Self harm assessment was performed. The patient answered no to the question(s) Have you recently felt down, depressed, or hopeless? and Do you have thoughts of harming or killing yourself?. FALL RISK ASSESSMENT: Fall risk assessment completed. No risk factors identified. -- 18:50 04/14/24 EDT Bhavin Frank R.N. Interventions 18:43 04/14/24. Identification band on patient. To room. -- 18:50 04/14/24 ANCAT Bhavin Frank R.N. PHYSICAL ASSESSMENT 2 of [...] informing staff. Pt was witnessed leaving by feeder worker power unit operator during a code purple with another pt.). -- 21:31 04/14/24 EDT Maulik Duenas R.N. (Electronically signed by Maulik Duenas R.N. 04/14/24 22:23:13 EDT) Generated by [facility] 3 of 3 [facility] ED ORDER SHEET (CPOE ONLY)on 04-14-2024 ED ORDER SHEET (CPOE ONLY) Order Sheet Order Sheet [address] [address] [id number] 04/14/2024 Patient: ERNESTO BRANCH Sex: Female : 1985 Age: 39y MEASUREMENTS: Wt: 54.4 kg, Ht/Ernie: 62.0 in, BMI: 21.95 ALLERGIES: Abilify, Iodinated Contrast Media, Lamictal, Vicodin MEDICATION/IV/DRIP/FL UID ORDERS Order Description Priority Entered Acknowledged Completed LAB ORDERS Order Description Priority Entered Acknowledged Collected Completed DIAGNOSTIC STUDY ORDERS Order Description Priority Entered Acknowledged Completed STAFF ORDERS Order Description Priority Entered Acknowledged Collected Completed 1 of 1 [facility] ED SUPER BILLon 04-14-2024 ED SUPER BILL [address] [address] [id number] 04/14/2024 Patient: ERNESTO BRANCH Sex: Female : 1985 Age: 39y Item Professional Category Description Facility Code Code Quantity Fee Total Grand Total $0.00 1 of 1 [facility] ED VISIT SUMMARYon ED VISIT SUMMARY Visit Overview Visit Overview [address] [address] [id number] 04/14/2024 Patient: ERNESTO BRANCH Sex: Female : 1985 Age: 39y 04/14/2024 [...] tablet: 5 mg once a day. 1 3 Visit Overview PAST MEDICAL HISTORY / [...] STUDIES CLINICAL IMPRESSION 3 of 3 [facility] Absolute lymphocyte countOrd ered By: Brett Vaughan on 10-22-2023 Lymphocytes Auto (Unsp spec) [#/Vol] 1.48 10*3/uL 0.83-4.51 [facility] Automated lymphocyte count a s percentage of total leukocytesOrdered By: Brett Vaughan on 10-22-2023 Lymphocytes/100 WBC Auto (Unsp spec) 21.0 % 19-41 [facility] Basophil percentageOrdered B y: Brett Vaughan on 10-22-2023 Basophil percentage 0 SEEN /hpf 0-5 [facility] Basophils/100 WBC (Bld) 0.3 % 0-1 [facility] Bilirubin [Mass/Vol] 0.30 mg/dL 0.20-1.00 [facility] Comment on above: For patients on eltr ombopag therapy, use of Dimension [place] TBIL is not recommended. Chloride [Moles/Vol] 113 mmol/L 98-107 [facility] Eosinophils/100 WBC (Bld) 0.6 % 0-5 [facility] Glucose [Mass/Vol] 150 mg/dL 74-106 [facility] Comment on above: Fasting Glucose resu lt greater than or equal to 126 mg/dL suggests DIABETES MELLITUS per A.D.A. criteria. Hemoglobin (Bld) [Mass/Vol] 16.2 g/dL 12.0-15.0 [facility] Monocytes/100 WBC (Bld) 4.7 % 0-10 [facility] Neutrophils (Bld) [#/Vol] 5.2 10*3/uL 2.0-7.7 [facility] Neutrophils/100 WBC (Bld) 73.1 % 47-70 [facility] Potassium [Moles/Vol] 3.9 mmol/L 3.5-5.1 [facility] Protein [Mass/Vol] 7.2 g/dL 6.4-8.2 [facility] Sodium [Moles/Vol] 140 mmol/L 136-145 [facility] WBC (Bld) [#/Vol] 7.1 10*3/uL 4.4-11.0 [facility] Bilirubin Test strip Ql (U)O rdered By: Brett Vaughan on 10-22-2023 Bilirubin Ql (U) Negative Negative [facility] Determination of erythrocyte mean corpuscular volume (MCV)Ordered By: Brett Vaughan on 10-22-2023 MCV (RBC) [Entitic vol] 94.2 fL 81-99 [facility] Erythrocyte distribution wid th ratioOrdered By: Brtet Vaughan on 10-22-2023 Erythrocyte distribution width (RBC) [Ratio] 12.7 % 11.6-14.6 [facility] Erythrocyte distribution wid th standard deviationOrdered By: Brett Vaughan on 10-22-2023 Erythrocyte distribution width (RBC) [Entitic vol] 43.8 fL 35.1-43.9 [facility] Hematocrit Auto (Bld) [Volum e fraction]Ordered By: Brett Vaughan on 10-22-2023 Hematocrit (Bld) [Volume fraction] 46.9 % 37-47 [facility] Immature granulocytes/100 WB C Auto (Bld)Ordered By: Brett Vaughan on 10-22-2023 Immature granulocytes/100 WBC (Bld) 0.300 % 0.0-0.9 [facility] Comment on above: IG% - Immature Granu locytes (promyelocytes, myelocytes and metamyelocytes) > 1% indicates that a LEFT SHIFT is Present. Ketones Test strip Ql (U)Ord ered By: Brett Vaughan on 10-22-2023 Ketones Ql (U) Negative Negative [facility] Laboratory - Chemistry and C hemistry - challengeOrdered By: Brett Vaughan on 10-22-2023 HCG ( test) Ql (U) Negative [facility] Comment on above: Very dilute urine sp ecimens, as indicated by a low specificgravity, may not contain medical detail representative levels of hCG. If is still suspected, a first morning urinespecimen should be collected 48 hours later and tested. Albumin/Globulin [Mass ratio] 1.0 {ratio} 0.9-2.4 [facility] ALP [Catalytic activity/Vol] 55 U/L 45-117 [facility] ALT [Catalytic activity/Vol] 13 U/L 13-56 [facility] CO2 [Moles/Vol] 21.0 mmol/L 21.0-32.0 [facility] Globulin (S) [Mass/Vol] 3.6 g/dL 2.2-4.2 [facility] Natriuretic peptide B (Bld) [Mass/Vol] 24.0 pg/mL 0-100 [facility] Urea nitrogen/Creatinine [Mass ratio] 14.8 mg/mg 10-20 [facility] - Hematology and Cell countsOrdered By: Brett Vaughan on 10-22-2023 MCH (RBC) [Entitic mass] 32.5 pg 27.0-32.0 [facility] MCHC (RBC) [Mass/Vol] 34.5 g/dL 32-36 [facility] Nucleated RBC/100 WBC (Bld) [Ratio] 0 % 0-5 [facility] Platelet mean volume (Bld) [Entitic vol] 8.9 fL 6.2-12.0 [facility] Platelets (Bld) [#/Vol] 201 10*3/uL 150-450 [facility] Mucus LM Ql (Urine sed)Order ed By: Brett Vaughan on 10-22-2023 Mucus Ql (Urine sed) 0 SEEN /hpf [facility] Nitrite Test strip Ql (U)Ord ered By: Brett Vaughan on 10-22-2023 Nitrite Ql (U) Negative Negative [facility] No Panel InformationOrdered By: Brett Vaughan on 10-22-2023 Urine RBC 0 SEEN /hpf 0-5 [facility] Estimated Creatinine Clearance Calc 71.87 ml/min [facility] Estimated GFR (MDRD) Amer 91 mL/min >60 [facility] Comment on above: GFR Calc Estimated GFR (MDRD) Non-Af Amer 76 mL/min >60 [facility] Comment on above: Non- GFR Calc Troponin I High Sensitivity 5 pg/mL 3.0-54.0 [facility] Comment on above: Please Note: [place] t Units and Gender Specific Reference Ranges. For more information see Policy Stat Procedure [place] High Sensitivity Troponin (TNIH) and attachments. Protein Test strip Ql (U)Ord ered By: Brett Vaughan on 10-22-2023 Protein Ql (U) Negative Negative [facility] RBC Auto (Bld) [#/Vol]Ordere d By: Brett Vaughan on 10-22-2023 RBC (Bld) [#/Vol] 4.98 10*6/uL 4.2-5.4 [facility] Serum or plasma calcium cindy urement (mass/volume)Ordered By: Brett Vaughan on 10-22-2023 Calcium [Mass/Vol] 9.2 mg/dL 8.5-10.1 [facility] Serum or plasma creatinine m easurement (mass/volume)Ordered By: Brett Vaughan on 10-22-2023 Creatinine [Mass/Vol] 0.88 mg/dL 0.55-1.02 [facility] Comment on above: The validity of the calculated GFR & GFRAA in patients over 70 years has not been determined. Clinical correlation is essential. Serum or plasma urea nitroge n measurement (mass/volume)Ordered By: Brett Vaughan on 10-22-2023 Urea nitrogen [Mass/Vol] 13 mg/dL 7-18 [facility] Squamous epithelial cells de tection in urine sediment by light microscopyOrdered By: Brett Vaughan on 10-22-2023 Epithelial cells.squamous LM Ql (Urine sed) 0 SEEN /hpf 5-10 [facility] Thin prep Papanicolaou smear with manual screeningOrdered By: Brett Vaughan on 10-22-2023 Thin prep Papanicolaou smear with manual screening 3.6 g/dL 3.2-5.0 [facility] Thin prep Papanicolaou smear with manual screening 26 U/L 15-37 [facility] Thin prep Papanicolaou smear with manual screening 6 5-15 [facility] Urine blood detectionOrdered By: Brett Vaughan on 10-22-2023 RBC Ql (U) Negative Negative [facility] Urine clarityOrdered By: Yoselyn Vaughan on 10-22-2023 Clarity (U) Clear Clear [facility] Urine color determinationOrd ered By: Brett Vaughan on 10-22-2023 Color (U) Straw Yellow [facility] Urine glucose detectionOrder ed By: Brett Vaughan on 10-22-2023 Glucose Ql (U) Normal mg/dl Normal [facility] Urine leukocyte esterase det ection by dipstickOrdered By: Brett Vaughan on 10-22-2023 Leukocyte esterase Test strip Ql (U) Negative Negative [facility] Urine pHOrdered By: Brett mcleod on 10-22-2023 pH (U) 6.5 [pH] 5.0 - 8.0 [facility] Urine sediment bacteria coun t by microscopy (number/high power field)Ordered By: Brett Vaughan on 10-22-2023 Bacteria LM.HPF (Urine sed) [#/Area] 0 /[HPF] None Seen [facility] Urine specific gravity measu rementOrdered By: Brett Vaughan on 10-22-2023 Specific gravity (U) [Rel density] 1.005 1.002-1.030 [facility] Urine urobilinogen measureme ntOrdered By: Brett Vaughan on 10-22-2023 Urobilinogen Ql (U) Normal mg/dl Normal [facility] Absolute lymphocyte countOrd ered By: Yanick Livingston on 10-21-2023 Lymphocytes Auto (Unsp spec) [#/Vol] 1.40 10*3/uL 0.83-4.51 [facility] Automated lymphocyte count a s percentage of total leukocytesOrdered By: Yanick Livingsotn on 10-21-2023 Lymphocytes/100 WBC Auto (Unsp spec) 21.3 % 19-41 [facility] Basophil percentageOrdered B y: Yanick Livingston on 10-21-2023 Basophils/100 WBC (Bld) 0.6 % 0-1 [facility] Chloride [Moles/Vol] 111 mmol/L 98-107 [facility] Eosinophils/100 WBC (Bld) 1.4 % 0-5 [facility] Glucose [Mass/Vol] 145 mg/dL 74-106 [facility] Comment on above: Fasting Glucose resu lt greater than or equal to 126 mg/dL suggests DIABETES MELLITUS per A.D.A. criteria. Hemoglobin (Bld) [Mass/Vol] 16.1 g/dL 12.0-15.0 [facility] Monocytes/100 WBC (Bld) 5.9 % 0-10 [facility] Neutrophils (Bld) [#/Vol] 4.6 10*3/uL 2.0-7.7 [facility] Neutrophils/100 WBC (Bld) 70.6 % 47-70 [facility] Potassium [Moles/Vol] 3.7 mmol/L 3.5-5.1 [facility] Sodium [Moles/Vol] 140 mmol/L 136-145 [facility] WBC (Bld) [#/Vol] 6.6 10*3/uL 4.4-11.0 [facility] Determination of erythrocyte mean corpuscular volume (MCV)Ordered By: Yanick Livingston on 10-21-2023 MCV (RBC) [Entitic vol] 93.7 fL 81-99 [facility] Erythrocyte distribution wid th ratioOrdered By: Yanick Livingston on 10-21-2023 Erythrocyte distribution width (RBC) [Ratio] 12.7 % 11.6-14.6 [facility] Erythrocyte distribution wid th standard deviationOrdered By: Yanick Livingston on 10-21-2023 Erythrocyte distribution width (RBC) [Entitic vol] 43.8 fL 35.1-43.9 [facility] Hematocrit Auto (Bld) [Volum e fraction]Ordered By: Yanick Livingston on 10-21-2023 Hematocrit (Bld) [Volume fraction] 47.7 % 37-47 [facility] Immature granulocytes/100 WB C Auto (Bld)Ordered By: Yanick Livingston on 10-21-2023 Immature granulocytes/100 WBC (Bld) 0.200 % 0.0-0.9 [facility] Comment on above: IG% - Immature Granu locytes (promyelocytes, myelocytes and metamyelocytes) > 1% indicates that a LEFT SHIFT is Present. Laboratory - Chemistry and C hemistry - challengeOrdered By: Yanick Livingston on 10-21-2023 CO2 [Moles/Vol] 24.0 mmol/L 21.0-32.0 [facility] Urea nitrogen/Creatinine [Mass ratio] 12.3 mg/mg 10-20 [facility] - Hematology and Cell countsOrdered By: Yanick Livingston on 10-21-2023 MCH (RBC) [Entitic mass] 31.6 pg 27.0-32.0 [facility] MCHC (RBC) [Mass/Vol] 33.8 g/dL 32-36 [facility] Nucleated RBC/100 WBC (Bld) [Ratio] 0 % 0-5 [facility] Platelet mean volume (Bld) [Entitic vol] 9.0 fL 6.2-12.0 [facility] Platelets (Bld) [#/Vol] 209 10*3/uL 150-450 [facility] No Panel InformationOrdered By: Yanick Livingston on 10-21-2023 Estimated Creatinine Clearance Calc 66.64 ml/min [facility] Estimated GFR (MDRD) Amer 81 mL/min >60 [facility] Comment on above: GFR Calc Estimated GFR (MDRD) Non-Af Amer 67 mL/min >60 [facility] Comment on above: Non- GFR Calc RBC Auto (Bld) [#/Vol]Ordere d By: Yanick Livingston on 10-21-2023 RBC (Bld) [#/Vol] 5.09 10*6/uL 4.2-5.4 [facility] Serum or plasma calcium cindy urement (mass/volume)Ordered By: Yanick Livingston on 10-21-2023 Calcium [Mass/Vol] 9.4 mg/dL 8.5-10.1 [facility] Serum or plasma creatinine m easurement (mass/volume)Ordered By: Yanick Livingston on 10-21-2023 Creatinine [Mass/Vol] 0.97 mg/dL 0.55-1.02 [facility] Comment on above: The validity of the calculated GFR & GFRAA in patients over 70 years has not been determined. Clinical correlation is essential. Serum or plasma urea nitroge n measurement (mass/volume)Ordered By: Yanick Livingston on 10-21-2023 Urea nitrogen [Mass/Vol] 12 mg/dL 7-18 [facility] Thin prep Papanicolaou smear with manual screeningOrdered By: Yanick Livingston on 10-21-2023 Thin prep Papanicolaou smear with manual screening 5 5-15 [facility] Absolute lymphocyte countOrd ered By: Chrissy Yeboah on 09-29-2023 Lymphocytes Auto (Unsp spec) [#/Vol] 1.60 10*3/uL 0.83-4.51 [facility] Automated lymphocyte count a s percentage of total leukocytesOrdered By: Chrissy Yeboah on 09-29-2023 Lymphocytes/100 WBC Auto (Unsp spec) 20.5 % 19-41 [facility] Basophil percentageOrdered B y: Chrissy Yeboah on 09-29-2023 Basophils/100 WBC (Bld) 0.4 % 0-1 [facility] Bilirubin [Mass/Vol] 0.60 mg/dL 0.20-1.00 [facility] Comment on above: For patients on eltr ombopag therapy, use of Dimension [place] TBIL is not recommended. Chloride [Moles/Vol] 108 mmol/L 98-107 [facility] Cholesterol [Mass/Vol] 198 mg/dL <200 [facility] Comment on above: <200 mg/dL Desirable 200-240 mg/dL Borderline >240 mg/dL High Risk Eosinophils/100 WBC (Bld) 1.3 % 0-5 [facility] Glucose [Mass/Vol] 144 mg/dL 74-106 [facility] Comment on above: Fasting Glucose resu lt greater than or equal to 126 mg/dL suggests DIABETES MELLITUS per A.D.A. criteria. Hemoglobin (Bld) [Mass/Vol] 16.8 g/dL 12.0-15.0 [facility] Monocytes/100 WBC (Bld) 5.8 % 0-10 [facility] Neutrophils (Bld) [#/Vol] 5.6 10*3/uL 2.0-7.7 [facility] Neutrophils/100 WBC (Bld) 71.7 % 47-70 [facility] Potassium [Moles/Vol] 3.9 mmol/L 3.5-5.1 [facility] Protein [Mass/Vol] 7.7 g/dL 6.4-8.2 [facility] Sodium [Moles/Vol] 135 mmol/L 136-145 [facility] Triglyceride [Mass/Vol] 75 mg/dL <199 [facility] Comment on above: The drugs N-Acetylcy steine and Metamizole may falsely depress this assay.Serum Triglycerides Reference Interval Normal <150 mg/dL Borderline high 150 - 199 mg/dL High 200 - 499 mg/dL Very High > or = 500 mg/dL WBC (Bld) [#/Vol] 7.8 10*3/uL 4.4-11.0 [facility] Determination of erythrocyte mean corpuscular volume (MCV)Ordered By: Chrissy Yeboah on 09-29-2023 MCV (RBC) [Entitic vol] 94.5 fL 81-99 [facility] Erythrocyte distribution wid th ratioOrdered By: Chrissy Yeboah on 09-29-2023 Erythrocyte distribution width (RBC) [Ratio] 12.6 % 11.6-14.6 [facility] Erythrocyte distribution wid th standard deviationOrdered By: Chrissy Edilia on 09-29-2023 Erythrocyte distribution width (RBC) [Entitic vol] 44.1 fL 35.1-43.9 [facility] Hematocrit Auto (Bld) [Volum e fraction]Ordered By: Chrissy Yeboah on 09-29-2023 Hematocrit (Bld) [Volume fraction] 50.1 % 37-47 [facility] Immature granulocytes/100 WB C Auto (Bld)Or[facility]: [facility] Immature granulocytes/100 WBC (Bld) 0.300 % 0.0-0.9 [facility] Comment on above: IG% - Immature Granu locytes (promyelocytes, myelocytes and metamyelocytes) > 1% indicates that a LEFT SHIFT is Present. Laboratory - Chemistry and C hemistry - challengeOrdered By: Chrissy Yeboah on 09-29-2023 Albumin/Globulin [Mass ratio] 1.0 {ratio} 0.9-2.4 [facility] ALP [Catalytic activity/Vol] 64 U/L 45-117 [facility] ALT [Catalytic activity/Vol] 17 U/L 13-56 [facility] Cholesterol in HDL [Mass/Vol] 37 mg/dL >40 [facility] Comment on above: The drugs N-Acetylcy steine and Metamizole may falsely depress this assay. Reference Range HDL <40 mg/dL Low HDL Cholesterol HDL >or= 60 mg/dL High HDL Cholesterol Cholesterol in LDL [Mass/Vol] 146 mg/dL 0-130 [facility] CO2 [Moles/Vol] 24.0 mmol/L 21.0-32.0 [facility] Globulin (S) [Mass/Vol] 3.8 g/dL 2.2-4.2 [facility] Urea nitrogen/Creatinine [Mass ratio] 15.0 mg/mg 10-20 [facility] Laboratory - Hematology and Cell countsOrdered By: Chrissy Yeboah on 09-29-2023 MCH (RBC) [Entitic mass] 31.7 pg 27.0-32.0 [facility] MCHC (RBC) [Mass/Vol] 33.5 g/dL 32-36 [facility] Nucleated RBC/100 WBC (Bld) [Ratio] 0 % 0-5 [facility] Platelet mean volume (Bld) [Entitic vol] 8.7 fL 6.2-12.0 [facility] Platelets (Bld) [#/Vol] 218 10*3/uL 150-450 [facility] No Panel InformationOrdered By: Chrissy Yeboah on 09-29-2023 Estimated GFR (MDRD) Amer 85 mL/min >60 [facility] Comment on above: GFR Calc Estimated GFR (MDRD) Non-Af Amer 71 mL/min >60 [facility] Comment on above: Non- GFR Calc VLDL Cholesterol 15 mg/dL 5-40 [facility] RBC Auto (Bld) [#/Vol]Ordere d By: Chrissy Yeboah on 09-29-2023 RBC (Bld) [#/Vol] 5.30 10*6/uL 4.2-5.4 [facility] Serum or plasma calcium cindy urement (mass/volume)Ordered By: Chrissy Yeboah on 09-29-2023 Calcium [Mass/Vol] 9.2 mg/dL 8.5-10.1 [facility] Serum or plasma creatinine m easurement (mass/volume)Ordered By: Chrissy Yeboah on 09-29-2023 Creatinine [Mass/Vol] 0.93 mg/dL 0.55-1.02 [facility] Comment on above: The validity of the calculated GFR & GFRAA in patients over 70 years has not been determined. Clinical correlation is essential. Serum or plasma urea nitroge n measurement (mass/volume)Ordered By: Chrissy Yeboah on 09-29-2023 Urea nitrogen [Mass/Vol] 14 mg/dL 7-18 [facility] Thin prep Papanicolaou smear with manual screeningOrdered By: Chrissy Yeboah on 09-29-2023 Thin prep Papanicolaou smear with manual screening 3.9 g/dL 3.2-5.0 [facility] Thin prep Papanicolaou smear with manual screening 29 U/L 15-37 [facility] Thin prep Papanicolaou smear with manual screening 3 5-15 [facility] Laboratory - Chemistry and C hemistry - challengeOrdered By: Dr. Yeboah on 11-09-2022 Cobalamin (Vitamin B12) [Mass/Vol] 382 pg/mL 211-911 [facility] No Panel InformationOrdered By: Dr. Yeboah on 11-09-2022 Urine Microalbumin/Creatinine Ratio TNP [facility] Comment on above: Test not performed Thin prep Papanicolaou smear with manual screeningOrdered By: Dr. Yeboah on 11-09-2022 Thin prep Papanicolaou smear with manual screening < 5.0 mg/L NO RANGE EST. [facility] Urine creatinine measurement (mass/volume)Ordered By: Dr. Yeboah on 11-09-2022 Creatinine (U) [Mass/Vol] mg/dL NO RANGE EST. [facility] STREP A MOLECULAR (POC)on Procedural Control Valid [facility] Strep A (POCT) Negative Negative [facility] UA DIP, URINE (POC)on 2022 BILIRUBIN UA (POCT) Negative Negative [facility] CLARITY UA (POCT) Clear [facility] COLOR UA (POCT) Yellow [facility] GLUCOSE UA (POCT) Negative Negative mg/dL [facility] HEMOGLOBIN/BLOOD UA (POCT) Negative Negative [facility] KETONE UA (POCT) Negative Negative mg/dL [facility] LEUKOCYTES UA (POCT) Negative Negative [facility] NITRITE UA (POCT) Negative Negative [facility] PH UA (POCT) 6.0 4.5 - 8.0 [facility] Protein Ql (U) Negative Negative mg/dL [facility] SPECIFIC GRAVITY UA (POCT) <=1.005 Abnormal 1.005 - 1.030 [facility] UROBILINOGEN UA (POCT) 0.2 E.U./dL Drea l E.U./dL [facility] Absolute lymphocyte counton 04-29-2022 Lymphocytes Auto (Unsp spec) [#/Vol] 1.42 10*3/uL 0.83-4.51 [facility] Work Phone: Basophil percentageon 2021 Basophils/100 WBC (Bld) 0.2 % 0-1 [facility] Work Phone: Bilirubin [Mass/Vol] 0.20 mg/dL 0.20-1.00 [facility] Work Phone: Comment on above: For patients on eltr ombopag therapy, use of Dimension [place] TBIL is not recommended. Chloride [Moles/Vol] 109 mmol/L 98-107 [facility] Work Phone: Eosinophils/100 WBC (Bld) 1.0 % 0-5 [facility] Work Phone: Glucose [Mass/Vol] 129 mg/dL 74-106 [facility] Work Phone: Comment on above: Fasting Glucose resu lt greater than or equal to 126 mg/dL suggests DIABETES MELLITUS per A.D.A. criteria. Neutrophils (Bld) [#/Vol] 7.7 10*3/uL 2.0-7.7 [facility] Work Phone: Neutrophils/100 WBC (Bld) 77.1 % 47-70 [facility] Work Phone: Potassium [Moles/Vol] 3.5 mmol/L 3.5-5.1 [facility] Work Phone: Protein [Mass/Vol] 7.4 g/dL 6.4-8.2 [facility] Work Phone: Sodium [Moles/Vol] 140 mmol/L 136-145 [facility] Work Phone: WBC (Bld) [#/Vol] 10.0 10*3/uL 4.4-11.0 [facility] Work Phone: Blood erythrocytes count (nu mber/volume)on 04-29-2022 RBC (Bld) [#/Vol] 4.59 10*6/uL 4.2-5.4 [facility] Work Phone: Blood hemoglobin measurement (mass/volume)on 04-29-2022 Hemoglobin (Bld) [Mass/Vol] 13.3 g/dL 12.0-15.0 [facility] Work Phone: [phone] Blood lymphocytes/100 leukoc yteson 04-29-2022 Lymphocytes/100 WBC (Bld) 14.2 % 19-41 [facility] Work Phone: [phone] Blood monocytes/100 leukocyt eson 04-29-2022 Monocytes/100 WBC (Bld) 7.1 % 0-10 [facility] Work Phone: [phone] Blood platelet mean volumeon 04-29-2022 Platelet mean volume (Bld) [Entitic vol] 8.9 fL 6.2-12.0 [facility] Work Phone: [phone] Determination of erythrocyte mean corpuscular volume (MCV)on 04-29-2022 MCV (RBC) [Entitic vol] 88.2 fL 81-99 [facility] Work Phone: Hematocrit Auto (Bld) [Volum e fraction]on 04-29-2022 Hematocrit (Bld) [Volume fraction] 40.5 % 37-47 [facility] Work Phone: Laboratory - Chemistry and C hemistry - challengeon 04-29-2022 ALP [Catalytic activity/Vol] 74 U/L 45-117 [facility] Work Phone: ALT [Catalytic activity/Vol] 15 U/L 13-56 [facility] Work Phone: CO2 [Moles/Vol] 23.0 mmol/L 21.0-32.0 [facility] Work Phone: Globulin (S) [Mass/Vol] 3.7 g/dL 2.2-4.2 [facility] Work Phone: [phone] Lipase [Catalytic activity/Vol] 368 U/L 73-393 [facility] Work Phone: [phone] Urea nitrogen/Creatinine [Mass ratio] 17.6 mg/mg 10-20 [facility] Work Phone: [phone] Laboratory - Hematology and Cell countson 04-29-2022 Erythrocyte distribution width (RBC) [Entitic vol] 48.2 fL 35.1-43.9 [facility] Work Phone: [phone] Erythrocyte distribution width (RBC) [Ratio] 14.8 % 11.6-14.6 [facility] Work Phone: [phone] Immature granulocytes/100 WBC (Bld) 0.400 % 0.0-0.9 [facility] Work Phone: [phone] Comment on above: IG% - Immature Granu locytes (promyelocytes, myelocytes and metamyelocytes) > 1% indicates that a LEFT SHIFT is Present. MCH (RBC) [Entitic mass] 29.0 pg 27.0-32.0 [facility] Work Phone: [phone] Nucleated RBC/100 WBC (Bld) [Ratio] 0 % 0-5 [facility] Work Phone: [phone] MCHC Auto (RBC) [Mass/Vol]on 04-29-2022 MCHC (RBC) [Mass/Vol] 32.8 g/dL 32-36 [facility] Work Phone: [phone] Panel Informationon 04-29 Estimated Creatinine Clearance Calc 71.24 ml/min [facility] Work Phone: [phone] Estimated GFR (MDRD) Amer 103 mL/min >60 [facility] Work Phone: [phone] Comment on above: GFR Calc Estimated GFR (MDRD) Non-Af Amer 85 mL/min >60 [facility] Work Phone: [phone] Comment on above: Non- GFR Calc Troponin I High Sensitivity 6 pg/mL 3.0-54.0 [facility] Work Phone: Comment on above: Please Note: [place] t Units and Gender Specific Reference Ranges. For more information see Policy Stat Procedure [place] High Sensitivity Troponin (TNIH) and attachments. Platelets bldon 04-29-2022 Platelets (Bld) [#/Vol] 216 10*3/uL 150-450 [facility] Work Phone: Serum or plasma albumin cindy urement (mass/volume)on 04-29-2022 Albumin [Mass/Vol] 3.7 g/dL 3.2-5.0 [facility] Work Phone: Serum or plasma albumin/glob ulin mass ratioon 04-29-2022 Albumin/Globulin [Mass ratio] 1.0 {ratio} 0.9-2.4 [facility] Work Phone: Serum or plasma calcium cindy urement (mass/volume)on 04-29-2022 Calcium [Mass/Vol] 9.0 mg/dL 8.5-10.1 [facility] Work Phone: Serum or plasma creatinine m easurement (mass/volume)on 04-29-2022 Creatinine [Mass/Vol] 0.80 mg/dL 0.55-1.02 [facility] Work Phone: Comment on above: The validity of the calculated GFR & GFRAA in patients over 70 years has not been determined. Clinical correlation is essential. Serum or plasma urea nitroge n measurement (mass/volume)on 04-29-2022 Urea nitrogen [Mass/Vol] 14 mg/dL 7-18 [facility] Work Phone: [phone] Thin prep Papanicolaou smear with manual screeningon 04-29-2022 Thin prep Papanicolaou smear with manual screening 27 U/L 15-37 [facility] Work Phone: [phone] Thin prep Papanicolaou smear with manual screening 8 5-15 [facility] Work Phone: Laboratory - Chemistry and C hemistry - challengeon 04-11-2022 T4 [Mass/Vol] 10.9 ug/dL 4.8-13.9 [facility] Work Phone: No Panel Informationon 04-11 Free Triiodothyronine (T3) pg/dL 2.8 pg/mL 2.18-3.98 [facility] Work Phone: Thyroid Stimulating Hormone (TSH) 1.41 uIU/mL 0.358-3.74 [facility] Work Phone: CHALO SCREENING W TOMOon 02-23 [facility] US THYROID/PARATHYROIDon [facility] XR Hand - left PA and Latera l and Obliqueon 12-02-2021 IMPRESSION: Negative Rag Boiler: PSCB Transcribe Date/Time: Dec 02 2021 7:08P Dictated by : DON WILLETT MD This examination was interpreted and the report reviewed and electronically signed by: DON WILLETT MD on Dec 02 2021 7:08PM EST [id number] SE_DIVISION OF RADIOLOGY * * *Final Report* * [...] joint spaces and soft tissues are unremarkable. [id number] _DIVISION OF RADIOLOGY [facility] * * *Final Report* * [...] soft tissues are unremarkable. IMPRESSION IMPRESSION: Negative Rag Boiler: PSCB Transcribe Date/Time: Dec 02 2021 7:08P Dictated by : DON WILLETT MD This examination was interpreted and the report reviewed and electronically signed by: DON WILLETT MD on Dec 02 2021 7:08PM EST [facility] Radiology Study observation (narrative) [facility] XR Hand - left PA and Latera l and ObliqueOrdered By: [facility] Provider on 12-02-2021 [facility] UA DIP, URINE (POC)on 2021 BILIRUBIN UA (POCT) Negative Negative [facility] CLARITY UA (POCT) Clear [facility] COLOR UA (POCT) Yellow [facility] GLUCOSE UA (POCT) Negative Negative mg/dL [facility] HEMOGLOBIN/BLOOD UA (POCT) Negative Negative [facility] KETONE UA (POCT) Negative Negative mg/dL [facility] LEUKOCYTES [facility] (POCT) [facility] NITRITE UA (POCT) Negative Negative [facility] PH UA (POCT) 7.0 4.5 - 8.0 [facility] Protein Ql (U) Negative Negative mg/dL [facility] SPECIFIC GRAVITY UA (POCT) 1.015 1.005 - 1.030 [facility] UROBILINOGEN UA (POCT) 0.2 E.U./dL Drea l E.U./dL [facility] Vital Signs Date Time Vital Sign Value Performing Clinician Facility 03-05-2025 09:39-0400 Body temperature 99.5 [degF] Dr. Chrissy Yeboah MD Work Phone: [facility] 03-05-2025 09:39-0400 Diastolic blood pressure 78 mm[Hg] Dr. Chrissy Yeboah MD Work Phone: [facility] 03-05-2025 09:39-0400 Heart rate 80 /min Dr. Chrissy Yeboah MD Work Phone: [facility] 03-05-2025 09:39-0400 Respiratory rate 16 /min Dr. Chrissy Yeboah MD Work Phone: [facility] 03-05-2025 09:39-0400 SaO2% (BldA) [Mass fraction] 98 % Dr. Chrissy Yeboah MD Work Phone: [facility] 03-05-2025 09:39-0400 Systolic blood pressure 130 mm[Hg] Dr. Chrissy Yeboah MD Work Phone: [facility] 08-31-2024 10:02-0400 Body temperature 98.9 [degF] Dr. Chrissy Yeboah MD Work Phone: [facility] 08-31-2024 10:02-0400 Diastolic blood pressure 84 mm[Hg] Dr. Chrissy Ybeoah MD Work Phone: [facility] 08-31-2024 10:02-0400 Heart rate 72 /min Dr. Chrissy Yeboah MD Work Phone: [facility] 08-31-2024 10:02-0400 SaO2% (BldA) [Mass fraction] 99 % Dr. Chrissy Yeboah MD Work Phone: [facility] 08-31-2024 10:02-0400 Systolic blood pressure 122 mm[Hg] Dr. Chrissy Yeboah MD Work Phone: [facility] 07-16-2024 14:34-0500 Body height 155.5 cm Karol Abel SUPERVISOR ASSEMBLING.CNM Work Phone: [facility] 07-16-2024 14:34-0500 Body mass index (BMI) [Ratio] 24.95 kg/m2 Karol Abel SUPERVISOR [employer]SEMBLING.CNM Work Phone: [facility] 07-16-2024 14:34-0500 Body weight 60.33 kg Karol Abel SUPERVISOR ASSEMBLING.CNM Work Phone: [facility] 07-16-2024 14:34-0500 Diastolic blood pressure 88 mm[Hg] Karol Abel SUPERVISOR ASSEMBLING.CNM Work Phone: [facility] 07-16-2024 14:34-0500 Systolic blood pressure 128 mm[Hg] Karol Abel SUPERVISOR ASSEMBLING.CNM Work Phone: [facility] 07-01-2024 13:33-0500 Body temperature 98.2 [degF] Dr. Chrissy Yeboah MD Work Phone: [facility] 07-01-2024 13:33-0500 Diastolic blood pressure 78 mm[Hg] Dr. Chrissy Yeboah MD Work Phone: [facility] 07-01-2024 13:33-0500 Heart rate 92 /min Dr. Chrisys Yeboah MD Work Phone: [facility] 07-01-2024 13:33-0500 Respiratory rate 12 /min Dr. Chrissy Yeboah MD Work Phone: [facility] 07-01-2024 13:33-0500 SaO2% (BldA) [Mass fraction] 97 % Dr. Chrissy Yeboah MD Work Phone: [facility] 07-01-2024 13:33-0500 Systolic blood pressure 122 mm[Hg] Dr. Chrissy Yeboah MD Work Phone: [facility] 04-28-2024 08:59-0500 Body mass index (BMI) [Ratio] 24.37 kg/m2 Rena Cobos SUPERVISOR ASSEMBLING.[employer] Work Phone: [facility] 04-28-2024 08:59-0500 Body temperature 97.5 [degF] Rena Cancino-Cole SUPERVISOR ASSEMBLING.[employer] Work Phone: [facility] 04-28-2024 08:59-0500 Body weight 58.5 kg Rena Cancino-Cole SUPERVISOR ASSEMBLING.[employer] Work Phone: [facility] 04-28-2024 08:59-0500 Diastolic blood pressure 70 mm[Hg] Rena Cancino-Cole SUPERVISOR ASSEMBLING.[employer] Work Phone: [facility] 04-28-2024 08:59-0500 Heart rate 86 /min Rena Cancino-Wood SUPERVISOR ASSEMBLING.[employer] Work Phone: [facility] 04-28-2024 08:59-0500 Respiratory rate 16 /min Rena Praisler-Wood SUPERVISOR ASSEMBLING.[employer] Work Phone: [facility] 04-28-2024 08:59-0500 SaO2% (BldA) [Mass fraction] 100 % Rena Praisler-Wood SUPERVISOR ASSEMBLING.[employer] Work Phone: [facility] 04-28-2024 08:59-0500 Systolic blood pressure 122 mm[Hg] Rena Praisler-Wood SUPERVISOR ASSEMBLING.[employer] Work Phone: [facility] 02-14-2024 10:50-0400 Body mass index (BMI) [Ratio] 24.54 kg/m2 Rena Praisler-Wood SUPERVISOR ASSEMBLING.[employer] Work Phone: [facility] 02-14-2024 10:50-0400 Body temperature 98.29 [degF] Rena Praisler-Wood SUPERVISOR ASSEMBLING.[employer] Work Phone: [facility] 02-14-2024 10:50-0400 Body weight 58.9 kg Rena Praisler-Wood SUPERVISOR ASSEMBLING.[employer] Work Phone: [facility] 02-14-2024 10:50-0400 Diastolic blood pressure 90 mm[Hg] Rena Praisler-Wood SUPERVISOR ASSEMBLING.[employer] Work Phone: [facility] 02-14-2024 10:50-0400 Heart rate 77 /min Rena Praisler-Wood SUPERVISOR ASSEMBLING.[employer] Work Phone: [facility] 02-14-2024 10:50-0400 Respiratory rate 18 /min Rena Praisler-Wood SUPERVISOR ASSEMBLING.[employer] Work Phone: [facility] 02-14-2024 10:50-0400 SaO2% (BldA) [Mass fraction] 100 % Rena Praisler-Wood SUPERVISOR ASSEMBLING.[employer] Work Phone: [facility] 02-14-2024 10:50-0400 Systolic blood pressure 143 mm[Hg] Rena Praisler-Wood SUPERVISOR ASSEMBLING.[employer] Work Phone: [facility] 10-22-2023 10:32-0400 Body temperature 97.4 [degF] Dr. Chrissy Yeboah Work Phone: [facility] 10-22-2023 10:32-0400 Diastolic blood pressure 84 mm[Hg] Dr. Chrissy Yeboah Work Phone: [facility] 10-22-2023 10:32-0400 Heart rate 76 /min Dr. Chrissy Yeboah Work Phone: [facility] 10-22-2023 10:32-0400 Respiratory rate 16 /min Dr. Chrissy Yeboah Work Phone: [facility] 10-22-2023 10:32-0400 SaO2% (BldA) [Mass fraction] 98 % Dr. Chrissy Yeboah Work Phone: [facility] 10-22-2023 10:32-0400 Systolic blood pressure 126 mm[Hg] Dr. Chrissy Yeboah Work Phone: [facility] 10-22-2023 08:11-0400 Body height 154.[address] Chrissy Yeboah Work Phone: [facility] 10-22-2023 08:11-0400 Body mass index (BMI) [Ratio] 25.9 kg/m2 Dr. Chrissy Yeboah Work Phone: [facility] 10-22-2023 08:11-0400 Body weight 62.[address] Chrissy Yeboah Work Phone: [facility] 10-21-2023 10:56-0400 Diastolic blood pressure 84 mm[Hg] Dr. Chrissy Yeboah Work Phone: [facility] 10-21-2023 10:56-0400 Heart rate 74 /min Dr. Chrissy Yeboah Work Phone: [facility] 10-21-2023 10:56-0400 Respiratory rate 16 /min Dr. Chrissy Yeboah Work Phone: [facility] 10-21-2023 10:56-0400 SaO2% (BldA) [Mass fraction] 99 % Dr. Chrissy Yeboah Work Phone: [facility] 10-21-2023 10:56-0400 Systolic blood pressure 127 mm[Hg] Dr. Chrissy Yeboah Work Phone: [facility] 10-21-2023 08:48-0400 Body height 154.[address] Chrissy Yeboah Work Phone: [facility] 10-21-2023 08:48-0400 Body mass index (BMI) [Ratio] 27.1 kg/m2 Dr. Chrissy Yeboah Work Phone: [facility] 10-21-2023 08:48-0400 Body temperature 97.9 [degF] Dr. Chrissy Yeboah Work Phone: [facility] 10-21-2023 08:48-0400 Body weight 65.[address] Chrissy Yeboah Work Phone: [facility] 08-27-2022 10:32-0500 Body temperature 98.01 [degF] Marina Wilkinson APRN.[employer]ATION ESC[employer] Work Phone: [facility] 08-27-2022 10:32-0500 Body weight 63.36 kg Marina Wilkinson APRN.[employer]ATION [employer] Work Phone: [facility] 08-27-2022 10:32-0500 Diastolic blood pressure 82 mm[Hg] Marina Wilkinson APRN.[employer] Work Phone: [facility] 08-27-2022 10:32-0500 Heart rate 88 /min Marina Wilkinson APRN.[employer] Work Phone: [facility] 08-27-2022 10:32-0500 Respiratory rate 18 /min Marina Wilkinson APRN.[employer] Work Phone: [facility] 08-27-2022 10:32-0500 SaO2% (BldA) [Mass fraction] 100 % Marina Wilkinson APRN.[employer] Work Phone: [facility] 08-27-2022 10:32-0500 Systolic blood pressure 138 mm[Hg] Marina Wilkinson APRN.[employer] Work Phone: [facility] 06-15-2022 08:23-0500 Body height 154.[address] Chrissy Yeboah Work Phone: [facility] Work Phone: 06-15-2022 08:23-0500 Body mass index (BMI) [Ratio] 25.4 kg/m2 Dr. Chrissy Yeboah Work Phone: [facility] Work Phone: 06-15-2022 08:23-0500 Body temperature 97.8 [degF] Dr. Chrissy Yeboah Work Phone: [facility] Work Phone: 06-15-2022 08:23-0500 Body weight 61.[address] Chrissy Yeboah Work Phone: [facility] Work Phone: 06-15-2022 08:23-0500 Diastolic blood pressure 113 mm[Hg] Dr. Chrissy Yeboah Work Phone: [facility] Work Phone: 06-15-2022 08:23-0500 Heart rate 86 /min Dr. Chrissy Yeboah Work Phone: [facility] Work Phone: 06-15-2022 08:23-0500 Respiratory rate 16 /min Dr. Chrissy Yeboah Work Phone: [facility] Work Phone: 12-22-2022 08:23-0500 SaO2% (BldA) [Mass fraction] 98 % Dr. Chrissy Yeboah Work Phone: [facility] Work Phone: 06-15-2022 08:23-0500 Systolic blood pressure 130 mm[Hg] Dr. Chrissy Yeboah Work Phone: [facility] Work Phone: 06-13-2022 08:26-0500 Body temperature 97.9 [degF] Dr. Chrissy Yeboah Work Phone: [facility] Work Phone: 06-13-2022 08:26-0500 Diastolic blood pressure 94 mm[Hg] Dr. Chrissy Yeboah Work Phone: [facility] Work Phone: 06-13-2022 08:26-0500 Heart rate 109 /min Dr. Chrissy Yeboah Work Phone: [facility] Work Phone: 06-13-2022 08:26-0500 Respiratory rate 16 /min Dr. Chrissy Yeboah Work Phone: [facility] Work Phone: 06-13-2022 08:26-0500 SaO2% (BldA) [Mass fraction] 99 % Dr. Chrissy Yeboah Work Phone: [facility] Work Phone: 06-13-2022 08:26-0500 Systolic blood pressure 141 mm[Hg] Dr. Chrissy Yeboah Work Phone: [facility] Work Phone: 06-13-2022 08:24-0500 Body mass index (BMI) [Ratio] 25.4 kg/m2 Dr. Chrissy Yeboah Work Phone: [facility] Work Phone: 06-13-2022 08:24-0500 Body weight 61.[address] Chrissy Yeboah Work Phone: [facility] Work Phone: 05-22-2022 11:31-0500 Body weight 60.33 kg Meghana Moore MD Work Phone: [facility] 05-22-2022 11:31-0500 Diastolic blood pressure 64 mm[Hg] Meghana Moore MD Work Phone: [facility] 05-22-2022 11:31-0500 Systolic blood pressure 118 mm[Hg] Meghana Moore MD Work Phone: [facility] 05-15-2022 14:49-0500 Body temperature 98.5 [degF] Dr. Chrissy Yeboah Work Phone: [facility] Work Phone: 05-15-2022 14:49-0500 Diastolic blood pressure 85 mm[Hg] Dr. Chrissy Yeboah Work Phone: [facility] Work Phone: 05-15-2022 14:49-0500 Heart rate 81 /min Dr. Chrissy Yeboah Work Phone: [facility] Work Phone: 05-15-2022 14:49-0500 Respiratory rate 16 /min Dr. Chrissy Yeboah Work Phone: [facility] Work Phone: 05-15-2022 14:49-0500 SaO2% (BldA) [Mass fraction] 100 % Dr. Chrissy Yeboah Work Phone: [facility] Work Phone: 05-15-2022 14:49-0500 Systolic blood pressure 129 mm[Hg] Dr. Chrissy Yeboah Work Phone: [facility] Work Phone: 05-15-2022 11:58-0500 Body height 154.[address] Chrissy Yeboah Work Phone: [facility] Work Phone: 05-15-2022 11:58-0500 Body mass index (BMI) [Ratio] 24.9 kg/m2 Dr. Chrissy Yeboah Work Phone: [facility] Work Phone: 05-15-2022 11:58-0500 Body weight 59.[address] Chrissy Yeboah Work Phone: [facility] Work Phone: 04-29-2022 21:16-0400 Body height 154.[address] Chrissy Yeboah Work Phone: [facility] Work Phone: 04-29-2022 21:16-0400 Body mass index (BMI) [Ratio] 24.5 kg/m2 Dr. Chrissy Yeboah Work Phone: [facility] Work Phone: 04-29-2022 21:16-0400 Body temperature 98.1 [degF] Dr. Chrissy Yeboah Work Phone: [facility] Work Phone: 04-29-2022 21:16-0400 Body weight 58.[address] Chrissy Yeboah Work Phone: [facility] Work Phone: 04-29-2022 21:16-0400 Diastolic blood pressure 82 mm[Hg] Dr. Chrissy Yeboah Work Phone: [facility] Work Phone: 04-29-2022 21:16-0400 Heart rate 95 /min Dr. Chrissy Yeboah Work Phone: [facility] Work Phone: 04-29-2022 21:16-0400 Respiratory rate 22 /min Dr. Chrissy Yeboah Work Phone: [facility] Work Phone: 04-29-2022 21:16-0400 SaO2% (BldA) [Mass fraction] 100 % Dr. Chrissy Yeboah Work Phone: [facility] Work Phone: 04-29-2022 21:16-0400 Systolic blood pressure 163 mm[Hg] Dr. Chrissy Yeboah Work Phone: [facility] Work Phone: 04-27-2022 12:58-0400 Body temperature 97.9 [degF] Alley Mcclelland SUPERVISOR ASSEMBLING.[employer] Work Phone: [facility] 04-27-2022 12:58-0400 Body weight 60.69 kg Alley Mcclelland SUPERVISOR ASSEMBLING.[employer] Work Phone: [facility] 04-27-2022 12:58-0400 Diastolic blood pressure 76 mm[Hg] Alley Mcclelland SUPERVISOR ASSEMBLING.[employer] Work Phone: [facility] 04-27-2022 12:58-0400 Heart rate 102 /min Alley Mcclelland SUPERVISOR ASSEMBLING.[employer] Work Phone: [facility] 04-27-2022 12:58-0400 Respiratory rate 18 /min Alley Mcclelland SUPERVISOR ASSEMBLING.[employer] Work Phone: [facility] 04-27-2022 12:58-0400 SaO2% (BldA) [Mass fraction] 99 % Alley Mcclelland SUPERVISOR ASSEMBLING.[employer] Work Phone: [facility] 04-27-2022 12:58-0400 Systolic blood pressure 124 mm[Hg] Alley Mcclelland SUPERVISOR ASSEMBLING.[employer] Work Phone: [facility] 04-18-2022 13:53-0400 Body weight 59.88 kg Karol Abel SUPERVISOR ASSEMBLING.CNM Work Phone: [facility] 04-18-2022 13:53-0400 Diastolic blood pressure 70 mm[Hg] Karol Abel SUPERVISOR [employer]SEMBLING.CNM Work Phone: [facility] 04-18-2022 13:53-0400 Systolic blood pressure 118 mm[Hg] Karol Abel SUPERVISOR ASSEMBLING.CNM Work Phone: [facility] 04-13-2022 16:11-0400 Body temperature 97.2 [degF] Darby Athy PA-C Work Phone: [facility] 04-13-2022 16:11-0400 Body weight 60.6 kg Darby Athy PA-C Work Phone: [facility] 04-13-2022 16:11-0400 Diastolic blood pressure 82 mm[Hg] Darby Athy PA-C Work Phone: [facility] 04-13-2022 16:11-0400 Heart rate 75 /min Darby Athy PA-C Work Phone: [facility] 04-13-2022 16:11-0400 Respiratory rate 16 /min Darby Athy PA-C Work Phone: [facility] 04-13-2022 16:11-0400 SaO2% (BldA) [Mass fraction] 99 % Darby Athy PA-C Work Phone: [facility] 04-13-2022 16:11-0400 Systolic blood pressure 132 mm[Hg] Darby Athy PA-C Work Phone: [facility] 03-21-2022 09:090400 Body height 154.9 cm Meghana Moore MD Work Phone: [facility] 03-21-2022 09:090400 Body weight 60.78 kg Meghana Moore MD Work Phone: [facility] 03-21-2022 09:09-0400 Diastolic blood pressure 76 mm[Hg] Meghana Moore MD Work Phone: [facility] 03-21-2022 09:09-0400 Systolic blood pressure 124 mm[Hg] Meghana Moore MD Work Phone: [facility] 03-13-2022 08:25-0400 Body height 154.[address] Chrissy Yeboah Work Phone: [facility] Work Phone: 03-13-2022 08:25-0400 Body mass index (BMI) [Ratio] 25.4 kg/m2 Dr. Chrissy Yeboah Work Phone: [facility] Work Phone: 03-13-2022 08:25-0400 Body weight 61.[address] Chrissy Yeboah Work Phone: [facility] Work Phone: 03-13-2022 08:25-0400 Diastolic blood pressure 96 mm[Hg] Dr. Chrissy Yeboah Work Phone: [facility] Work Phone: 03-13-2022 08:25-0400 Heart rate 110 /min Dr. Chrissy Yeboah Work Phone: [facility] Work Phone: 03-13-2022 08:25-0400 Respiratory rate 17 /min Dr. Chrissy Yeboah Work Phone: [facility] Work Phone: 03-13-2022 08:25-0400 SaO2% (BldA) [Mass fraction] 100 % Dr. Chrissy Yeboah Work Phone: [facility] Work Phone: 03-13-2022 08:25-0400 Systolic blood pressure 143 mm[Hg] Dr. Chrissy Yeboah Work Phone: [facility] Work Phone: 01-12-2022 17:56-0400 Body temperature 98.01 [degF] Abundio Wei SUPERVISOR [employer]SEMBLING.[employer] Work Phone: [facility] 01-12-2022 17:56-0400 Body weight 62.05 kg Abundio Wei SUPERVISOR [employer]SEMBLING.[employer] Work Phone: [facility] 01-12-2022 17:56-0400 Diastolic blood pressure 64 mm[Hg] Abundio Wei SUPERVISOR [employer]SEMBLING.[employer] Work Phone: [facility] 01-12-2022 17:56-0400 Heart rate 104 /min Abundio Wei SUPERVISOR [employer]SEMBLING.[employer] Work Phone: [facility] 01-12-2022 17:56-0400 Respiratory rate 18 /min Abundio Wei SUPERVISOR ASSEMBLING.[employer] Work Phone: [facility] 01-12-2022 17:56-0400 SaO2% (BldA) [Mass fraction] 98 % Abundio Wei SUPERVISOR [employer]SEMBLING.[employer] Work Phone: [facility] 01-12-2022 17:56-0400 Systolic blood pressure 122 mm[Hg] Abundio Wei SUPERVISOR [employer]SEMBLING.[employer] Work Phone: [facility] 11-16-2021 19:02-0400 Body temperature 97.59 [degF] Marina Wilkinson SUPERVISOR ASSEMBLING.[employer] Work Phone: [facility] 11-16-2021 19:02-0400 Body weight 61.69 kg Marina Wilkinson SUPERVISOR [employer]SEMBLING.[employer] Work Phone: [facility] 11-16-2021 19:02-0400 Diastolic blood pressure 76 mm[Hg] Marina Wilkinson SUPERVISOR [employer]SEMBLING.[employer] Work Phone: [facility] 11-16-2021 19:02-0400 Heart rate 110 /min Marina Wilkinson SUPERVISOR ASSEMBLING.[employer] Work Phone: [facility] 11-16-2021 19:02-0400 Respiratory rate 16 /min Marina Wilkinson SUPERVISOR ASSEMBLING.[employer] Work Phone: [facility] 11-16-2021 19:02-0400 SaO2% (BldA) [Mass fraction] 98 % Marina Wilkinson APRN.[employer] Work Phone: [facility] 11-16-2021 19:02-0400 Systolic blood pressure 124 mm[Hg] Marina Wilkinson APRN.[employer]ATION ESC[employer] Work Phone: [facility] Encounters Encounter Date Encounter Type Care Provider Facility Start: 04-23-2025 End: 04-23-2025 ambulatory [facility] Start: 04-23-2025 End: 04-23-2025 ambulatory [facility] Facility:[facility] Start: 04-02-2025 End: 04-02-2025 ambulatory [facility] Facility:[facility] Start: 03-27-2025 End: 03-27-20[facility] Start: 03-20-2025 End: 03-20-[address] Chrissy Yeboah MD Work Phone: -Ultrasound [facility] Start: 03-20-2025 End: 03-20-[address] Zak Bull MD -Ultrasound [facility] Work Phone: Start: 03-20-2025 End: 03-20-2025 ambulatory [facility] Facility:[facility] Start: 03-05-2025 End: 03-05-2025 Patient encounter procedure Fernandez Coleman MD [facility] Work Phone: Start: 03-05-2025 End: 03-05-[address] Chrissy Yeboah MD Work Phone: [facility] Start: 12-15-2024 End: 02-14-2025 Follow-up encounter Karol Abel APRN.CNM Work Phone: OB/Gynecology Start: 12-12-2024 Encounter for genera l adult medical examination with abnormal findings KAROL ABEL [facility] Start: 12-12-2024 End: 12-12-2024 ambulatory CHRISSY YEBOAH Facility:[facility] Start: 12-12-2024 Encounter for gynecological examination (general) (routine) without abnormal findings KAROL ABEL [facility] Start: 12-12-2024 End: 12-12-2024 Patient encounter status Screen [facility] Start: 12-12-2024 End: 12-12-2024 Subsequent hospital visit by physician Screen Mammo [facility] Comment on above: Encounter for gyneco logical examination (general) (routine) without abnormal findings [Z01.419] Start: 11-26-2024 End: 11-26-2024 Refill Karol Abel APRN.CNM Work Phone: OB/Gynecology Comment on above: Refill Request Start: 10-17-2024 End: 10-17-2024 ambulatory Nadiya Goldberg Facility:[facility] Start: 09-01-2024 End: 09-01-[address] Chrissy Yeboah MD Work Phone: [facility] Work Phone: Start: 09-01-2024 End: 09-01-[address] Chrissy Yeboah MD -Laboratory, Specimen Work Phone: Start: 08-31-2024 End: 08-31-2024 Patient encounter procedure Henry Roa NP-C [facility] Work Phone: Start: 08-31-2024 End: 09-01-2024 ambulatory Chrissy Yeboah Facility:[facility] Start: 07-16-2024 End: 07-16-2024 ambulatory KAROL ABEL Facility:[facility] Start: 07-16-2024 End: 07-16-2024 Patient encounter procedure Karol Abel [employer].CNM Work Phone: OB/Gynecology Comment on above: Encounter for gyneco logical examination (general) (routine) without abnormal findings (Primary Dx); Encounter for screening mammogram for breast cancer; Urinary tract infection without hematuria, site unspecified; Hot flashes; Night sweats Start: 07-16-2024 End: 07-16-2024 Patient encounter status Karol Plotts SUPERVISOR [employer]SEM[employer].CNM Work Phone: [facility] Start: 07-01-2024 End: 07-01-2024 Patient encounter procedure [facility] Work Phone: Start: 07-01-2024 End: 07-01-2024 ambulatory Prince SHELLEY Facility:[facility] Start: 06-27-2024 ambulatory Chrissy Yeboah Facility: [facility] Start: 05-31-2024 End: 06-02-2024 Refill Meghana Kapil Moore MD Work Phone: OB/Gynecology Comment on above: Refill Request Start: 04-28-2024 End: 04-28-2024 Telephone encounter Chrissy Yeboah MD Work Phone: Internal Medicine [place] Comment on above: Work excuse Start: 04-28-2024 End: 04-28-2024 Subsequent hospital visit by physician [facility] Work Phone: Radiology Comment on above: Body aches [R52] Start: 04-28-2024 End: 04-28-2024 Patient encounter procedure Rena Cobos APRN.[employer] Work Phone: [facility] Comment on above: Urinary frequency (P rimary Dx); Body aches; Vaginal burning Start: 04-14-2024 End: 04-14-2024 Emergency department patient visit ROSA WINSTON [facility] Start: 04-14-2024 End: 04-14-2024 Patient encounter procedure Umesh Cox APRN.[employer]ATION [employer] Work Phone: [facility] Comment on above: Injury of head, init ial encounter (Primary Dx) Start: 02-14-2024 End: 02-14-2024 Patient encounter procedure Rena Cobos APRN.[employer] Work Phone: [facility] Comment on above: Sinobronchitis (Prim sosa Dx); Feared condition not demonstrated Start: 10-23-2023 End: 10-23-[address] Chrissy Yeboah Work Phone: [facility] Work Phone: Start: 10-23-2023 End: 10-23-[address] Chrissy Yeboah Work Phone: [facility] Work Phone: Start: 10-22-2023 End: 10-22-2023 Emergency department patient visit Dr. Chrissy Yeboah Work Phone: [facility] Work Phone: Start: 10-21-2023 End: 10-21-2023 Emergency department patient visit Dr. Chrissy Yeboah Work Phone: [facility] Work Phone: Start: 10-09-2023 Admission to [facility] surgery [facility] Meghana Moore MD Work Phone: OB/Gynecology Comment on above: surgery dates Start: 10-09-2023 ambulatory Meghana Moore MD Work Phone: OB/Gynecology Start: 09-29-2023 End: 09-29-[address] Chrissy Yeboah Work Phone: [facility] Work Phone: Start: 09-29-2023 End: 09-29-[address] Chrissy Yeboah Work Phone: [facility]Laboratory Work Phone: Start: 08-27-2023 End: 08-27-[address] Chrissy Yeboah Work Phone: [facility] Work Phone: Start: 03-21-2023 End: 03-21-[address] Chrissy Yeboah Work Phone: [facility] Work Phone: Start: 03-21-2023 End: 03-21-[address] Chrissy Yeboah Work Phone: [facility] Work Phone: Start: 03-08-2023 End: 03-08-[address] hCrissy Yeboah Work Phone: [facility] Work Phone: Start: 02-27-2023 End: 02-27-[address] Chrissy Yeboah Work Phone: [facility] Work Phone: Start: 02-27-2023 End: 02-27-[address] Chrissy Yeboah Work Phone: [facility] Work Phone: Start: 02-12-2023 Refill Meghana Moore MD Work Phone: OB/Gynecology Comment on above: Refill Request Start: 11-09-2022 End: 11-09-[address] Chrissy Yeboah Work Phone: [facility] Work Phone: Start: 11-09-2022 End: 11-09-[address] [facility] [facility] Start: 11-06-2022 Non-patient / Non-visit Dr. Gustavo Yeboah Work Phone: [facility] Start: 11-06-2022 End: 11-06-[address] Chrissy Yeboah Work Phone: [facility] Start: 08-31-2022 ambulatory Meghana Moore MD Work Phone: OB/Gynecology Comment on above: Question Start: 08-27-2022 End: 08-27-2022 Patient encounter procedure Marina Don AMBROCIO Work Phone: [facility] Comment on above: Urinary frequency (P rimary Dx); Sore throat; Burning with urination; Rhinosinusitis Start: 08-24-2022 Refill Meghana Moore MD Work Phone: OB/Gynecology Comment on above: Refill Request Start: 08-01-2022 ambulatory Meghana Moore MD Work Phone: OB/Gynecology Comment on above: Question Start: 07-30-2022 Refill Meghana Moore MD Work Phone: OB/Gynecology Comment on above: Refill Request Start: 07-28-2022 ambulatory Meghana Moore MD Work Phone: OB/Gynecology Comment on above: Medicine question Start: 06-21-2022 ambulatory Meghana Moore MD Work Phone: OB/Gynecology Comment on above: Question Start: 06-15-2022 End: 06-15-2022 Emergency department patient [facility] Dr[facility] Start: 06-13-2022 End: 06-13-2022 Emergency department patient visit Dr[facility] Start: 06-01-2022 ambulatory Meghana Moore MD Work Phone: OB/Gynecology Comment on above: Question Start: 05-22-2022 End: 05-22-2022 Patient encounter procedure Meghana Moore MD Work Phone: OB/Gynecology Comment on above: Vaginal irritation ( Primary Dx); Abnormal uterine bleeding (AUB); Sterilization consult Start: 05-15-2022 End: 05-15-2022 Emergency department patient visit Dr. Chrissy Yeboah Work Phone: [facility] Start: 04-29-2022 End: 04-29-2022 Emergency department patient visit Dr. Chrissy Yeboah Work Phone: [facility] Start: 04-27-2022 End: 04-27-2022 Patient encounter procedure Alley Mcclelland SUPERVISOR [employer]SEMBLING.TRANSPORTATION ESCORT Work Phone: [facility] Comment on above: Nasal congestion (Pr imary Dx); Acute cough; At increased risk of exposure to COVID-19 virus Start: 04-20-2022 ambulatory Karol Barahona s SUPERVISOR ASSEMBLING.CNM Work Phone: OB/Gynecology Comment on above: Question Start: 04-18-2022 End: 04-18-2022 Patient encounter procedure Karol Abel SUPERVISOR [employer]SEMBLING.CNM Work Phone: OB/Gynecology Comment on above: Abnormal uterine ble eding (AUB) (Primary Dx); Acute vaginitis Start: 04-13-2022 End: 04-13-2022 Patient encounter procedure Darby Zheng PA-C Work Phone: [facility] Comment on above: Rash (Primary Dx) Start: 04-11-2022 End: 04-11-[address] Chrissy Yeboah Work Phone: [facility] Start: 03-29-2022 End: 03-29-[address] Chrissy Yeboah Work Phone: [facility] Start: 03-23-2022 End: 03-23-2022 Patient encounter procedure Meghana Moore MD Work Phone: OB/Gynecology Comment on above: Abnormal uterine ble eding (AUB) (Primary Dx) Start: 03-21-2022 End: 03-21-2022 Patient encounter procedure Meghana Moore MD Work Phone: OB/Gynecology Comment on above: Encounter for gyneco logical examination with abnormal finding (Primary Dx); Screening for cervical cancer; Encounter for screening for human papillomavirus (HPV); Abnormal uterine bleeding (AUB); History of thyroid nodule; Type 2 diabetes mellitus without complication, unspecified whether intermediate insulin use (HCC); Encounter for vitamin deficiency screening; Screening cholesterol level Start: 03-21-2022 End: 03-21-2022 Patient encounter status Meghana Moore MD Work Phone: OB/Gynecology Start: 03-13-2022 End: 03-13-[address] Chrissy Yeboha Work Phone: [facility] Work Phone: Start: 03-13-2022 End: 03-13-[address] Chrissy Yeboah Work Phone: [facility], Specimen Start: 03-13-2022 End: 03-13-[address] Chrissy Yeboah Work Phone: [facility] Start: 02-23-2022 End: 02-23-2022 Subsequent hospital visit by physician Screen Mammo [facility] M[facility] Start: 01-12-2022 End: 01-12-2022 Patient encounter procedure Abundio Wei APRN.TRANSPORTATION ESCORT Work Phone: [facility] Comment on above: Rash (Primary Dx) Start: 12-02-2021 End: 12-02-2021 Subsequent hospital visit by physician Xr [facility] Work Phone: Radiology Start: 11-16-2021 End: 11-16-2021 Patient encounter procedure Marina Wilkinson APRN.TRANSPORTATION ESCORT Work Phone: [facility] Comment on above: Vaginal itching (Nanette alena Dx); Burning with urination Procedures Date Procedure Procedure Detail Performing Clinician Start: 03-20-2025 US scan of thyroid Dr. Chrissy Yeboah MD Work Phone: Start: 09-01-[address] Alanna Yeboah MD Work Phone: Start: 07-16-2024 Urnls dip stick/tabl et rgnt auto w/o microscopy Karol Abel SUPERVISOR ASSEMBLING.CNM Work Phone: Start: 04-28-2024 Radiologic exam ches t 2 views Rena Cobos SUPERVISOR ASSEMBLING.TRANSPORTATION ESCORT Work Phone: Start: 04-28-2024 Urnls dip stick/tabl et rgnt auto w/o microscopy Darby Zheng PA-C Work Phone: Start: 10-22-2023 Plain chest X-ray Dr. Delvin Yeboah Work Phone: Start: 10-21-2023 CT of head without contrast Dr. Chrissy Yeboah Work Phone: Start: 03-21-2023 Screening mammography Agatha Yeboah Work Phone: Start: 02-27-2023 US scan of thyroid Dr. Chrissy Yeboah Work Phone: Start: 08-27-2022 STREP A MOLECULAR (POC) Alley Mcclelland SUPERVISOR ASSEMBLING.[employer]SPORTATION ESCORT Work Phone: Start: 08-27-2022 Urnls dip stick/tabl et rgnt auto w/o microscopy Alley Mcclelland SUPERVISOR ASSEMBLING.[employer]SPORTATION ESCORT Work Phone: Start: 06-13-2022 Diagnostic radiograp hy of finger Dr. Chrissy Yeboah Work Phone: Start: 02-23-2022 Us soft tissue head & neck real time imge docm [facility] Provider Start: 02-23-2022 CHALO SCREENING W CALLIE [facility] Provider Start: 12-02-2021 Radex hand minimum 3 views [facility] Provider Start: 11-16-2021 Urnls dip stick/tabl et rgnt auto w/o microscopy Marina Wilkinson SUPERVISOR ASSEMBLING.TRANSPORTATION ESCORT Work Phone: Start: 05-07-2015 Adult depression screening assessment Marina Wilkinson APRN.TRANSPORTATION ESCORT Work Phone: H/O: surgery H/O rectal polypectomy Dr. Delvin Yeboah Work Phone: Comment on above: Patient has a histor y of hyperplastic polyps that were removed via polypectomy at colonoscopy in 2016. I have shared with patient that this does not confer a increased risk of cancer since these do not represent adenomatous polyps. However, she was advised to pursue a 5-year surveillance colonoscopy and has persistent constipation issues. Therefore it is reasonable to consider a surveillance colonoscopy as it is now been 6 years since her last scope. Based on her history, I do not see a clear increased risk for colon cancer, but patient admittedly is not able to provide some of her history due to estranged relations with her mother. Plan of Treatment Date Care Activity Detail Author Start: 03-21-2027 HPV TESTING HPV TESTING [facility] Start: 03-21-2027 PAP TESTING PAP TESTING [facility] Start: 03-21-2027 Screening for malign ant neoplasm of cervix [facility] Start: 12-12-2025 Screening for malign ant neoplasm of breast Mammogram Screening [facility] Start: 02-23-2025 Influenza vaccination C [facility] Start: 2024 Covid-19 Vaccine ( season) Covid-19 Vaccine () [facility] Start: 2024 Influenza vaccination C [facility] Start: 10-22-2023 [facility] Start: 10-22-2023 Plain chest X-ray Chest 1 View (Port able) [facility] Start: 10-22-2023 XR Chest Single view [facility] Start: 10-21-2023 [facility] Start: 06-25-2023 Behavioral Health Screening Behavioral Health Screening [facility] Start: 02-27-2023 US scan of thyroid Thyroid [facility] Start: 2023 Screening for malign ant neoplasm of breast Mammogram Screening [facility] Start: 02-23-2023 Covid-19 Vaccine ( season) Covid-19 Vaccine ( season) [facility] Start: 02-23-2023 Influenza vaccination INFLUENZA (#1) [facility] Start: 06-25-2022 DEPRESSION ASSESSMENT DEPRESSION ASS ESSMENT [facility] Start: 04-27-2022 End: 05-11-2022 Influenza virus A and B RNA and SARS-CoV-2 (COVID-19) N gene panel - Respiratory specimen by TRAVON with probe detection COVID WITH FLUA+B, ROUTINE Microbiology Routine Nasal congestion Acute cough At increased risk of exposure to COVID-19 virus Expected: 04/27/2022, Expires: 05/11/2022 [facility] Work Phone: Comment on above: Expected: 04/27/2022 , Expires: 05/11/2022 Start: 04-20-2022 End: 06-20-2022 Bacteria identified in Urine by Culture URINE CULTURE Microbiology Routine Dysuria Expected: 04/20/2022, Expires: 06/20/2022 [facility] Work Phone: Comment on above: Expected: 04/20/2022 , Expires: 06/20/2022 Start: 04-20-2022 End: 06-20-2022 Urinalysis complete panel - Urine URINALYSIS, WITH MICROSCOPIC Lab Routine Dysuria Expected: 04/20/2022, Expires: 06/20/2022 [facility] Work Phone: Comment on above: Expected: 04/20/2022 , Expires: 06/20/2022 Start: 03-21-2022 End: 05-21-2022 25-hydroxyvitamin D3 [Mass/volume] in Serum or Plasma VITAMIN D 25 HYDROXY Lab Routine Encounter for vitamin deficiency screening Expected: 03/21/2022, Expires: 05/21/2022 [facility] Work Phone: Comment on above: Expected: 03/21/2022 , Expires: 05/21/2022 Start: 03-21-2022 End: 05-21-2022 CBC panel - Blood by Automated count CBC Lab Routine Abnormal uterine bleeding (AUB) Expected: 03/21/2022, Expires: 05/21/2022 [facility] Work Phone: Comment on above: Expected: 03/21/2022 , Expires: 05/21/2022 Start: 03-21-2022 End: 05-21-2022 Hemoglobin A1c in Blood HGB A1C Lab Routine Type 2 diabetes mellitus without complication, 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 (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) Expected: 03/21/2022, Expires: 05/21/2022 [facility] Work Phone: Comment on above: Expected: 03/21/2022 , Expires: 05/21/2022 Start: 03-21-2022 End: 05-21-2022 LIPID PANEL, NONFASTING LIPID PANEL, NONFASTING Lab Routine Screening cholesterol level Expected: 03/21/2022, Expires: 05/21/2022 [facility] Work Phone: Comment on above: Expected: 03/21/2022 , Expires: 05/21/2022 Start: 03-21-2022 End: 05-21-2022 T4/FTI/T4U T4/FTI/T4U Lab Routine Abnormal uterine bleeding (AUB) History of thyroid nodule Expected: 03/21/2022, Expires: 05/21/2022 [facility] Work Phone: Comment on above: Expected: 03/21/2022 , Expires: 05/21/2022 Start: 03-21-2022 End: 05-21-2022 Thyrotropin [Units/volume] in Serum or Plasma TSH BLD Lab Routine Abnormal uterine bleeding (AUB) History of thyroid nodule Expected: 03/21/2022, Expires: 05/21/2022 [facility] Work Phone: Comment on above: Expected: 03/21/2022 , Expires: 05/21/2022 Start: 03-21-2022 End: 05-21-2022 Triiodothyronine (T3) [Mass/volume] in Serum or Plasma T3 BLD Lab Routine Abnormal uterine bleeding (AUB) History of thyroid nodule Expected: 03/21/2022, Expires: 05/21/2022 [facility] Work Phone: Comment on above: Expected: 03/21/2022 , Expires: 05/21/2022 Start: 02-23-2022 Influenza vaccination [facility] Start: 06-25-2021 [facility] Start: 05-07-2016 Adult depression [facility] assessment DEPRESSION SCREENING [facility] Start: 2013 HPV TESTING HPV TESTING [facility] Start: 01-01-2011 PAP TESTING PAP TESTING [facility] Start: 2010 HPV Vaccine (1 - 3-d ose SCDM series) HPV Vaccine (1 - 3-dose SCDM series) [facility] Start: 2002 Hepatitis B Vaccine (1 of 3 - 19+ 3-dose series) Hepatitis B Vaccine (1 of 3 - 19+ 3-dose series) [facility] Start: 2002 Pneumococcal vaccination Pneum ococcal Vaccine (1 of 2 - PCV) [facility] Start: 2002 Urine microalbumin profile [facility] Start: 2001 Anxiety Screening Anxiety Screening [facility] Start: 2001 Depression Screening Depression Scre ening [facility] Start: 2001 HEPATITIS C SCREENING HEPATITIS C [facility] Start: 2001 Hepatitis C screening Hepatitis C [facility] Start: 1989 PNEUMOCOCCAL (1 - PCV) PNEUMOCOCCAL (1 - PCV) [facility] Start: 1989 Pneumococcal vaccination Pneum ococcal Vaccine (1 of 2 - PCV) [facility] Start: 02-25-1988 COVID-19 VACCINE (#1) COVID-19 VACCI NE (#1) [facility] Start: 1983 COVID-19 VACCINE (#1) COVID-19 VACCI NE (#1) [facility] Start: 1983 HEPATITIS B (1 of 3 - 3-dose series) HEPATITIS B (1 of 3 - 3-dose series) [facility] Bacteria identified in Urine by Culture URINE CULTURE Microbiology Routine Urinary frequency Ordered: 08/27/2022 [facility] Work Phone: Comment on above: Ordered: 08/27/2022 Bacteria identified in Urine by Culture URINE CULTURE Microbiology Routine Urinary frequency 04/28/2024 9:24 AM EST [facility] Work Phone: BACTERIAL VAGINOSIS AMPLIFICATION [facility] Work Phone: Comment on above: Ordered: 11/16/2021 BACTERIAL VAGINOSIS AMPLIFICATION BACTERIAL VAGINOSIS AMPLIFICATION Lab Routine Acute vaginitis 04/18/2022 2:58 PM EDT [facility] Work Phone: BACTERIAL VAGINOSIS AMPLIFICATION BACTERIAL VAGINOSIS AMPLIFICATION Lab Routine Vaginal irritation 05/22/2022 12:15 PM EST [facility] Work Phone: BACTERIAL VAGINOSIS AMPLIFICATION BACTERIAL VAGINOSIS AMPLIFICATION Lab Routine Burning with urination Ordered: 08/27/2022 [facility] Work Phone: Comment on above: Ordered: 08/27/2022 BACTERIAL VAGINOSIS NAAT BACTERI AL VAGINOSIS NAAT Lab Routine Vaginal burning 04/28/2024 9:26 AM EST [facility] Calcium [Mass/volume ] in Serum or Plasma [facility] Work Phone: Calcium [Mass/volume ] in Serum or Plasma [facility] JANI / TRICHOMONA S AMPLIFICATION JANI / TRICHOMONAS AMPLIFICATION Lab Routine Vaginal itching Burning with urination Ordered: 11/16/2021 [facility] Work Phone: Comment on above: Ordered: 11/16/2021 JANI / TRICHOMONA S AMPLIFICATION JANI / TRICHOMONAS AMPLIFICATION Microbiology Routine Vaginal irritation 05/22/2022 12:15 PM EST [facility] Work Phone: JANI / TRICHOMONA S AMPLIFICATION JANI / TRICHOMONAS AMPLIFICATION Microbiology Routine Burning with urination Ordered: 08/27/2022 [facility] Work Phone: Comment on above: Ordered: 08/27/2022 JANI/TRICHOMONAS NAAT JANI /TRICHOMONAS NAAT Lab Routine Vaginal burning 04/28/2024 9:26 AM EST [facility] Chlamydia trachomatis+Neisseria gonorrhoeae DNA [Presence] in Unspecified specimen by TRAVON with probe detection GC/CHLAMYDIA DNA DET Lab Routine Vaginal itching Burning with urination Ordered: 11/16/2021 [facility] Work Phone: Comment on above: Ordered: 11/16/2021 End: 08-15-2025 DBT Breast - bilateral screening CHALO SCREENING W CALLIE Radiology Routine Encounter for gynecological examination (general) (routine) without abnormal findings Encounter for screening mammogram for breast cancer Urinary tract infection without hematuria, site unspecified 1 Occurrences starting 07/16/2024 until 08/15/2025 [facility] Work Phone: Comment on above: 1 Occurrences starti ng 07/16/2024 until 08/15/2025 DBT Breast - bilater al screening CHALO SCREENING W CALLIE Radiology Routine Encounter for gynecological examination (general) (routine) without abnormal findings Encounter for screening mammogram for breast cancer Urinary tract infection without hematuria, site unspecified 12/12/2024 8:34 AM EDT [facility] Work Phone: PAP FLUID CERVICAL SCREENING PAP FLUID CERVICAL SCREENING Lab Routine Screening for cervical cancer Encounter for screening for human papillomavirus (HPV) 03/21/2022 9:42 AM EDT [facility] Work Phone: Patient Education [facility] Work Phone: Patient referral [facility] Work Phone: PELVIC US WHI PELVIC US WHI An c Imaging Routine Abnormal uterine bleeding (AUB) Ordered: 03/21/2022 [facility] Work Phone: Comment on above: Ordered: 03/21/2022 SARS-CoV-2 (COVID-19 ) Ag [Presence] in Upper respiratory specimen by Rapid immunoassa [facility] Thyroid stimulating hormone measurement [facility] Work Phone: Thyroid stimulating hormone measurement [facility] Thyroxine measurement [facility] Work Phone: Thyroxine measurement [facility] Triiodothyronine, fr ee measurement [facility] Work Phone: Triiodothyronine, fr ee measurement [facility] End: 01-14-2026 US Breast - bilateral US BREAST COMPLETE BILATERAL Radiology Routine Dense breast tissue 1 Occurrences starting 12/15/2024 until 01/14/2026 [facility] Work Phone: Comment on above: 1 Occurrences starti ng 12/15/2024 until 01/14/2026 US Thyroid gland [facility] Vitamin D, 25-hydrox y measurement [facility] Payers Date Payer Category Payer Self-pay [id number] 2024 Medicaid [id number] 2022 Private Health Insurance [id number] 2022 Private Health Insurance [id number] 2020 Unknown [id number] 2020 Unknown [id number] 2016 Unknown [id number] 2010 Unknown [id number] 1983 Unknown [id number] 2.16.8 [id number] 1983 Unknown [id number] 2.16.8 [id number] Unknown [id number] Unknown [id number] 2.16.8 [id number] Unknown [id number] 2.16.8 [id number] Unknown [id number] 2.16.8 [id number] Unknown [id number] 2.16.8 [id number] Unknown [id number] 2.16.8 [id number] Unknown [id number] 2.16.8 [id number] Unknown [id number] 2.16.8 [id number] Unknown [id number] 2.16.8 [id number] Unknown [id number] 2.16.8 [id number] Unknown [id number] 2.16.8 [id number] Social History Date Type Detail Facility Start: 09-25-2014 End: 04-15-2024 Tobacco smoking status NHIS Smokes tobacco daily [facility] Work Phone: History of tobacco use Cigarette Smoker C [facility] Work Phone: Start: 11-16-2021 End: 04-28-2024 Alcohol intake Current drinker of alcohol (finding) [facility] Start: 06-08-2014 History SDOH Alcohol Comment occasional 3x per yr [facility] Start: 1985 Sex Assigned At Not on file C [facility] Start: 11-06-2021 End: 04-27-2022 Exposure to SARS-CoV-2 (event) Not sure [facility] Work Phone: Start: 09-25-2014 End: 06-27-2023 Cigarettes smoked current (pack per day) - Reported 1 [facility] Start: 09-25-2014 End: 02-14-2024 Tobacco use and exposure Smokeless tobacco non-user [facility] Work Phone: Start: 03-13-2022 End: 10-22-2023 Tobacco smoking status NHIS Unknown if ever smoked [facility] Start: 1985 Sex Assigned At Female [facility] Start: 08-27-2022 End: 06-27-2023 Tobacco use panel [facility] Start: 05-26-2012 National Score (1-10 0), lower number is lower risk 48 [facility] Start: 07-16-2024 Alcoholic beverage intake Ex-drinker (finding) [facility] Start: 09-11-2024 Sex Female (finding) [facility] Mental Status Date Assessment Result Facility 10-22-2023 Cognitive function Level Of Cons ciousness Awake;Alert;Appropriate;Follow s Commands [facility] Work Phone: 10-21-2023 Cognitive function Level Of Cons ciousness Awake;Alert;Appropriate;Follow s Commands [facility] Work Phone: Clinical Notes 11-16-2021 to 03-22-2025 Note Date & Type Note Facility 03-22-2025 Radiology Diagnostic study note [facility] Imaging Services [address] [place], [place] [address] Thyroid MR#: [id number] Acct: [id number] Name: ERNESTO BRANCH Rep #: [id number] : 1985 F 40 From: Ralph Wyman DO PCP: Dr. Chrissy Yeboah MD Status: REG CLI Study:Thyroid Date of Exam: 03/20/25 Exam# [id number] Ordering Dr: Radha Bull MD PROCEDURE: THYROID 03/20/2025 REASON FOR EXAM: ONE YEAR F/U TECHNIQUE: Procedure Code: USTHY Modality: US Procedure: THYROID COMPARISON: Thyroid ultrasounds dated 02/29/2024 and 02/27/2023 FINDINGS: Right thyroid lobe size: 6.0 x 2.7 x 2.7 cm Left thyroid lobe size: 5.1 x 2.0 x 1.7 cm Isthmus: 5 mm Background parenchymal echotexture is homogeneous. Nodules: 1. Lobe: Right, Location: Mid, Size: 2.7 x 2.6 x 1.7 cm, Stability: Minimally larger Composition: Mixed cystic and solid (+1) Echogenicity: Hypoechoic (+2) Margin: Smooth (+0) Shape: Wider than tall (+0) Echogenic Foci: None (+0) TI-RADS: <2 = TR 1 * 2 = TR 2 * 3 = TR 3 * 4-6 = TR 4 * >6 = TR 5 2. Lobe: Right, Location: Mid to lateral, Size: 7 x 4 x 4 mm, Stability: New Composition: Mixed cystic and solid (+1) Echogenicity: Hypoechoic (+2) Margin: Smooth (+0) Shape: Wider than tall (+0) Echogenic Foci: None (+0) TI-RADS: <2 = TR 1 * 2 = TR 2 * 3 = TR 3 * 4-6 = TR 4 * >6 = TR 5 3. Lobe: Left, Location: Mid , Size: 1.4 x 1.2 x 0.9 mm, Stability: Stable Composition: Mixed cystic and solid (+1) Echogenicity: Hypoechoic (+2) Margin: Smooth (+0) Shape: Wider than tall (+0) Echogenic Foci: None (+0) TI-RADS: <2 = TR 1 * 2 = TR 2 * 3 = TR 3 * 4-6 = TR 4 * >6 = TR 5 4. Lobe: Left, Location: Mid to post, Size: 2.5 x 1.7 x 1.0 cm, Stability: Stable This nodule appears to be posterior to the thyroid gland. Composition: Mixed cystic and solid (+1) Echogenicity: Hypoechoic (+2) Margin: Smooth (+0) Shape: Wider than tall (+0) Echogenic Foci: None (+0) TI-RADS: <2 = TR 1 * 2 = TR 2 * 3 = TR 3 * 4-6 = TR 4 * >6 = TR 5 5. Lobe: Left, Location: Mid to inferior, Size: 7 x 8 x 4 mm, Stability: Stable Composition: Mixed cystic and solid (+1) Echogenicity: Hypoechoic (+2) Margin: Smooth (+0) Shape: Wider than tall (+0) Echogenic Foci: None (+0) TI-RADS: <2 = TR 1 * 2 = TR 2 * 3 = TR 3 * 4-6 = TR 4 * >6 = TR 5 US/Thyroid IMPRESSION: Findings compatible with multinodular goiter. RECOMMENDATION: Based on most suspicious nodule. Nodule size = largest diameter Only evaluate nodule if =>5 mm. Growth > 20% in 2 dimensions = worsening. Follow up to 4 nodules. Recommend biopsy for no more than 2 nodules. Reading Location: [facility] [place] 2] CC: Dr. Chrissy Yeboah MD; Dr. Zak Bull MD ~ Rag Boiler: Signed [facility] 03-05-2025 Evaluation note Diagnosis Onset Date Resolution Acute upper respiratory infection acute March 05, 2025 9:28am [facility] Work Phone: 1(853) 538-654106-20-2025 History of Present illness Narrative* Hollie Becerra RT(R) - 12/12/2024 8:30 AM EDT Radiology Service Progress Note PATIENT NAME: Ernesto Branch DATE OF SERVICE: December 12, 2024 TIME: 8:35 AM PATIENT IDENTITY VERIFICATION COMPLETED USING TWO (2) IDENTIFIERS: Name and Date of confirmedby patient verbally. FALL SCREENING: Has the patient had 2 falls in the last year or 1 fall with injury or currently using an Ambulatory Assistive Device (Walker, Cane, Wheelchair, Crutches, etc.)? No PATIENT GENDER DATA: Assigned female at . status: : No status:NO. PATIENT RELEVANT IMPLANT DATA REVIEWED: Yes PATIENT PRESENTS WITH AN IMPLANTABLE OR ATTACHED SHAREPOINT ANALYST: No RADIOLOGY DEPARTMENT: Mammography PERIPHERAL IV DATA: Not applicable SIGNED BY: RT Reginaldo(R) December 12, 2024 8:35 AM documented in this encounterCleveland Clinic Foundation06-20-2025 NoteHNO ID: [id number] Author: HOLLIE BECERRA RT(R) Service: Radiology Author Type: Fly Frame Tender Type: Progress Notes Filed: 12/12/2024 08:35 Note Text: Radiology Service Progress Note PATIENT NAME: Ernesto Branch DATE OF SERVICE: December 12, 2024 TIME: 8:35 AM PATIENT IDENTITY VERIFICATION COMPLETED USING TWO (2) IDENTIFIERS: Name and Date of confirmed by patient verbally. FALL SCREENING: Has the patient had 2 falls in the last year or 1 fall with injury or currently using an Ambulatory Assistive Device (Walker, Cane, Wheelchair, Crutches, etc.)? No PATIENT GENDER DATA: Assigned female at . status: : No status: NO. PATIENT RELEVANT IMPLANT DATA REVIEWED: Yes PATIENT PRESENTS WITH AN IMPLANTABLE OR ATTACHED SHAREPOINT ANALYST: No RADIOLOGY DEPARTMENT: Mammography PERIPHERAL IV DATA: Not applicable SIGNED BY: Hollie Becerra, RT(R) December 12, 2024 8:35 [facility]06-04-2025 Telephone encounter Note* Telephone Encounter - Yaneth Woods RN - 11/26/2024 1:54 PM EDT Refill request received via [employer]. Patient last seen for annual exam on 07/16/24. Yaneth Woods RN [facility]06-04-2025 Miscellaneous Notes* Telephone Encounter - Yaneth Woods RN - 11/26/2024 1:54 PM EDT Refill request received via [employer]. Patient last seen for annual exam on 07/16/24. Yaneth Woods RN documented in this encounterCleveland Clinic Foundation01-22-2025 Instructions* Patient Instructions* Karol Abel APRN.TRISH - 07/16/2024 3:07 PM EST Non-Hormonal Vaginal Lubricants & Vaginal Moisturizers Symptoms of vaginal dryness can be managed by the regular use of vaginal moisturizing agents with supplemental use of vaginal lubricants for sexual intercourse. . Use of vaginal moisturizers and lubricants alone is effective treatment for vaginal dryness or dyspareunia (pain with intercourse) in some patients. Vaginal lubrications- Vaginal lubricants are designed to reduce friction and discomfort from dryness during sexual intercourse. The lubricant is applied inside the vagina and/or on the partner's penis or fingers just before sex. Coconut, [place], Avocado or Peanut oil- natural oils are not recommended for use with latex condoms or diaphragms as they can damage the latex Astroglide- has both water and silicone based KY Jelly- water based Just like me - Pure Romance Almost Naked Good Clean Love - Bio Nude ultra-sensitive Pjur- silicone ID Millennium- silicone Vaginal Moisturizers- Vaginal moisturizers are intended for use routinely, typically two or three days per week, not just during sexual activity. These products are typically bioadhesives. Many moisturizer products are available in pharmacies and online. HASH Replens Bhupinder Feminease Moist Again K-Y Liquid beads Products to assist with maintaining vaginal ph IsoFresh www.[employer] BiopHresh Rephresh documented in this encounterCleveland Clinic Foundation01-22-2025 NoteHNO ID: [id number] Author: KAROL ABEL APRN.CNM Service: ? Author Type: Children'S Attendant Type: Progress Notes Filed: 07/16/2024 16:45 Note Text: General Ophthalmologist offered: Patient declines. Wilson is a 39 year old who presents for an annual gynecologic exam without complaints. Age at Menarche: 9 Still get period: No -Takes Aygestin daily LMP: 06/27/2023 Menstrual flow: N/A Bleeding amount bothersome: N/A- Yes in the past Bleeding between periods: N/A Period symptoms: N/A Sexually active: Yes Time with current partner: 20 + years Contraception: Pill Contraception frequency: Always HPV vaccine: No HPV:negative Last pap smear: 03/21/2022 History of abnormal pap: Yes- years ago Leep: No. Cone biopsy: No. Bothersome pelvic pain: No Last mammogram: 02/23/2022 [facility] History of fibroids: No History of ovarian cyst: No Pain with intercourse: Yes Postcoital bleeding: No OB History T2 L3 SAB1 IAB0 Ectopic0 Multiple0 Live Births3 Director Digital History LMP: 06/27/2023 (Exact Date), Having periods Age at Menarche: Age at First : Age at Menopause: Director Digital History Comments: Sexual Activity: Yes; Male Contraception: [...] Never Used Substance Use Topics Alcohol use: Not Currently Comment: occasional 3x per yr Drug use: No REVIEW OF SYSTEMS Abdomen: No abdominal pain, nausea, vomiting, diarrhea, or constipation. No bloating, early satiety, indigestion, or increased flatulence. Bladder: No dysuria, gross hematuria, urinary frequency, urinary urgency, or incontinence. Breast: No breast lumps, nipple d/c, overlying skin changes, redness or skin retraction. Allergies and current medication updated:Yes SENSITIVE EXAM: The sensitive examination was discussed with the Patient or Patient's Authorized Academic Support Coordinator. As applicable, any other physician, advance practice provider, medical student, or other health professional student that will be observing or involved in the sensitive examination for educational or training purposes was discussed with the Patient or Authorized Academic Support Coordinator. The Patient or Authorized Academic Support Coordinator has agreed to proceed with the sensitive examination. (Sensitive examination includes inspection and/or palpation of the breasts, pelvis, prostate and anorectal regions). EXAM: BP 128/88 Ht 5' 1.22 (1.56m) Wt 133 lb (60.3kg) LMP 06/27/2023 BMI 24.95 kg/(m2). GENERAL: pleasant, female in no apparent distress HEENT: Normocephalic and atraumatic NECK: Supple and full range of motion DERMATOLOGY: Normal and without lesions BREAST: soft, non-tender, symmetric, no dominant mass, normal nipple-areolar complex, no lymphadenopathy, no nipple discharge, and fibrocystic changes CHEST: Normal inspiratory effort ABDOMEN: soft, non-tender, and no masses PELVIC: external genitalia normal, normal Bartholin's glands, urethra, Lorena's glands, no vulvar lesions, no cervical lesions, good vaginal support, physiologic discharge present, normal appearing perineal body and perianal region BIMANUAL: uterus normal size, shape and consistency, no adnexal masses, non-tender, and no cervical motion tenderness RECTOVAGINAL: deferred. NEURO: alert and oriented x3,exam grossly non-focal EXTREMITIES: normal ASSESSMENT/PLAN: 1) Health maintenance: Pap/HPV up to date. Mammogram ordered. Nutrition, exercise and routine health maintenance exams reviewed. Colon cancer screening: patient to discuss with PCP (has had colonoscopies in past) Lipids/glucose: followed by PCP 2) Contraception: None 3) STD screening: Declined STD check. 4) Perimenopausal- having hot flashes and night sweats- Discussed Bonafide options and hand out provided. Continue Aygestin 5 mg Po Daily- patient reports being nervous to stop taking to see if still having a period due to history of heavy bleeding that wouldn't stop Patient was scheduled to have an ablation / EMB last year but did not complete May reschedule ablation/EMB this year Discussed placement of Mirena IUD - patient declines Follow up one year or sooner as needed Karol Abel APRN.[facility]01-22-2025 History of Present illness Narrative* Karol Abel APRN.[facility] - 07/16/2024 2:30 PM EST General Ophthalmologist offered: Patient declines. Ernesto is a 39 year old who presents for an annual gynecologic exam without complaints. Age at Menarche: 9 Still get period: No -Takes Aygestin daily LMP: 06/27/2023 Menstrual flow: N/A Bleeding amount bothersome: N/A- Yes in the past Bleeding between periods: N/A Period symptoms: N/A Sexually active: Yes Time with current partner: 20 + years Contraception: Pill Contraception frequency: Always HPV vaccine: No HPV:negative Last pap smear: 03/21/2022 History of abnormal pap: Yes- years ago Leep: No. Cone biopsy: No. Bothersome pelvic pain: No Last mammogram: 02/23/2022 [facility] History of fibroids: No History of ovarian cyst: No Pain with intercourse: Yes Postcoital bleeding: No OB History T2 L3 SAB1 IAB0 Ectopic0 Multiple0 Live Births3 Director Digital History LMP: 06/27/2023 (Exact Date), Having periods Age at Menarche: Age at First : Age at Menopause: Director Digital History Comments: Sexual Activity: Yes; Male Contraception: [...] Never Used Substance Use Topics Alcohol use: Not Currently Comment: occasional 3x per yr Drug use: No REVIEW OF SYSTEMS Abdomen: No abdominal pain, nausea, vomiting, diarrhea, or constipation. No bloating, early satiety, indigestion, or increased flatulence. Bladder: No dysuria, gross hematuria, urinary frequency, urinary urgency, or incontinence. Breast: No breast lumps, nipple d/c, overlying skin changes, redness or skin retraction. Allergies and current medication updated:Yes SENSITIVE EXAM: The sensitive examination was discussed with the Patient or Patient's Authorized Academic Support Coordinator. As applicable, any other physician, advance practice provider, medical student, or other health professional student that will be observing or involved in the sensitive examination for educational or training purposes was discussed with the Patient or Authorized Academic Support Coordinator. The Patient or Authorized Academic Support Coordinator has agreed to proceed with the sensitive examination. (Sensitive examination includes inspection and/or palpation of the breasts, pelvis, prostate and anorectal regions). EXAM: BP 128/88 Ht 5' 1.22 (1.56m) Wt 133 lb (60.3kg) LMP 06/27/2023 BMI 24.95 kg/(m^2). GENERAL: pleasant, female in no apparent distress HEENT: Normocephalic and atraumatic NECK: Supple and full range of motion DERMATOLOGY: Normal and without lesions BREAST: soft, non-tender, symmetric, no dominant mass, normal nipple-areolar complex, no lymphadenopathy, no nipple discharge, and fibrocystic changes CHEST: Normal inspiratory effort ABDOMEN: soft, non-tender, and no masses PELVIC: external genitalia normal, normal Bartholin's glands, urethra, Lorena's glands, no vulvar lesions, no cervical lesions, good vaginal support, physiologic discharge present, normal appearing perineal body and perianal region BIMANUAL: uterus normal size, shape and consistency, no adnexal masses, non- tender, and no cervicalmotion tenderness RECTOVAGINAL: deferred. NEURO: alert and oriented x3,exam grossly non-focal EXTREMITIES: normal ASSESSMENT/PLAN: 1) Health maintenance: Pap/HPV up to date. Mammogram ordered. Nutrition, exercise and routine health maintenance exams reviewed. Colon cancer screening: patient to discuss with PCP (has had colonoscopies in past) Lipids/glucose: followed by PCP 2) Contraception: None 3) STD screening: Declined STD check. 4) Perimenopausal- having hot flashes and night sweats- Discussed Bonafide options and hand out provided. Continue Aygestin 5 mg Po Daily- patient reports being nervous to stop taking to see if still having a period due to history of heavy bleeding that wouldn't stop Patient was scheduled to have an ablation / EMB last year but did not complete May reschedule ablation/EMB this year Discussed placement of Mirena IUD - patient declines Follow up one year or sooner as needed Karol Abel APRN.CNM documented in this encounterCleveland Clinic Foundation01-07-2025 Evaluation note* Diagnosis Onset Date Resolution Status Admit Date Right shoulder strain acute Jun 1:28pm UTI (urinary tract infection) acute August 31, 2024 9:34am [facility] Work Phone: 1(216) 993-604212-09-2024 Telephone encounter Note* Telephone Encounter - Niki Garcia RN - 06/02/2024 9:14 AM EST Last annual with DM 06/27/23. [employer] message sent to schedule appt. Requested Prescriptions Pending Prescriptions Disp Refills norethindrone (AYGESTIN) 5 mg tablet 30 tablet 4 Sig: Take 1 tablet by mouth once daily. Niki Garcia RN [facility]12-09-2024 Miscellaneous Notes* Telephone Encounter - Nkii Garcia RN - 06/02/2024 9:14 AM EST Last annual with DM 06/27/23. [employer] message sent to schedule appt. Requested Prescriptions Pending Prescriptions Disp Refills norethindrone (AYGESTIN) 5 mg tablet 30 tablet 4 Sig: Take 1 tablet by mouth once daily. Niki Garcia, TERI documented in this encounterCleveland Clinic Foundation11-04-2024 Telephone encounter Note * Telephone Encounter - Rena Cobos APRN.CNP - 04/28/2024 11:15 AM EST Note created in [employer]. Rena Cobos APRN.CNP [facility]11-04-2024 Miscellaneous Notes* Telephone Encounter - Rena Sam APRN.CNP - 04/28/2024 11:15 AM EST Note created in [employer]. Rena Cobos APRN.CNP * Telephone Encounter - Gigi Stack RN - 04/28/2024 10:53 AM EST Patient asking if EC provider can send her a work excuse to her MyChart, for being seen today? Reports she said something to the nurse and didn't realize she didn't get a note until she was home. documented in this encounterCleveland Clinic Foundation11-04-2024 Telephone encounter Note * Telephone Encounter - Gigi Stack RN - 04/28/2024 10:53 AM EST Patient asking if EC provider can [facility]? Reports she said something to the nurse and didn't realize she didn't get a note until she was home. [facility]11-04-2024 Instructions* Patient Instructions* Rena Cobos APRN.TRANSPORTATION ESCORT - 04/28/2024 10:20 AM EST ASSESSMENT/PLAN: 1. Urinary frequency - ICD9: 788.41, ICD10: R35.0 (primary diagnosis) acute - Urine dip normal in office today. - UA DIP, URINE (POC) - URINE CULTURE Office Visit on 04/28/2024 Component Date Value Ref Range Status GLUCOSE UA (POCT) 04/28/2024 Negative Negative mg/dL Final BILIRUBIN UA (POCT) 04/28/2024 Negative Negative Final KETONE UA (POCT) 04/28/2024 Negative Negative mg/dL Final SPECIFIC GRAVITY UA (POCT) 04/28/2024 <=1.005 (A) 1.005 - 1.030 Final HEMOGLOBIN/BLOOD UA (POCT) 04/28/2024 Negative Negative Final PH UA (POCT) 04/28/2024 6.0 4.5 - 8.0 Final PROTEIN UA (POCT) 04/28/2024 Negative Negative mg/dL Final UROBILINOGEN UA (POCT) 04/28/2024 0.2 Normal E.U./dL Final NITRITE UA (POCT) 04/28/2024 Negative Negative Final LEUKOCYTES UA (POCT) 04/28/2024 Negative Negative Final COLOR UA (POCT) 04/28/2024 Yellow Final CLARITY UA (POCT) 04/28/2024 Clear Final 2. Body aches - ICD9: 780.96, ICD10: R52 - XR CHEST 2V FRONTAL/LAT IMPRESSION: No acute radiographic abnormality. Rag Boiler: JOAQUIM Transcribe Date/Time: Apr 28 2024 9:41A Dictated by : MADISON SANCHES MD 3. Vaginal burning - ICD9: 625.8, ICD10: N94.89 - will send Rx to pharmacy for flagyl-patient may start this medication if testing is positive for BV. - JANI/TRICHOMONAS NAAT - BACTERIAL VAGINOSIS NAAT - METRONIDAZOLE 500 MG TABLET - Follow-up with your PCP in 3-5 days if symptoms have not improved or sooner if symptoms worsen - Discussed red flags and need for immediate medical evaluation if any occur. - Discussed supportive care treatment with fluids, rest and analgesia. - Discussed expected course of illness Rena Cobos APRN.CNP documented in this encounterCleveland Clinic Foundation11-04-2024 History of Present illness Narrative* Dirk Angelo RT(R) - 04/28/2024 9:30 AM EST Radiology Service Progress Note PATIENT NAME: Ernesto Branch DATE OF SERVICE: April 28, 2024 TIME: 9:29 AM PATIENT IDENTITY VERIFICATION COMPLETED USING TWO (2) IDENTIFIERS: Name and Date of confirmedby patient verbally. FALL SCREENING: Has the patient had 2 falls in the last year or 1 fall with injury or currently using an Ambulatory Assistive Device (Walker, Cane, Wheelchair, Crutches, etc.)? No PATIENT GENDER DATA: Female. status: : No status: NO. PATIENT RELEVANT IMPLANT DATA REVIEWED: Not Applicable PATIENT PRESENTS WITH AN IMPLANTABLE OR ATTACHED SHAREPOINT ANALYST: No RADIOLOGY DEPARTMENT: General X-ray: Exam(s) Completed: Chest X-Ray PERIPHERAL IV DATA: Not applicable SIGNED BY: RT Alma(R) April 28, 2024 9:29 AM documented in this encounterCleveland Clinic Foundation11-04-2024 History of Present illness Narrative* Rena Cobos APRN.CNP - 04/28/2024 9:17 AM EST Subjective Flu Like Symptoms Associated symptoms include chills, congestion, myalgias and nausea. Pertinent negatives include nocoughing, fever, sore throat or vomiting. Ernesto Branch is a 39 year old female who presents with urinary frequency, vaginal burning, burning with urination and pelvic pressure. She has had symptoms x 3 days. She has a history of BV and would like to be tested for this. She is currently on OCP and not having periods. She denies concern for STDs. She also complains of body aches, chills, feeling more tired than normal. She has not had a fever. She denies cough but does have nasal congestion. Review of Systems Constitutional: Positive for chills and malaise/fatigue. Negative for fever. HENT: Positive for congestion. Negative for sore throat. Respiratory: Negative for cough and shortness of breath. Cardiovascular: Negative. Gastrointestinal: Positive for nausea. Negative for diarrhea and vomiting. Genitourinary: Positive for dysuria and frequency. Negative for flank pain, hematuria and urgency. See HPI Musculoskeletal: Positive for myalgias. BP 122/70 Pulse 86 Temp 36.4 C (97.5 F) Resp 16 Wt 58.5 kg (128 lb 15.5 oz) LMP 06/27/2023 (Exact Date) SpO2 100% BMI 24.37 kg/m PAST MEDICAL HISTORY Diagnosis Date Depression Diabetes [...] mcg (2,000 unit) cap Take by mouth. ALPRAZolam (XANAX) 0.25 mg tablet Take 0.25 mg by mouth two times a day as needed. norethindrone (AYGESTIN) 5 mg tablet Take 1 [...] Physical Exam Vitals and nursing note reviewed. Exam conducted with a orchard sprayer present. Constitutional: Appearance: Normal appearance. HENT: Right Ear: Tympanic membrane, ear canal and external ear normal. Left Ear: Tympanic membrane, ear canal and external ear normal. Nose: Congestion present. Mouth/Throat: Mouth: Mucous membranes are moist. Pharynx: Oropharynx is clear. Uvula midline. No oropharyngeal exudate or posterior oropharyngeal erythema. Cardiovascular: Rate and Rhythm: Normal rate and regular rhythm. Heart sounds: Normal heart sounds. Pulmonary: Effort: Pulmonary effort is normal. No respiratory distress. Breath sounds: Examination of the right-lower field reveals decreased breath sounds. Decreased breath sounds present. No wheezing or rales. Genitourinary: General: Normal vulva. Pubic Area: No rash. Vagina: Normal. Cervix: Normal. Comments: Swab for BV collected by student GEOVANNA Barahona. Musculoskeletal: Cervical back: Neck supple. Lymphadenopathy: Cervical: No cervical adenopathy. Skin: General: Skin is warm and dry. Findings: No erythema or rash. Neurological: Mental Status: She is alert. ASSESSMENT/PLAN: 1. Urinary frequency - ICD9: 788.41, ICD10: R35.0 (primary diagnosis) acute - Urine dip normal in office today. - UA DIP, URINE (POC) - URINE CULTURE Office Visit on 04/28/2024 Component Date Value Ref Range Status GLUCOSE UA (POCT) 04/28/2024 Negative Negative mg/dL Final BILIRUBIN UA (POCT) 04/28/2024 Negative Negative Final KETONE UA (POCT) 04/28/2024 Negative Negative mg/dL Final SPECIFIC GRAVITY UA (POCT) 04/28/2024 <=1.005 (A) 1.005 - 1.030 Final HEMOGLOBIN/BLOOD UA (POCT) 04/28/2024 Negative Negative Final PH UA (POCT) 04/28/2024 6.0 4.5 - 8.0 Final PROTEIN UA (POCT) 04/28/2024 Negative Negative mg/dL Final UROBILINOGEN UA (POCT) 04/28/2024 0.2 Normal E.U./dL Final NITRITE UA (POCT) 04/28/2024 Negative Negative Final LEUKOCYTES UA (POCT) 04/28/2024 Negative Negative Final COLOR UA (POCT) 04/28/2024 Yellow Final CLARITY UA (POCT) 04/28/2024 Clear Final 2. Body aches - ICD9: 780.96, ICD10: R52 - XR CHEST 2V FRONTAL/LAT IMPRESSION: No acute radiographic abnormality. Rag Boiler: JOAQUIM Transcribe Date/Time: Apr 28 2024 9:41A Dictated by : MADISON SANCHES MD 3. Vaginal burning - ICD9: 625.8, ICD10: N94.89 - will send Rx to pharmacy for flagyl-patient may start this medication if testing is positive for BV. - JANI/TRICHOMONAS NAAT - BACTERIAL VAGINOSIS NAAT - METRONIDAZOLE 500 MG TABLET - Follow-up with your PCP in 3-5 days if symptoms have not improved or sooner if symptoms worsen - Discussed red flags and need for immediate medical evaluation if any occur. - Discussed supportive care treatment with fluids, rest and analgesia. - Discussed expected course of illness Rena Cobos APRN.CNP documented in this encounterCleveland Clinic Foundation10-21-2024 History of Present illness Narrative* Umesh Cox APRN.CNP - 04/14/2024 6:00 PM EDT Patient triaged at [facility]. Here today with head injury, now nauseous and headache. Patient inno apparent distress at time of triage. I will refer to ER. documented in this encounterCleveland Clinic Foundation08-22-2024 Instructions* Patient Instructions* Rena Cobos APRN.CNP - 02/14/2024 11:19 AM EDT ASSESSMENT/PLAN: [...] Discussed expected course of illness Rena Cobos APRN.[employer]SP[employer] documented in this encounterCleveland Clinic Foundation08-22-2024 History of Present illness Narrative* Rena Cobos APRN.[employer]SP[employer] - 02/14/2024 10:59 AM EDT Subjective HPI Ernesto Branch is a 38 year old female who [...] Discussed expected course of illness Rena Cobos APRN.TRANSP[employer]ATION ESC[employer] documented in this encounterCleveland Clinic Foundation05-03-2024 Telephone encounter Note * Telephone Encounter - Hollie Owens - 10/26/2023 8:44 AM EDT Pt has been off work a lot due to a hospital stay this week. She would like move this procedure to late December around the . She has commitments at work in early December. Pt is okay to be notified via [employer]. [facility] Work Phone: 1(223) 742-779305-03-2024 Miscellaneous Notes* Telephone Encounter - Hollie Owens - 10/26/2023 8:44 AM EDT Pt has been off work a lot due to a hospital stay this week. She would like move this procedure to late December around the . She has commitments at work in early December. Pt is okay to be notified via [employer]. * Telephone Encounter - Hollie Vuong RN - 10/22/2023 12:30 PM EDT Patient wants 11/28. Pre Op scheduled. * Telephone Encounter - Cathy Sanches LPN - 10/15/2023 2:44 PM EDT Left message to call office. Does patient want to schedule surgery? Next available dates are 11/08, 11/14 and 11/28 at [facility] * Telephone Encounter - Niki Garcia RN - 10/10/2023 11:22 AM EDT Surgery sheet to Jayna with note to check [employer] message to be sure patient responds and does want to proceed prior to scheduling. Niki Garcia RN * Telephone Encounter - Meghana Walton MD - 10/09/2023 2:00 PM EDT Yep- I remember now- yes that is fine. * Telephone Encounter - Niki Garcia RN - 10/09/2023 1:51 PM EDT Your last visit note stated: Will need EMB at time of ablation- pt will not tolerate in office. Is that still okay? Surgery sheet to DM. * Telephone Encounter - Meghana Walton MD - 10/09/2023 1:20 PM EDT Does not need to schedule another appointment to discuss we can do that at her preop visit. Please put in OR booking sheet in my office. She can return to work on Sunday. No heavy lifting for 5 days nothing in the vagina for 5 days no driving the day of surgery. She will need EMB prior to surgery. * Telephone Encounter - Niki Garcia RN - 10/09/2023 8:31 AM EDT Surgery was discussed at 06/27/23 visit. Niki Garcia RN documented in this encounterCleveland Clinic Foundation04-29-2024 Telephone encounter Note * Telephone Encounter - Hollie Vuong RN - 10/22/2023 12:30 PM EDT Patient wants 6/6. Pre Op scheduled. [facility]04-28-2024 Discharge summary Author Yanick Livingston [facility] October 21, 2023 11:54am Note Date/Time October 21, 2023 9:[address] [facility] Medical Records Department [address] [place] [address] Emergency Department Summary 10/21/23 MR#: [id number] Acct: [id number] Name: ERNESTO BRANCH Rep #:[id number] : [id number] From: Yanick Livingston MD PCP: Dr. Chrissy Yeboah MD Status:REG ER Location: ED HPI History of Present Illness Chief Complaint: Dizziness Informant: patient Narrative Narrative: Intermittent dizziness for the past 5 days. Yesterday was the worst, she had tohave her come pick her up from work. She states she feels lightheaded but she also feels a sensation of movement like she is drunk. She states it does not affect her ability to walk in a straight line. She denies any numbnessor tingling. When walking up steps she is feeling it, and has felt like she might pass out. She states it makes it for awful but she does not get nausea orvomit. She has had some headaches with this, yesterday she was having tinnitus off-and-on in her left ear which she has never had before. She denies any recent URIs. She denies any recent head injuries. She is never had this before. She denies any peripheral neurologic symptoms or problems speaking or remembering anything. She states she has had a lot of stress lately and is asking if it is all related to that. Today it was occurring while she was in her car she does not remember any specific head movements to trigger any of the symptoms. [facility] Medical History Anxiety Back pain Depression Diabetes History of hemorrhoids Home Medications cholecalciferol (vitamin D3) 50 mcg (2,000 unit) capsule 2,000 unit PO DAILY 08/12/21 [History Last Taken Unknown] Saccharomyces boulardii 250 mg capsule (Daily Probiotic (S. boulardii)) 5,000 mmu cells PO DAILY 03/13/22 [History Last Taken Unknown] metformin 500 mg tablet,extended release 24 hr 500 mg PO TID 03/08/23 [History Last Taken Unknown] norethindrone acetate 5 mg tablet 5 mg PO DAILY 03/08/23 [History Last Taken Unknown] meclizine 25 mg tablet 25 mg PO Q8H PRN PRN Dizziness #20 tabs 10/21/23 [Rx Last Taken Unknown] Allergy/AdvReac Type Severity Reaction Status Date / Time aripiprazole [From Abilify] Allergy Swelling Verified 10/21/23 08:46 Gadolinium-MRI Contrast Allergy PT UNSURE Verified 10/21/23 08:46 Medium OF REACTION [MRI] iodine Allergy Other Verified 10/21/23 08:46 amphetamine [From Adderall] AdvReac PT UNSURE Verified 10/21/23 08:46 OF REACTION codeine AdvReac Itching Verified 03/08/23 12:56 dextroamphetamine AdvReac PT UNSURE Verified 10/21/23 08:46 [From Adderall] OF REACTION hydrocodone AdvReac Itching Verified 10/21/23 08:46 Iodinated Contrast Media AdvReac Other Verified 10/21/23 08:46 lamotrigine [From Lamictal] AdvReac NEEDS Verified 10/21/23 08:46 FOLLOW-UP Family History Aunt Breast cancer Grandfather Colon cancer Grandmother Heart disease High cholesterol Kidney disease Unknown Diabetes Surgical History History of cholecystectomy Social History Smoking Status: Current every day smoker tobacco type: cigarettes alcohol intake: never substance use type: does not use ROS ROS ED Constitutional Constitutional ED: Denies chills or fever(s) Eyes Eyes: Reports blurry vision bilateral (Intermittent, when she has headaches. History of migraines but this does not necessarily feel like a migraine); Denieschange in vision or diplopia ENT ENT ED: Reports other Details: Intermittent tinnitus left ear ; Denies ear pain, rhinorrhea or sore throat Cardiovascular Cardiovascular: Denies chest pain or palpitations Respiratory/Chest Respiratory/Chest: Denies cough or dyspnea Gastrointestinal Gastrointestinal: Denies abdominal pain, diarrhea, nausea or vomiting Genitourinary Genitourinary ED: Denies dysuria or hematuria Musculoskeletal Musculoskeletal: Denies back pain or neck pain Integumentary Denies abscess or rash Neurologic Neurologic: Reports as per HPI, disequilibrium, dizziness and headache(s); Denies paresthesias or weakness Psychiatric Psychiatric: Denies anxiety or suicidal thoughts EXAM Physical Exam Const Vital Signs: 10/21/23 08:48 10/21/23 09:05 10/21/23 09:31 Temperature 97.9 F Temperature Source Temporal Pulse Rate 80 Pulse Rate [Lying] 60 Pulse Rate [Sitting (for 1 minute prior to obtaining)] 65 Pulse Rate [Standing (for 1 minute prior to obtaining)] 84 Respiratory Rate 18 Respiratory Effort Normal Respiratory Pattern Normal Blood Pressure 124/86 H Blood Pressure [Lying] 111/80 Blood Pressure [Sitting (for 1 minute prior to obtaining)] 114/74 Blood Pressure [Standing (for 1 minute prior to obtaining)] 109/85 H Blood Pressure Mean 98 Blood Pressure Mean [Lying] 90 Blood Pressure Mean [Sitting (for 1 minute prior to obtaining)] 87 Blood Pressure Mean [Standing (for 1 minute prior to obtaining)] 93 Pulse Ox 100 Oxygen Delivery Method Room Air 10/21/23 10:56 Temperature Temperature Source Pulse Rate 74 Pulse Rate [Lying] Pulse Rate [Sitting (for 1 minute prior to obtaining)] Pulse Rate [Standing (for 1 minute prior to obtaining)] Respiratory Rate 16 Respiratory Effort Respiratory Pattern Blood Pressure 127/84 H Blood Pressure [Lying] Blood Pressure [Sitting (for 1 minute prior to obtaining)] Blood Pressure [Standing (for 1 minute prior to obtaining)] Blood Pressure Mean 98 Blood Pressure Mean [Lying] Blood Pressure Mean [Sitting (for 1 minute prior to obtaining)] Blood Pressure Mean [Standing (for 1 minute prior to obtaining)] Pulse Ox 99 Oxygen Delivery Method Room Air Positive well nourished and well developed General Appearance ED: well developed and NAD HEENT Reports TM's clear and moist mucous membranes normocephalic and atraumatic Tympanic Membrane ED: Yes TM's clear Eyes PERRL and EOMs intact bilaterally Eyes Narrative: No pathologic horizontal, vertical, rotatory nystagmus. Neck full ROM and supple Resp normal respiratory effort and clear to auscultation bilaterally Cardio regular rate, regular rhythm and no murmurs GI non-tender and non-distended Auscultation: normoactive bowel sounds Palpation: soft Back/Spine no CVA tenderness General Back: other FROM Extremity normal to inspection General Extremety ED: Negative for edema, pulses abnormal or tenderness General Extremity: Negative for edema or pulses abnormal Neuro oriented x3, CN's II-XII intact bilaterally and no sensory deficits noted Neuro Narrative: NIHSS 0. Normal mutzzb-zr-sjxi and lksq-ob-ooix bilaterally. No dysarthria or aphasia. Positive Oreland-Hallpike to the left, causing brief disequilibrium when when she sits up. Not enough time before resolution in order to do a jolt test. Zero symptoms with maneuver to the right. Sensorium / Orientation: awake and alert Motor Exam: strength 5/5 throughout Psych mental status grossly normal Skin no rashes or lesions noted and no wounds MDM MDM MDM Narrative Medical decision making narrative: Physical exam suggesting peripheral etiology as is the history. Obtained a CT, I reviewed the images and report which I agree with, it is negative for any acute. In the meantime, we ran some labs and she suggested she had a history ofanemia for unknown reason, and also gave her a dose of meclizine after she passed a dysphagia screen and then reevaluated her. She is doing much better. She is able to get up and move around she not having any more dizziness. Orthostatics are negative. Her blood test are normal, she is not anemic as she suggested. I reassured her, given all of this I suspect this is probably peripheral vertigo originating from the left ear. Given her prescription for meclizine and encouraging her to follow-up with symptoms do not self-resolved. Lab Data Attestation: I reviewed the patient's lab results. Labs: Laboratory Results - last 24 hr 10/21/23 09:20 WBC 6.6 RBC 5.09 Hgb 16.1 H Hct 47.7 H MCV 93.7 MCH 31.6 MCHC 33.8 RDW Std Deviation 43.8 RDW Coeff of Daryl 12.7 Plt Count 209 MPV 9.0 Immature Gran % (Auto) 0.200 Neut % (Auto) 70.6 H Lymph % (Auto) 21.3 Emanuel % (Auto) 5.9 Eos % (Auto) 1.4 Baso % (Auto) 0.6 Absolute Neuts (auto) 4.6 Absolute Lymphs (auto) 1.40 Nucleated RBC % 0 Sodium 140 Potassium 3.7 Chloride 111 H Carbon Dioxide 24.0 Anion Gap 5 BUN 12 Creatinine 0.97 Estim Creat Clear Calc 66.64 Est GFR (MDRD) Af Amer 81 Est GFR (MDRD) Non-Af 67 BUN/Creatinine Ratio 12.3 Glucose 145 H Calcium 9.4 Radiography Diagnostic Testing: Clinical Impression(s) from Imaging Studies Brain CT 10/21/23 09:16 IMPRESSION: Normal unenhanced CT scan of the brain. Electronically Signed: Yanick River MD at 10:59 EDT , Discharge Plan Triage Chief Complaint: Dizziness ED Provider: Yanick Livingston Dx/Rx/DC Orders Clinical Impression: Peripheral vertigo involving left ear Instructions: ED Labyrinthitis, ED Vertigo, Unspecified Prescriptions: New meclizine [meclizine] 25 mg tablet 25 mg PO Q8H PRN PRN (Reason: Dizziness) Qty: 20 0RF No Action Saccharomyces boulardii [Daily Probiotic (S. boulardii)] 250 mg capsule 5,000 mmu cells PO DAILY norethindrone acetate 5 mg tablet 5 mg PO DAILY cholecalciferol (vitamin D3) 50 mcg (2,000 unit) capsule 2,000 unit PO DAILY Patient Comments: TAKE 1 CAPSULE BY MOUTH EVERY DAY metformin 500 mg tablet extended release 24 hr 500 mg PO TID Patient Comments: TAKE 1 TABLET BY MOUTH 3 TIMES A DAY Primary Care Provider: Chrissy Yeboah Referrals: Chrissy Yeboah MD [Primary Care Provider] - 1 Week if not improving Disposition Disposition: Home, Self Care What to do if you have Problems For any increased pain, shortness of breath, bleeding, nausea or vomiting, chestpain, or any unexpected problems, contact your Primary Care Provider. Call [facility] ([phone]) or report to the closest Emergency Room. Call 911 if necessary. 10/21/23 1154 <Electronically signed by Yanick Livingston MD> Cosigner Signature (if applicable): CC: Dr. Chrissy Yeboah MD ~ Signed [facility] Work Phone: 1(197) 335-717304-22-2024 Telephone encounter Note* Telephone Encounter - Cathy Sanches LPN - 10/15/2023 2:44 PM EDT Left message to call office. Does patient want to schedule surgery? Next available dates are 11/08, 11/14 and 11/28 at [facility]04-17-2024 Telephone encounter Note* Telephone Encounter - Niki Garcia RN - 10/10/2023 11:22 AM EDT Surgery sheet to Jayna with note to check [employer] message to be sure patient responds and does want to proceed prior to scheduling. Niki Garcia RN [facility]04-16-2024 Telephone encounter Note* Telephone Encounter - Meghana Walton MD - 10/09/2023 2:00 PM EDT Yep- I remember now- yes that is fine. [facility]04-16-2024 Telephone encounter Note* Telephone Encounter - Niki Garcia RN - 10/09/2023 1:51 PM EDT Your last visit note stated: Will need EMB at time of ablation- pt will not tolerate in office. Is that still okay? Surgery sheet to DM. [facility]04-16-2024 Telephone encounter Note* Telephone Encounter - Meghana Walton MD - 10/09/2023 1:20 PM EDT Does not need to schedule another appointment to discuss we can do that at her preop visit. Please put in OR booking sheet in my office. She can return to work on Sunday. No heavy lifting for 5 days nothing in the vagina for 5 days no driving the day of surgery. She will need EMB prior to surgery. [facility]04-16-2024 Telephone encounter Note* Telephone Encounter - Niki Garcia RN - 10/09/2023 8:31 AM EDT Surgery was discussed at 06/27/23 visit. Niki Garcia RN [facility]08-21-2023 Miscellaneous Notes* Telephone Encounter - Andra High LPN - 02/12/2023 2:38 PM EDT See pt's mychart refill request. Pt was last seen in the office on 05/22/22. Please advise. Andra High LPN documented in this encounterC[facility]03-09-2023 Miscellaneous Notes* Telephone Encounter - Andra High LPN - 08/31/2022 7:02 AM EST Please advise on pt's mychart message re: aygestin. Andra High LPN documented in this encounterC[facility]03-05-2023 History of Present illness Narrative* Marina Wilkinson APRN.[employer] - 08/27/2022 10:37 AM EST Images from the original note were not included. CC: Patient presents with: Sore Throat: ST and rash x 2 days and frequency, urgency and burning x 2 days Urinary Frequency HPI: Ernesto Branch is a 37 year old female who [...] patient. Reviewed appropriate action plan to take ifred flag symptoms occur. Patient agreeable to treatment plan. Marina Wilkinson APRN.SHANTEL documented in this encounterC[facility]03-02-2023 Miscellaneous Notes* Telephone Encounter - Yaneth Woods RN - 08/24/2022 2:13 PM EST Refill request received from pharmacy. Patient last seen in office on 05/22/22. Yaneth Woods RN documented in this encounterC[facility]02-07-2023 Miscellaneous Notes* Telephone Encounter - Angel Wilkinson MD - 08/01/2022 4:51 PM EST That is fine Angel Wilkinson MD * Telephone Encounter - Angel Wilkinson MD - 08/01/2022 2:12 PM EST Please obtain topical medications and enter into patient's chart. Thanks! Angel Wilkinson MD * Telephone Encounter - Hollie Vuong RN - 08/01/2022 1:58 PM EST Please advise in DM's absence. documented in this encounterC[facility] Clinic Foundation12-29-2022 Miscellaneous Notes* Telephone Encounter - Andra High LPN - 06/22/2022 7:19 AM EST Please see pt's [employer] message and further advise. Andra High LPN documented in this encounterCleveland Clinic Foundation12-09-2022 Miscellaneous Notes* Telephone Encounter - Meghana Moore MD - 06/02/2022 9:06 AM EST Agree with advice. * Telephone Encounter - Andra High LPN - 06/01/2022 2:12 PM EST Please see pt's [employer] message regarding OCP . Andra High LPN documented in this encounterC[facility] Clinic Foundation11-28-2022 History of Present illness Narrative* Meghana Moore MD - 05/22/2022 11:27 AM EST General Ophthalmologist offered: Patient declines. Ernesto Branch is a 37 year old female who presents for concerns regarding possible yeast infection. Patient states she just finished a course of antibiotics was told to stop her vaginal probioticduring that time and now feels that irritated [...] concerned for risk of blood clot due toher smoking history as well as diabetes. Patient offers no other concerns today. OB History T2 L3 SAB1 IAB0 Ectopic0 Multiple0 Live Births3 Director Digital History LMP: 04/18/2022 (Exact Date), Having periods Age at Menarche: Age at First : Age at Menopause: Director Digital History Comments: Sexual Activity: Yes; Male Contraception: [...] 06/03/2014 Unknown LAMICTAL [LAMOTRIGINE] 03/15/2015 Swelling VICODIN [HYDROCODONE-ACETAMINOPHE*08/09/2005 Shortness of Breath Fully Assessed 04/27/2022 REVIEW [...] external genitalia normal, normal Bartholin's glands, urethra, Lorena's glands, no vulvar lesions, no cervical lesions, [...] Mirena IUD. We also discussed ablation with s alpingectomy-but reviewed that I do feel she is a good candidate for hormonal therapy as first-line. Patient will review the information and notify the office of her decision. I spent a total of 20 minutes on the date of the service which included preparing to see the patient, [id number] patient care, completing clinical documentation, obtaining and/or reviewing separately obtained history, performing a medically appropriate examination, counseling and educating the pat ient/family/caregiver, and ordering medications, tests, or procedures Medical Decision Making: Medical Decision Making Level: 1 - N/A Meghana Howe MD documented in this encounterC[facility] Clinic [facility]11-21-2022 Hospital Discharge instructions Additional Instructions Please follow-up with PCP in 5 to 7 days for evaluation. If you notice worsening of symptoms or increased redness and edema seek medical attention.[facility] Work Phone: 1(906) 448-555311-03-2022 History of Present illness Narrative* Marina Wilkinson APRN.[employer] - 04/27/2022 1:10 PM EDT CC: Patient presents with: Ear Pain: Pt reported throat pain, cough, nasal congestion, x1 wk. HPI: Ernesto Branch is a 37 year old female who [...] plan. Marina Wilkinson APRN.CNP documented in this encounterC[facility] Clinic [facility]10-27-2022 Miscellaneous Notes* Telephone Encounter - Karol Abel APRN.CNM - 04/20/2022 4:30 PM EDT Orders were not placed at visit because these were not symptoms causing her issues? I signed ordersif she feels she needs to have urine checked for UTI? Karol Abel APRN.CNM * Telephone Encounter - Niki Garcia RN - 04/20/2022 4:24 PM EDT Did you want patient to have UA / urine culture done? One wasn't done at visit on 04/18. Niki Garcia RN documented in this encounterCleveland Clinic Foundation10-25-2022 Miscellaneous Notes* Addendum Note - Karol Abel APRN.CNM - 04/18/2022 2:51 PM EDTAddended by: KAROL ABEL on: 04/18/2022 02:51 PM Modules accepted: Orders documented in this encounterCleveland Clinic Foundation10-25-2022 History of Present illness Narrative* Karol Abel APRN.CNM - 04/18/2022 1:50 PM EDT Ernesto Branch is a 37 year old female who presents for problem visit of continued irregular periods. Last seen in office on 03/21/22. Started period on 03/27/22 and bleeding lasted 2 weeks. Stoppedfor 1 week and restarted bleeding today. Patient very upset and tearful. Concerned that something is very wrong. Reviewed pelvic ultrasound from 03/23/22 with patient. [...] L3 SAB1 IAB0 Ectopic0 Multiple0 Live Births3 Director Digital History LMP: 04/18/2022 (Exact Date), Having periods Age at Menarche: Age at First : Age at Menopause: Director Digital History Comments: Sexual Activity: Yes; Male Contraception: [...] 06/03/2014 Unknown LAMICTAL [LAMOTRIGINE] 03/15/2015 Swelling VICODIN [HYDROCODONE-ACETAMINOPHE*08/09/2005 Shortness of Breath Fully Assessed 04/18/2022 REVIEW [...] external genitalia normal, normal Bartholin's glands, urethra, Lorena's glands, no vulvar lesions, no cervical lesions, good vaginal support, physiologic discharge present, normal appearing perineal body and perianal region, moderate amount of dark red blood present BIMANUAL: uterus normal size, shape and consistency, no adnexal masses, non- tender, and no cervicalmotion tenderness NEURO: alert and oriented x3,exam grossly non-focal EXTREMITIES: normal ASSESSMENT/PLAN: 1. Abnormal uterine bleeding (AUB) - ICD9: 626.9, ICD10: N93.9 - NORETHINDRONE (CONTRACEPTIVE) 0.35 MG TABLET- Rx sent - Patient to reevaluate possible ablation 2. Vaginitis - BV/Yeast-collected and sent Will notify patient of findings RTO- 3 months for follow up or sooner if needed Karol Abel APRN.CNM documented in this encounterCleveland Clinic Foundation10-20-2022 History of Present illness Narrative* Darby Zheng PA-C - 04/13/2022 4:40 PM EDT This note was created using NoteWriter. Subjective Ernesto Branch is a 37 year old female. HPI Patient presents with an itchy forearm. She states she had noticed some blotchiness on her left forearm and started itching about an hour ago. She denies any new exposures. She did switch detergents yesterday but has not worn anything from that batch. No fever or chills. No recent illness. No new me dications. No OTC meds used. Review of Systems [...] Wt 60.6 kg (133 lb 9.6 oz) LMP02/02/2022 SpO2 99% BMI 25.24 kg/m Physical Exam [...] itch. Darby Zheng PA-C documented in this encounterCleveland Clinic Foundation09-27-2022 History of Present illness Narrative* Meghana Moore MD - 03/21/2022 9:39 AM EDT Ernesto is a 37 year old who presents for an annual gynecologic exam with complaints of irregular bleeding and at times heavier bleeding. Pt reports LMP was 02/02/22 has had some spotting since that time but no full blown menses. Pt reports is very anxious about her health- had recent thyroid biopsies due to nodules. Pt reports had paps done previously in [place]- last one was normal but before that [...] L3 SAB1 IAB0 Ectopic0 Multiple0 Live Births3 Director Digital History LMP: 02/02/2022, Having periods Age at Menarche: Age at First : Age at Menopause: Director Digital History Comments: Sexual Activity: Yes; Male Contraception: [...] external genitalia normal, normal Bartholin's glands, urethra, Lorena's glands, no vulvar lesions, no cervical lesions, [...] ablation with salpingectomy reviewed. Meghana Howe MD * Maren Harmon Ma - 03/21/2022 9:02 AM EDT General Ophthalmologist offered: Patient declines. documented in this encounterCleveland Clinic Foundation09-01-2022 History of Present illness Narrative* Alley Hickey RDMS - 02/23/2022 10:45 AM EDT Radiology Service Progress Note PATIENT NAME: Ernesto Branch DATE OF SERVICE: February 23, 2022 TIME: 11:06 AM PATIENT IDENTITY VERIFICATION COMPLETED USING TWO (2) IDENTIFIERS: Name and Date of confirmedby patient verbally. FALL SCREENING: Has the patient had 2 falls in the last year or 1 fall with injury or currently using an Ambulatory Assistive Device (Walker, Cane, Wheelchair, Crutches, etc.)? No PATIENT GENDER DATA: Female. status: : No status: N/A PATIENT RELEVANT IMPLANT DATA REVIEWED: Not Applicable RADIOLOGY DEPARTMENT: Ultrasound PERIPHERAL IV DATA: Not applicable SIGNED BY: Alley Hickey RDMS RVT February 23, 2022 11:06 AM documented in this encounterCleveland Clinic Foundation09-01-2022 History of Present illness Narrative* Quynh Arriaga Tech - 02/23/2022 10:10 AM EDT Radiology Service Progress Note PATIENT NAME: Ernesto Branch DATE OF SERVICE: February 23, 2022 TIME: 10:13 AM PATIENT IDENTITY VERIFICATION COMPLETED USING TWO (2) IDENTIFIERS: Name and Date of confirmedby patient verbally. FALL SCREENING: Has the patient had 2 falls in the last year or 1 fall with injury or currently using an Ambulatory Assistive Device (Walker, Cane, Wheelchair, Crutches, etc.)? No PATIENT GENDER DATA: Female. status: : No status: NO. PATIENT RELEVANT IMPLANT DATA REVIEWED: Not Applicable RADIOLOGY DEPARTMENT: Mammography PERIPHERAL IV DATA: Not applicable SIGNED BY: Tatum ArriagaIon Core February 23, 2022 10:13 AM documented in this encounterCleveland Clinic Foundation07-21-2022 History of Present illness Narrative* Abundio Wei APRN.[employer] - 01/12/2022 6:01 PM EDT Images from the original note were not [...] medication changes or antibiotic use. Has not beenseen in the past for this rash. No [...] fungal etiology. Will use clotrimazole lotion. Follow-up withdermatology as scheduled. Patient was educated on supportive therapies. [facility] needed. Patient was instructed to immediately proceed to emergency room for any new, worsening, or symptoms lasting longer than anticipated. The patient's clinical presentation is otherwise unremarkable at this time. Based on exam and clinical finding, the patient is stablefor discharge. Plan of care was discussed with patient. Patient verbalizes understanding and agreesto plan of care. This note was generated using [employer] software. It may contain errors in wording, pu nctuation, or spelling. Abundio Wei APRN.SHANTEL documented in this encounterCleveland Clinic Foundation06-10-2022 History of Present illness Narrative* Smita Murphy RT(R) - 12/02/2021 4:50 PM EDT Radiology Service Progress Note PATIENT NAME: Ernesto Branch DATE OF SERVICE: December 02, 2021 TIME: 4:52 PM PATIENT IDENTITY VERIFICATION COMPLETED USING TWO (2) IDENTIFIERS: Name and Date of confirmedby patient verbally. FALL SCREENING: Has the patient had 2 falls in the last year or 1 fall with injury or currently using an Ambulatory Assistive Device (Walker, Cane, Wheelchair, Crutches, etc.)? No PATIENT GENDER DATA: Female. status: : No status: NO. PATIENT RELEVANT IMPLANT DATA REVIEWED: Not Applicable RADIOLOGY DEPARTMENT: General X-ray: Exam(s) Completed: Upper Extremity X- Ray(s): Hand, left PERIPHERAL IV DATA: Not applicable SIGNED BY: RT Ten(R) December 02, 2021 4:52 PM documented in this encounterCleveland Clinic Foundation05-25-2022 History of Present illness Narrative* Marina Wilkinson APRN.[facility] - 11/16/2021 7:16 PM EDT Images from the original note were not [...] history is provided by the patient. No language tutor was used. Vaginal Problem Review of Systems Constitutional: Negative. Genitourinary: Positive for vaginal discharge. Skin: Negative. Objective Physical Exam Exam conducted with a orchard sprayer present. Constitutional: Appearance: Normal appearance. Pulmonary: Effort: [...] If all results are negative patient was instructedto make an RENAL SOCIAL WORKER appointment. Patient was okay with this care plan. Marina Wilkinson APRN.CNP documented in this encounterAshkum ClinicDischarge summary Author Brett Vaughan [facility] October 22, 2023 10:10am Note Date/Time October 22, 2023 8:[address] [facility] Medical Records Department [address] [place] [id number] Emergency Department Summary 10/22/23 MR#: [id number] Acct: [id number] Name: ERNESTO BRANCH Rep #:[id number] : 1985 38 From: Brett Gordon PCP: Dr. Chrissy Yeboah MD Status:REG ER Location: ED HPI History of Present Illness Chief Complaint: Dizziness PFSH PFSH Medical History Anxiety Back pain Depression Diabetes History of hemorrhoids Home Medications cholecalciferol (vitamin D3) 50 mcg (2,000 unit) capsule 2,000 unit PO DAILY 08/12/21 [History Last Taken Unknown] Saccharomyces boulardii 250 mg capsule (Daily Probiotic (S. boulardii)) 5,000 mmu cells PO DAILY 03/13/22 [History Last Taken Unknown] metformin 500 mg tablet,extended release 24 hr 500 mg PO TID 03/08/23 [History Last Taken Unknown] norethindrone acetate 5 mg tablet 5 mg PO DAILY 03/08/23 [History Last Taken Unknown] meclizine 25 mg tablet 25 mg PO Q8H PRN PRN Dizziness #20 tabs 10/21/23 [Rx Last Taken Unknown] Allergy/AdvReac Type Severity Reaction Status Date / Time aripiprazole [From Abilify] Allergy Swelling Verified 10/22/23 08:10 Gadolinium-MRI Contrast Allergy PT UNSURE Verified 10/22/23 08:10 Medium OF REACTION [MRI] iodine Allergy Other Verified 10/22/23 08:10 amphetamine [From Adderall] AdvReac PT UNSURE Verified 10/22/23 08:10 OF REACTION codeine AdvReac Itching Verified 10/22/23 08:10 dextroamphetamine AdvReac PT UNSURE Verified 10/22/23 08:10 [From Adderall] OF REACTION hydrocodone AdvReac Itching Verified 10/22/23 08:10 Iodinated Contrast Media AdvReac Other Verified 10/22/23 08:10 lamotrigine [From Lamictal] AdvReac NEEDS Verified 10/22/23 08:10 FOLLOW-UP Family History Aunt Breast cancer Grandfather Colon cancer Grandmother Heart disease High cholesterol Kidney disease Unknown Diabetes Surgical History History of cholecystectomy Social History Smoking Status: Current every day smoker tobacco type: cigarettes alcohol intake: never substance use type: does not use EXAM Physical Exam Const Vital Signs: 10/22/23 08:11 10/22/23 08:32 Temperature 97.1 F L Temperature Source Temporal Pulse Rate 89 Respiratory Rate 18 Respiratory Effort Normal Non-Labored Respiratory Pattern Normal Blood Pressure 130/88 H Blood Pressure Mean 102 Pulse Ox 100 Oxygen Delivery Method Room Air [facility] [place] [facility] [place] Narr[place] Medical decision making narrative: HISTORY OF PRESENT ILLNESS: 38-year-old female here with dizziness. Notes feeling flushed, pale, sweaty, lightheaded just prior to arrival. This was transient lasting for [id number] and has resolved. Denies any chest pain during the event. Does note some shortness of breath that she attributes to freaking out. Denies any unilateral leg swelling, hemoptysis, other VTE risk factors. Noted she is on estrogen-based hormonal contraceptives. Denies any focal weakness numbness or loss sensation. Dizziness is not exacerbated by head movement or by position changes REVIEW OF SYSTEMS: Pertinent positives: Dizziness, shortness of breath, diaphoresis Pertinent negatives: Chest pain, focal weakness PHYSICAL EXAM: Nursing triage notes reviewed, Vital signs reviewed Constitutional: please see mdm HENT: MMM Eyes: Pupils equal round and reactive to light, Extraocular muscles intact Neck: No stridor, no JVD, full neck ROM Lungs: Clear to auscultation, No wheezing or rales. No increased work of breathing, no conversational dyspnea, no accessory muscle use, no nasal flaring. No respiratory distress noted Heart: Regular rate and rhythm, No murmurs, No rubs and No gallops, 2+ distal pulses (radial, femoral, posterior tibial) in all extremities Abdomen: Soft, there is no tenderness, rigidity, rebound or guarding, no obviousperitoneal signs, no palpable pulsatile abdominal masses, no auscultated abdominal bruit : No CVAT Extremities: No edema Neuro: Alert and oriented x3, neuro exam at baseline, cranial nerves II through XII are intact. No pain with extraocular muscle movement. There is negative test of skew. 5 of 5 strength in upper and lower extremities in flexion extension. Intact sensation to light touch in upper and lower extremity dermatomes. No truncal or extremity ataxia. No dysdiadochokinesia. Normal gait. 2+ reflexes in upper and lower extremities. No meningeal signs. Negative Babinski. NIH of 0. Skin: No rash or lesions noted MEDICAL DECISION MAKING: Chief Complaint: Dizziness External records reviewed: Imaging studies reviewed CT scan of the brain from yesterday showed no acute process Factors affecting care: Peripheral vertigo Social determinants of health: none History obtained from others: none Consults: none [facility] Narrative: Patient was hemodynamically stable, afebrile and nontoxic-appearing. Nonfocal neuroexam. NIH of 0. No signs of posterior circulation CVA I considered the following differential diagnosis: Arrhythmia, anemia, pneumonia, electrolyte disturbance, dehydration, posterior circulation CVA I obtained a broad lab and imaging workup to further elucidate the etiology the patient's complaint Treat patient with 1 L normal saline ALL IMAGES (IF OBTAINED) HAVE BEEN PERSONALLY REVIEWED AND INTERPRETED BY MYSELF. EKG with normal sinus rhythm, normal axis, normal intervals, no STEMI Urinalysis shows no evidence of urinary inflammation suggestive of UTI CBC without leukocytosis, severe anemia, no thrombocytopenia. Elevated hemoglobin suggest hemoconcentration which may be indicative of dehydration I have personally reviewed the patient's chest x-ray. Chest x-ray is unremarkable for pulmonary edema, pneumothorax, pneumonia or focal cardiopulmonary abnormality. High-sensitivity troponin is negative, no evidence of myocardial ischemia CMP without evidence of acute kidney injury, significant electrolyte abnormality, anion gap, no evidence hepatobiliary pathology. The synthesis of the patient's history, physical exam, labs images suggest no acute life or limb threatening pathology specifically her physical exam does notsuggest a posterior circulation CVA. There is no signs of arrhythmia or myocardial ischemia on her EKG. High-sensitivity troponin is also negative. Nosigns of pneumonia, electrolyte disturbance, significant kidney dysfunction. Patient's hemoglobin is elevated this may be consistent with dehydration which could present as dizziness lightheadedness or near syncope. There is no life orlimb threatening etiology that I could find here in the emergency department andthe patient is appropriate for discharge home for close outpatient follow-up. The patient and/or family, caregivers express understanding. The patient and/orfamily, caregivers agrees with the plan. Shared decision making: I will have a discussion with the patient and or visitors regarding risk/benefits of further testing or admission. They will be made aware of of the risk/benefits inherent in this decision they will be given the opportunity to voice understanding. Total critical care time today provided was at least 0 minutes. This excludes separately billable procedures. Critical care time (if documented) is secondary to the patient having high probability of clinically significant/life threatening deterioration in the patient's condition which required my urgent intervention. Impression: 1. Near syncope 2. Diaphoresis Dispo: Discharge home This note was generated with [employer] dictation software. It may contain incorrectwords, spelling, and punctuation that were not noted in review of the chart prior to signing. Lab Data Labs: Laboratory Results - last 24 hr 10/22/23 10/22/23 09:20 09:25 WBC 7.1 RBC 4.98 Hgb 16.2 H Hct 46.9 MCV 94.2 MCH 32.5 H MCHC 34.5 RDW Std Deviation 43.8 RDW Coeff of Daryl 12.7 Plt Count 201 MPV 8.9 Immature Gran % (Auto) 0.300 Neut % (Auto) 73.1 H Lymph % (Auto) 21.0 Emanuel % (Auto) 4.7 Eos % (Auto) 0.6 Baso % (Auto) 0.3 Absolute Neuts (auto) 5.2 Absolute Lymphs (auto) 1.48 Nucleated RBC % 0 Sodium 140 Potassium 3.9 Chloride 113 H Carbon Dioxide 21.0 Anion Gap 6 BUN 13 Creatinine 0.88 Estim Creat Clear Calc 71.87 Est GFR (MDRD) Af Amer 91 Est GFR (MDRD) Non-Af 76 BUN/Creatinine Ratio 14.8 Glucose 150 H Calcium 9.2 Total Bilirubin 0.30 AST 26 ALT 13 Alkaline Phosphatase 55 Troponin I High Sens 5 B-Natriuretic Peptide 24.0 Total Protein 7.2 Albumin 3.6 Globulin 3.6 Albumin/Globulin Ratio 1.0 Urine Color Straw Urine Clarity Clear Urine pH 6.5 Ur Specific [place] 1.005 Urine Protein Negative Urine Glucose (UA) Normal Urine Ketones Negative Urine Occult Blood Negative Urine Nitrite Negative Urine Bilirubin Negative Urine Urobilinogen Normal Ur Leukocyte Esterase Negative Urine RBC 0 SEEN Urine WBC 0 SEEN Ur Squamous Epith Cells 0 SEEN Urine Bacteria 0 SEEN Urine Mucus 0 SEEN Urine Test Negative Discharge Plan Triage Chief Complaint: Dizziness ED Provider: Brett Vaughan Dx/Rx/DC Orders Instructions: ED Dizziness, Uncertain Cause, ED Near-Fainting, Uncertain Cause Prescriptions: No Action Saccharomyces boulardii [Daily Probiotic (S. boulardii)] 250 mg capsule 5,000 mmu cells PO DAILY norethindrone acetate 5 mg tablet 5 mg PO DAILY cholecalciferol (vitamin D3) 50 mcg (2,000 unit) capsule 2,000 unit PO DAILY Patient Comments: TAKE 1 CAPSULE BY MOUTH EVERY DAY metformin 500 mg tablet extended release 24 hr 500 mg PO TID Patient Comments: TAKE 1 TABLET BY MOUTH 3 TIMES A DAY meclizine [meclizine] 25 mg tablet 25 mg PO Q8H PRN PRN (Reason: Dizziness) Qty: 20 0RF Primary Care Provider: Chrissy Yeboah Referrals: Chrissy Yeboah MD [Primary Care Provider] - Activity Restrictions/Additional Instructions: Thank you for trusting us with your care today! The lab and imaging tests were unremarkable today. They did not suggest any life or limb threatening process specifically heart attacks, abnormal heart rhythms, electrolyte disturbances, significant anemia, infections, heart failure. While no emergencies were identified does not mean what you are experiencing is not pathologic. Please follow-up with your primary care physician at the next billable appointment for further evaluation. Please return to the emergency department if your symptoms change or worsen. Please follow with your primary care physician for further outpatient evaluationand management. Disposition Disposition: Home, Self Care What to do if you have Problems For any increased pain, shortness of breath, bleeding, nausea or vomiting, chestpain, or any unexpected problems, contact your Primary Care Provider. Call [facility] ([phone]) or report to the closest Emergency Room. Call 911 if necessary. 10/22/23 1010 <Electronically signed by Brett Vaughan DO> Cosigner Signature (if applicable): CC: Dr. Chrissy Yeboah MD ~ Signed [facility] Work Phone: Evaluation note* Diagnosis Vaginal itching- Primary Pruritus of genital organs Burning with urination Dysuria [facility] Diagnosis Rash- Primary Rash and other nonspecific skin eruption [facility] this [facility]* Diagnosis Onset Date Resolution Status Multiple thyroid nodules acu te [facility] Work Phone: Evaluation note* Diagnosis Encounter for gynecological examination with abnormal finding- Primary Routine gynecological examination Screening for cervical cancer Screening for malignant neoplasm of the cervix Encounter for screening for human papillomavirus (HPV) Special screening examination for human papillomavirus (HPV) Abnormal uterine bleeding (AUB) History of thyroid nodule Personal history of other endocrine, metabolic, and immunity disorders Type 2 diabetes mellitus without complication, 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 (HCC) Encounter for vitamin deficiency screening Screening for other and unspecified endocrine, nutritional, metabolic, and immunity disorders Screening cholesterol level Screening for lipoid disorders [facility] Diagnosis Abnormal uterine bleeding (AUB)- Primary [facility]* Diagnosis Rash- Primary Rash and other nonspecific skin eruption [facility]* Diagnosis Abnormal uterine bleeding (AUB)- Primary Acute vaginitis Vaginitis and vulvovaginitis, unspecified [facility]* Diagnosis Dysuria- Primary [facility]* Diagnosis Nasal congestion- Primary Other diseases of nasal cavity and sinuses Acute cough At increased risk of exposure to COVID-19 virus documented [facility] this encounter [facility]* Diagnosis Onset Date Resolution Status Multiple thyroid nodules acu te Constipation in female acute H/O rectal polypectomy acute [facility] Work Phone: Evaluation note* Diagnosis Vaginal irritation- Primary Unspecified noninflammatory disorder of vagina Abnormal uterine bleeding (AUB) Sterilization consult Other general counseling and advice for contraceptive management [facility]* Diagnosis Urinary frequency- Primary Sore throat Acute pharyngitis Burning with urination Dysuria Rhinosinusitis Unspecified sinusitis (chronic) documented [facility] encounter [facility] noteNo assessment information availableWMarietta Osteopathic [facility] Work Phone: Evaluation note* Diagnosis Sinobronchitis- Primary Unspecified sinusitis (chronic) Feared condition not demonstrated Person with feared complaint in whom no diagnosis was made documented [facility] encounter [facility]* Diagnosis Injury of head, initial encounter- Primary [facility]* Diagnosis Urinary frequency- Primary Body aches Generalized pain Vaginal burning Other specified symptom associated with female genital organs Body aches Generalized pain [facility]* Diagnosis Body aches Generalized pain [facility]* Diagnosis Encounter for gynecological examination (general) (routine) without abnormal findings- Primary Encounter for screening mammogram for breast cancer Urinary tract infection without hematuria, site unspecified Hot flashes Symptomatic menopausal or female climacteric states Night sweats Generalized hyperhidrosis documented [facility]* Diagnosis Encounter for gynecological examination (general) (routine) without abnormal findings Encounter for screening mammogram for breast cancer Urinary tract infection without hematuria, site unspecified [facility]* Diagnosis Dense breast tissue- Primary [facility] Additional Instructions Follow-up with your doctor if not improving. Your labs were unremarkable. If you are having pain you can try Tums or [id number] Protonix or Prilosec. Return if increasing pain, fever, intractable vomiting, black or bloody stool.[facility] Work Phone: Hospital Discharge instructions Additional Instructions Start the second antibiotic Keflex 1 pill 4 times a day today. You will take both that and the Bactrim twice a day. This should progressively improve. If not follow-up with your primary care physician. If its not getting better we might have to incise and drain it but not at this time. Motrin and Tylenol for pain. Ice and elevate. No jewelry on that hand.[facility] Work Phone: Hospital Discharge instructions Additional Instructions Thank you for trusting us with your care today! The lab and imaging tests were unremarkable today. They did not suggest any life or limb threatening process specifically heart attacks, abnormal heart rhythms, electrolyte disturbances, significant anemia, infections, heart failure. While no emergencies were identified does not mean what you are experiencing is not pathologic. Please follow-up with your primary care physician at the next billable appointment for further evaluation. Please return to the emergency department if your symptoms change or worsen. Please follow with your primary care physician for further outpatient evaluation and management.[facility] Work Phone: Reason for referral (narrative)* Diagnostic Procedure Only (Routine) - Pending Review Specialty Diagnoses / Procedures Referred By Pat villavicencio Referred To Contact [facility] Diagnoses Abnormal uterine bleeding (AUB) Procedures PELVIC US WHI US PELVIC NONOBSTETRIC REAL-TIME IMAGE COMPLETE Meghana Walton MD [address] [place] [address] [facility] [address] [place] [id number] Referral ID Status Reason Start Date Expiration Date Visits Requested Visits Authorized [id number] Pending Review Auto-Generat ed Referral 03/21/2022 03/21/2023 1 1 [facility] for referral (narrative)* Diagnostic Procedure Only (Routine) - New Request Specialty Diagnoses / Procedures Referred By Pat villavicencio Referred To Contact [facility] Diagnoses Encounter for gynecological examination (general) (routine) without abnormal findings Encounter for screening mammogram for breast cancer Urinary tract infection without hematuria, site unspecified Procedures CHALO SCREENING W CALLIE SCREENING DIGITAL BREAST TOMOSYNTHESIS BI SCREENING MAMMOGRAPHY BI 2-VIEW BREAST INC Karol Dinero APRN.CNM [address] [place] [address] [facility] [address] [place] [id number] Referral ID Status Reason Start Date Expiration Date Visits Requested Visits Authorized [id number] New Request Auto-Generat ed Referral 07/16/2024 08/15/2025 1 1 [facility] for referral (narrative)No reason for referral information availableWMarietta Osteopathic Clinic Work Phone: Reason for visit Narrative* Diagnostic Procedure Only (Routine) - Closed Specialty Diagnoses / Procedures Referred By Pat villavicencio Referred To Contact Radiology / RADIO DXMAM PENDING S[facility] Diagnoses Mammogram, order in scanned document, referred by Dr. Lomas Procedures MAMMOGRAM TOMOGRAM EXTERNAL Chrissy Yeboah [address] [facility] [place] [address] [facility] [address] [place] [address] Referral ID Status Reason Start Date Expiration Date Visits Re quested Visits Authorized [id number] Closed 02/23/2022 06/24/2022 1 1 [facility] for visit Narrative* Diagnostic Procedure Only (Routine) - Closed Specialty Diagnoses / Procedures Referred By Pat villavicencio Referred To Contact Radiology / RADIO GENERAL PENDING SALE [facility] WS Diagnoses ML- PUTTING IN SYNGO NOW Procedures RADIOLOGIC EXAM CHEST 2 VIEWS XR GENERAL 7 Chrissy Yeboah MD [address] [facility] [place] [address] Radio General [facility] [address] [place] [address] Referral ID Status Reason Start Date Expiration Date Visits Re quested Visits Authorized [id number] Closed 11/30/2021 06/24/2022 2 2 [facility] for visit Narrative* Diagnostic Procedure Only (Routine) - Closed Specialty Diagnoses / Procedures Referred By Pat villavicencio Referred To Contact [facility] Diagnoses Encounter for gynecological examination (general) (routine) without abnormal findings Encounter for screening mammogram for breast cancer Urinary tract infection without hematuria, site unspecified Procedures CHALO SCREENING W CALLIE SCREENING DIGITAL BREAST TOMOSYNTHESIS BI SCREENING MAMMOGRAPHY BI 2-VIEW BREAST INC Karol Dinero APRN.[facility] [address] [place] [address] Phone: tel: fax: [facility] [address] [place] [address] Referral ID Status Reason Start Date Expiration Date V isits Requested Visits Authorized [id number] Closed Auto-Generate d Referral 07/16/2024 08/15/2025 1 1 [facility] Chief Complaint and Reason for Visit Chief Complaint THYROID NODULE Reason for Visit Multiple thyroid nod ules Chief Complaint THYROID NODULE CSCOPE E-ORDER abd pain Reason for Visit Multiple thyroid nod ules Constipation in female H/O rectal polypectomy Chief Complaint THYROID NODULE CSCOPE E-ORDER abd pain HAND SWELLING Reason for Visit Multiple thyroid nod ules Constipation in female H/O rectal polypectomy Chief Complaint THYROID NODULE CSCOPE E-ORDER abd pain HAND SWELLING HAND CELLULITIS Reason for Visit Multiple thyroid nod ules Constipation in female H/O rectal polypectomy Chief Complaint DYSPNEA Chief Complaint DYSPNEA NODULES Chief Complaint NODULES DISCUSS THYROID U/S RESULTS 02/28 SCREENING Reason for Visit Multiple thyroid nod ules Chief Complaint PRE EMP/NON DOT/DRUG SCREEN/PRC SALT Chief Complaint PRE EMP/NON DOT/DRUG SCREEN/PRC SALT DIZZINESS Chief Complaint PRE EMP/NON DOT/DRUG SCREEN/PRC SALT DIZZINESS dizziness Chief Complaint PRE EMP/NON DOT/DRUG SCREEN/PRC SALT DIZZINESS dizziness HYPERSOMNIA, SNORING Chief Complaint Admit Date R ARM PAIN/SHOULDER TO HAND/UNK INJURY J anuary 2024 1:28pm CONCERN FOR UTI August 31, 2024 9:34 am Reason for Visit Admit Date Right shoulder strain July 01, 2024 1:28pm UTI (urinary tract infection) August 31, 2024 9:34am Chief Complaint Admit Date SORE THROAT, BODY ACHES March 05, 2025 9:28am Chief Complaint Admit Date SORE THROAT, BODY ACHES March 05, 2025 9:28am 1 YEAR FOLLOW UP March 20, 2025 12:41pm Reason for Visit Admit Date Acute upper respiratory infection Sept2024 9:28am Family History No Family History Records Found Relationship Condition Age at Onset Recorded Date/T meek aunt Malignant neoplasm of breast Unknown grandfather Malignant neoplasm of colon Unknown grandmother Cardiac disease Unknown High blood cholesterol Unknown Kidney disorder Unknown Not Specified Diabetes mellitus Unknown Relationship Condition Age at Onset Recorded Date/T meek aunt Malignant neoplasm of breast Unknown grandfather Malignant neoplasm of colon Unknown grandmother Cardiac disease Unknown High blood cholesterol Unknown Kidney disorder Unknown unrelated friend Diabetes mellitus Unknown Advance Directives No Advanced Directives Records Found Advance Directive Response Recorded Date/ Time Living Will No August 12 7:24pm Power of Telephone Quotation Clerk No August 12, 2021 7:24pm Advance Directive Response Recorded Date/ Time Living Will No April 29 10:49pm Power of Telephone Quotation Clerk No April 29, 2022 10:49pm Advance Directive Response Recorded Date/ Time Living Will No May 15 2:52pm Power of Telephone Quotation Clerk No May 15, 2022 2:52pm Advance Directive Response Recorded Date/ Time Living Will No June 15 8:35am Power of Telephone Quotation Clerk No June 15, 2022 8:35am Advance Directive Response Recorded Date/ Time Living Will No June 15 9:35am Power of Telephone Quotation Clerk No June 15, 2022 9:35am Advance Directive Response Recorded Date/ Time Living Will No October 21, 2023 9:05am Power of Telephone Quotation Clerk No October 20 9:05am Advance Directive Response Recorded Date/ Time Living Will No October 22, 2023 8:32am Power of Telephone Quotation Clerk No October 21 8:32am Health Concerns Infection Onset Date Last Indicated Resolved Time COVID-19 Rule-Out 04/27/2022 04/27/2022 Summary Purpose Additional Source Comments Source Comments (unrecognize d section and content) In the event this informatio n is protected by the Federal Confidentiality of Alcohol and Drug Abuse Patient Records regulations: The Federal rules restrict any use of the information to criminally investigate or prosecute any alcohol or drug abuse patient.[facility] FoundationIn the event this information is protected by the Federal Confidentiality of Alcohol and Drug Abuse Patient Records regulations: The Federal rules restrict any use of the information to criminally investigate or prosecute any alcohol or drug abuse patient.[facility] FoundationIn the event this information is protected by the Federal Confidentiality of Alcohol and Drug Abuse Patient Records regulations: The Federal rules restrict any use of the information to criminally investigate or prosecute any alcohol or drug abuse patient.[facility] FoundationIn the event this information is protected by the Federal Confidentiality of Alcohol and Drug Abuse Patient Records regulations: The Federal rules restrict any use of the information to criminally investigate or prosecute any alcohol or drug abuse patient.[facility] FoundationIn the event this information is protected by the Federal Confidentiality of Alcohol and Drug Abuse Patient Records regulations: The Federal rules restrict any use of the information to criminally investigate or prosecute any alcohol or drug abuse patient.[facility] FoundationIn the event this information is protected by the Federal Confidentiality of Alcohol and Drug Abuse Patient Records regulations: The Federal rules restrict any use of the information to criminally investigate or prosecute any alcohol or drug abuse patient.[facility] FoundationIn the event this information is protected by the Federal Confidentiality of Alcohol and Drug Abuse Patient Records regulations: The Federal rules restrict any use of the information to criminally investigate or prosecute any alcohol or drug abuse patient.[facility] FoundationIn the event this information is protected by the Federal Confidentiality of Alcohol and Drug Abuse Patient Records regulations: The Federal rules restrict any use of the information to criminally investigate or prosecute any alcohol or drug abuse patient.[facility] FoundationIn the event this information is protected by the Federal Confidentiality of Alcohol and Drug Abuse Patient Records regulations: The Federal rules restrict any use of the information to criminally investigate or prosecute any alcohol or drug abuse patient.[facility] FoundationIn the event this information is protected by the Federal Confidentiality of Alcohol and Drug Abuse Patient Records regulations: The Federal rules restrict any use of the information to criminally investigate or prosecute any alcohol or drug abuse patient.[facility] FoundationIn the event this information is protected by the Federal Confidentiality of Alcohol and Drug Abuse Patient Records regulations: The Federal rules restrict any use of the information to criminally investigate or prosecute any alcohol or drug abuse patient.[facility] FoundationIn the event this information is protected by the Federal Confidentiality of Alcohol and Drug Abuse Patient Records regulations: The Federal rules restrict any use of the information to criminally investigate or prosecute any alcohol or drug abuse patient.[facility] FoundationIn the event this information is protected by the Federal Confidentiality of Alcohol and Drug Abuse Patient Records regulations: The Federal rules restrict any use of the information to criminally investigate or prosecute any alcohol or drug abuse patient.[facility] FoundationIn the event this information is protected by the Federal Confidentiality of Alcohol and Drug Abuse Patient Records regulations: The Federal rules restrict any use of the information to criminally investigate or prosecute any alcohol or drug abuse patient.[facility] FoundationIn the event this information is protected by the Federal Confidentiality of Alcohol and Drug Abuse Patient Records regulations: The Federal rules restrict any use of the information to criminally investigate or prosecute any alcohol or drug abuse patient.[facility] FoundationIn the event this information is protected by the Federal Confidentiality of Alcohol and Drug Abuse Patient Records regulations: The Federal rules restrict any use of the information to criminally investigate or prosecute any alcohol or drug abuse patient.[facility] FoundationIn the event this information is protected by the Federal Confidentiality of Alcohol and Drug Abuse Patient Records regulations: The Federal rules restrict any use of the information to criminally investigate or prosecute any alcohol or drug abuse patient.[facility] FoundationIn the event this information is protected by the Federal Confidentiality of Alcohol and Drug Abuse Patient Records regulations: The Federal rules restrict any use of the information to criminally investigate or prosecute any alcohol or drug abuse patient.[facility] FoundationIn the event this information is protected by the Federal Confidentiality of Alcohol and Drug Abuse Patient Records regulations: The Federal rules restrict any use of the information to criminally investigate or prosecute any alcohol or drug abuse patient.[facility] FoundationIn the event this information is protected by the Federal Confidentiality of Alcohol and Drug Abuse Patient Records regulations: The Federal rules restrict any use of the information to criminally investigate or prosecute any alcohol or drug abuse patient.[facility] FoundationIn the event this information is protected by the Federal Confidentiality of Alcohol and Drug Abuse Patient Records regulations: The Federal rules restrict any use of the information to criminally investigate or prosecute any alcohol or drug abuse patient.[facility] FoundationIn the event this information is protected by the Federal Confidentiality of Alcohol and Drug Abuse Patient Records regulations: The Federal rules restrict any use of the information to criminally investigate or prosecute any alcohol or drug abuse patient.[facility] FoundationIn the event this information is protected by the Federal Confidentiality of Alcohol and Drug Abuse Patient Records regulations: The Federal rules restrict any use of the information to criminally investigate or prosecute any alcohol or drug abuse patient.[facility] FoundationIn the event this information is protected by the Federal Confidentiality of Alcohol and Drug Abuse Patient Records regulations: The Federal rules restrict any use of the information to criminally investigate or prosecute any alcohol or drug abuse patient.[facility] FoundationIn the event this information is protected by the Federal Confidentiality of Alcohol and Drug Abuse Patient Records regulations: The Federal rules restrict any use of the information to criminally investigate or prosecute any alcohol or drug abuse patient.[facility] FoundationIn the event this information is protected by the Federal Confidentiality of Alcohol and Drug Abuse Patient Records regulations: The Federal rules restrict any use of the information to criminally investigate or prosecute any alcohol or drug abuse patient.[facility] FoundationIn the event this information is protected by the Federal Confidentiality of Alcohol and Drug Abuse Patient Records regulations: The Federal rules restrict any use of the information to criminally investigate or prosecute any alcohol or drug abuse patient.[facility] FoundationIn the event this information is protected by the Federal Confidentiality of Alcohol and Drug Abuse Patient Records regulations: The Federal rules restrict any use of the information to criminally investigate or prosecute any alcohol or drug abuse patient.[facility] FoundationIn the event this information is protected by the Federal Confidentiality of Alcohol and Drug Abuse Patient Records regulations: The Federal rules restrict any use of the information to criminally investigate or prosecute any alcohol or drug abuse patient.[facility] FoundationIn the event this information is protected by the Federal Confidentiality of Alcohol and Drug Abuse Patient Records regulations: The Federal rules restrict any use of the information to criminally investigate or prosecute any alcohol or drug abuse patient.[facility] FoundationIn the event this information is protected by the Federal Confidentiality of Alcohol and Drug Abuse Patient Records regulations: The Federal rules restrict any use of the information to criminally investigate or prosecute any alcohol or drug abuse patient.[facility] FoundationIn the event this information is protected by the Federal Confidentiality of Alcohol and Drug Abuse Patient Records regulations: The Federal rules restrict any use of the information to criminally investigate or prosecute any alcohol or drug abuse patient.[facility] Reason for Visit (unrecogniz ed section and content) Reason Comments Vaginal Problem burning, used difluc an, monostat 1 Reason Comments Rash Pt reported rash guanaco asts, torso, neck denied pain Specialty Diagnoses / Procedures Referred By Pat t Referred To Contact Internal Medicine / [facility] Diagnoses rash on neck and torso since yesterday Procedures NEW SAME DAY [facility] [place] [facility] [address] [place] [address] Referral ID Status Reason Start Date Expiration Date V isits Requested Visits Authorized [id number] Outside PCP 01/12/2022 04/12/2022 1 1 Reason Comments Radiology US Specialty Diagnoses / Procedures Referred By Pat t Referred To Contact Radiology / [facility] PENDING S[facility] Diagnoses Thyroid nodule, order in scanned documents by Dr. 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 Reason Comments Rash Rash on left [...] weeks, bodyaches and chills x last night Reason Comments Flu Like Symptoms Possibly UTI and or BV x 2 days, also in addition to cold symptoms x 4 days Reason Comments Work excuse Reason Onset Date Comments Refill Request 05/31/2024 Reason Comments Well Woman Reason Onset Date Comments Refill Request 11/26/2024 Care Teams (unrecognized sec tion and content) Oven Loader Relationship Specialty Start Date End Date Chrissy Yeboah [address] [place] [address] PCP - General Family Practice 11/16/21 Oven Loader Relationship Specialty Start Date End Date Chrissy Yeboah [address] [place] [address] PCP - General Family Practice 11/16/21 Oven Loader Relationship Specialty Start Date End Date Chrissy Yeboah [id number] [place] [address] PCP - General Family Practice 11/16/21 Oven Loader Relationship Specialty Start Date End Date Chrissy Yeboah [place] [address] PCP - General Family Practice 11/16/21 Oven Loader Relationship Specialty Start Date End Date Chrissy Yeboah [place] [address] PCP - General Family Medicine 11/16/21 Oven Loader Relationship Specialty Start Date End Date Chrissy Yeboah [place] [address] PCP - General Family Medicine 11/16/21 Oven Loader Relationship Specialty Start Date End Date Chrissy Yeboah [place] [address] PCP - General Family Medicine 11/16/21 Oven Loader Relationship Specialty Start Date End Date Chrissy Yeboah [place] [address] PCP - General Family Medicine 11/16/21 Oven Loader Relationship Specialty Start Date End Date Chrissy Yeboah [place] [address] PCP - General Family Medicine 11/16/21 Oven Loader Relationship Specialty Start Date End Date Chrissy Yeboah [id number] [place] [address] PCP - General Family Medicine 11/16/21 Oven Loader Relationship Specialty Start Date End Date Chrissy Yeboah [address] [place] [address] PCP - General Family Medicine 11/16/21 Oven Loader Relationship Specialty Start Date End Date Chrissy Yeboah [address] [place] [address] PCP - General Family Medicine 11/16/21 Oven Loader Relationship Specialty Start Date End Date Chrissy Yeboah MD [address] [place], [place] [address] PCP - General Family Medicine 11/16/21 Oven Loader Relationship Specialty Start Date End Date Chrissy Yeboah MD [address] [place] [address] PCP - General Family Medicine 11/16/21 Oven Loader Relationship Specialty Start Date End Date Chrissy Yeboah MD [address] [place] [address] PCP - General Family Medicine 11/16/21 Oven Loader Relationship Specialty Start Date End Date Chrissy Yeboah MD [address] [place] [address] PCP - General Family Medicine 11/16/21 Oven Loader Relationship Specialty Start Date End Date Chrissy Yeboah MD [address] [place] [address] PCP - General Family Medicine 11/16/21 Team Status: Active Member Role Status Dates Shantell Roberto SORT LINE, SORT LINE-C Family Provider Active Dr. Chrissy Yeboah MD Primary Care Provider Active Team Status: Active Member Role Status Dates Dr. Chrissy Yeboah MD Primary Care Provider Active Dr. Avni Mendez MD Attending Provider Active Team Status: Inactive Member Role Status Dates Dr. Chrissy Yeboah MD Primary Care Prov ider, Attending Provider, Referring Provider Active Oven Loader Relationship Specialty Start Date End Date Chrissy Yeboah MD [address] [place], [place] [address] PCP - General Family Medicine 11/16/21 Team Status: Inactive Member Role Status Dates Dr. Chrissy Yeboah MD Primary Care Provider Active Mattie SHELLEY, PA-C Attending Provider, Referring Provider Active Team Status: Inactive Member Role Status Dates Dr. Chrissy Yeboah MD Primary Care Provider, Referrin g Provider Active Dr. Zak Bull MD Attending Provider Active Team Status: Inactive Member Role Status Dates Dr. Chrissy Yeboah MD Primary Care Provider, Referrin g Provider Active Prince SHELLEY, PA Attending Provider Active Team Status: Inactive Member Role Status Dates Dr. Chrissy Yeboah MD Primary Care Provider Active Dr. Yanick Livingston MD Emergency Provider Active Team Status: Inactive Member Role Status Dates Dr. Chrissy Yeboah MD Primary Care Provider Active Dr. Brett Vaughan DO Emergency Provider Active Team Status: Inactive Member Role Status Dates Dr. Chrissy Yeboah MD Primary Care Provider Active Dr. Yanick Livingston MD Attending Provider, Emergency Provider Active Team Status: Inactive Member Role Status Dates Dr. Chrissy Yeboah MD Primary Care Provider Active Dr. Brett Vaughan DO Attending Provider, Emergency P evelina Active Oven Loader Relationship Specialty Start Date End Date Chrissy Yeboah MD [address] [place], [place] [id number] PCP - General Family Medicine 11/16/21 Oven Loader Relationship Specialty Start Date End Date Chrissy Yeboah MD [address] [place], [place] [id number] PCP - General Family Medicine 11/16/21 Oven Loader Relationship Specialty Start Date End Date Chrissy Yeboah MD [address] [place] [address] PCP - General Family Medicine 11/16/21 Oven Loader Relationship Specialty Start Date End Date Chrissy Yeobah MD [address] [place] [address] PCP - General Family Medicine 11/16/21 Oven Loader Relationship Specialty Start Date End Date Chrissy Yeboah MD [address] [place] [address] PCP - General Family Medicine 11/16/21 Oven Loader Relationship Specialty Start Date End Date Chrissy Yeboah MD [address] [place] [address] PCP - General Family Medicine 11/16/21 Oven Loader Relationship Specialty Start Date End Date Chrissy Yeboah MD [address] [place] [address] PCP - General Family Medicine 11/16/21 Oven Loader Relationship Specialty Start Date End Date Chrissy Yeboah MD [address] [place] [address] PCP - General Family Medicine 11/16/21 Team Status: Inactive Member Role Status Dates Dr. Chrissy Yeboah MD Primary Care Provider Active Start: July 01, 2024 End: July 01, 2024 Dr. Chrissy Yeboah MD Referring Provider Active Start: July 01, 2024 End: July 01, 2024 Prince SHELLEY, PA Attending Provider Active Start: July 01, 2024 End: July 01, 2024 Team Status: Inactive Member Role Status Dates Dr. Chrissy Yeboah MD Primary Care Provider Active Start: August 31, 2024 End: August 31, 2024 Dr. Chrissy Yeboah MD Referring Provider Active Start: August 31, 2024 End: August 31, 2024 Henry Roa SORT LINE, SORT LINE-C Attending Provider Active S tart: August 31, 2024 End: August 31, 2024 Team Status: Inactive Member Role Status Dates Dr. Chrissy Yeboah MD Primary Care Provider Active Start: September 01, 2024 End: September 01, 2024 Dr. Chrissy Yeboah MD Attending Provider Active Start: September 01, 2024 End: September 01, 2024 Oven Loader Relationship Specialty Start Date End Date Chrissy Yeboah MD [address] [place] [address] PCP - General Family Medicine 11/16/21 Oven Loader Relationship Specialty Start Date End Date Chrissy Yeboah MD [address] [place] [address] PCP - General Family Medicine 11/16/21 Oven Loader Relationship Specialty Start Date End Date Chrissy Yeboah MD [address] [place] [address] PCP - General Family Medicine 11/16/21 Team Status: Active Member Role/Relationship Status Dates Shantell Roberto NP, SORT LINE-C Family Provider Active Dr. Chrissy Yeboah MD Primary Care Provider Active Team Status: Inactive Member Role/Relationship Status Dates Dr. Chrissy Yeboah MD Primary Care Provider Active Start: March 05, 2025 End: March 05, 2025 Dr. Chrissy Yeboah MD Referring Provider Active Start: March 05, 2025 End: March 05, 2025 DAPHNEY Napier Attending Provider Active Sta rt: March 05, 2025 End: March 05, 2025 Team Status: Active Member Role/Relationship Status Dates Dr. Chrissy Yeboah MD Primary care physician Active Team Status: Inactive Member Role/Relationship Status Dates Dr. Chrissy Yeboah MD Primary care physician Active Start: March 05, 2025 End: March 05, 2025 Dr. Chrissy Yeboah MD Referring Provider Active Start: March 05, 2025 End: March 05, 2025 DAPHNEY Napier Attending physician Active St art: March 05, 2025 End: March 05, 2025 Team Status: Inactive Member Role/Relationship Status Dates Dr. Chrissy Yeboah MD Primary care physician Active Start: March 20, 2025 End: March 20, 2025 Dr. Zak Bull MD Attending physician Active Start: March 20, 2025 End: March 20, 2025 Dr. Zak Bull MD Referring Provider Active Start: March 20, 2025 End: March 20, 2025 Goals (unrecognized section and content) Goals may be documented in a n alternate sectionGoals may be documented in an alternate sectionGoals may be documented in an alternate sectionGoals may be documented in an alternate sectionGoals may be documented in an alternate sectionGoals may be documented in an alternate sectionGoals may be documented in an alternate sectionGoals may be documented in an alternate sectionGoals may be documented in an alternate sectionGoals may be documented in an alternate sectionGoals may be documented in an alternate sectionGoals may be documented in an alternate sectionGoals may be documented in an alternate sectionGoals may be documented in an alternate sectionGoals may be documented in an alternate section INFORMATION SOURCE (unrecogn ized section and content) DATE CREATED AUTHOR [facility]20[facility] DATE CREATED AUTHOR AUTHOR'S ORGANIZ ATION 05/05/2025 [facility] DATE CREATED AUTHOR AUTHOR'S ORGANIZ ATION 05/06/2025 [facility] FOR RECORDS PERTAINING TO PATIENTS WHO ARE [...] BE BASED ON THE PRIMARY CLINICAL RECORDS. [facility] provides no warranty or guarantee of the accuracy or completeness of information in this document.
== END 2025-06-09 07:00 | disposition home or self-care (01) ==
LOC: ED 06:51
PROVIDERS: Emergency Provider Emergency Medicine; PCP Family Medicine; Visit Provider Emergency Medicine
DX: R07.9 Chest pain, unspecified (principal); E11.65 Type 2 diabetes mellitus with hyperglycemia; F17.210 Nicotine dependence, cigarettes, uncomplicated
CPT/HCPCS: 71046; 80048; 84484; 85025; 85379; 93005; 96360; 99284; A4216